=== PATIENT | female | born 1950 | race Caucasian/White ===

== ENCOUNTER → 2018-04-15 06:52 | Outpatient (CLI) | payer MEDICARE, OTHER, SELFPAY ==
[2018-04-15 09:40] LABS: Alanine Aminotransferase 25 IU/L (9-52); Albumin 4.1 g/dL (3.5-5.0); Albumin Globulin Ratio 1.4 (1.0-2.8); Alkaline Phosphatase 71 U/L (38-126); Aspartate Aminotransferase 20 IU/L (14-36); BUN Creatinine Ratio 24.3 (6-22); Bilirubin Total 0.5 mg/dL (0.2-1.3); Blood Urea Nitrogen 17 mg/dL (7-17); Carbon Dioxide 28 mmol/L (22-32); Chloride 103 mmol/L (98-107); Estimated Glomerular Filt Rate > 60.0 mL/min (>60); Globulin 2.9 g/dL (1.7-4.1); Glucose 85 mg/dL (80-110); HEMOLYSIS < 15 (0-50); Potassium 3.9 mmol/L (3.4-5.1); Sodium 140 mmol/L (137-145)
[2018-04-15 10:28] LABS: Vitamin B12 826 pg/mL (239-931)
== END ==
PROVIDERS: PCP Family Medicine
DX: R53.83 Other fatigue (principal); Z13.228 Encounter for screening for other metabolic disorders
CPT/HCPCS: 36415; 80053; 82607

== ENCOUNTER 2018-04-23 17:14 | Emergency (ER) | payer MEDICARE, OTHER, SELFPAY ==
[2018-04-23 17:17] VITALS: BP 165/82; PULSE 74; RESP 17; TEMP 36.9; O2SAT 100; BMI 21.3
--- NOTE | 2018-04-23 18:57 | ED.WOUNDLAC ---
HPI - Wound/Laceration <Jimena Felix PA-C - Last Filed: 04/23/18 22:16> General Chief Complaint: Wound/Laceration Stated Complaint: CUT LEFT THUMB Time Seen by Provider: 04/23/18 18:57 Source: patient Mode of arrival: ambulatory Limitations: no limitations History of Present Illness HPI narrative: This 67-year-old female cut her left thumb on a can lid when she tried to pry it up. She states it was bleeding freely and tender. She denies any weakness or paresthesia in the thumb. She denies any other injury or complaints. Tetanus vaccine is not up-to-date. Related Data Home Medications Medication Instructions Recorded Confirmed fluticasone [Flovent HFA] #0 06/19/16 levalbuterol tartrate [Xopenex HFA] PRN PRN #0 06/19/16 cholecalciferol (vitamin D3) 2,000 unit PO #0 cap 08/10/16 [Vitamin D3] [PROBIOTIC] #0 04/17/17 Previous Rx's Medication Instructions Recorded diazepam [Valium] 5 mg OR TIDP PRN #90 tab 06/23/17 Allergies Allergy/AdvReac Type Severity Reaction Status Date / Time diltiazem Allergy Intermediate chest pain Verified 04/23/18 17:17 estradiol Allergy Intermediate BURNING Verified 04/23/18 17:17 AND ITCHING adhesive Allergy Mild REDNESS & Verified 04/23/18 17:17 BURNING FROM TAPE budesonide Allergy Unknown ITCHY Verified 04/23/18 17:17 pseudoephedrine Allergy Unknown TACHYCARDIA Verified 04/23/18 17:17 Sulfa (Sulfonamide Allergy Unknown Verified 04/23/18 17:17 Antibiotics) azithromycin AdvReac Intermediate GI UPSET Verified 04/23/18 17:17 albuterol [ALBUTEROL] AdvReac Unknown INCREASED Verified 04/23/18 17:17 HEARTRATE butalbital AdvReac Unknown NAUSEA/VOMITING Verified 04/23/18 17:17 WITH FIORINAL carisoprodol AdvReac Unknown DIZZINESS Verified 04/23/18 17:17 AND UPSET STOMACH codeine AdvReac Unknown SEVERE Unverified 01/29/18 12:55 NAUSEA/VOMITING hydrocodone AdvReac Unknown SEVERE Unverified 01/29/18 12:55 NAUSEA/VOMITIND Review of Systems <Jimena Felix PA-C - Last Filed: 04/23/18 22:16> Review of Systems All systems reviewed & are unremarkable except as noted in HPI and below Exam <Jimena Felix PA-C - Last Filed: 04/23/18 22:16> Narrative Exam Narrative: GENERAL APPEARANCE: Patient sitting comfortably, in no distress. LUNGS: Clear to auscultation bilaterally. HEART: Rate and rhythm regular without murmur, normal S1 and S2, no S3 or S4. DERMATOLOGIC: On the left thumb pad distal to the IP joint there is a 4 cm curvilinear laceration no deeper than 3 mm at deepest depth centrally. There is a to to 4 mm gap. NEUROVASCULAR: Left thumb is warm and pink with brisk cap refill, sensation is grossly intact. The superficial fat is visible, no muscle, bone or tendon visible MUSCULOSKELETAL: Full range of motion of the left thumb. Strength is intact in all torres against resistance Initial Vital Signs Initial Vital Signs: Vital Signs Temperature 98.4 F 04/23/18 17:17 Pulse Rate 74 04/23/18 17:17 Respiratory Rate 17 04/23/18 17:17 Blood Pressure 165/82 H 04/23/18 17:17 Pulse Oximetry 100 04/23/18 17:17 <Martín Rey MD - Last Filed: 05/09/18 09:47> Initial Vital Signs Initial Vital Signs: Vital Signs Temperature 98.4 F 04/23/18 17:17 Pulse Rate 74 04/23/18 17:17 Respiratory Rate 17 04/23/18 17:17 Blood Pressure 165/82 H 04/23/18 17:17 Pulse Oximetry 100 04/23/18 17:17 Procedures <TIMOTEO Lee Last Filed: 04/23/18 22:16> Laceration Repair Laceration 1: Site: upper extremity Side (If applicable): left Size (cm): 4 Description: linear and clean Depth: simple, single layer Local Anesthetic: lidocaine 1% Amount of anesthesia used (mL): 4.5 Pre-repair: wound explored, irrigated extensively, deep structures intact and wound margins revised (sq fat trimmed from lateral side) Skin layer closed with: nylon Number of sutures: 7 Technique: simple, interrupted Course <Jimena Felix PA-C - Last Filed: 04/23/18 22:16> Additional Information: Orders Ordered: Discontinued Medications Diphtheria/Tetanus/Acell Pertussis (Adacel) 0.5 ml IM .ONCE ONE Stop: 04/23/18 19:14 Last Admin: 04/23/18 19:22 Dose: 0.5 ml Ibuprofen (Advil) 800 mg PO NOW ONE Stop: 04/23/18 19:14 Last Admin: 04/23/18 19:22 Dose: 800 mg Vital Signs - 8 hr 04/23/18 17:17 04/23/18 20:12 Temperature 98.4 F Pulse Rate 74 75 Respiratory Rate 17 16 Blood Pressure 165/82 H Blood Pressure [Left Arm] 139/74 H Pulse Oximetry 100 100 <Martín Rey MD - Last Filed: 05/09/18 09:47> Orders Ordered: Discontinued Medications Diphtheria/Tetanus/Acell Pertussis (Adacel) 0.5 ml IM .ONCE ONE Stop: 04/23/18 19:14 Last Admin: 04/23/18 19:22 Dose: 0.5 ml Ibuprofen (Advil) 800 mg PO NOW ONE Stop: 04/23/18 19:14 Last Admin: 04/23/18 19:22 Dose: 800 mg Vital Signs - 8 hr 04/23/18 17:17 04/23/18 20:12 Temperature 98.4 F Pulse Rate 74 75 Respiratory Rate 17 16 Blood Pressure 165/82 H Blood Pressure [Left Arm] 139/74 H Pulse Oximetry 100 100 Discharge Plan Departure Patient Disposition: Home, Self-Care Clinical Impression: Laceration of thumb Discharge Date/Time: 04/23/18 20:37 Interventions: ED Discharge Assessment Last Done: 04/23/18 20:37 Instructions: DI for Laceration Repair Activity Restrictions/Additional Instructions: Please keep your sutures clean and dry. Keep the dressing on your thumb to avoid pressure with all of the caregiving that you do. Keep pressure off of the wound so it can heal. Take 800 mg of ibuprofen every 8 hr if needed for pain and you can add Tylenol as needed. Return right away as we talked about or see your PCP if any signs of infection. Your suture should be ready to removed in about 7 days. Please schedule an appointment at your primary care office middle to end of next week (sutures can also be removed here or at the walk-in clinic if you have difficulty getting an appointment). Please take care of yourself too! It was wonderful to see pictures of your horses today Prescriptions: No Action fluticasone [Flovent HFA] 10.6 GM HFA aerosol inhaler Qty: 0 RF: 0 levalbuterol tartrate [Xopenex HFA] 45 MCG/INH HFA aerosol inhaler PRN PRNQty: 0 RF: 0 cholecalciferol (vitamin D3) [Vitamin D3] 2,000 UNIT capsule 2,000 unit PO Qty: 0 RF: 0 [PROBIOTIC] Qty: 0 RF: 0 diazepam [Valium] 5 MG tablet 5 mg OR TIDP PRNQty: 90 RF: 0 Referrals: Iban Hoover MD [Primary Care Provider] - <Martín Rey MD - Last Filed: 05/09/18 09:47> Sign Out Provider Sign Out Attestation: The PA/HOME HEALTH OUTREACH COORDINATOR functioned independently for the care of this pt, I was available, but not asked to participate in care. I am unable to determine appropriateness of management without personally examining the pt.
[2018-04-23] MEDS: IBUPROFEN 400 MG TABLET 800 MG PO (19:22)
[2018-04-23] MEDS: TET,DIPH,PERTUSS(ACELL),VAC/PF 0.5 ML SYRINGE IM (19:22)
[2018-04-23 20:12] VITALS: BP 139/74; PULSE 75; RESP 16; O2SAT 100
== END 2018-04-23 20:37 | disposition home or self-care (01) ==
PROVIDERS: Emergency Provider Internal Medicine; Family Provider Family Medicine; PCP Family Medicine
DX: S61.012A Laceration without foreign body of left thumb without damage to nail, initial encounter (principal); W26.8XXA Contact with other sharp object(s), not elsewhere classified, initial encounter
CPT/HCPCS: 12002; 90471; 99282; 99283; 90715

== ENCOUNTER → 2018-06-11 13:40 | Outpatient (CLI) | payer MEDICARE, OTHER, SELFPAY ==
--- NOTE | 2018-06-11 | DI.US.S_ITS ---
ULTRASOUND OF RIGHT BREAST: 06/11/2018 CLINICAL: 6 month follow-up of cysts. Patient returns today to evaluate a density in the right breast which was seen on a recent CT scan. Comparison is made to [facility] [facility], 05[facility]2018 [facility], 01/06/2018 ultrasound, and [facility] [facility]. Real-time and Doppler ultrasound of the right breast were performed. Pablo scale images of the real-time examination were reviewed. There is a stable 1.6 x 1.4 x 0.8 cm (previously 1.5 x 1.5 x 0.8 cm on 01/06/2018) oval cyst in the right breast at 8-9 o'clock middle depth 6 cm from the nipple. This oval cyst is demonstrates mixed internal echogenicity. Color flow imaging demonstrates that there is no vascularity present. This correlates with the asymmetry seen on diagnostic mammography. IMPRESSION: PROBABLY BENIGN - FOLLOW-UP RECOMMENDED Stable 1.6 cm complicated cyst in the right breast at 8-9 o'clock 6 cm from the nipple. A follow-up ultrasound in 6 months is recommended to demonstrate stability. The patient is advised to monitor her breasts and to return for re-evaluation should anything grow or change. This exam was interpreted at Station ID: [id number]. Electronically Signed By: Art Jimenez M.D. ecl/:06/11/2018 18:30:11 copy to: Iban Hoover letter sent: Followup Recommended Ultrasound BI-RADS: 3 Probably benign
--- NOTE | 2018-06-11 | DI.MG.S_ITS ---
BILATERAL DIGITAL DIAGNOSTIC MAMMOGRAM 3D/2D SHORT-TERM FOLLOW-UP: 06/11/2018 CLINICAL: Patient returns for 6 month follow up of right breast, due for bilateral exam. New finding on Ct report 05/05/18. Comparison is made to exams dated: 01/06/2018 mammogram and ultrasound, 07/08/2017 mammogram, 06/26/2017 mammogram - [facility], and 05/05/2018 [facility]. The tissue of both breasts is heterogeneously dense. This may lower the sensitivity of mammography. There is a stable asymmetry in the right breast posterior depth central to the nipple seen on the mediolateral oblique view only; this correlates with the previously identified 1.5 cm complicated cyst seen on comparison ultrasound of 01/06/2018. No other significant masses, calcifications, or other findings are seen in either breast. IMPRESSION: INCOMPLETE: NEEDS ADDITIONAL IMAGING EVALUATION Stable asymmetry in the right breast. Targeted ultrasound recommended for further evaluation. This exam was interpreted at Station ID: [id number]. NOTE: For mammograms, a report in lay terms will be sent to the patient. Approximately 15% of breast malignancies will not be visualized mammographically. In the management of a palpable breast mass, a negative mammogram must not discourage biopsy of a clinically suspicious lesion. Electronically Signed By: Art Jimenez M.D. ecl/:06/11/2018 18:25:27 copy to: Iban Hoover letter sent: Additional Imaging Needed ACR BI-RADS Category 0: Incomplete [id number]
== END ==
PROVIDERS: PCP Family Medicine
DX: R92.2 Inconclusive mammogram (principal); N60.01 Solitary cyst of right breast
CPT/HCPCS: 76642; 77066; G0279

== ENCOUNTER → 2018-07-22 14:35 | Outpatient (CLI) | payer MEDICARE, OTHER, SELFPAY | PROVIDERS: PCP Family Medicine | DX: M85.851 Other specified disorders of bone density and structure, right thigh (principal); Z78.0 Asymptomatic menopausal state; N95.0 Postmenopausal bleeding; Z82.62 Family history of osteoporosis; Z79.51 Long term (current) use of inhaled steroids | CPT/HCPCS: 77080 ==

== ENCOUNTER → 2018-10-26 10:05 | Outpatient (CLI) | payer MEDICARE, OTHER, SELFPAY | PROVIDERS: PCP Family Medicine; Visit Provider Physician Assistant | DX: R30.0 Dysuria (principal) | CPT/HCPCS: 87077; 87086; 87186 ==

== ENCOUNTER → 2018-11-03 12:20 | Outpatient (CLI) | payer MEDICARE, OTHER, SELFPAY | PROVIDERS: PCP Family Medicine; Visit Provider Physician Assistant | DX: N39.0 Urinary tract infection, site not specified (principal) | CPT/HCPCS: 87077; 87086; 87186 ==

== ENCOUNTER → 2018-11-05 07:25 | Outpatient (CLI) | payer MEDICARE, OTHER, SELFPAY ==
[2018-11-05 09:45] LABS: BUN Creatinine Ratio 22.5 (6-22); Blood Urea Nitrogen 18 mg/dL (7-17); Calcium 9.3 mg/dL (8.4-10.2); Carbon Dioxide 27 mmol/L (22-32); Chloride 104 mmol/L (98-107); Cholesterol 188 mg/dL (140-199); Estimated Glomerular Filt Rate > 60.0 mL/min (>60); Glucose 80 mg/dL (80-110); HDL Cholesterol 48 mg/dL (40-60); HEMOLYSIS < 15 (0-50); LDL Cholesterol Calculated 116 mg/dL (<100); Potassium 4.4 mmol/L (3.4-5.1); Sodium 141 mmol/L (137-145); Triglycerides 122 mg/dL (35-150)
== END ==
PROVIDERS: Family Provider Family Medicine; PCP Family Medicine; Visit Provider Nurse Practitioner
DX: I25.10 Atherosclerotic heart disease of native coronary artery without angina pectoris (principal); R00.2 Palpitations
CPT/HCPCS: 36415; 80048; 80061

== ENCOUNTER → 2018-11-25 15:14 | Outpatient (CLI) | payer MEDICARE, OTHER, SELFPAY | PROVIDERS: Family Provider Family Medicine; PCP Family Medicine; Visit Provider Physician Assistant | DX: N39.0 Urinary tract infection, site not specified (principal) | CPT/HCPCS: 87077; 87086; 87186 ==

== ENCOUNTER → 2018-12-22 08:27 | Outpatient (CLI) | payer MEDICARE, OTHER, SELFPAY ==
--- NOTE | 2018-12-22 | DI.US.S_ITS ---
LIMITED ULTRASOUND OF RIGHT BREAST: 12/22/2018 CLINICAL: 6 month follow-up of a complicated cystic structure in the [facility] breast. Comparison is made to exams dated: 12/22/2018 mammogram, 06/11/2018 ultrasound, 06/11/2018 mammogram, 01/06/2018 ultrasound, 01/06/2018 mammogram, and 07/08/2017 ultrasound - [facility]. Color flow and real-time ultrasound of the right breast 8-9 o'clock region were performed on the areas of interest. There is 1.3 cm x 0.8 cm x 1.4 cm oval complicated cyst in the right breast at 8 o'clock middle depth. This oval complicated cyst is anechoic and hypoechoic with internal echoes and posterior acoustic enhancement. This abnormality is not significantly changed and correlates with mammography findings. Color flow imaging demonstrates that there is no vascularity present. IMPRESSION: PROBABLY BENIGN The 1.3 cm x 0.8 cm x 1.4 cm oval complicated cyst in the right breast is consistent with a complicated cyst and is probably benign. A follow-up ultrasound in 6 months is recommended. A follow-up ultrasound in 6 months is recommended to demonstrate 2 year stability. Patient is also due for screening mammogram at that time in 6 months. This exam was interpreted at Station ID: [id number]. Electronically Signed By: Iggy toney/:12/24/2018 11:24:27 copy to: Iban Hoover letter sent: Followup Recommended Ultrasound BI-RADS: 3 Probably benign
--- NOTE | 2018-12-22 | DI.MG.S_ITS ---
UNILATERAL RIGHT DIGITAL DIAGNOSTIC MAMMOGRAM 3D/2D SHORT-TERM FOLLOW-UP: 12/22/2018 CLINICAL: Patient returns for a 6 month follow up of the right breast. Comparison is made to exams dated: 06/11/2018 ultrasound, 06/11/2018 mammogram, 01/06/2018 ultrasound, and 01/06/2018 mammogram - [facility]. The tissue of right breast is heterogeneously dense. This may lower the sensitivity of mammography. There is an oval equal density mass with an obscured and circumscribed margin in the right breast at 8 o'clock posterior depth. This is not significantly changed. No other significant masses or calcifications are seen in the breast. IMPRESSION: INCOMPLETE: NEEDS ADDITIONAL IMAGING EVALUATION The oval equal density mass in the right breast is indeterminate. An ultrasound is recommended. This exam was interpreted at Station ID: [id number]. NOTE: For mammograms, a report in lay terms will be sent to the patient. Approximately 15% of breast malignancies will not be visualized mammographically. In the management of a palpable breast mass, a negative mammogram must not discourage biopsy of a clinically suspicious lesion. Electronically Signed By: Iggy toney/ciaran:12/22/2018 09:08:45 copy to: Iban Hoover letter sent: Additional Imaging Needed ACR BI-RADS Category 0: Incomplete [id number]
== END ==
PROVIDERS: PCP Family Medicine
DX: R92.8 Other abnormal and inconclusive findings on diagnostic imaging of breast (principal); N60.01 Solitary cyst of right breast
CPT/HCPCS: 76642; 77065; G0279

== ENCOUNTER 2018-12-31 16:56 | Emergency (ER) | payer MEDICARE, OTHER, SELFPAY ==
[2018-12-31 17:18] VITALS: BP 143/83; PULSE 86; RESP 18; TEMP 36.8; O2SAT 98
--- NOTE | 2018-12-31 21:40 | DI.CT.S_ITS ---
PROCEDURE: CT HEAD/BRAIN WO CON INDICATIONS: visual disturbance, headache TECHNIQUE: Noncontrast 4.5 mm thick angled axial sections acquired from the foramen magnum to the vertex, with coronal and sagittal reformats. For radiation dose reduction, the following was used: automated exposure control, adjustment of mA and/or kV according to patient size. COMPARISON: None. FINDINGS: Image quality: Excellent. CSF spaces: Basal cisterns are patent. No extra-axial fluid collections. The ventricles are symmetric in size and shape. Brain: No intracranial bleeds or masses. There is mild cerebral volume loss for age, with resultant ventricular and sulcal prominence. There are minimal periventricular and deep white matter chronic small vessel ischemic changes. Skull and face: Calvarium and visualized facial bones appear intact, without suspicious lesions. Sinuses: Visualized sinuses and mastoids are clear. IMPRESSION: No acute intracranial disease process. Dictated by: Desiree Lemos MD, PhD on 01/01/2019 at 8:23 Approved by: Desiree Lemos MD, PhD on 01/01/2019 at 8:25
[2018-12-31] MEDS: KETOROLAC 60 MG/2 ML VIAL 15 MG IV (21:50)
[2018-12-31] MEDS: SODIUM CHLORIDE 0.9% 1,000 ML 150 ML IV (21:50)
[2018-12-31 21:54] VITALS: BP 149/79; PULSE 65; RESP 15; O2SAT 97
[2018-12-31 22:03] LABS: Add Manual Diff / Slide Review NO; Basophils Absolute Auto 100 /uL (0-100); Basophils Percent Auto 1.1 % (0-2); Eosinophils Absolute Auto 200 /uL (0-450); Eosinophils Percent Auto 2.8 % (2-4); Hematocrit 40.8 % (36-46); Hemoglobin 13.5 g/dL (12.0-16.0); Lymphocytes Absolute Auto 1700 /uL (1100-4500); Lymphocytes Percent Auto 27.3 % (25-40); Mean Corpuscular Volume 87.8 fL (80-100); Monocytes Absolute Auto 600 /uL (0-900); Monocytes Percent Auto 9.4 % (3-14); Neutrophils Absolute Auto 3600 /uL (1500-7000); Neutrophils Percent Auto 59.4 % (50-75); Platelet Count 190 X10^3/uL (150-400); Red Blood Cell Count 4.65 X10^6/uL (4.0-5.2); Red Cell Distribution Width 13.7 % (11.6-14.8); White Blood Cell Count 6.1 X10^3/uL (4.5-11.0)
--- NOTE | 2018-12-31 22:04 | ED_ITS ---
HPI - Headache General Chief Complaint: Headache Stated Complaint: MULTIPLE OCCULAR HEADACHES TODAY Time Seen by Provider: 12/31/18 19:28 Source: patient Mode of arrival: ambulatory Limitations: no limitations History of Present Illness HPI Narrative: 68-year-old female nonsmoker with history of ocular migraines pre sents with 8 episodes of flashing visual disturbance in her right eye today. Each of these have lasted approximately 20 min. They are very similar to prior ocular migraines except usually they are in her left. She denies any new medicines injuries nor fever or chills. She is currently asymptomatic. She consulted with her primary care provider who told her to come in for evaluation. She denies any other neurologic symptoms such as trouble with speech or numbness, tingling or weakness extremities MD Complaint: migraine Onset (ago): hour(s) Onset description: sudden Location: right Severity: mild Quality: similar to previous headaches Relieving factors: nothing Exacerbating factors: none Associated symptoms: photophobia and vision loss Related Data Home Medications Medication Instructions Recorded Confirmed fluticasone [Flovent HFA] #0 06/19/16 11/25/18 levalbuterol tartrate [Xopenex HFA] PRN PRN #0 06/19/16 11/25/18 cholecalciferol (vitamin D3) 2,000 unit PO #0 cap 08/10/16 11/25/18 [Vitamin D3] [PROBIOTIC] #0 04/17/17 11/25/18 Previous Rx's Medication Instructions Recorded diazepam [Valium] 5 mg OR TIDP PRN #90 tab 06/23/17 Allergies Allergy/AdvReac Type Severity Reaction Status Date / Time diltiazem Allergy Intermediate chest pain Verified 12/31/18 17:24 estradiol Allergy Intermediate BURNING Verified 12/31/18 17:24 AND ITCHING adhesive Allergy Mild REDNESS & Verified 12/31/18 17:24 BURNING FROM TAPE budesonide Allergy Unknown ITCHY Verified 12/31/18 17:24 pseudoephedrine Allergy Unknown TACHYCARDIA Verified 12/31/18 17:24 Sulfa (Sulfonamide Allergy Unknown Verified 12/31/18 17:24 Antibiotics) azithromycin AdvReac Intermediate GI UPSET Verified 12/31/18 17:24 albuterol [ALBUTEROL] AdvReac Unknown INCREASED Verified 12/31/18 17:24 HEARTRATE butalbital AdvReac Unknown NAUSEA/VOMITING Verified 12/31/18 17:24 WITH FIORINAL carisoprodol AdvReac Unknown DIZZINESS Verified 12/31/18 17:24 AND UPSET STOMACH codeine AdvReac Unknown SEVERE Verified 11/25/18 15:09 NAUSEA/VOMITING hydrocodone AdvReac Unknown SEVERE Verified 11/25/18 15:09 NAUSEA/VOMITIND Review of Systems Constitutional Denies chills, Denies fever(s), Denies lethargy and Denies weakness Eyes Reports blurry vision, Reports change in vision, Denies eye discharge, Denies ir ritation and Denies loss of vision ENT Ears, Nose, Mouth, and Throat: Denies change in voice, Denies neck pain and Denies sore throat Cardiovascular Denies chest pain, Denies irregular heart rhythm, Denies lightheadedness, Denies palpitations, Denies dyspnea, Denies dyspnea on exertion and Denies orthopnea Respiratory Denies cough, Denies dyspnea, Denies dyspnea on exertion and Denies wheezing Gastrointestinal Gastrointestinal: Denies abdominal pain, Denies change in bowel habits, Denies diarrhea, Denies nausea and Denies vomiting Genitourinary Denies hematuria, Denies flank pain, Denies urinary incontinence and Denies urinary urgency Musculoskeletal Denies neck pain Integumentary/Breasts Denies pruritus, Denies erythema, Denies rash and Denies wounds Neurologic Denies confusion, Denies loss of vision and Denies weakness Psychiatric Denies anxiety, Denies confusion, Denies depression, Denies homicidal ideation and Denies suicidal ideation Endocrine Denies palpitations Hematologic/Lymphatic Denies easy bruising Allergic/Immunologic Denies wheezing [facility] Medical History Anxiety (Chronic) Non-tuberculous bronchiectasis (Chronic) Chronic cough (Chronic) Raynaud's disease (Chronic) Recurrent UTI (Chronic) Osteoarthritis (Chronic) Migraines (Chronic) Breast nodule (Chronic) Anxiety (Chronic 08/12/15) Menopause present (Chronic 08/12/15) Chronic fatigue (Chronic 09/28/16) Dizziness (Chronic 09/28/16) History of fracture of right ankle (Resolved 1981) Positive PPD, treated (Resolved ~1982) Surgical History Hx of appendectomy (Resolved) Hx of surgical procedure (Resolved 2006) Family History Father No problems noted. Mother No problems noted. Social History Smoking Status: Never smoker alcohol intake: current Family History Father No problems noted. Mother No problems noted. Social History Smoking Status: Never smoker alcohol intake: current Exam Narrative Exam Narrative: GENERAL: This is a well-nourished, well-developed patient, in mild distress. HEAD: Atraumatic. Normocephalic. No temporal or scalp tenderness. EYES: Pupils equal round and reactive. Extraocular motions intact. No scleral icterus. No injection or drainage. ENT: Nose without bleeding, purulent drainage or septal hematoma. Throat without erythema, tonsillar hypertrophy or exudate. Uvula midline. Airway patent. NECK: Trachea midline. No JVD or lymphadenopathy. Supple, nontender, no meningeal signs. CARDIOVASCULAR: Regular rate and rhythm without murmurs, gallops, or rubs. RESPIRATORY: Clear to auscultation. Breath sounds equal bilaterally. No wheezes, rales, or rhonchi. GASTROINTESTINAL: Abdomen soft, non-tender, nondistended. No hepato- splenomegaly, or palpable masses. No guarding. EXTREMITIES: No clubbing, cyanosis, or edema. No joint tenderness, effusion, or edema noted. BACK: Nontender without deformity or crepitance. No flank tenderness. NEURO: AOx3. SKIN: No rash or erythema. NIH Stroke Scale 1a. LOC: Patient is alert and keenly responsive (0) 1b. LOC Questions: Patient answers both LOC questions accurately (0) 1c. LOC Commands: Patient performs both tasks correctly (0) 2. Best Gaze: Normal (0) 3. Visual: No visual loss (0) 4. Facial palsy: Normal symmetrical movements (0) 5. Motor arm: No drift (0) 6. Motor leg: No drift (0) 7. Limb ataxia: Absent (0) 8. Sensory: Normal (0) 9. Best language: No aphasia; normal (0) 10. Dysarthria: Normal (0) 11. Extinction and inattention: No abnormality (0) NIHSS: 0 Initial Vital Signs Initial Vital Signs: Vital Signs Temperature 98.2 F 12/31/18 17:18 Pulse Rate 86 12/31/18 17:18 Respiratory Rate 18 12/31/18 17:18 Blood Pressure 143/83 H 12/31/18 17:18 Pulse Oximetry 98 12/31/18 17:18 Course Orders Ordered: Discontinued Medications Sodium Chloride (Normal Saline 0.9%) 1,000 mls @ 150 mls/hr IV CONT LELE Last Infusion: 12/31/18 22:49 Dose: 150 mls/hr Admin: 12/31/18 21:50 Dose: 150 mls/hr Ketorolac Tromethamine (Toradol) 15 mg IV NOW ONE Stop: 12/31/18 21:42 Last Admin: 12/31/18 21:50 Dose: 15 mg Consultations Consultation #1: I have discussed this patient's case with her retinal specialist in [place] and he suggests that the description of her symptoms is most consistent with an ocular migraine. He suggests if the patient has ongoing symptoms to be happy see her clinic Vital Signs - 8 hr 12/31/18 23:30 01/01/19 01:00 01/01/19 01:30 Pulse Rate 68 85 80 Respiratory Rate 14 18 15 Blood Pressure Blood Pressure [Left Arm] 161/75 H 134/71 134/71 Pulse Oximetry 99 98 100 01/01/19 03:00 Pulse Rate 69 Respiratory Rate 14 Blood Pressure 139/79 Blood Pressure [Left Arm] Pulse Oximetry 98 MDM - Headache Lab Data Result diagrams: 12/31/18 21:58 12/31/18 21:58 Lab Results 12/31/18 12/31/18 12/31/18 Range/Units 21:58 21:58 21:58 WBC 6.1 (4.5-11.0) X10^3/uL RBC 4.65 (4.0-5.2) X10^6/uL Hgb 13.5 (12.0-16.0) g/dL Hct 40.8 (36-46) % MCV 87.8 (80-100) fL MCH 29.0 (26-34) PG MCHC 33.0 (30-36) % RDW 13.7 (11.6-14.8) % Plt Count 190 (150-400) X10^3/uL Neut % (Auto) 59.4 (50-75) % Lymph % (Auto) 27.3 (25-40) % [place] % (Auto) 9.4 (3-14) % Eos % (Auto) 2.8 (2-4) % Baso % (Auto) 1.1 (0-2) % Neut # (Auto) 3600 (7601-1761) /uL Lymph # (Auto) 1700 (6935-5485) /uL [place] # (Auto) 600 (0-900) /uL Eos # (Auto) 200 (0-450) /uL Baso # (Auto) 100 (0-100) /uL PT 11.3 (10.1-12.7) SECONDS INR 1.0 (0.9-1.3) APTT 31 (26.4-36.2) SECONDS Sodium 141 (137-145) mmol/L Potassium 4.1 (3.4-5.1) mmol/L Chloride 106 (98-107) mmol/L Carbon Dioxide 28 (22-32) mmol/L BUN 16 (7-17) mg/dL Creatinine 0.70 (0.52-1.04) mg/dL Estimated GFR > 60.0 (>60) mL/min BUN/Creatinine Ratio 22.9 H (6-22) Glucose 92 (80-110) mg/dL Calcium 9.3 (8.4-10.2) mg/dL Point of Care Testing Glucose POC 84 Urine Dip Bedside Urine Glucose Negative Bedside Urine Bilirubin - Negative Bedside Urine Ketone - Negative Urine Specific [place] 1.015 Bedside Urine Occult Blood - Negative Bedside Urine pH 6.5 Bedside Urine Protein - Negative Bedside Urine Urobilinogen - Negative Bedside Urine Nitrite - Negative Bedside Urine Leukocytes - Negative Esterase Discharge Plan Departure Patient Disposition: Home Clinical Impression: Visual disturbance Migraines Qualifiers: Migraine type: with aura Status migrainosus presence: without status migrainosus Intractability: not intractable Qualified Code(s): G43.109 - Migraine with aura, not intractable, without status migrainosus Discharge Date/Time: 01/01/19 03:00 Interventions: ED Discharge Assessment Last Done: 01/01/19 03:00 Instructions: DI for Migraine Activity Restrictions/Additional Instructions: *You have been diagnosed with [vision change, likely from ocular migraine ] *What to do: *Take medications as directed *Follow up with your primary care provider in 2-3 days, call for an appointment. Let them know you were seen in the Emergency Department and that we ask that you be seen in follow up *Return to ER if you should have any new, worsening or concerning symptoms Prescriptions: No Action fluticasone [Flovent HFA] 10.6 GM HFA aerosol inhaler Qty: 0 RF: 0 levalbuterol tartrate [Xopenex HFA] 45 MCG/INH HFA aerosol inhaler PRN PRNQty: 0 RF: 0 cholecalciferol (vitamin D3) [Vitamin D3] 2,000 UNIT capsule 2,000 unit PO Qty: 0 RF: 0 [PROBIOTIC] Qty: 0 RF: 0 diazepam [Valium] 5 MG tablet 5 mg OR TIDP PRNQty: 90 RF: 0 Referrals: Iban Hoover MD [Primary Care Provider] -
[2018-12-31 22:09] LABS: Prothrombin Time 11.3 SECONDS (10.1-12.7)
[2018-12-31 22:11] LABS: PTT Partial Thromboplastin Tim 31 SECONDS (26.4-36.2)
[2018-12-31 22:13] LABS: BUN Creatinine Ratio 22.9 (6-22); Blood Urea Nitrogen 16 mg/dL (7-17); Calcium 9.3 mg/dL (8.4-10.2); Carbon Dioxide 28 mmol/L (22-32); Chloride 106 mmol/L (98-107); Estimated Glomerular Filt Rate > 60.0 mL/min (>60); Glucose 92 mg/dL (80-110); HEMOLYSIS < 15 (0-50); Potassium 4.1 mmol/L (3.4-5.1); Sodium 141 mmol/L (137-145)
--- NOTE | 2018-12-31 23:00 | PC.NURSE ---
Pt states PARK with 8 episodes of flashing to her right eye lasting approximately 20 min today. Similar to prior ocular PARK that usually occurs to Left eye. She denies any other neurological symptoms such as trouble with speech or numbness, tingling or weakness extremities. Pt states called PCP and was told to come into ER.
[2018-12-31 23:30] VITALS: BP 161/75; PULSE 68; RESP 14; O2SAT 99
[2019-01-01 01:00] VITALS: BP 134/71; PULSE 85; RESP 18; O2SAT 98
[2019-01-01 01:30] VITALS: BP 134/71; PULSE 80; RESP 15; O2SAT 100
[2019-01-01 03:00] VITALS: BP 139/79; PULSE 69; RESP 14; O2SAT 98
== END 2019-01-01 03:00 | disposition home or self-care (01) ==
PROVIDERS: Emergency Provider Emergency Medicine; Family Provider Family Medicine; PCP Family Medicine
DX: G43.109 Migraine with aura, not intractable, without status migrainosus (principal); H53.9 Unspecified visual disturbance
CPT/HCPCS: 36591; 70450; 80048; 81003; 82962; 85025; 85610; 85730; 93005; 96361; 96374; 99284; 99285; J1885

== ENCOUNTER → 2019-06-29 09:03 | Outpatient (CLI) | payer MEDICARE, OTHER, SELFPAY ==
--- NOTE | 2019-06-29 | DI.MG.S_ITS ---
BILATERAL DIGITAL DIAGNOSTIC MAMMOGRAM 3D/2D: 06/29/2019 CLINICAL: Patient returns for 6 month follow up of right breast, due for bilateral exam. Comparison is made to exams dated: 12/22/2018 mammogram, 06/11/2018 mammogram, 07/08/2017 mammogram, and 06/26/2017 mammogram - [facility]. The tissue of both breasts is heterogeneously dense. This may lower the sensitivity of mammography. Redemonstration of an oval equal density mass with an obscured and circumscribed margin in the right breast at 8 o'clock middle depth which appears less prominent. No other significant masses, calcifications, or other findings are seen in either breast. IMPRESSION: INCOMPLETE: NEEDS ADDITIONAL IMAGING EVALUATION The oval equal density mass in the right breast is indeterminate. Further evaluation by sonogram is recommended which is scheduled to immediately follow this examination. This exam was interpreted at Station ID: [id number]. NOTE: For mammograms, a report in lay terms will be sent to the patient. Approximately 15% of breast malignancies will not be visualized mammographically. In the management of a palpable breast mass, a negative mammogram must not discourage biopsy of a clinically suspicious lesion. Electronically Signed By: Andre Kelly M.D. aty/:06/29/2019 10:02:23 ACR BI-RADS Category 0: Incomplete [id number]
--- NOTE | 2019-06-29 | DI.US.S_ITS ---
ULTRASOUND OF RIGHT BREAST: 06/29/2019 CLINICAL: 6 month follow-up of cyst right breast. Comparison is made to exams dated: 06/29/2019 mammogram, 12/22/2018 ultrasound, 12/22/2018 mammogram, 06/11/2018 ultrasound, 06/11/2018 mammogram, ultrasound 07/08/2017, and 01/06/2018 [facility]. Color flow and real-time ultrasound of the right breast were performed. Pablo scale images of the real-time examination were reviewed. There is a stable 1.5 cm x 0.7 cm x 1.2 cm oval complicated cyst in the right breast at 8 o'clock middle depth 6 cm from the nipple. This oval complicated cyst is anechoic and hypoechoic with internal echoes and posterior acoustic enhancement. This abnormality is not significantly changed and correlates with mammography findings. Color flow imaging demonstrates that there is no vascularity present. IMPRESSION: BENIGN There is no sonographic evidence of malignancy. The 1.5 cm x 0.7 cm x 1.2 cm oval hypoechoic mass in the right breast at the 8 o'clock axis, 6 cm from the nipple has remained stable for 2 years is consistent with a benign complicated cyst. Return to annual mammogram screening schedule is recommended. This exam was interpreted at Station ID: [id number]. Electronically Signed By: Andre Kelly M.D. at/:06/29/2019 13:43:46 letter sent: Normal Exam Ultrasound BI-RADS: 2 Benign
[2019-06-29 11:12] LABS: Alanine Aminotransferase 17 IU/L (9-52); Albumin 4.4 g/dL (3.5-5.0); Albumin Globulin Ratio 1.5 (1.0-2.8); Alkaline Phosphatase 62 U/L (38-126); Aspartate Aminotransferase 25 IU/L (14-36); BUN Creatinine Ratio 27.1 (6-22); Bilirubin Total 0.4 mg/dL (0.2-1.3); Blood Urea Nitrogen 19 mg/dL (7-17); Calcium 9.7 mg/dL (8.4-10.2); Carbon Dioxide 30 mmol/L (22-32); Chloride 103 mmol/L (98-107); Estimated Glomerular Filt Rate > 60.0 mL/min (>60); Globulin 2.9 g/dL (1.7-4.1); Glucose 89 mg/dL (80-110); HEMOLYSIS < 15 (0-50); Potassium 4.1 mmol/L (3.4-5.1); Sodium 141 mmol/L (137-145); Total Protein 7.3 g/dL (6.3-8.2)
== END ==
PROVIDERS: Family Provider Family Medicine; PCP Family Medicine
DX: R92.8 Other abnormal and inconclusive findings on diagnostic imaging of breast (principal); N63.13 Unspecified lump in the right breast, lower outer quadrant; Z13.228 Encounter for screening for other metabolic disorders
CPT/HCPCS: 36415; 76642; 77066; 80053; G0279

== ENCOUNTER → 2019-07-08 17:38 | Outpatient (CLI) | payer MEDICARE, OTHER, SELFPAY | PROVIDERS: Family Provider Family Medicine; PCP Family Medicine; Visit Provider Physician Assistant | DX: R30.0 Dysuria (principal); R31.9 Hematuria, unspecified; R82.998 Other abnormal findings in urine | CPT/HCPCS: 87077; 87086; 87186 ==

== ENCOUNTER 2019-08-07 16:39 | Emergency (ER) | payer MEDICARE, OTHER, SELFPAY ==
[2019-08-07] VITALS (8 sets, daily range): BP systolic 130–191; BP diastolic 65–86; PULSE 71–87; RESP 10–18; TEMP 36.5; O2SAT 97–100; BMI 21.3
--- NOTE | 2019-08-07 17:20 | DI.RAD.S_ITS ---
PROCEDURE: XR CHEST 1V INDICATIONS: chest pain TECHNIQUE: One view of the chest was acquired. COMPARISON: None. FINDINGS: Surgical changes and devices: None. Lungs and pleura: Lungs are clear. No pleural effusions or pneumothorax. Mediastinum: Mediastinal contours appear normal. Heart size is normal. Bones and chest wall: No suspicious bony lesions. Overlying soft tissues appear unremarkable. IMPRESSION: No acute cardiopulmonary findings. Dictated by: Maria Antonia Arias M.D. on 08/07/2019 at 18:26 Approved by: Maria Antonia Arias M.D. on 08/07/2019 at 18:26
--- NOTE | 2019-08-07 17:31 | ED_ITS ---
HPI - Chest Pain <Arti Rolandsingh, DO - Last Filed: 08/08/19 07:16> General Chief Complaint: Chest Pain Stated Complaint: Chest is feeling funny Time Seen by Provider: 08/07/19 16:59 Source: patient Mode of arrival: Ambulatory Limitations: no limitations History of Present Illness HPI narrative: Patient is a 69-year-old female who presents with chest discomfort. He says she woke up this morning with some heaviness on her chest that lasted for about 5 minutes she thought it was acid reflux she took 4 baby aspirin this morning at home. Rest today she was doing well able to sew and watch TV no difficulty. This evening she got up and was walking to see the horses when she again felt the pressure felt short of breath with exertion, she had to go inside where her symptoms resolved. She now in the emergency department for further evaluation she no longer has any discomfort. MD complaint: chest pain Duration: now resolved Onset: during exertion Pain location: substernal Related Data Home Medications Medication Instructions Recorded Confirmed Flovent HFA 1 inh INHALATION DIRECTED #0 06/19/16 08/07/19 levalbuterol tartrate [Xopenex HFA] 1 puff INHALATION PRN PRN #0 06/19/16 08/07/19 cholecalciferol (vitamin D3) 2,000 unit PO DAILY #0 cap 08/10/16 08/07/19 [Vitamin D3] Probiotic 1 cap PO DAILY #0 04/17/17 08/07/19 aspirin 81 mg tablet,delayed 81 mg PO DAILY 02/09/19 08/07/19 release diazepam [Valium] 5 mg OR TIDP PRN 08/07/19 08/07/19 [id number] 1 tab PO DAILY 08/07/19 08/07/19 [Centrum Silver] Allergies Allergy/AdvReac Type Severity Reaction Status Date / Time diltiazem Allergy Intermediate chest pain Verified 08/07/19 16:46 estradiol Allergy Intermediate BURNING Verified 08/07/19 16:46 AND ITCHING adhesive Allergy Mild REDNESS & Verified 08/07/19 16:46 BURNING FROM TAPE budesonide Allergy Unknown ITCHY Verified 08/07/19 16:46 pseudoephedrine Allergy Unknown TACHYCARDIA Verified 08/07/19 16:46 Sulfa (Sulfonamide Allergy Unknown Verified 08/07/19 16:46 Antibiotics) azithromycin AdvReac Intermediate GI UPSET Verified 08/07/19 16:46 albuterol [ALBUTEROL] AdvReac Unknown INCREASED Verified 08/07/19 16:46 HEARTRATE butalbital AdvReac Unknown NAUSEA/VOMITING Verified 08/07/19 16:46 WITH FIORINAL carisoprodol AdvReac Unknown DIZZINESS Verified 08/07/19 16:46 AND UPSET STOMACH codeine AdvReac Unknown SEVERE Verified 08/07/19 16:46 NAUSEA/VOMITING hydrocodone AdvReac Unknown SEVERE Verified 08/07/19 16:46 NAUSEA/VOMITIND Review of Systems <Arti Bryson DO - Last Filed: 08/08/19 07:16> Review of Systems Narrative: GENERAL: Denies chills, fatigue, malaise, fever, sweats, travel HEENT: Denies sinus pain, ear pain, sore throat, difficulty swallowing, neck pain RESPIRATORY: Denies dyspnea, cough, wheezing, hemoptysis, sputum. CARDIOVASCULAR: See HPI GASTROINTESTINAL: Denies nausea, vomiting, abdominal pain, diarrhea, constipation, melena. : Denies dysuria, frequency, incontinence, hematuria, urinary retention, flank pain. MUSCULOSKELETAL: Denies weakness, joint pain, or bony pain SKIN: No rash, no erythema, no pruritus NEUROLOGIC: Denies weakness, dizziness, headache, numbness, change in speech, c onfusion PSYCHIATRIC: No concerning psychosocial issues. 12 point review of systems is negative except for those stated above and HPI Patient History <Arti Bryson DO - Last Filed: 08/08/19 07:16> Medical History Anxiety (Chronic 08/12/15) Anxiety (Chronic) Breast nodule (Chronic) Chronic cough (Chronic) Chronic fatigue (Chronic 09/28/16) Dizziness (Chronic 09/28/16) History of fracture of right ankle (Resolved 1981) Menopause present (Chronic 08/12/15) Migraines (Chronic) Non-tuberculous bronchiectasis (Chronic) Osteoarthritis (Chronic) Positive PPD, treated (Resolved ~1982) Raynaud's disease (Chronic) Recurrent UTI (Chronic) Surgical History Hx of appendectomy (Resolved) Hx of surgical procedure (Resolved 2006) Family History Father No problems noted. Mother No problems noted. Social History Smoking Status: Never smoker alcohol intake: current Family History Father No problems noted. Mother No problems noted. Social History Smoking Status: Never smoker alcohol intake: current alcohol intake frequency: 0-2 drinks per day Substance Use Type: does not use Exam <DO Los Fernandes Last Filed: 08/08/19 07:16> Initial Vital Signs Initial Vital Signs: Vital Signs Temperature 97.7 F 08/07/19 16:47 Pulse Rate 87 08/07/19 16:47 Respiratory Rate 13 08/07/19 16:47 Blood Pressure 191/82 H 08/07/19 16:47 Pulse Oximetry 100 08/07/19 16:47 GENERAL: Well-appearing, well-nourished and in no acute distress. HEENT: Head atraumatic,EOMI, pupils reactive, face symmetric, moist mucous membranes CARDIOVASCULAR: Regular rate and rhythm without murmurs, rubs or gallops. RESPIRATORY: Breath sounds equal bilaterally, no wheezes rales or rhonchi. ABDOMEN: Soft, nontender. Normoactive bowel sounds all 4 quadrants. No guarding or rebound. EXTREMITIES: Normal range of motion, no clubbing or edema. Neurovascularly intact NEUROLOGICAL: Alert and oriented x4.Normal gait and speech. Cranial nerves II through XII grossly intact. SKIN: Warm, dry, no laceration, no petechiae, no rashes or lesions. <Bright Yo DO - Last Filed: 08/08/19 03:45> Initial Vital Signs Initial Vital Signs: Vital Signs Temperature 97.7 F 08/07/19 16:47 Pulse Rate 87 08/07/19 16:47 Respiratory Rate 13 08/07/19 16:47 Blood Pressure 191/82 H 08/07/19 16:47 Pulse Oximetry 100 08/07/19 16:47 Scores <Arti Bryson DO - Last Filed: 08/08/19 07:16> HEART Score Heart Score history: Moderately Suspicious Heart Score EKG: Normal Heart Score Age: > or = 65 years old Heart Score risk factors: No known risk factors Heart Score troponin: < or = to normal limit Heart Score Total: 3 Course <Arti Bryson, - Last Filed: 08/08/19 07:16> Orders Ordered: ED Orders 08/07/19 19:50 Troponin I Stat 08/07/19 19:53 Urine Culture Stat Urine Microscopic Stat 08/07/19 20:07 EKG-12 Lead Routine Vital Signs Vital signs: Vital Signs - 8 hr 08/07/19 19:30 08/07/19 20:30 08/07/19 21:04 Pulse Rate 76 83 72 Respiratory Rate 15 10 L Blood Pressure [Right Arm] 169/86 H 139/82 139/77 Pulse Oximetry 99 98 98 08/07/19 21:30 08/07/19 22:00 08/07/19 22:30 Pulse Rate 75 73 71 Respiratory Rate 18 15 11 L Blood Pressure [Right Arm] 144/65 H 137/79 130/79 Pulse Oximetry 97 99 97 <Bright Yo, DO - Last Filed: 08/08/19 03:45> Course Course Narrative: patietn received in sign out from Dr. Bryson. Awaiting call back from [facility] hospitalist. Patient continues to be pain free. Hospitalist has called back and is happy to accept. Orders Ordered: ED Orders 08/07/19 19:50 Troponin I Stat 08/07/19 19:53 Urine Culture Stat Urine Microscopic Stat 08/07/19 20:07 EKG-12 Lead Routine Vital Signs Vital signs: Vital Signs - 8 hr 08/07/19 19:30 08/07/19 20:30 08/07/19 21:04 Pulse Rate 76 83 72 Respiratory Rate 15 10 L Blood Pressure [Right Arm] 169/86 H 139/82 139/77 Pulse Oximetry 99 98 98 08/07/19 21:30 08/07/19 22:00 08/07/19 22:30 Pulse Rate 75 73 71 Respiratory Rate 18 15 11 L Blood Pressure [Right Arm] 144/65 H 137/79 130/79 Pulse Oximetry 97 99 97 MDM - Chest Pain <Arti Bryson DO - Last Filed: 08/08/19 07:16> Lab Data Attestation: I reviewed the patient's lab results. Result diagrams: 08/07/19 16:50 08/07/19 16:50 Labs: Lab Results 08/07/19 08/07/19 08/07/19 Range/Units 16:50 16:50 19:50 WBC 5.6 (4.5-11.0) X10^3/uL RBC 4.55 (4.0-5.2) X10^6/uL Hgb 13.1 (12.0-16.0) g/dL Hct 39.9 (36-46) % MCV 87.6 (80-100) fL MCH 28.8 (26-34) PG MCHC 32.9 (30-36) % RDW 13.5 (11.6-14.8) % Plt Count 215 (150-400) X10^3/uL Neut % (Auto) 55.9 (50-75) % Lymph % (Auto) 29.8 (25-40) % [place] % (Auto) 9.8 (3-14) % Eos % (Auto) 3.4 (2-4) % Baso % (Auto) 1.1 (0-2) % Neut # (Auto) 3100 (6768-5760) /uL Lymph # (Auto) 1700 (3685-7192) /uL [place] # (Auto) 500 (0-900) /uL Eos # (Auto) 200 (0-450) /uL Baso # (Auto) 100 (0-100) /uL Sodium 142 (137-145) mmol/L Potassium 3.7 (3.4-5.1) mmol/L Chloride 106 (98-107) mmol/L Carbon Dioxide 27 (22-32) mmol/L BUN 18 H (7-17) mg/dL Creatinine 0.60 (0.52-1.04) mg/dL Estimated GFR > 60.0 (>60) mL/min BUN/Creatinine Ratio 30.0 H (6-22) Glucose 98 (80-110) mg/dL Calcium 9.2 (8.4-10.2) mg/dL Total Bilirubin 0.4 (0.2-1.3) mg/dL AST 32 (14-36) IU/L ALT 15 (9-52) IU/L Alkaline Phosphatase 71 (38-126) U/L Total Creatine Kinase 66 (30-135) U/L CK-MB (CK-2) TNP CK-MB (CK-2) Rel Index TNP Troponin I < 0.012 0.016 (0.01-0.034) ng/mL Total Protein 7.4 (6.3-8.2) g/dL Albumin 4.5 (3.5-5.0) g/dL Globulin 2.9 (1.7-4.1) g/dL Albumin/Globulin Ratio 1.6 (1.0-2.8) Lipase 112 (23-300) U/L Urine RBC (0-5/HPF) Urine WBC (0-5/HPF) Ur Squamous Epith Cells (0-5/HPF) Urine Bacteria (None) Ur Culture Indicated? 08/07/19 Range/Units 19:53 WBC (4.5-11.0) X10^3/uL RBC (4.0-5.2) X10^6/uL Hgb (12.0-16.0) g/dL Hct (36-46) % MCV (80-100) fL MCH (26-34) PG MCHC (30-36) % RDW (11.6-14.8) % Plt Count (150-400) X10^3/uL Neut % (Auto) (50-75) % Lymph % (Auto) (25-40) % [place] % (Auto) (3-14) % Eos % (Auto) (2-4) % Baso % (Auto) (0-2) % Neut # (Auto) (6982-2780) /uL Lymph # (Auto) (6485-5394) /uL [place] # (Auto) (0-900) /uL Eos # (Auto) (0-450) /uL Baso # (Auto) (0-100) /uL Sodium (137-145) mmol/L Potassium (3.4-5.1) mmol/L Chloride (98-107) mmol/L Carbon Dioxide (22-32) mmol/L BUN (7-17) mg/dL Creatinine (0.52-1.04) mg/dL Estimated GFR (>60) mL/min BUN/Creatinine Ratio (6-22) Glucose (80-110) mg/dL Calcium (8.4-10.2) mg/dL Total Bilirubin (0.2-1.3) mg/dL AST (14-36) IU/L ALT (9-52) IU/L Alkaline Phosphatase (38-126) U/L Total Creatine Kinase (30-135) U/L CK-MB (CK-2) CK-MB (CK-2) Rel Index Troponin I (0.01-0.034) ng/mL Total Protein (6.3-8.2) g/dL Albumin (3.5-5.0) g/dL Globulin (1.7-4.1) g/dL Albumin/Globulin Ratio (1.0-2.8) Lipase (23-300) U/L Urine RBC None seen (0-5/HPF) Urine WBC 0-1/hpf (0-5/HPF) Ur Squamous Epith Cells 1-5 /hpf (0-5/HPF) Urine Bacteria Occasional (0-1) (None) Ur Culture Indicated? Specimen cultured Urine Dip Bedside Urine Glucose Negative Bedside Urine Bilirubin - Negative Bedside Urine Ketone - Negative Urine Specific [place] 1.010 Bedside Urine Occult Blood +/- Bedside Urine pH 6.0 Bedside Urine Protein - Negative Bedside Urine Urobilinogen - Negative Bedside Urine Nitrite - Negative Bedside Urine Leukocytes + 70 Esterase Imaging Data Chest x-ray: Radiologist's impression: PROCEDURE: XR CHEST 1V INDICATIONS: chest pain TECHNIQUE: One view of the chest was acquired. COMPARISON: None. FINDINGS: Surgical changes and devices: None. Lungs and pleura: Lungs are clear. No pleural effusions or pneumothorax. Mediastinum: Mediastinal contours appear normal. Heart size is normal. Bones and chest wall: No suspicious bony lesions. Overlying soft tissues appear unremarkable. IMPRESSION: No acute cardiopulmonary findings. Dictated by: Maria Antonia Arias M.D. on 08/07/2019 at 18:26 Approved by: Maria Antonia Arias M.D. on 08/07/2019 at 18:26 ECG Data Attestation: I personally reviewed and interpreted this ECG as follows: Prior ECG tracings: available for review Interpretation: EKG 1. Normal sinus rhythm rate 80 p.r. interval 137 QRS 1 0 and QTC 427, no ST elevations no ST depressions similar to previous EKG in December 2018 MDM Narrative Medical decision making narrative: Patient is having concerning symptoms chest pressure with exertion no known coronary artery disease and no known recent testing. [facility] does not have cardiac stress testing over the weekend. I did confirm this with the hospitalist who agrees with transfer Patient signed out to Dr. Yo, will need transfer. Currently chest pain free <Bright Yo, - Last Filed: 08/08/19 03:45> Lab Data Labs: Lab Results 08/07/19 08/07/19 08/07/19 Range/Units 16:50 16:50 19:50 WBC 5.6 (4.5-11.0) X10^3/uL RBC 4.55 (4.0-5.2) X10^6/uL Hgb 13.1 (12.0-16.0) g/dL Hct 39.9 (36-46) % MCV 87.6 (80-100) fL MCH 28.8 (26-34) PG MCHC 32.9 (30-36) % RDW 13.5 (11.6-14.8) % Plt Count 215 (150-400) X10^3/uL Neut % (Auto) 55.9 (50-75) % Lymph % (Auto) 29.8 (25-40) % [place] % (Auto) 9.8 (3-14) % Eos % (Auto) 3.4 (2-4) % Baso % (Auto) 1.1 (0-2) % Neut # (Auto) 3100 (7970-2441) /uL Lymph # (Auto) 1700 (1062-1349) /uL [place] # (Auto) 500 (0-900) /uL Eos # (Auto) 200 (0-450) /uL Baso # (Auto) 100 (0-100) /uL Sodium 142 (137-145) mmol/L Potassium 3.7 (3.4-5.1) mmol/L Chloride 106 (98-107) mmol/L Carbon Dioxide 27 (22-32) mmol/L BUN 18 H (7-17) mg/dL Creatinine 0.60 (0.52-1.04) mg/dL Estimated GFR > 60.0 (>60) mL/min BUN/Creatinine Ratio 30.0 H (6-22) Glucose 98 (80-110) mg/dL Calcium 9.2 (8.4-10.2) mg/dL Total Bilirubin 0.4 (0.2-1.3) mg/dL AST 32 (14-36) IU/L ALT 15 (9-52) IU/L Alkaline Phosphatase 71 (38-126) U/L Total Creatine Kinase 66 (30-135) U/L CK-MB (CK-2) TNP CK-MB (CK-2) Rel Index TNP Troponin I < 0.012 0.016 (0.01-0.034) ng/mL Total Protein 7.4 (6.3-8.2) g/dL Albumin 4.5 (3.5-5.0) g/dL Globulin 2.9 (1.7-4.1) g/dL Albumin/Globulin Ratio 1.6 (1.0-2.8) Lipase 112 (23-300) U/L Urine RBC (0-5/HPF) Urine WBC (0-5/HPF) Ur Squamous Epith Cells (0-5/HPF) Urine Bacteria (None) Ur Culture Indicated? 08/07/19 Range/Units 19:53 WBC (4.5-11.0) X10^3/uL RBC (4.0-5.2) X10^6/uL Hgb (12.0-16.0) g/dL Hct (36-46) % MCV (80-100) fL MCH (26-34) PG MCHC (30-36) % RDW (11.6-14.8) % Plt Count (150-400) X10^3/uL Neut % (Auto) (50-75) % Lymph % (Auto) (25-40) % [place] % (Auto) (3-14) % Eos % (Auto) (2-4) % Baso % (Auto) (0-2) % Neut # (Auto) (6429-2213) /uL Lymph # (Auto) (0922-9771) /uL [place] # (Auto) (0-900) /uL Eos # (Auto) (0-450) /uL Baso # (Auto) (0-100) /uL Sodium (137-145) mmol/L Potassium (3.4-5.1) mmol/L Chloride (98-107) mmol/L Carbon Dioxide (22-32) mmol/L BUN (7-17) mg/dL Creatinine (0.52-1.04) mg/dL Estimated GFR (>60) mL/min BUN/Creatinine Ratio (6-22) Glucose (80-110) mg/dL Calcium (8.4-10.2) mg/dL Total Bilirubin (0.2-1.3) mg/dL AST (14-36) IU/L ALT (9-52) IU/L Alkaline Phosphatase (38-126) U/L Total Creatine Kinase (30-135) U/L CK-MB (CK-2) CK-MB (CK-2) Rel Index Troponin I (0.01-0.034) ng/mL Total Protein (6.3-8.2) g/dL Albumin (3.5-5.0) g/dL Globulin (1.7-4.1) g/dL Albumin/Globulin Ratio (1.0-2.8) Lipase (23-300) U/L Urine RBC None seen (0-5/HPF) Urine WBC 0-1/hpf (0-5/HPF) Ur Squamous Epith Cells 1-5 /hpf (0-5/HPF) Urine Bacteria Occasional (0-1) (None) Ur Culture Indicated? Specimen cultured Urine Dip Bedside Urine Glucose Negative Bedside Urine Bilirubin - Negative Bedside Urine Ketone - Negative Urine Specific [place] 1.010 Bedside Urine Occult Blood +/- Bedside Urine pH 6.0 Bedside Urine Protein - Negative Bedside Urine Urobilinogen - Negative Bedside Urine Nitrite - Negative Bedside Urine Leukocytes + 70 Esterase Discharge Plan Departure Patient Disposition: [facility] Clinical Impression: Chest pain Qualifiers: Chest pain type: unspecified Qualified Code(s): R07.9 - Chest pain, unspecified Discharge Date/Time: 08/07/19 22:55 Prescriptions: No Action Flovent HFA 10.6 GM HFA aerosol inhaler 1 inh inhalation DIRECTED Qty: 0 RF: 0 levalbuterol tartrate [Xopenex HFA] 45 MCG/INH HFA aerosol inhaler 1 puff inhalation PRN PRN (Reason: Shortness Of Breath) Qty: 0 RF: 0 cholecalciferol (vitamin D3) [Vitamin D3] 2,000 UNIT capsule 2,000 unit PO DAILY Qty: 0 RF: 0 Probiotic 1 cap PO DAILY Qty: 0 RF: 0 Centrum Silver 0.4-300-250 mg-mcg-mcg Tablet 1 tab PO DAILY RF: 0 diazepam [Valium] 5 MG tablet 5 mg OR TIDP PRN (Reason: Anxiety) RF: 0 aspirin [Adult Aspirin Regimen] 81 mg tablet,delayed release (DR/EC) 81 mg PO DAILY RF: 0 Referrals: Iban Hoover MD [Primary Care Provider] -
[2019-08-07 17:55] LABS: Add Manual Diff / Slide Review NO; Basophils Absolute Auto 100 /uL (0-100); Basophils Percent Auto 1.1 % (0-2); Eosinophils Absolute Auto 200 /uL (0-450); Eosinophils Percent Auto 3.4 % (2-4); Hematocrit 39.9 % (36-46); Hemoglobin 13.1 g/dL (12.0-16.0); Lymphocytes Absolute Auto 1700 /uL (1100-4500); Lymphocytes Percent Auto 29.8 % (25-40); Mean Corpuscular HGB Conc 32.9 % (30-36); Mean Corpuscular Hemoglobin 28.8 PG (26-34); Mean Corpuscular Volume 87.6 fL (80-100); Monocytes Absolute Auto 500 /uL (0-900); Monocytes Percent Auto 9.8 % (3-14); Neutrophils Absolute Auto 3100 /uL (1500-7000); Neutrophils Percent Auto 55.9 % (50-75); Platelet Count 215 X10^3/uL (150-400); Red Blood Cell Count 4.55 X10^6/uL (4.0-5.2); Red Cell Distribution Width 13.5 % (11.6-14.8); White Blood Cell Count 5.6 X10^3/uL (4.5-11.0)
[2019-08-07 17:58] LABS: Alanine Aminotransferase 15 IU/L (9-52); Albumin 4.5 g/dL (3.5-5.0); Albumin Globulin Ratio 1.6 (1.0-2.8); Alkaline Phosphatase 71 U/L (38-126); Aspartate Aminotransferase 32 IU/L (14-36); Bilirubin Total 0.4 mg/dL (0.2-1.3); Blood Urea Nitrogen 18 mg/dL (7-17); Calcium 9.2 mg/dL (8.4-10.2); Carbon Dioxide 27 mmol/L (22-32); Chloride 106 mmol/L (98-107); Creatine Kinase 66 U/L (30-135); Estimated Glomerular Filt Rate > 60.0 mL/min (>60); Globulin 2.9 g/dL (1.7-4.1); Glucose 98 mg/dL (80-110); HEMOLYSIS 23 (0-50); Lipase 112 U/L (23-300); Potassium 3.7 mmol/L (3.4-5.1); Sodium 142 mmol/L (137-145); Total Protein 7.4 g/dL (6.3-8.2)
[2019-08-07 18:10] LABS: Troponin I < 0.012 ng/mL (0.01-0.034)
[2019-08-07 20:41] LABS: Troponin I 0.016 ng/mL (0.01-0.034)
[2019-08-07 21:05] LABS: RBC Urine None Seen (0-5/HPF)
[2019-08-07 21:13] LABS: WBC Urine 0-1/HPF (0-5/HPF)
[2019-08-07 21:14] LABS: Bacteria Urine Occasional (0-1); Culture Indicated Urine Specimen Cultured; Squamous Epithelial Cell Urine 1-5 /HPF (0-5/HPF)
--- NOTE | 2019-08-07 22:10 | PC.NURSE ---
Report given to Gurpreet IBARRA [facility],
== END 2019-08-07 22:55 | disposition short-term general hospital (02) ==
PROVIDERS: Emergency Medicine; Emergency Provider Emergency Medicine; Family Provider Family Medicine; PCP Family Medicine
DX: R07.9 Chest pain, unspecified (principal)
CPT/HCPCS: 36415; 71045; 80053; 81003; 81015; 82550; 83690; 84484; 85025; 87086; 93005; 99284; 99285

== ENCOUNTER → 2019-10-17 09:01 | Outpatient (CLI) | payer MEDICARE, OTHER, SELFPAY | PROVIDERS: Family Provider Family Medicine; PCP Family Medicine; Visit Provider Physician Assistant | DX: M54.5 Low back pain (principal) | CPT/HCPCS: 87077; 87086; 87185; 87186 ==

== ENCOUNTER 2019-11-26 16:45 | Outpatient (RCR) | payer MEDICARE, OTHER, SELFPAY ==
--- NOTE | 2019-09-30 19:06 | PT.OIE ---
Current Diagnoses Pain in left hip (09/30/19) Past Medical History (Last Reviewed 08/07/19 @ 17:52 by Atri Bryson DO) Anxiety (Chronic 08/12/15) Anxiety (Chronic) Breast nodule (Chronic) Chronic cough (Chronic) Chronic fatigue (Chronic 09/28/16) Dizziness (Chronic 09/28/16) History of fracture of right ankle (Resolved 1981) Menopause present (Chronic 08/12/15) Migraines (Chronic) Non-tuberculous bronchiectasis (Chronic) Osteoarthritis (Chronic) Positive PPD, treated (Resolved ~1982) Raynaud's disease (Chronic) Recurrent UTI (Chronic) Past Surgical History (Last Reviewed 08/07/19 @ 17:52 by Arti Bryson DO) Hx of appendectomy (Resolved) Hx of surgical procedure (Resolved 2006) Visit Care Team Role Provider Type Iban Hoover MD Attending Provider Non-Staff Family Provider Primary Care Provider Specialty: Family Practice Address: [address] [place] [address], [address], [facility] Email: Physical Therapy Initial Evaluation PT-OP-A Visit Information Start: 09/30/19 12:38 Freq: Status: Active Protocol: Document 09/30/19 13:00 (Rec: 09/30/19 13:46 [email or web address]) Out-Patient Physical Therapy Visit Information Visit Information Visit Type Initial Evaluation Visit Start Time 13:00 Visit Stop Time 13:40 Total Visit Minutes 40 Visit Number 11/08 Evaluation Information Evaluation Date 09/30/19 Precautions Precautions tape allergy bruise easily osteopenia PT-OP-B Current Condition Start: 09/30/19 12:38 Freq: Status: Active Protocol: Document 09/30/19 13:00 HH (Rec: 09/30/19 13:46 [email or web address]) Current Condition History of Current Condition Onset Date Early July, Current Complaints L hip pain, L hip weakness, difficulty in prolonged standing/ sitting. History of Current Condition Pt is a 69yo female presented to clinic with L hip pain. Pt reports initially injured herself by bending and twisting while taking care of her horses in early July. She started to have some pain in her L buttock with radiation down her left lateral thigh. her symptoms has 85% resolved while she was waiting to be evaluated by PT as she stated. She has seen a chiropractor 1x/ week who thinks that this is piriformis syndrome. She has been doing figure 4 stretch, knee to chest, piriformis stretch, hip flexor stretch, isometric hip flexion and clamshell as her home ex program who stated has been really helpful to relieve her pain. She also had hip adductor and quads strained many years ago with similar mechanism of injury which she feels her L thigh tends to be tight. Prior Treatments and Tests chiropractic tx 1x/ week Treatment Goals Patient/Caregiver Goals 1. To strengthen her L quad and hip stabilizers. 2. To have a HEP for injury prevention. Prior Functional Status Baseline Function- ADL's Independent Baseline Function- Mobility Independent Personal Factors Other Personal Factors That May Effect osteopenia Therapy/Recovery PT-OP-C Subjective Start: 09/30/19 12:38 Freq: Status: Active Protocol: Document 09/30/19 13:00 HH (Rec: 09/30/19 19:06 [email or web address]) OP-PT Subjective Patient Comments Patient Comments I want to be stronger and better so i wont get hurt again. Patient Questionnaires Lower Extremity Functional Scale LEFS Score 58 LEFS Impairment 20 to 39% Impaired (Score 48- 62) Other Questionnaire Name and Score pt did not score for running and hopping activities since she normally does not do them. Only standing for 1 hour scores 2/4. The remaining questions = 4s OP-PT Pain Assessment Location L hip Pain Location Details proximal gluteal melo and medius tendon Intensity 2 Scale Used Numeric (1 - 10) Description Aching Frequency Frequent Pain Aggravating Factors Activity,Exercise,Stair Climbing,Bending,Lifting Pain Alleviating Factors Inactivity PT-OP-D Balance Start: 09/30/19 12:38 Freq: Status: Active Protocol: Document 09/30/19 13:00 HH (Rec: 09/30/19 19:06 [email or web address]) Balance Tests Single Limb Standing Single Limb- Right 22s Single Limb- Left 16s Other Other Balance Tests Performed excessive hip and ankle strategies for SLS on LLE PT-OP-F Manual Assessment Start: 09/30/19 12:38 Freq: Status: Active Protocol: Document 09/30/19 13:00 HH (Rec: 09/30/19 19:06 [email or web address]) Manual Assessments Soft Tissue Assessment Soft Tissue Mobility Assessment Tenderness to pressure at L gluteal melo/ medius tendon PT-OP-G Mobility & Gait Start: 09/30/19 12:38 Freq: Status: Active Protocol: Document 09/30/19 13:00 HH (Rec: 09/30/19 19:06 [email or web address]) OP Gait Assessment Gait Gait Assistance Required: Independent Assistive Devices Assistive Device None Gait Deviations General Gait Pattern Antalgic,Decreased Stride Length,Decreased Feet Clearance Comments Gait Comments Mild decreased stance phase on L, along with step length. PT-OP-H Neuro Start: 09/30/19 12:38 Freq: Status: Active Protocol: Document 09/30/19 13:00 HH (Rec: 09/30/19 19:06 [email or web address]) Deep Tendon Reflex & Clonus Assessment Deep Tendon Reflex Bilateral Achilles Deep Tendon Reflex 2+ Normal Bilateral Patellar Deep Tendon Reflex 2+ Normal Ankle Clonus Bilateral Clonus Assessment Absent PT-OP-K Range of Motion Start: 09/30/19 12:38 Freq: Status: Active Protocol: Document 09/30/19 13:00 HH (Rec: 09/30/19 19:06 [email or web address]) Hip Goniometric Range of Motion Hip Left Active Hip ROM WFL Yes Knee Goniometric Range of Motion Knee Left Knee ROM WFL Yes PT-OP-L Special Tests Start: 09/30/19 12:38 Freq: Status: Active Protocol: Document 09/30/19 13:00 HH (Rec: 09/30/19 19:06 [email or web address]) Special Tests Lumbar Spine Special Tests Slump Test Results +ve L (full slump position) Comments reports of increased calf pain and tension with supine/ seated knee ext + DF Hip Special Tests FADDIR Test Results +ve L Comments c/o deep joint pain with overpressure at end range FADDIR ADOLFO Test Results -ve Scour Test Test Results +ve L Comments c/o deep joint pain with compression Neural Special Tests- Lower Body Sciatic Nerve Tension Test Results +ve L Comments reports of increased calf pain and tension with supine/ seated knee ext + DF Other Special Tests Special Tests single leg squat from adjustable table L= 24.5 inches R= 21 inches. PT-OP-M Strength Start: 09/30/19 12:38 Freq: Status: Active Protocol: Document 09/30/19 13:00 HH (Rec: 09/30/19 19:06 [email or web address]) Hip Strength Hip Manual Muscle Testing Right Flexion (L2) 5 Normal Extension (S1) 5 Normal Abduction 5 Normal Adduction 5 Normal External Rotation 5 Normal Left Flexion (L2) 4- Good- Extension (S1) 4- Good- Abduction 4- Good- Adduction 4+ Good+ External Rotation 4- Good- Internal Rotation 4- Good- Knee Strength Knee Manual Muscle Testing Right Flexion (S2) 5 Normal Extension (L3) 5 Normal Left Flexion (S2) 4+ Good+ Extension (L3) 4+ Good+ PT-OP-Q Treatments Start: 09/30/19 12:38 Freq: Status: Active Protocol: Document 09/30/19 13:00 (Rec: 09/30/19 19:06 [email or web address]) Self-Care/Home Management Treatment Education Patient Education Home Exercise Program,Pain Management Other Education Educated pt on pathlogy, mechanism of injury and prognosis for gluteal tendinopathy and nerve impingment. Explained POC and exercise progression to improve pt's functional strength and mobility. 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 slump test Impairment Pt has positive slump test Prison Goal (LTG) Pt will not have symptoms/ pain at slump test position ( trunk flexion +knee ext and DF ) to reduce her neural sensitivity. LTG Duration 8 weeks LE strength Impairment single leg squat for L = 24.5' from surface. Prison Goal (LTG) Pt will be able to perform single leg sit to stand from a 21 inches surface safely without UE support, in order to normal her gait pattern and lifting mechanics. LTG Duration 8 weeks HEP Impairment Pt only has a HEP for stretching only Prison Goal (LTG) Pt will perform hip stability and strengthening program 5x/ week independently with safe and proper mechanics to improve her mobility and strength, to prevent fruther injuries from lifting while taking care of her horses. LTG Duration 8 weeks Assessment Summary Assessment Pt is a low complexity with mechanical injury while take care of her horses by bending/ twisting her back in early July. Pt stated she is 85% recovered at this point with the help from chiropractic tx, f/b stretching HEP. Upon assessment, pt has shown overall weakness for L hip stabilizers and increased neural tension/ sensitivity ( sciatic nerve). Pain was reproduced with end part of slump test and to pressure at proximal gluteal melo/ medius. Suspect pt might have gluteal max/medius tendinopathy, along with sciatic nerve impingement. She also c/o deep joint pain during FADDIR and Scour tests which indicate hip OA. Pt will benefit from skilled therapy to address her L hip weakness, increased neural tension and reduced single leg strength and balance, along with injury prevention with proper lifting mechanics. Physical Therapy Plan Frequency and Duration Frequency of Treatment 2x for 4 wks,1x 4wk Duration of Treatment 8 weeks Plan of Care Start Date 09/30/19 Plan of Care End Date 11/29/19 Therapeutic Interventions Therapeutic Interventions Balance Training,Gait Training ,Home Exercise Program,Joint Mobilizations,Manual Therapy, Neuromuscular Re-education, Patient/Caregiver Education, Self-Care/Home Management,Soft Tissue Mobilization,Taping, Therapeutic Activities, Therapeutic Exercises Modalities Cold Pack/Ice Massage,Electric Stimulation,Hot Packs, Infrared Therapy,Ultrasound Next Visit Focus/Plan Next Note Type Treatment Note Next Visit Plan tennis ball release hip distraction/ mob nerve glide hip stab trainig/ strengthening as edmond
--- NOTE | 2019-10-02 16:16 | PT.OTN ---
Current Diagnoses Pain in left hip (10/02/19) Physical Therapy Treatment Note PT-OP-A Visit Information Start: 09/30/19 12:38 Freq: Status: Active Protocol: Document 10/02/19 15:30 HH (Rec: 10/02/19 16:16 HH [email or web address]) Out-Patient Physical Therapy Visit Information Visit Information Visit Type Treatment Note Visit Note Pt is 15 mins late. Visit Start Time 15:30 Visit Stop Time 16:01 Total Visit Minutes 31 Visit Number 12/09 PT-OP-B Current Condition Start: 09/30/19 12:38 Freq: Status: Active Protocol: Document 09/30/19 13:00 HH (Rec: 09/30/19 13:46 HH [email or web address]) Current Condition History of Current Condition Onset Date Early July, Current Complaints L hip pain, L hip weakness, difficulty in prolonged standing/ sitting. History of Current Condition Pt is a 69yo female presented to clinic with L hip pain. Pt reports initially injured herself by bending and twisting while taking care of her horses in early July. She started to have some pain in her L buttock with radiation down her left lateral thigh. her symptoms has 85% resolved while she was waiting to be evaluated by PT as she stated. She has seen a chiropractor 1x/ week who thinks that this is piriformis syndrome. She has been doing figure 4 stretch, knee to chest, piriformis stretch, hip flexor stretch, isometric hip flexion and clamshell as her home ex program who stated has been really helpful to relieve her pain. She also had hip adductor and quads strained many years ago with similar mechanism of injury which she feels her L thigh tends to be tight. Prior Treatments and Tests chiropractic tx 1x/ week Treatment Goals Patient/Caregiver Goals 1. To strengthen her L quad and hip stabilizers. 2. To have a HEP for injury prevention. Prior Functional Status Baseline Function- ADL's Independent Baseline Function- Mobility Independent Personal Factors Other Personal Factors That May Effect osteopenia Therapy/Recovery PT-OP-C Subjective Start: 09/30/19 12:38 Freq: Status: Active Protocol: Document 10/02/19 15:30 HH (Rec: 10/02/19 16:16 HH [email or web address]) OP-PT Subjective Patient Comments Patient Comments I felt a little bit sore and pain after assessment two days ago. PT-OP-D Balance Start: 09/30/19 12:38 Freq: Status: Active Protocol: Document 09/30/19 13:00 HH (Rec: 09/30/19 19:06 [email or web address]) Balance Tests Single Limb Standing Single Limb- Right 22s Single Limb- Left 16s Other Other Balance Tests Performed excessive hip and ankle strategies for SLS on LLE PT-OP-F Manual Assessment Start: 09/30/19 12:38 Freq: Status: Active Protocol: Document 09/30/19 13:00 HH (Rec: 09/30/19 19:06 [email or web address]) Manual Assessments Soft Tissue Assessment Soft Tissue Mobility Assessment Tenderness to pressure at L gluteal melo/ medius tendon PT-OP-G Mobility & Gait Start: 09/30/19 12:38 Freq: Status: Active Protocol: Document 09/30/19 13:00 HH (Rec: 09/30/19 19:06 [email or web address]) OP Gait Assessment Gait Gait Assistance Required: Independent Assistive Devices Assistive Device None Gait Deviations General Gait Pattern Antalgic,Decreased Stride Length,Decreased Feet Clearance Comments Gait Comments Mild decreased stance phase on L, along with step length. PT-OP-H Neuro Start: 09/30/19 12:38 Freq: Status: Active Protocol: Document 09/30/19 13:00 HH (Rec: 09/30/19 19:06 [email or web address]) Deep Tendon Reflex & Clonus Assessment Deep Tendon Reflex Bilateral Achilles Deep Tendon Reflex 2+ Normal Bilateral Patellar Deep Tendon Reflex 2+ Normal Ankle Clonus Bilateral Clonus Assessment Absent PT-OP-K Range of Motion Start: 09/30/19 12:38 Freq: Status: Active Protocol: Document 09/30/19 13:00 HH (Rec: 09/30/19 19:06 [email or web address]) Hip Goniometric Range of Motion Hip Left Active Hip ROM WFL Yes Knee Goniometric Range of Motion Knee Left Knee ROM WFL Yes PT-OP-L Special Tests Start: 09/30/19 12:38 Freq: Status: Active Protocol: Document 09/30/19 13:00 HH (Rec: 09/30/19 19:06 [email or web address]) Special Tests Lumbar Spine Special Tests Slump Test Results +ve L (full slump position) Comments reports of increased calf pain and tension with supine/ seated knee ext + DF Hip Special Tests FADDIR Test Results +ve L Comments c/o deep joint pain with overpressure at end range FADDIR ADOLFO Test Results -ve Scour Test Test Results +ve L Comments c/o deep joint pain with compression Neural Special Tests- Lower Body Sciatic Nerve Tension Test Results +ve L Comments reports of increased calf pain and tension with supine/ seated knee ext + DF Other Special Tests Special Tests single leg squat from adjustable table L= 24.5 inches R= 21 inches. PT-OP-M Strength Start: 09/30/19 12:38 Freq: Status: Active Protocol: Document 09/30/19 13:00 HH (Rec: 09/30/19 19:06 HH [email or web address]) Hip Strength Hip Manual Muscle Testing Right Flexion (L2) 5 Normal Extension (S1) 5 Normal Abduction 5 Normal Adduction 5 Normal External Rotation 5 Normal Left Flexion (L2) 4- Good- Extension (S1) 4- Good- Abduction 4- Good- Adduction 4+ Good+ External Rotation 4- Good- Internal Rotation 4- Good- Knee Strength Knee Manual Muscle Testing Right Flexion (S2) 5 Normal Extension (L3) 5 Normal Left Flexion (S2) 4+ Good+ Extension (L3) 4+ Good+ PT-OP-Q Treatments Start: 09/30/19 12:38 Freq: Status: Active Protocol: Document 10/02/19 15:30 HH (Rec: 10/02/19 16:16 HH [email or web address]) Therapeutic Exercises Supine Exercises bridging Supine Exercise Name with hip abd band Side bilateral Resistance level 1 band Reps/Minutes 8 x 3 Comments cues to prevent lumbar extension Standing Exercises single leg stance Equipment Used next to grab bar Reps/Minutes 10 secs each x 5 Manual Therapy Treatment Soft Tissue Mobilization gluteal max/med Body Location proximal tendon Mobilization Type Sustained Pressure,Trigger Point Release Intensity/Depth Moderate Body Position Sidelying Comments manual f/b tennis for HEP Manual Traction L hip distraction Body Position Supine Reps/Duration 10secs x 5 Nerve Glides sciatic nerve glide Nerve sciatic nerve Body Position Sitting Reps/Duration 5 x 3 Comments flexed trunk, active knee ext and ankle DF. PT-OP-T Assessment and Plan Start: 09/30/19 12:38 Freq: Status: Active Protocol: Document 10/02/19 15:30 HH (Rec: 10/02/19 16:16 HH [email or web address]) Physical Therapy Assessment Goals single leg balance Impairment single leg balance on L = 16s Retirement Goal (LTG) Pt will reach >25 s for SLS without lateral weight shift and hip/ankle strategy to improve her overall single leg strength and balance. slump test Impairment Pt has positive slump test Retirement Goal (LTG) Pt will not have symptoms/ pain at slump test position ( trunk flexion +knee ext and DF ) to reduce her neural sensitivity. LTG Duration 8 weeks LE strength Impairment single leg squat for L = 24.5' from surface. Appliance Installer Goal (LTG) Pt will be able to perform single leg sit to stand from a 21 inches surface safely without UE support, in order to normal her gait pattern and lifting mechanics. LTG Duration 8 weeks HEP Impairment Pt only has a HEP for stretching only Appliance Installer Goal (LTG) Pt will perform hip stability and strengthening program 5x/ week independently with safe and proper mechanics to improve her mobility and strength, to prevent fruther injuries from lifting while taking care of her horses. LTG Duration 8 weeks Assessment Summary Assessment Pt was 15 mins late today. Tx focused on manual therapy on gluteal proximal tendon, hip stabilizer strengthening, single leg balance and sciatic nerve glide. Pt edmond tx well without c/o. Physical Therapy Plan Next Visit Focus/Plan Next Note Type Treatment Note Next Visit Plan reivew hEP hip stab trainig/ strengthening as edmond single leg balance
--- NOTE | 2019-10-06 10:35 | PT.OTN ---
Current Diagnoses Pain in left hip (10/06/19) Physical Therapy Treatment Note PT-OP-A Visit Information Start: 09/30/19 12:38 Freq: Status: Active Protocol: Document 10/06/19 09:03 (Rec: 10/06/19 09:44 [id number]) Out-Patient Physical Therapy Visit Information Visit Information Visit Type Treatment Note Visit Start Time 09:03 Visit Stop Time 09:45 Total Visit Minutes 42 Visit Number 01/06 Number of MEDICAL NURSE Visits 0 PT-OP-B Current Condition Start: 09/30/19 12:38 Freq: Status: Active Protocol: Document 09/30/19 13:00 HH (Rec: 09/30/19 13:46 HH [email or web address]) Current Condition History of Current Condition Onset Date Early July, Current Complaints L hip pain, L hip weakness, difficulty in prolonged standing/ sitting. History of Current Condition Pt is a 69yo female presented to clinic with L hip pain. Pt reports initially injured herself by bending and twisting while taking care of her horses in early July. She started to have some pain in her L buttock with radiation down her left lateral thigh. her symptoms has 85% resolved while she was waiting to be evaluated by PT as she stated. She has seen a chiropractor 1x/ week who thinks that this is piriformis syndrome. She has been doing figure 4 stretch, knee to chest, piriformis stretch, hip flexor stretch, isometric hip flexion and clamshell as her home ex program who stated has been really helpful to relieve her pain. She also had hip adductor and quads strained many years ago with similar mechanism of injury which she feels her L thigh tends to be tight. Prior Treatments and Tests chiropractic tx 1x/ week Treatment Goals Patient/Caregiver Goals 1. To strengthen her L quad and hip stabilizers. 2. To have a HEP for injury prevention. Prior Functional Status Baseline Function- ADL's Independent Baseline Function- Mobility Independent Personal Factors Other Personal Factors That May Effect osteopenia Therapy/Recovery PT-OP-C Subjective Start: 09/30/19 12:38 Freq: Status: Active Protocol: Document 10/06/19 09:03 HH (Rec: 10/06/19 09:44 [id number]) OP-PT Subjective Patient Comments Patient Comments I got sore after last time. Not sore today but I did feel it over the weekend, especially in the front of my hip. I think the standing on one leg makes me sore. PT-OP-D Balance Start: 09/30/19 12:38 Freq: Status: Active Protocol: Document 09/30/19 13:00 HH (Rec: 09/30/19 19:06 [email or web address]) Balance Tests Single Limb Standing Single Limb- Right 22s Single Limb- Left 16s Other Other Balance Tests Performed excessive hip and ankle strategies for SLS on LLE PT-OP-F Manual Assessment Start: 09/30/19 12:38 Freq: Status: Active Protocol: Document 09/30/19 13:00 HH (Rec: 09/30/19 19:06 [email or web address]) Manual Assessments Soft Tissue Assessment Soft Tissue Mobility Assessment Tenderness to pressure at L gluteal melo/ medius tendon PT-OP-G Mobility & Gait Start: 09/30/19 12:38 Freq: Status: Active Protocol: Document 09/30/19 13:00 HH (Rec: 09/30/19 19:06 [email or web address]) OP Gait Assessment Gait Gait Assistance Required: Independent Assistive Devices Assistive Device None Gait Deviations General Gait Pattern Antalgic,Decreased Stride Length,Decreased Feet Clearance Comments Gait Comments Mild decreased stance phase on L, along with step length. PT-OP-H Neuro Start: 09/30/19 12:38 Freq: Status: Active Protocol: Document 09/30/19 13:00 HH (Rec: 09/30/19 19:06 [email or web address]) Deep Tendon Reflex & Clonus Assessment Deep Tendon Reflex Bilateral Achilles Deep Tendon Reflex 2+ Normal Bilateral Patellar Deep Tendon Reflex 2+ Normal Ankle Clonus Bilateral Clonus Assessment Absent PT-OP-K Range of Motion Start: 09/30/19 12:38 Freq: Status: Active Protocol: Document 09/30/19 13:00 HH (Rec: 09/30/19 19:06 [email or web address]) Hip Goniometric Range of Motion Hip Left Active Hip ROM WFL Yes Knee Goniometric Range of Motion Knee Left Knee ROM WFL Yes PT-OP-L Special Tests Start: 09/30/19 12:38 Freq: Status: Active Protocol: Document 09/30/19 13:00 HH (Rec: 09/30/19 19:06 [email or web address]) Special Tests Lumbar Spine Special Tests Slump Test Results +ve L (full slump position) Comments reports of increased calf pain and tension with supine/ seated knee ext + DF Hip Special Tests FADDIR Test Results +ve L Comments c/o deep joint pain with overpressure at end range FADDIR ADOLFO Test Results -ve Scour Test Test Results +ve L Comments c/o deep joint pain with compression Neural Special Tests- Lower Body Sciatic Nerve Tension Test Results +ve L Comments reports of increased calf pain and tension with supine/ seated knee ext + DF Other Special Tests Special Tests single leg squat from adjustable table L= 24.5 inches R= 21 inches. PT-OP-M Strength Start: 09/30/19 12:38 Freq: Status: Active Protocol: Document 09/30/19 13:00 (Rec: 09/30/19 19:06 [email or web address]) Hip Strength Hip Manual Muscle Testing Right Flexion (L2) 5 Normal Extension (S1) 5 Normal Abduction 5 Normal Adduction 5 Normal External Rotation 5 Normal Left Flexion (L2) 4- Good- Extension (S1) 4- Good- Abduction 4- Good- Adduction 4+ Good+ External Rotation 4- Good- Internal Rotation 4- Good- Knee Strength Knee Manual Muscle Testing Right Flexion (S2) 5 Normal Extension (L3) 5 Normal Left Flexion (S2) 4+ Good+ Extension (L3) 4+ Good+ PT-OP-Q Treatments Start: 09/30/19 12:38 Freq: Status: Active Protocol: Document 10/06/19 09:03 (Rec: 10/06/19 09:44 [id number]) Cardio Equipment Bicycle (Upright) Duration (Minutes) 7 Resistance 5 Gym Equipment Shuttle Recovery SL squats Resistance 25# Shuttle Recovery Platform Stable Reps/Time x20 Therapeutic Exercises Supine Exercises marching Side bilateral Reps/Minutes 2x15 Comments with ADIM yanira stretch Side left Reps/Minutes 10x10 Comments with manual overpressure into hip extension bridging Supine Exercise Name with hip abd band Side bilateral Resistance level 1 band Reps/Minutes 8 x 3 Comments cues to prevent lumbar extension Sitting Exercises sciatic nerve glide Side bilateral Reps/Minutes 3x15 Comments slumped position f/b upright; cont to report stretching sensation in L calf Standing Exercises hip hike Side bilateral Equipment Used 4 step Reps/Minutes 2x10 Comments pt reported LE fatigue quickly Manual Therapy Treatment Soft Tissue Mobilization gluteal max/med Body Location proximal tendon Mobilization Type Sustained Pressure,Trigger Point Release Intensity/Depth Moderate Body Position Sidelying Comments manual f/b tennis for HEP Joint Mobilizations SI distraction Joint SI Grade III Body Position Sidelying Reps/Duration 10x10 Manual Traction L hip distraction Body Position Supine Reps/Duration 10secs x 5 PT-OP-T Assessment and Plan Start: 09/30/19 12:38 Freq: Status: Active Protocol: Document 10/06/19 09:03 (Rec: 10/06/19 09:44 [id number]) Physical Therapy Assessment Goals single leg balance Impairment single leg balance on L = 16s [employer] Goal (LTG) Pt will reach >25 s for SLS without lateral weight shift and hip/ankle strategy to improve her overall single leg strength and balance. slump test Impairment Pt has positive slump test [employer] Goal (LTG) Pt will not have symptoms/ pain at slump test position ( trunk flexion +knee ext and DF ) to reduce her neural sensitivity. LTG Duration 8 weeks LE strength Impairment single leg squat for L = 24.5' from surface. [employer] Goal (LTG) Pt will be able to perform single leg sit to stand from a 21 inches surface safely without UE support, in order to normal her gait pattern and lifting mechanics. LTG Duration 8 weeks HEP Impairment Pt only has a HEP for stretching only Longterm Goal (LTG) Pt will perform hip stability and strengthening program 5x/ week independently with safe and proper mechanics to improve her mobility and strength, to prevent fruther injuries from lifting while taking care of her horses. LTG Duration 8 weeks Assessment Summary Assessment Tx focused on core/hip strengthening and stabilization. Pt demonstrates poor LE strength L>R and fatigues quickly during single LE strengthening exercises. Pt edmond tx well without c/o of sx reproduction. Physical Therapy Plan Next Visit Focus/Plan Next Note Type Treatment Note Next Visit Plan reivew hEP hip stab trainig/ strengthening as edmond single leg balance
--- NOTE | 2019-10-08 10:41 | PT.OTN ---
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 History of Current Condition Pt is a 69yo female presented to clinic with L hip pain. Pt reports initially injured herself by bending and twisting while taking care of her horses in early July. She started to have some pain in her L buttock with radiation down her left lateral thigh. her symptoms has 85% resolved while she was waiting to be evaluated by PT as she stated. She has seen a chiropractor 1x/ week who thinks that this is piriformis syndrome. She has been doing figure 4 stretch, knee to chest, piriformis stretch, hip flexor stretch, isometric hip flexion and clamshell as her home ex program who stated has been really helpful to relieve her pain. She also had hip adductor and quads strained many years ago with similar mechanism of injury which she feels her L thigh tends to be tight. Prior Treatments and Tests chiropractic tx 1x/ week Treatment Goals Patient/Caregiver Goals 1. To strengthen her L quad and hip stabilizers. 2. To have a HEP for injury prevention. Prior Functional Status Baseline Function- ADL's Independent Baseline Function- Mobility Independent Personal Factors Other Personal Factors That May Effect osteopenia Therapy/Recovery PT-OP-C Subjective Start: 09/30/19 12:38 Freq: Status: Active Protocol: Document 10/08/19 09:47 HH (Rec: 10/08/19 10:28 [id number]) OP-PT Subjective Patient Comments Patient Comments I was a tiny bit sore after last time but it felt like it was good, like I was making improvements. Patient Reported Progress Improving PT-OP-D Balance Start: 09/30/19 12:38 Freq: Status: Active Protocol: Document 09/30/19 13:00 HH (Rec: 09/30/19 19:06 [email or web address]) Balance Tests Single Limb Standing Single Limb- Right 22s Single Limb- Left 16s Other Other Balance Tests Performed excessive hip and ankle strategies for SLS on LLE PT-OP-F Manual Assessment Start: 09/30/19 12:38 Freq: Status: Active Protocol: Document 09/30/19 13:00 HH (Rec: 09/30/19 19:06 [email or web address]) Manual Assessments Soft Tissue Assessment Soft Tissue Mobility Assessment Tenderness to pressure at L gluteal melo/ medius tendon PT-OP-G Mobility & Gait Start: 09/30/19 12:38 Freq: Status: Active Protocol: Document 09/30/19 13:00 HH (Rec: 09/30/19 19:06 [email or web address]) OP Gait Assessment Gait Gait Assistance Required: Independent Assistive Devices Assistive Device None Gait Deviations General Gait Pattern Antalgic,Decreased Stride Length,Decreased Feet Clearance Comments Gait Comments Mild decreased stance phase on L, along with step length. PT-OP-H Neuro Start: 09/30/19 12:38 Freq: Status: Active Protocol: Document 09/30/19 13:00 HH (Rec: 09/30/19 19:06 [email or web address]) Deep Tendon Reflex & Clonus Assessment Deep Tendon Reflex Bilateral Achilles Deep Tendon Reflex 2+ Normal Bilateral Patellar Deep Tendon Reflex 2+ Normal Ankle Clonus Bilateral Clonus Assessment Absent PT-OP-K Range of Motion Start: 09/30/19 12:38 Freq: Status: Active Protocol: Document 09/30/19 13:00 HH (Rec: 09/30/19 19:06 [email or web address]) Hip Goniometric Range of Motion Hip Left Active Hip ROM WFL Yes Knee Goniometric Range of Motion Knee Left Knee ROM WFL Yes PT-OP-L Special Tests Start: 09/30/19 12:38 Freq: Status: Active Protocol: Document 09/30/19 13:00 HH (Rec: 09/30/19 19:06 [email or web address]) Special Tests Lumbar Spine Special Tests Slump Test Results +ve L (full slump position) Comments reports of increased calf pain and tension with supine/ seated knee ext + DF Hip Special Tests FADDIR Test Results +ve L Comments c/o deep joint pain with overpressure at end range FADDIR ADOLFO Test Results -ve Scour Test Test Results +ve L Comments c/o deep joint pain with compression Neural Special Tests- Lower Body Sciatic Nerve Tension Test Results +ve L Comments reports of increased calf pain and tension with supine/ seated knee ext + DF Other Special Tests Special Tests single leg squat from adjustable table L= 24.5 inches R= 21 inches. PT-OP-M Strength Start: 09/30/19 12:38 Freq: Status: Active Protocol: Document 09/30/19 13:00 HH (Rec: 09/30/19 19:06 [email or web address]) Hip Strength Hip Manual Muscle Testing Right Flexion (L2) 5 Normal Extension (S1) 5 Normal Abduction 5 Normal Adduction 5 Normal External Rotation 5 Normal Left Flexion (L2) 4- Good- Extension (S1) 4- Good- Abduction 4- Good- Adduction 4+ Good+ External Rotation 4- Good- Internal Rotation 4- Good- Knee Strength Knee Manual Muscle Testing Right Flexion (S2) 5 Normal Extension (L3) 5 Normal Left Flexion (S2) 4+ Good+ Extension (L3) 4+ Good+ PT-OP-Q Treatments Start: 09/30/19 12:38 Freq: Status: Active Protocol: Document 10/08/19 09:47 HH (Rec: 10/08/19 10:28 [id number]) Gym Equipment Shuttle Recovery B squats Resistance 25# Shuttle Recovery Platform Stable Reps/Time 3x10; attempted 50# and 37# but pt states she is unable to complete Shuttle Balance red Details static stance f/b weightshifting Reps/Duration 5 min Therapeutic Exercises Supine Exercises yanira stretch Side left Reps/Minutes 10x10 Comments with manual overpressure into hip extension bridging Supine Exercise Name with hip abd band Side bilateral Resistance level 1 band Reps/Minutes 8 x 3 Comments cues to prevent lumbar extension Standing Exercises step ups Side bilateral Equipment Used 8 step Reps/Minutes 2x10 marching Side bilateral Reps/Minutes 4x5 Comments SLS with CL LE march Manual Therapy Treatment Soft Tissue Mobilization gluteal max/med Body Location proximal tendon Mobilization Type Sustained Pressure,Trigger Point Release Intensity/Depth Moderate Body Position Sidelying Comments manual f/b tennis for HEP Manual Traction L hip distraction Body Position Supine Reps/Duration 10secs x 5 PT-OP-T Assessment and Plan Start: 09/30/19 12:38 Freq: Status: Active Protocol: Document 10/08/19 09:47 HH (Rec: 10/08/19 10:28 HH [id number]) Physical Therapy Assessment Goals single leg balance Impairment single leg balance on L = 16s [employer] Goal (LTG) Pt will reach >25 s for SLS without lateral weight shift and hip/ankle strategy to improve her overall single leg strength and balance. slump test Impairment Pt has positive slump test Retirement Goal (LTG) Pt will not have symptoms/ pain at slump test position ( trunk flexion +knee ext and DF ) to reduce her neural sensitivity. LTG Duration 8 weeks LE strength Impairment single leg squat for L = 24.5' from surface. 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 LTG Duration 8 weeks HEP Impairment Pt only has a HEP for stretching only [employer] Operator Goal (LTG) Pt will perform hip stability and strengthening program 5x/ week independently with safe and proper mechanics to improve her mobility and strength, to prevent fruther injuries from lifting while taking care of her horses. LTG Duration 8 weeks Assessment Summary Assessment Pt cont to demonstrate poor LE strength and balance. Tx focused on LE strengthening but unable to progress much from last visit d/t pt's report of LE fatigue with ther ex. Encouraged pt to work on strengthening at home to improve LE strength and balance. Physical Therapy Plan Next Visit Focus/Plan Next Note Type Treatment Note Next Visit Plan reivew hEP hip stab trainig/ strengthening as [place] single leg balance
--- NOTE | 2019-10-28 14:31 | PT.OTN ---
Current Diagnoses Pain in left hip (10/28/19) Physical Therapy Treatment Note PT-OP-A Visit Information Start: 09/30/19 12:38 Freq: Status: Active Protocol: Document 10/28/19 13:48 HH (Rec: 10/28/19 14:31 [id number]) Out-Patient Physical Therapy Visit Information Visit Information Visit Type Treatment Note Visit Start Time 13:48 Visit Stop Time 14:30 Total Visit Minutes 42 Visit Number 03/08 Number of DIPLOMATIC COURIER Visits 0 PT-OP-B Current Condition Start: 09/30/19 12:38 Freq: Status: Active Protocol: Document 09/30/19 13:00 HH (Rec: 09/30/19 13:46 HH [email or web address]) Current Condition History of Current Condition Onset Date Early July, Current Complaints L hip pain, L hip weakness, difficulty in prolonged standing/ sitting. History of Current Condition Pt is a 69yo female presented to clinic with L hip pain. Pt reports initially injured herself by bending and twisting while taking care of her horses in early July. She started to have some pain in her L buttock with radiation down her left lateral thigh. her symptoms has 85% resolved while she was waiting to be evaluated by PT as she stated. She has seen a chiropractor 1x/ week who thinks that this is piriformis syndrome. She has been doing figure 4 stretch, knee to chest, piriformis stretch, hip flexor stretch, isometric hip flexion and clamshell as her home ex program who stated has been really helpful to relieve her pain. She also had hip adductor and quads strained many years ago with similar mechanism of injury which she feels her L thigh tends to be tight. Prior Treatments and Tests chiropractic tx 1x/ week Treatment Goals Patient/Caregiver Goals 1. To strengthen her L quad and hip stabilizers. 2. To have a HEP for injury prevention. Prior Functional Status Baseline Function- ADL's Independent Baseline Function- Mobility Independent Personal Factors Other Personal Factors That May Effect osteopenia Therapy/Recovery PT-OP-C Subjective Start: 09/30/19 12:38 Freq: Status: Active Protocol: Document 10/28/19 13:48 HH (Rec: 10/28/19 14:31 HH [id number]) OP-PT Subjective Patient Comments Patient Comments I got pretty sore for 4 days after last visit but able to recovered. I only did my exercises sometimes. My balance seems to get better slightly. Mary been Patient Reported Progress Improving PT-OP-D Balance Start: 09/30/19 12:38 Freq: Status: Active Protocol: Document 09/30/19 13:00 HH (Rec: 09/30/19 19:06 [email or web address]) Balance Tests Single Limb Standing Single Limb- Right 22s Single Limb- Left 16s Other Other Balance Tests Performed excessive hip and ankle strategies for SLS on LLE PT-OP-F Manual Assessment Start: 09/30/19 12:38 Freq: Status: Active Protocol: Document 09/30/19 13:00 HH (Rec: 09/30/19 19:06 [email or web address]) Manual Assessments Soft Tissue Assessment Soft Tissue Mobility Assessment Tenderness to pressure at L gluteal melo/ medius tendon PT-OP-G Mobility & Gait Start: 09/30/19 12:38 Freq: Status: Active Protocol: Document 09/30/19 13:00 HH (Rec: 09/30/19 19:06 [email or web address]) OP Gait Assessment Gait Gait Assistance Required: Independent Assistive Devices Assistive Device None Gait Deviations General Gait Pattern Antalgic,Decreased Stride Length,Decreased Feet Clearance Comments Gait Comments Mild decreased stance phase on L, along with step length. PT-OP-H Neuro Start: 09/30/19 12:38 Freq: Status: Active Protocol: Document 09/30/19 13:00 HH (Rec: 09/30/19 19:06 [email or web address]) Deep Tendon Reflex & Clonus Assessment Deep Tendon Reflex Bilateral Achilles Deep Tendon Reflex 2+ Normal Bilateral Patellar Deep Tendon Reflex 2+ Normal Ankle Clonus Bilateral Clonus Assessment Absent PT-OP-K Range of Motion Start: 09/30/19 12:38 Freq: Status: Active Protocol: Document 09/30/19 13:00 HH (Rec: 09/30/19 19:06 [email or web address]) Hip Goniometric Range of Motion Hip Left Active Hip ROM WFL Yes Knee Goniometric Range of Motion Knee Left Knee ROM WFL Yes PT-OP-L Special Tests Start: 09/30/19 12:38 Freq: Status: Active Protocol: Document 09/30/19 13:00 HH (Rec: 09/30/19 19:06 [email or web address]) Special Tests Lumbar Spine Special Tests Slump Test Results +ve L (full slump position) Comments reports of increased calf pain and tension with supine/ seated knee ext + DF Hip Special Tests FADDIR Test Results +ve L Comments c/o deep joint pain with overpressure at end range FADDIR ADOLFO Test Results -ve Scour Test Test Results +ve L Comments c/o deep joint pain with compression Neural Special Tests- Lower Body Sciatic Nerve Tension Test Results +ve L Comments reports of increased calf pain and tension with supine/ seated knee ext + DF Other Special Tests Special Tests single leg squat from adjustable table L= 24.5 inches R= 21 inches. PT-OP-M Strength Start: 09/30/19 12:38 Freq: Status: Active Protocol: Document 09/30/19 13:00 HH (Rec: 09/30/19 19:06 [email or web address]) Hip Strength Hip Manual Muscle Testing Right Flexion (L2) 5 Normal Extension (S1) 5 Normal Abduction 5 Normal Adduction 5 Normal External Rotation 5 Normal Left Flexion (L2) 4- Good- Extension (S1) 4- Good- Abduction 4- Good- Adduction 4+ Good+ External Rotation 4- Good- Internal Rotation 4- Good- Knee Strength Knee Manual Muscle Testing Right Flexion (S2) 5 Normal Extension (L3) 5 Normal Left Flexion (S2) 4+ Good+ Extension (L3) 4+ Good+ PT-OP-Q Treatments Start: 09/30/19 12:38 Freq: Status: Active Protocol: Document 10/28/19 13:48 HH (Rec: 10/28/19 14:31 [email or web address]) Cardio Equipment Recumbent Stepper (Sci-Fit) Duration (Minutes) 5 Resistance 2 Therapeutic Exercises Supine Exercises bridging Supine Exercise Name with hip abd band Side bilateral Resistance yellow band Reps/Minutes 8 x 3 Comments cues to prevent lumbar extension Sidelying Exercises clamshell Side left Equipment Used level 1 band Reps/Minutes 8 x2 Sitting Exercises sciatic nerve glide Side bilateral Reps/Minutes 3x15 Comments pt did not c/o discomfort Standing Exercises single leg squat Side bilateral Reps/Minutes 3 x2 Comments from 23 inch table step ups Side bilateral Equipment Used 8 step Reps/Minutes 2x10 single leg stance Side bilateral Reps/Minutes 20s each x 4 Comments f/b trunk lean forward and laterally PT-OP-T Assessment and Plan Start: 09/30/19 12:38 Freq: Status: Active Protocol: Document 10/28/19 13:48 (Rec: 10/28/19 14:31 [id number]) Physical Therapy Assessment Goals single leg balance Impairment single leg balance on L = 16s Jail Goal (LTG) goal met : L =25s x 2, R= 20s x 2 pt t will reach > 35 s for SLS without lateral weight shift and hip/ankle strategy to improve her overall single leg strength and balance. LTG Duration 4 weeks slump test Impairment Pt has positive slump test Criminal Defense Lawyer Goal (LTG) 10/28 goal met: Pt does not have symptoms/ pain at slump test position (trunk flexion +knee ext and DF) to reduce her neural sensitivity. LTG Duration 8 weeks LE strength Impairment single leg squat for L = 24.5' from surface. Jail Goal (LTG) 10/28 cont in progress: able to stand from 22.5' table with L Pt will be able to perform single leg sit to stand from a 21 inches surface safely without UE support, in order to normal her gait pattern and lifting mechanics. LTG Duration 4 weeks HEP Impairment Pt only has a HEP for stretching only Criminal Defense Lawyer Goal (LTG) 10/28 cont in progress: Pt is not compliant to HEP Pt will perform hip stability and strengthening program 5x/ week independently with safe and proper mechanics to improve her mobility and strength, to prevent fruther injuries from lifting while taking care of her horses. LTG Duration 8 weeks Assessment Summary Assessment Goal reassessment shows pt improvements in SLS (30s on L) and single leg strength. (SL squat 22.5 inches) Pt also does not have neural sensivity with slump test today. She still has residual soreness on L hip. Educated pt on focusing on L hip stregnthening and stability for injury prevention during daily activities. Physical Therapy Plan Next Visit Focus/Plan Next Note Type Treatment Note Next Visit Plan reivew hEP hip stab trainig/ strengthening as [place] single leg balance
--- NOTE | 2019-11-12 09:50 | PT.OTN ---
Current Diagnoses Pain in left hip (11/12/19) Physical Therapy Treatment Note PT-OP-A Visit Information Start: 09/30/19 12:38 Freq: Status: Active Protocol: Document 11/12/19 09:50 DLM (Rec: 11/12/19 18:03 DLM [email or web address]) Out-Patient Physical Therapy Visit Information Visit Information Visit Type Treatment Note Visit Start Time 09:50 Visit Stop Time 10:30 Total Visit Minutes 40 Visit Number 04/08 Number of SALES ENGAGEMENT EXECUTIVE Visits 0 Evaluation Information Evaluation Date 09/30/19 PT-OP-B Current Condition Start: 09/30/19 12:38 Freq: Status: Active Protocol: Document 09/30/19 13:00 HH (Rec: 09/30/19 13:46 HH [email or web address]) Current Condition History of Current Condition Onset Date Early July, Current Complaints L hip pain, L hip weakness, difficulty in prolonged standing/ sitting. History of Current Condition Pt is a 69yo female presented to clinic with L hip pain. Pt reports initially injured herself by bending and twisting while taking care of her horses in early July. She started to have some pain in her L buttock with radiation down her left lateral thigh. her symptoms has 85% resolved while she was waiting to be evaluated by PT as she stated. She has seen a chiropractor 1x/ week who thinks that this is piriformis syndrome. She has been doing figure 4 stretch, knee to chest, piriformis stretch, hip flexor stretch, isometric hip flexion and clamshell as her home ex program who stated has been really helpful to relieve her pain. She also had hip adductor and quads strained many years ago with similar mechanism of injury which she feels her L thigh tends to be tight. Prior Treatments and Tests chiropractic tx 1x/ week Treatment Goals Patient/Caregiver Goals 1. To strengthen her L quad and hip stabilizers. 2. To have a HEP for injury prevention. Prior Functional Status Baseline Function- ADL's Independent Baseline Function- Mobility Independent Personal Factors Other Personal Factors That May Effect osteopenia Therapy/Recovery PT-OP-C Subjective Start: 09/30/19 12:38 Freq: Status: Active Protocol: Document 11/12/19 09:50 DLM (Rec: 11/12/19 18:03 DLM [email or web address]) OP-PT Subjective Patient Comments Patient Comments She reports she is improving. She has a little soreness/ aching in left buttock area today. She worked a lot with her horses this morning so she is tired. Patient Reported Progress Improving PT-OP-D Balance Start: 09/30/19 12:38 Freq: Status: Active Protocol: Document 09/30/19 13:00 HH (Rec: 09/30/19 19:06 [email or web address]) Balance Tests Single Limb Standing Single Limb- Right 22s Single Limb- Left 16s Other Other Balance Tests Performed excessive hip and ankle strategies for SLS on LLE PT-OP-F Manual Assessment Start: 09/30/19 12:38 Freq: Status: Active Protocol: Document 09/30/19 13:00 HH (Rec: 09/30/19 19:06 [email or web address]) Manual Assessments Soft Tissue Assessment Soft Tissue Mobility Assessment Tenderness to pressure at L gluteal melo/ medius tendon PT-OP-G Mobility & Gait Start: 09/30/19 12:38 Freq: Status: Active Protocol: Document 09/30/19 13:00 HH (Rec: 09/30/19 19:06 [email or web address]) OP Gait Assessment Gait Gait Assistance Required: Independent Assistive Devices Assistive Device None Gait Deviations General Gait Pattern Antalgic,Decreased Stride Length,Decreased Feet Clearance Comments Gait Comments Mild decreased stance phase on L, along with step length. PT-OP-H Neuro Start: 09/30/19 12:38 Freq: Status: Active Protocol: Document 09/30/19 13:00 HH (Rec: 09/30/19 19:06 [email or web address]) Deep Tendon Reflex & Clonus Assessment Deep Tendon Reflex Bilateral Achilles Deep Tendon Reflex 2+ Normal Bilateral Patellar Deep Tendon Reflex 2+ Normal Ankle Clonus Bilateral Clonus Assessment Absent PT-OP-K Range of Motion Start: 09/30/19 12:38 Freq: Status: Active Protocol: Document 09/30/19 13:00 HH (Rec: 09/30/19 19:06 [email or web address]) Hip Goniometric Range of Motion Hip Left Active Hip ROM WFL Yes Knee Goniometric Range of Motion Knee Left Knee ROM WFL Yes PT-OP-L Special Tests Start: 09/30/19 12:38 Freq: Status: Active Protocol: Document 09/30/19 13:00 HH (Rec: 09/30/19 19:06 [email or web address]) Special Tests Lumbar Spine Special Tests Slump Test Results +ve L (full slump position) Comments reports of increased calf pain and tension with supine/ seated knee ext + DF Hip Special Tests FADDIR Test Results +ve L Comments c/o deep joint pain with overpressure at end range FADDIR ADOLFO Test Results -ve Scour Test Test Results +ve L Comments c/o deep joint pain with compression Neural Special Tests- Lower Body Sciatic Nerve Tension Test Results +ve L Comments reports of increased calf pain and tension with supine/ seated knee ext + DF Other Special Tests Special Tests single leg squat from adjustable table L= 24.5 inches R= 21 inches. PT-OP-M Strength Start: 09/30/19 12:38 Freq: Status: Active Protocol: Document 09/30/19 13:00 HH (Rec: 09/30/19 19:06 [email or web address]) Hip Strength Hip Manual Muscle Testing Right Flexion (L2) 5 Normal Extension (S1) 5 Normal Abduction 5 Normal Adduction 5 Normal External Rotation 5 Normal Left Flexion (L2) 4- Good- Extension (S1) 4- Good- Abduction 4- Good- Adduction 4+ Good+ External Rotation 4- Good- Internal Rotation 4- Good- Knee Strength Knee Manual Muscle Testing Right Flexion (S2) 5 Normal Extension (L3) 5 Normal Left Flexion (S2) 4+ Good+ Extension (L3) 4+ Good+ PT-OP-Q Treatments Start: 09/30/19 12:38 Freq: Status: Active Protocol: Document 11/12/19 09:50 DLM (Rec: 11/12/19 18:03 DLM [email or web address]) Therapeutic Exercises Supine Exercises Bent Knee Drop Outs Supine Exercise Name Hooklying single limb drop outs with core stab Side bilateral Resistance active Reps/Minutes x10 reps yanira stretch Supine Exercise Name LE off edge of bed Side bilateral Resistance passive stretch Reps/Minutes 3 reps each side Comments with manual overpressure into hip extension bridging Supine Exercise Name with band around knees Side bilateral Resistance L1 exercise band Reps/Minutes 10 reps Sidelying Exercises clamshell Side bilateral Equipment Used level 1 band Reps/Minutes 8 x2 Manual Therapy Treatment Soft Tissue Mobilization gluteal max/med Mobilization Type Cross-Friction,Sustained Pressure,Trigger Point Release Intensity/Depth Moderate Body Position Sidelying Comments added piriformis and left paraspinal Self-Care/Home Management Treatment Education Patient Education Home Exercise Program PT-OP-T Assessment and Plan Start: 09/30/19 12:38 Freq: Status: Active Protocol: Document 11/12/19 09:50 DLM (Rec: 11/12/19 18:03 DLM [email or web address]) Physical Therapy Assessment Goals single leg balance Impairment single leg balance on L = 16s Care Home Goal (LTG) P1/8 goal met : L =25s x 2, R= 20s x 2 pt t will reach > 35 s for SLS without lateral weight shift and hip/ankle strategy to improve her overall single leg strength and balance. LTG Duration 4 weeks slump test Impairment Pt has positive slump test Street Department Dispatcher Goal (LTG) 18 goal met: Pt does not have symptoms/ pain at slump test position (trunk flexion +knee ext and DF) to reduce her neural sensitivity. LTG Duration 8 weeks LE strength Impairment single leg squat for L = 24.5' from surface. Street Department Dispatcher Goal (LTG) 18 cont in progress: able to stand from 22.5' table with L Pt will be able to perform single leg sit to stand from a 21 inches surface safely without UE support, in order to normal her gait pattern and lifting mechanics. LTG Duration 4 weeks HEP Impairment Pt only has a HEP for stretching only Street Department Dispatcher Goal (LTG) 18 cont in progress: Pt is not compliant to HEP Pt will perform hip stability and strengthening program 5x/ week independently with safe and proper mechanics to improve her mobility and strength, to prevent fruther injuries from lifting while taking care of her horses. LTG Duration 8 weeks Progress Towards Goals Progress Towards Goals Progressing Toward Goals Assessment Summary Assessment Ruchi reports good progress with therapy. She tolerated her exercises well. She is more fatigued this visit due to work she did not home with her Horses. Soft tissue tightness improved with manual therapy this visit. She declined the need for heat/ice after manual therapy reporting she can do that at home. Physical Therapy Plan Frequency and Duration Frequency of Treatment 2x for 4 wks,1x 4wk Duration of Treatment 8 weeks Plan of Care Start Date 09/30/19 Plan of Care End Date 11/29/19 Therapeutic Interventions Therapeutic Interventions Balance Training,Gait Training ,Home Exercise Program,Joint Mobilizations,Manual Therapy, Neuromuscular Re-education, Patient/Caregiver Education, Self-Care/Home Management,Soft Tissue Mobilization,Taping, Therapeutic Activities, Therapeutic Exercises Modalities Cold Pack/Ice Massage,Electric Stimulation,Hot Packs, Infrared Therapy,Ultrasound Next Visit Focus/Plan Next Note Type Treatment Note Next Visit Plan continue strengthening/ stabilization
--- NOTE | 2019-11-18 15:13 | PT.OTN ---
Current Diagnoses Pain in left hip (11/18/19) Physical Therapy Treatment Note PT-OP-A Visit Information Start: 09/30/19 12:38 Freq: Status: Active Protocol: Document 11/18/19 13:49 HH (Rec: 11/18/19 15:13 [id number]) Out-Patient Physical Therapy Visit Information Visit Information Visit Type Treatment Note Visit Start Time 13:49 Visit Stop Time 14:30 Total Visit Minutes 41 Visit Number 05/08 Number of [employer]ER Visits 0 PT-OP-B Current Condition Start: 09/30/19 12:38 Freq: Status: Active Protocol: Document 09/30/19 13:00 HH (Rec: 09/30/19 13:46 HH [email or web address]) Current Condition History of Current Condition Onset Date Early July, Current Complaints L hip pain, L hip weakness, difficulty in prolonged standing/ sitting. History of Current Condition Pt is a 69yo female presented to clinic with L hip pain. Pt reports initially injured herself by bending and twisting while taking care of her horses in early July. She started to have some pain in her L buttock with radiation down her left lateral thigh. her symptoms has 85% resolved while she was waiting to be evaluated by PT as she stated. She has seen a chiropractor 1x/ week who thinks that this is piriformis syndrome. She has been doing figure 4 stretch, knee to chest, piriformis stretch, hip flexor stretch, isometric hip flexion and clamshell as her home ex program who stated has been really helpful to relieve her pain. She also had hip adductor and quads strained many years ago with similar mechanism of injury which she feels her L thigh tends to be tight. Prior Treatments and Tests chiropractic tx 1x/ week Treatment Goals Patient/Caregiver Goals 1. To strengthen her L quad and hip stabilizers. 2. To have a HEP for injury prevention. Prior Functional Status Baseline Function- ADL's Independent Baseline Function- Mobility Independent Personal Factors Other Personal Factors That May Effect osteopenia Therapy/Recovery PT-OP-C Subjective Start: 09/30/19 12:38 Freq: Status: Active Protocol: Document 11/18/19 13:49 HH (Rec: 11/18/19 15:13 [id number]) OP-PT Subjective Patient Comments Patient Comments My L hip has been doing pretty good. But my hip does bother once in awhile. Patient Reported Progress Improving PT-OP-D Balance Start: 09/30/19 12:38 Freq: Status: Active Protocol: Document 09/30/19 13:00 HH (Rec: 09/30/19 19:06 [email or web address]) Balance Tests Single Limb Standing Single Limb- Right 22s Single Limb- Left 16s Other Other Balance Tests Performed excessive hip and ankle strategies for SLS on LLE PT-OP-F Manual Assessment Start: 09/30/19 12:38 Freq: Status: Active Protocol: Document 09/30/19 13:00 HH (Rec: 09/30/19 19:06 [email or web address]) Manual Assessments Soft Tissue Assessment Soft Tissue Mobility Assessment Tenderness to pressure at L gluteal melo/ medius tendon PT-OP-G Mobility & Gait Start: 09/30/19 12:38 Freq: Status: Active Protocol: Document 09/30/19 13:00 HH (Rec: 09/30/19 19:06 [email or web address]) OP Gait Assessment Gait Gait Assistance Required: Independent Assistive Devices Assistive Device None Gait Deviations General Gait Pattern Antalgic,Decreased Stride Length,Decreased Feet Clearance Comments Gait Comments Mild decreased stance phase on L, along with step length. PT-OP-H Neuro Start: 09/30/19 12:38 Freq: Status: Active Protocol: Document 09/30/19 13:00 HH (Rec: 09/30/19 19:06 [email or web address]) Deep Tendon Reflex & Clonus Assessment Deep Tendon Reflex Bilateral Achilles Deep Tendon Reflex 2+ Normal Bilateral Patellar Deep Tendon Reflex 2+ Normal Ankle Clonus Bilateral Clonus Assessment Absent PT-OP-K Range of Motion Start: 09/30/19 12:38 Freq: Status: Active Protocol: Document 09/30/19 13:00 HH (Rec: 09/30/19 19:06 [email or web address]) Hip Goniometric Range of Motion Hip Left Active Hip ROM WFL Yes Knee Goniometric Range of Motion Knee Left Knee ROM WFL Yes PT-OP-L Special Tests Start: 09/30/19 12:38 Freq: Status: Active Protocol: Document 09/30/19 13:00 HH (Rec: 09/30/19 19:06 [email or web address]) Special Tests Lumbar Spine Special Tests Slump Test Results +ve L (full slump position) Comments reports of increased calf pain and tension with supine/ seated knee ext + DF Hip Special Tests FADDIR Test Results +ve L Comments c/o deep joint pain with overpressure at end range FADDIR ADOLFO Test Results -ve Scour Test Test Results +ve L Comments c/o deep joint pain with compression Neural Special Tests- Lower Body Sciatic Nerve Tension Test Results +ve L Comments reports of increased calf pain and tension with supine/ seated knee ext + DF Other Special Tests Special Tests single leg squat from adjustable table L= 24.5 inches R= 21 inches. PT-OP-M Strength Start: 09/30/19 12:38 Freq: Status: Active Protocol: Document 09/30/19 13:00 (Rec: 09/30/19 19:06 [email or web address]) Hip Strength Hip Manual Muscle Testing Right Flexion (L2) 5 Normal Extension (S1) 5 Normal Abduction 5 Normal Adduction 5 Normal External Rotation 5 Normal Left Flexion (L2) 4- Good- Extension (S1) 4- Good- Abduction 4- Good- Adduction 4+ Good+ External Rotation 4- Good- Internal Rotation 4- Good- Knee Strength Knee Manual Muscle Testing Right Flexion (S2) 5 Normal Extension (L3) 5 Normal Left Flexion (S2) 4+ Good+ Extension (L3) 4+ Good+ PT-OP-Q Treatments Start: 09/30/19 12:38 Freq: Status: Active Protocol: Document 11/18/19 13:49 HH (Rec: 11/18/19 15:13 [id number]) Cardio Equipment Bicycle (Upright) Duration (Minutes) 5 Resistance 3 Gym Equipment Shuttle Recovery B squats Resistance 50lbs Shuttle Recovery Platform Stable SL squats Resistance #37 Shuttle Recovery Platform Stable Therapeutic Exercises Supine Exercises yanira stretch Supine Exercise Name LE off edge of bed Side bilateral Resistance passive stretch Reps/Minutes 3 reps each side Comments with manual overpressure into hip extension Sitting Exercises sciatic nerve glide Side bilateral Reps/Minutes 3x15 Comments pt did not c/o discomfort Standing Exercises squat Comments for HEP ball toss Standing Exercise Name SLS Resistance tennis ball toss Reps/Minutes 5 mins single leg squat Side bilateral Reps/Minutes 3 x2 Comments from 21 inch table step ups Side bilateral Equipment Used 12 step Reps/Minutes 8 x 2 single leg stance Side bilateral Reps/Minutes 30s each x 4 Comments f/b trunk lean forward and laterally PT-OP-T Assessment and Plan Start: 09/30/19 12:38 Freq: Status: Active Protocol: Document 11/18/19 13:49 (Rec: 11/18/19 15:13 [id number]) Physical Therapy Assessment Goals single leg balance Impairment single leg balance on L = 16s Spl[employer] Dashboard Developer Goal (LTG) goal met : L =80s x R= 100s. LTG Duration 4 weeks slump test Impairment Pt has positive slump test Jail Goal (LTG) 10/28 goal met: Pt does not have symptoms/ pain at slump test position (trunk flexion +knee ext and DF) to reduce her neural sensitivity. LTG Duration 8 weeks LE strength Impairment single leg squat for L = 24.5' from surface. Jail Goal (LTG) 10/28 goal met New goal: Pt will increase her L strength by being able to push 50 lbs unilaterally for single leg press. LTG Duration 4 weeks HEP Impairment Pt only has a HEP for stretching only Jail Goal (LTG) 10/28 cont in progress: Pt is not compliant to HEP Pt will perform hip stability and strengthening program 5x/ week independently with safe and proper mechanics to improve her mobility and strength, to prevent fruther injuries from lifting while taking care of her horses. LTG Duration 8 weeks Assessment Summary Assessment Pt showed significant improvements in L single leg strength and balance today without any discomfort that reached rehab goals. Pt was given new HEP with squats, RDL and step up today for cont strengthening. consider DC next visit. Physical Therapy Plan Next Visit Focus/Plan Next Note Type Treatment Note Next Visit Plan continue strengthening/ stabilization
--- NOTE | 2019-11-27 11:33 | PT.OTN ---
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 History of Current Condition Pt is a 69yo female presented to clinic with L hip pain. Pt reports initially injured herself by bending and twisting while taking care of her horses in early July. She started to have some pain in her L buttock with radiation down her left lateral thigh. her symptoms has 85% resolved while she was waiting to be evaluated by PT as she stated. She has seen a chiropractor 1x/ week who thinks that this is piriformis syndrome. She has been doing figure 4 stretch, knee to chest, piriformis stretch, hip flexor stretch, isometric hip flexion and clamshell as her home ex program who stated has been really helpful to relieve her pain. She also had hip adductor and quads strained many years ago with similar mechanism of injury which she feels her L thigh tends to be tight. Prior Treatments and Tests chiropractic tx 1x/ week Treatment Goals Patient/Caregiver Goals 1. To strengthen her L quad and hip stabilizers. 2. To have a HEP for injury prevention. Prior Functional Status Baseline Function- ADL's Independent Baseline Function- Mobility Independent Personal Factors Other Personal Factors That May Effect osteopenia Therapy/Recovery PT-OP-C Subjective Start: 09/30/19 12:38 Freq: Status: Active Protocol: Document 11/26/19 16:48 HH (Rec: 11/26/19 18:07 HH [email or web address]) OP-PT Subjective Patient Comments Patient Comments Mary been feeling very tired this week but i did do some ex . My hip is doing okay and i took a fall in the mud yesterday but nothing major. Patient Reported Progress Same PT-OP-D Balance Start: 09/30/19 12:38 Freq: Status: Active Protocol: Document 09/30/19 13:00 HH (Rec: 09/30/19 19:06 [email or web address]) Balance Tests Single Limb Standing Single Limb- Right 22s Single Limb- Left 16s Other Other Balance Tests Performed excessive hip and ankle strategies for SLS on LLE PT-OP-F Manual Assessment Start: 09/30/19 12:38 Freq: Status: Active Protocol: Document 09/30/19 13:00 HH (Rec: 09/30/19 19:06 [email or web address]) Manual Assessments Soft Tissue Assessment Soft Tissue Mobility Assessment Tenderness to pressure at L gluteal melo/ medius tendon PT-OP-G Mobility & Gait Start: 09/30/19 12:38 Freq: Status: Active Protocol: Document 09/30/19 13:00 HH (Rec: 09/30/19 19:06 [email or web address]) OP Gait Assessment Gait Gait Assistance Required: Independent Assistive Devices Assistive Device None Gait Deviations General Gait Pattern Antalgic,Decreased Stride Length,Decreased Feet Clearance Comments Gait Comments Mild decreased stance phase on L, along with step length. PT-OP-H Neuro Start: 09/30/19 12:38 Freq: Status: Active Protocol: Document 09/30/19 13:00 HH (Rec: 09/30/19 19:06 [email or web address]) Deep Tendon Reflex & Clonus Assessment Deep Tendon Reflex Bilateral Achilles Deep Tendon Reflex 2+ Normal Bilateral Patellar Deep Tendon Reflex 2+ Normal Ankle Clonus Bilateral Clonus Assessment Absent PT-OP-K Range of Motion Start: 09/30/19 12:38 Freq: Status: Active Protocol: Document 09/30/19 13:00 HH (Rec: 09/30/19 19:06 [email or web address]) Hip Goniometric Range of Motion Hip Left Active Hip ROM WFL Yes Knee Goniometric Range of Motion Knee Left Knee ROM WFL Yes PT-OP-L Special Tests Start: 09/30/19 12:38 Freq: Status: Active Protocol: Document 09/30/19 13:00 HH (Rec: 09/30/19 19:06 [email or web address]) Special Tests Lumbar Spine Special Tests Slump Test Results +ve L (full slump position) Comments reports of increased calf pain and tension with supine/ seated knee ext + DF Hip Special Tests FADDIR Test Results +ve L Comments c/o deep joint pain with overpressure at end range FADDIR ADOLFO Test Results -ve Scour Test Test Results +ve L Comments c/o deep joint pain with compression Neural Special Tests- Lower Body Sciatic Nerve Tension Test Results +ve L Comments reports of increased calf pain and tension with supine/ seated knee ext + DF Other Special Tests Special Tests single leg squat from adjustable table L= 24.5 inches R= 21 inches. PT-OP-M Strength Start: 09/30/19 12:38 Freq: Status: Active Protocol: Document 09/30/19 13:00 HH (Rec: 09/30/19 19:06 [email or web address]) Hip Strength Hip Manual Muscle Testing Right Flexion (L2) 5 Normal Extension (S1) 5 Normal Abduction 5 Normal Adduction 5 Normal External Rotation 5 Normal Left Flexion (L2) 4- Good- Extension (S1) 4- Good- Abduction 4- Good- Adduction 4+ Good+ External Rotation 4- Good- Internal Rotation 4- Good- Knee Strength Knee Manual Muscle Testing Right Flexion (S2) 5 Normal Extension (L3) 5 Normal Left Flexion (S2) 4+ Good+ Extension (L3) 4+ Good+ PT-OP-Q Treatments Start: 09/30/19 12:38 Freq: Status: Active Protocol: Document 11/26/19 16:48 HH (Rec: 11/26/19 18:07 [email or web address]) Cardio Equipment Bicycle (Upright) Duration (Minutes) 5 Resistance 3 Gym Equipment Shuttle Rebound red Exercise Details WBOS, NBOS Reps/Duration 6 mins Therapeutic Exercises Standing Exercises SLS 2 Standing Exercise Name on blue foam Reps/Minutes 4 mins in total Comments next to grab bar single leg stance Side bilateral Reps/Minutes 30s each x 4 Comments f/b trunk lean forward and laterally PT-OP-T Assessment and Plan Start: 09/30/19 12:38 Freq: Status: Active Protocol: Document 11/26/19 16:48 HH (Rec: 11/26/19 18:07 [email or web address]) Physical Therapy Assessment Goals slump test Impairment Pt has positive slump test Cephalometric Analyst Goal (LTG) 10/28 goal met: Pt does not have symptoms/ pain at slump test position (trunk flexion +knee ext and DF) to reduce her neural sensitivity. LTG Duration 8 weeks LE strength Impairment single leg squat for L = 24.5' from surface. Cephalometric Analyst Goal (LTG) 10/28 goal met New goal: Pt will increase her L strength by being able to push 50 lbs unilaterally for single leg press. LTG Duration 4 weeks HEP Impairment Pt only has a HEP for stretching only Cephalometric Analyst Goal (LTG) 10/28 cont in progress: Pt is not compliant to HEP Pt will perform hip stability and strengthening program 5x/ week independently with safe and proper mechanics to improve her mobility and strength, to prevent fruther injuries from lifting while taking care of her horses. LTG Duration 8 weeks Assessment Summary Assessment pt is very fatigue today and she c/o heart murmur. Checked her BP at the middle of session was at 160s/ 90s with HR 50s. Pt reports that is abnormal but she did have these episode occasionally. She reports she had a stress test in Jul which showed her heart condition is fine. Recommended pt to go ER for evaluation but pt refused. Educated pt to check her BP tonight and tomorrow. Physical Therapy Plan Next Visit Focus/Plan Next Note Type Treatment Note Next Visit Plan continue strengthening/ stabilization
== END 2020-06-16 09:22 ==
LOC: PHYS 16:45
PROVIDERS: Family Provider Family Medicine; PCP Family Medicine; Visit Provider Family Medicine
DX: M25.552 Pain in left hip (principal)
CPT/HCPCS: 97110; 97140; 97161; 97535

== ENCOUNTER → 2019-12-15 11:59 | Outpatient (CLI) | payer MEDICARE, OTHER, SELFPAY | PROVIDERS: Family Provider Family Medicine; PCP Family Medicine; Visit Provider Nurse Practitioner | DX: N30.01 Acute cystitis with hematuria (principal) | CPT/HCPCS: 87077; 87086; 87186 ==

== ENCOUNTER → 2020-07-08 08:16 | Outpatient (CLI) | payer MEDICARE, OTHER, SELFPAY ==
--- NOTE | 2020-07-08 | DI.MG.S_ITS ---
BILATERAL DIGITAL SCREENING MAMMOGRAM 3D/2D WITH CAD: 07/08/2020 CLINICAL: Routine screening. Comparison is made to exams dated: 06/29/2019 mammogram, 06/11/2018 mammogram, and 06/26/2017 mammogram - [facility]. The tissue of both breasts is heterogeneously dense. This may lower the sensitivity of mammography. Current study was also evaluated with a Computer Aided Detection (CAD) system. No significant masses, calcifications, or other findings are seen in either breast. There has been no significant interval change. IMPRESSION: NEGATIVE There is no mammographic evidence of malignancy. A 1 year screening mammogram is recommended. This exam was interpreted at Station ID: [id number]. NOTE: For mammograms, a report in lay terms will be sent to the patient. Approximately 15% of breast malignancies will not be visualized mammographically. In the management of a palpable breast mass, a negative mammogram must not discourage biopsy of a clinically suspicious lesion. Electronically Signed By: Roxanne packer/ciaran:07/08/2020 11:03:26 letter sent: Normal Exam ACR BI-RADS Category 1: Negative [id number]
== END ==
PROVIDERS: Family Provider Family Medicine; PCP Family Medicine; Referring Provider Family Medicine; Visit Provider Family Medicine
DX: Z12.31 Encounter for screening mammogram for malignant neoplasm of breast (principal)
CPT/HCPCS: 77063; 77067

== ENCOUNTER 2020-08-07 20:06 | Observation (INO) | payer MEDICARE, OTHER, SELFPAY ==
[2020-08-07 20:08] VITALS: BP 160/78; PULSE 76; PULSE 77; RESP 22; TEMP 36.2; O2SAT 100
--- NOTE | 2020-08-07 20:17 | DI.CT.S_ITS ---
PROCEDURE: CT ABDOMEN PELVIS W CON INDICATIONS: abdominal pain, elevated WBC, GI bleed TECHNIQUE: After the administration of intravenous contrast, 5 mm thick sections acquired from the diaphragm to the symphysis. 5 mm coronal and sagittal reformats were acquired. For radiation dose reduction, the following was used: automated exposure control, adjustment of mA and/or kV according to patient size. COMPARISON: None. FINDINGS: Image quality: Excellent. ABDOMEN: Lung bases: Lung bases are clear. Heart size is normal. Solid organs: Liver is normal in size and enhancement. Gallbladder is unremarkable . Biliary system is non dilated. Pancreas enhances normally. Spleen is normal in size and enhancement. No adrenal nodules. Kidneys demonstrate normal size and enhancement, without hydronephrosis. Peritoneum and bowel: Sigmoid diverticulosis. Inflammatory change in the surrounding fat consistent with uncomplicated acute sigmoid diverticulitis. No free air, free fluid, or abscess cavity. Nodes and vessels: No retroperitoneal or mesenteric adenopathy by size criteria. Aorta and inferior vena cava are normal in size. Miscellaneous: No ventral hernias. PELVIS: Genitourinary: Bladder wall thickness is normal. Miscellaneous: No inguinal hernias or adenopathy. Bones: No suspicious bony lesions. No vertebral body compression fractures. Multilevel disc bulges. Lumbar canal stenosis at L2-L3 through L4-L5. IMPRESSION: 1. Acute non complicated sigmoid diverticulitis. 2. Multilevel lumbar canal stenosis incidentally noted. Dictated by: Akhil Baron M.D. on 08/07/2020 at 20:50 Approved by: Akhil Baron M.D. on 08/07/2020 at 20:54
--- NOTE | 2020-08-07 20:23 | ED.GIBLEED ---
HPI - GI Bleed General Chief complaint: GI Bleed Stated complaint: Nausea and Vomiting Time Seen by Provider: 08/07/20 20:07 Source: patient and EMS Mode of arrival: EMS Limitations: no limitations History of Present Illness HPI Narrative: 70-year-old female nonsmoker with history of UTI, migraines, anxiety and recent treatment for what sounds like diverticulitis on an outpatient basis presents by EMS for evaluation of worsening nausea, vomiting, change in appetite. She has been having some crampy lower abdominal discomfort and change in her bowel habits with the occasional bright red blood and had some lab work and imaging done by her primary care provider. We do not have access which she was able to pull up the records and x-ray showed no obstruction and lab work showed a slight elevation of white blood cells. She was given prescription for Cipro and Flagyl and presents today because her nausea has become profound she cannot tolerate any liquids or food as the day has progressed. Additionally, she has had multiple episodes of vomiting with bright red blood, and even some dark coffee-ground emesis. She did have a very brief right-sided nose bleed that lasted only few seconds and had very minimal bleeding. Related Data Home Medications Medication Instructions Recorded Confirmed Flovent HFA 1 inh INHALATION DIRECTED #0 06/19/16 08/04/20 levalbuterol tartrate [Xopenex HFA] 1 puff INHALATION PRN PRN #0 06/19/16 08/04/20 cholecalciferol (vitamin D3) 2,000 unit PO DAILY #0 cap 08/10/16 08/04/20 [Vitamin D3] Probiotic 1 cap PO DAILY #0 04/17/17 08/04/20 aspirin 81 mg tablet,delayed 81 mg PO DAILY 02/09/19 08/04/20 release diazepam [Valium] 5 mg OR TIDP PRN 08/07/19 08/04/20 fpovnrvy-iqm-QI-lycopen-lutein 1 tab PO DAILY 08/07/19 08/04/20 [Centrum Silver] d-mannose each PO 07/29/20 08/04/20 Previous Rx's Medication Instructions Recorded estradiol 1 gram VAG 2XW #42.5 gram 08/04/20 Allergies Allergy/AdvReac Type Severity Reaction Status Date / Time diltiazem Allergy Intermediate chest pain Verified 08/04/20 09:17 adhesive Allergy Mild REDNESS & Verified 08/04/20 09:17 BURNING FROM TAPE budesonide Allergy Unknown ITCHY Verified 08/04/20 09:17 pseudoephedrine Allergy Unknown TACHYCARDIA Verified 08/04/20 09:17 Sulfa (Sulfonamide Allergy Unknown Verified 08/04/20 09:17 Antibiotics) azithromycin AdvReac Intermediate GI UPSET Verified 08/04/20 09:17 albuterol [ALBUTEROL] AdvReac Unknown INCREASED Verified 08/04/20 09:17 HEARTRATE butalbital AdvReac Unknown NAUSEA/VOMITING Verified 08/04/20 09:17 WITH FIORINAL carisoprodol AdvReac Unknown DIZZINESS Verified 07/29/20 14:02 AND UPSET STOMACH codeine AdvReac Unknown SEVERE Verified 07/29/20 14:02 NAUSEA/VOMITING hydrocodone AdvReac Unknown SEVERE Verified 07/29/20 14:02 NAUSEA/VOMITIND Review of Systems Constitutional Constitutional: Denies chills, Denies fatigue, Denies fever(s), Denies frequent falls, Denies lethargy and Denies weakness Eyes Eyes: Denies change in vision, Denies eye discharge, Denies irritation and Denies loss of vision ENT Ears, Nose, Mouth, and Throat: Denies change in voice, Denies dizziness, Denies neck pain, Denies sore throat and Denies throat swelling Cardiovascular Cardiovascular: Denies chest pain, Denies irregular heart rhythm, Denies lightheadedness, Denies palpitations, Denies dyspnea, Denies dyspnea on exertion and Denies orthopnea Respiratory Respiratory: Denies cough, Denies dyspnea, Denies dyspnea on exertion and Denies wheezing Gastrointestinal Gastrointestinal: Reports abdominal pain, Denies change in bowel habits, Denies diarrhea, Reports nausea, Reports vomiting and Reports hematemesis Musculoskeletal Musculoskeletal: Denies neck pain and Denies numbness Integumentary/Breasts Skin/Breast: Denies pruritus, Denies erythema, Denies rash and Denies wounds Neurologic Neurologic: Denies behavioral changes, Denies confusion, Denies dizziness, Denies frequent falls, Denies loss of vision, Denies numbness and Denies weakness Psychiatric Psychiatric: Denies anxiety, Denies behavioral changes, Denies confusion, Denies depression, Denies homicidal ideation and Denies suicidal ideation Endocrine Endocrine: Denies fatigue, Denies flushing and Denies palpitations Hematologic/Lymphatic Hematologic/Lymphatic: Denies easy bruising Allergic/Immunologic Allergic/Immunologic: Denies urticaria, Denies throat swelling and Denies wheezing Patient History Medical History Anxiety (Chronic 08/12/15) Anxiety (Chronic) Arthritis (Acute) Breast nodule (Chronic) Chronic cough (Chronic) Chronic fatigue (Chronic 09/28/16) Chronic UTI (Acute) Dizziness (Chronic 09/28/16) History of fracture of right ankle (Resolved 1981) History of recurrent UTI (urinary tract infection) (Acute) Lower urinary tract symptoms (LUTS) (Acute) Menopause present (Chronic 08/12/15) Migraines (Chronic) Murmur, cardiac (Chronic) Non-tuberculous bronchiectasis (Chronic) Osteoarthritis (Chronic) Patent foramen ovale (Chronic) Positive PPD, treated (Resolved ~1982) Postmenopausal atrophic vaginitis (Acute) Raynaud's disease (Chronic) Recurrent UTI (Chronic) Surgical History H/O bladder repair surgery (Acute) History of lung biopsy (Acute) Hx of appendectomy (Resolved) Hx of surgical procedure (Resolved 2006) Family History Father CVA (cerebral vascular accident) Pneumonia Mother No problems noted. 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 Well-nourished, well-developed patient, in mild distress. HEAD: Atraumatic. Normocephalic. EYES: Pupils equal round and reactive. Extraocular motions intact. No scleral icterus. No injection or drainage. ENT: Nose without bleeding, purulent drainage. Throat without erythema, tonsillar hypertrophy or exudate. Airway patent. NECK: Trachea midline. Non tender CARDIOVASCULAR: Regular rate and rhythm without murmurs, gallops, or rubs. RESPIRATORY: Clear to auscultation. Breath sounds equal bilaterally. No wheezes, rales, or rhonchi. GASTROINTESTINAL: Abdomen soft, non-tender, nondistended. EXTREMITIES: No edema or joint tenderness. BACK: Nontender without deformity or crepitance. No flank tenderness. NEURO: AOx3. SKIN: No rash or erythema of visible areas Initial Vital Signs Initial Vital Signs: Vital Signs Temperature 97.1 F L 08/07/20 20:08 Pulse Rate 77 08/07/20 20:08 Respiratory Rate 22 08/07/20 20:08 Blood Pressure 160/78 H 08/07/20 20:08 Pulse Oximetry 100 08/07/20 20:08 Course Orders Ordered: ED Orders 08/07/20 20:17 CT abdomen pelvis w con Stat 08/07/20 20:30 Complete Blood Count AUTO DIFF Stat Comprehensive Metabolic Panel Stat Lipase Stat Partial Thromboplastin Time Stat Prothrombin Time INR Stat Type and Screen Stat 08/07/20 20:45 COVID19 -ED/INPAT/OR/L&D Stat Acetaminophen (Tylenol) 650 mg PO Q6HR PRN PRN Reason: Fever/Mild Pain (1-3) Last Admin: 08/07/20 23:38 Dose: 650 mg Documented by: KIARRA Fluticasone Propionate (Flovent Hfa) 1 puff INH RTBID LELE Sodium Chloride (Normal Saline 0.9%) 1,000 mls @ 150 mls/hr IV CONT [facility] Last Admin: 08/07/20 20:38 Dose: 150 mls/hr Documented by: KGALLAG Sodium Chloride (Normal Saline 0.9%) 1,000 mls @ 100 mls/hr IV CONT [facility] Last Admin: 08/07/20 23:37 Dose: 100 mls/hr Documented by: KIARRA Ciprofloxacin (Cipro) 400 mg in 200 mls @ 200 mls/hr IV Q12H LELE Metronidazole (Flagyl) 500 mg in 100 mls @ 100 mls/hr IV Q6H [facility] Last Admin: 08/07/20 23:38 Dose: 100 mls/hr Documented by: KIARRA Levalbuterol HCl (Xopenex) 1.25 mg INH Q4H PRN PRN Reason: Shortness Of Breath Ondansetron HCl (Zofran) 4 mg IV Q6HR PRN PRN Reason: Nausea And Vomiting Last Admin: 08/07/20 23:41 Dose: 4 mg Documented by: KIARRA Pantoprazole Sodium (Protonix) 40 mg IV BID LELE Discontinued Medications Ondansetron HCl (Zofran) 4 mg IV NOW ONE Stop: 08/07/20 20:17 Last Admin: 08/07/20 20:39 Dose: 4 mg Documented by: SRIDEVI Pantoprazole Sodium (Protonix) 40 mg IV NOW ONE Stop: 08/07/20 20:17 Last Admin: 08/07/20 20:39 Dose: 40 mg Documented by: SRIDEVI Consultations Consultation #1: initial discussion with Dr. Robles, he is happy to see her if consulted by medicine. He does request Protonix 40mg BID and patient be kept NPO Consultation #2: hospitalist happy to accept Vital Signs Vital signs: Vital Signs - 8 hr 08/07/20 20:08 Temperature 97.1 F L Pulse Rate 76 Respiratory Rate 22 Blood Pressure 160/78 H Pulse Oximetry 100 MDM - GI Bleed Lab Data Result diagrams: 08/07/20 20:30 08/07/20 20:30 Labs: Lab Results 08/07/20 08/07/20 08/07/20 Range/Units 20:30 20:30 20:30 WBC 5.9 (4.5-11.0) X10^3/uL RBC 4.25 (4.0-5.2) X10^6/uL Hgb 12.4 (12.0-16.0) g/dL Hct 37.4 (36-46) % MCV 88.1 (80-100) fL MCH 29.3 (26-34) PG MCHC 33.2 (30-36) % RDW 13.1 (11.6-14.8) % Plt Count 215 (150-400) X10^3/uL Neut % (Auto) 76.1 H (50-75) % Lymph % (Auto) 13.0 L (25-40) % [place] % (Auto) 8.9 (3-14) % Eos % (Auto) 1.4 L (2-4) % Baso % (Auto) 0.6 (0-2) % Neut # (Auto) 4500 (4889-0560) /uL Lymph # (Auto) 800 L (5028-4819) /uL [place] # (Auto) 500 (0-900) /uL Eos # (Auto) 100 (0-450) /uL Baso # (Auto) 0 (0-100) /uL PT 13.4 H (10.1-12.7) SECONDS INR 1.2 (0.9-1.3) APTT 35 D (26.4-36.2) SECONDS Sodium 139 (137-145) mmol/L Potassium 3.8 (3.4-5.1) mmol/L Chloride 107 (98-107) mmol/L Carbon Dioxide 25 (22-32) mmol/L BUN 10 (7-17) mg/dL Creatinine 0.64 (0.52-1.04) mg/dL Estimated GFR > 60.0 (>60) mL/min BUN/Creatinine Ratio 15.6 (6-22) Glucose 113 H (80-110) mg/dL Calcium 8.8 (8.4-10.2) mg/dL Total Bilirubin 0.4 (0.2-1.3) mg/dL AST 24 (14-36) IU/L ALT 16 (<35) IU/L Alkaline Phosphatase 71 (38-126) U/L Total Protein 7.0 (6.3-8.2) g/dL Albumin 4.0 (3.5-5.0) g/dL Globulin 3.0 (1.7-4.1) g/dL Albumin/Globulin Ratio 1.3 (1.0-2.8) Lipase 60 (23-300) U/L COVID-19 PCR (Negative) Blood Type Antibody Screen 08/07/20 08/07/20 Range/Units 20:30 20:45 WBC (4.5-11.0) X10^3/uL RBC (4.0-5.2) X10^6/uL Hgb (12.0-16.0) g/dL Hct (36-46) % MCV (80-100) fL MCH (26-34) PG MCHC (30-36) % RDW (11.6-14.8) % Plt Count (150-400) X10^3/uL Neut % (Auto) (50-75) % Lymph % (Auto) (25-40) % [place] % (Auto) (3-14) % Eos % (Auto) (2-4) % Baso % (Auto) (0-2) % Neut # (Auto) (9822-7544) /uL Lymph # (Auto) (9876-8651) /uL [place] # (Auto) (0-900) /uL Eos # (Auto) (0-450) /uL Baso # (Auto) (0-100) /uL PT (10.1-12.7) SECONDS INR (0.9-1.3) APTT (26.4-36.2) SECONDS Sodium (137-145) mmol/L Potassium (3.4-5.1) mmol/L Chloride (98-107) mmol/L Carbon Dioxide (22-32) mmol/L BUN (7-17) mg/dL Creatinine (0.52-1.04) mg/dL Estimated GFR (>60) mL/min BUN/Creatinine Ratio (6-22) Glucose (80-110) mg/dL Calcium (8.4-10.2) mg/dL Total Bilirubin (0.2-1.3) mg/dL AST (14-36) IU/L ALT (<35) IU/L Alkaline Phosphatase (38-126) U/L Total Protein (6.3-8.2) g/dL Albumin (3.5-5.0) g/dL Globulin (1.7-4.1) g/dL Albumin/Globulin Ratio (1.0-2.8) Lipase (23-300) U/L COVID-19 PCR Negative (Negative) Blood Type O Positive Antibody Screen Negative [facility] Narrative Medical decision making narrative: 70F with upper GI bleed likely caused by connie pacheco tear due to vomiting induced by ABX for treatment of diverticulitis. She Needs hospitalization for futher evaluation and stabilization of condition. Discharge Plan Departure Patient Disposition: Admitted As Inpatient Clinical Impression: Acute upper gastrointestinal bleeding, Diverticulitis Discharge Date/Time: 08/07/20 22:35 Admit Date/Time: 08/07/20 21:43 Admit Provider: Kathleen August
[2020-08-07] MEDS: SODIUM CHLORIDE 0.9% 1,000 ML 150 ML IV (20:38)
[2020-08-07] MEDS: PANTOPRAZOLE 40 MG VIAL IV (20:39)
[2020-08-07] MEDS: ONDANSETRON 4 MG/2 ML INJ IV ×2 (20:39→23:41)
[2020-08-07 20:40] LABS: Add Manual Diff / Slide Review NO; Basophils Absolute Auto 0 /uL (0-100); Basophils Percent Auto 0.6 % (0-2); Eosinophils Absolute Auto 100 /uL (0-450); Eosinophils Percent Auto 1.4 % (2-4); Hematocrit 37.4 % (36-46); Hemoglobin 12.4 g/dL (12.0-16.0); Lymphocytes Absolute Auto 800 /uL (1100-4500); Mean Corpuscular HGB Conc 33.2 % (30-36); Mean Corpuscular Hemoglobin 29.3 PG (26-34); Mean Corpuscular Volume 88.1 fL (80-100); Monocytes Absolute Auto 500 /uL (0-900); Monocytes Percent Auto 8.9 % (3-14); Neutrophils Absolute Auto 4500 /uL (1500-7000); Neutrophils Percent Auto 76.1 % (50-75); Platelet Count 215 X10^3/uL (150-400); Red Blood Cell Count 4.25 X10^6/uL (4.0-5.2); Red Cell Distribution Width 13.1 % (11.6-14.8); White Blood Cell Count 5.9 X10^3/uL (4.5-11.0)
[2020-08-07 20:46] LABS: INR 1.2 (0.9-1.3); Prothrombin Time 13.4 SECONDS (10.1-12.7)
[2020-08-07 20:49] LABS: PTT Partial Thromboplastin Tim 35 SECONDS (26.4-36.2)
[2020-08-07 20:51] LABS: Alanine Aminotransferase 16 IU/L (<35); Albumin Globulin Ratio 1.3 (1.0-2.8); Alkaline Phosphatase 71 U/L (38-126); Aspartate Aminotransferase 24 IU/L (14-36); BUN Creatinine Ratio 15.6 (6-22); Bilirubin Total 0.4 mg/dL (0.2-1.3); Blood Urea Nitrogen 10 mg/dL (7-17); Calcium 8.8 mg/dL (8.4-10.2); Carbon Dioxide 25 mmol/L (22-32); Chloride 107 mmol/L (98-107); Estimated Glomerular Filt Rate > 60.0 mL/min (>60); Glucose 113 mg/dL (80-110); HEMOLYSIS < 15 (0-50); Lipase 60 U/L (23-300); Potassium 3.8 mmol/L (3.4-5.1); Sodium 139 mmol/L (137-145)
[2020-08-07 21:04] LABS: COVID19 -Nasal RAPID Negative (Negative)
[2020-08-07 22:35] VITALS: BP 149/83; PULSE 73; RESP 20; TEMP 36.9; O2SAT 98
--- NOTE | 2020-08-07 22:35 | PM.HP.1 ---
History of Present Illness History of Present Illness Date Patient Seen: 08/07/20 Time Patient Seen: 22:00 Chief complaint: Nausia and Vomiting Narrative: Ruchi Lemus is a 70 y.o. female with a patent foramen ovale, bronchiectasis and Raynaud's recently diagnosed with diverticulitis and started on oral Cipro and Flagyl at her PCP's clinic on August 05. At that time she had nausea which continued after starting the medications and through the today when she threw up 3 times. Initially her vomit was mostly composed of undigested food from the previous meal followed by 2 more episodes of emesis which contained mucus and blood parentheses she showed me a photograph from her phone of the emesis). She denies fevers sweats or chills, throat pain, though states her throat has been dry, denies shortness of breath, chest pain, she does state she has normally are number regular heartbeat and only takes aspirin, she does endorse having abdominal pain associated with the diverticulitis, denies rashes or lesions, denies numbing or tingling of her upper or lower extremities, denies frequent bleeding but does bruise easily. She sees , partner marketing manager and recalls having it transesophageal echocardiogram last year as they monitor her PFO. CT of the abdomen and pelvis report indicated Sigmoid diverticulosis. Inflammatory change in the surrounding fat consistent with uncomplicated acute sigmoid diverticulitis. No free air, free fluid, or abscess cavity.She is afebrile, blood pressure 149/83, heart rate 73, respiratory rate of 20, oxygen saturation of 90% on room air, she weighs 54 kg with a BMI of 19.5. Patient History Medical History Anxiety (Chronic 08/12/15) Anxiety (Chronic) Arthritis (Acute) Breast nodule (Chronic) Chronic cough (Chronic) Chronic fatigue (Chronic 09/28/16) Chronic UTI (Acute) Dizziness (Chronic 09/28/16) History of fracture of right ankle (Resolved 1981) History of recurrent UTI (urinary tract infection) (Acute) Lower urinary tract symptoms (LUTS) (Acute) Menopause present (Chronic 08/12/15) Migraines (Chronic) Murmur, cardiac (Chronic) Non-tuberculous bronchiectasis (Chronic) Osteoarthritis (Chronic) Patent foramen ovale (Chronic) Positive PPD, treated (Resolved ~1982) Postmenopausal atrophic vaginitis (Acute) Raynaud's disease (Chronic) Recurrent UTI (Chronic) Surgical History H/O bladder repair surgery (Acute) History of lung biopsy (Acute) Hx of appendectomy (Resolved) Hx of surgical procedure (Resolved 2006) Family & Social History Family History Father CVA (cerebral vascular accident) Pneumonia Mother No problems noted. Tobacco & Substance use: Smoking Status Never smoker alcohol intake current alcohol intake frequency 0-2 drinks per day Substance Use Type does not use Meds Home Medications and Allergies Home Medications Medication Instructions Recorded Confirmed Type Flovent HFA 1 inh INHALATION DIRECTED #0 06/19/16 08/04/20 History levalbuterol tartrate [Xopenex HFA] 1 puff INHALATION PRN PRN #0 06/19/16 08/04/20 History cholecalciferol (vitamin D3) 2,000 unit PO DAILY #0 cap 08/10/16 08/04/20 History [Vitamin D3] Probiotic 1 cap PO DAILY #0 04/17/17 08/04/20 History aspirin 81 mg tablet,delayed 81 mg PO DAILY 02/09/19 08/04/20 History release diazepam [Valium] 5 mg OR TIDP PRN 08/07/19 08/04/20 History fwsujjlr-hll-JK-lycopen-lutein 1 tab PO DAILY 08/07/19 08/04/20 History [Centrum Silver] d-mannose each PO 07/29/20 08/04/20 History estradiol 1 gram VAG 2XW #42.5 gram 08/04/20 08/04/20 Rx Allergies Allergy/AdvReac Type Severity Reaction Status Date / Time diltiazem Allergy Intermediate chest pain Verified 08/04/20 09:17 adhesive Allergy Mild REDNESS & Verified 08/04/20 09:17 BURNING FROM TAPE budesonide Allergy Unknown ITCHY Verified 08/04/20 09:17 pseudoephedrine Allergy Unknown TACHYCARDIA Verified 08/04/20 09:17 Sulfa (Sulfonamide Allergy Unknown Verified 08/04/20 09:17 Antibiotics) azithromycin AdvReac Intermediate GI UPSET Verified 08/04/20 09:17 albuterol [ALBUTEROL] AdvReac Unknown INCREASED Verified 08/04/20 09:17 HEARTRATE butalbital AdvReac Unknown NAUSEA/VOMITING Verified 08/04/20 09:17 WITH FIORINAL carisoprodol AdvReac Unknown DIZZINESS Verified 07/29/20 14:02 AND UPSET STOMACH codeine AdvReac Unknown SEVERE Verified 07/29/20 14:02 NAUSEA/VOMITING hydrocodone AdvReac Unknown SEVERE Verified 07/29/20 14:02 NAUSEA/VOMITIND Review of Systems Review of Systems ROS: Yes All systems reviewed with the patient and are negative except as otherwise documented Exam Vital Signs (past 8 hours): - 08/07/20 20:08 Temperature 97.1 F L Pulse Rate 76 Respiratory Rate 22 Blood Pressure 160/78 H Pulse Oximetry 100 Oxygen Delivery Method Room Air Narrative Exam Narrative: Gen: Alert, oriented, thin 62 y.o. female, appears fatigued HEENT: normocephalic, atraumatic, conjunctiva clear, sclera non-icteric, oral mucosa pink and moist Neck: supple, full ROM, no JVD, trachea is midline Resp: Lungs CTA, non-labored breathing CV: Irregular and has a systolic murmur Abd: soft, non-tender, normoactive BTs Skin: no lesions or rashes, dry and intact Neuro: Alert and oriented X 4 w/no focal deficits. Speech clear and coherent. Extremities: moves all 4 extremities, is ambulatory, negative Dusty?s sign Psyche: normal mood and affect. Objective Labs Result Diagrams: 08/07/20 20:30 08/07/20 20:30 Labs: Laboratory Results - last 24 hr 08/07/20 08/07/20 08/07/20 20:30 20:30 20:30 WBC 5.9 RBC 4.25 Hgb 12.4 Hct 37.4 MCV 88.1 MCH 29.3 MCHC 33.2 RDW 13.1 Plt Count 215 Neut % (Auto) 76.1 H Lymph % (Auto) 13.0 L [place] % (Auto) 8.9 Eos % (Auto) 1.4 L Baso % (Auto) 0.6 Neut # (Auto) 4500 Lymph # (Auto) 800 L [place] # (Auto) 500 Eos # (Auto) 100 Baso # (Auto) 0 PT 13.4 H INR 1.2 APTT 35 D Sodium 139 Potassium 3.8 Chloride 107 Carbon Dioxide 25 BUN 10 Creatinine 0.64 Estimated GFR > 60.0 BUN/Creatinine Ratio 15.6 Glucose 113 H Calcium 8.8 Total Bilirubin 0.4 AST 24 ALT 16 Alkaline Phosphatase 71 Total Protein 7.0 Albumin 4.0 Globulin 3.0 Albumin/Globulin Ratio 1.3 Lipase 60 COVID-19 PCR Blood Type Antibody Screen 08/07/20 08/07/20 20:30 20:45 WBC RBC Hgb Hct MCV MCH MCHC RDW Plt Count Neut % (Auto) Lymph % (Auto) [place] % (Auto) Eos % (Auto) Baso % (Auto) Neut # (Auto) Lymph # (Auto) [place] # (Auto) Eos # (Auto) Baso # (Auto) PT INR APTT Sodium Potassium Chloride Carbon Dioxide BUN Creatinine Estimated GFR BUN/Creatinine Ratio Glucose Calcium Total Bilirubin AST ALT Alkaline Phosphatase Total Protein Albumin Globulin Albumin/Globulin Ratio Lipase COVID-19 PCR Negative Blood Type O Positive Antibody Screen Negative Assessment & Plan Assessment & Plan narrative: Ruchi Lemus is placed into observation for a suspected upper GI bleed associated with nausea and vomiting over the past several days. Upper GI bleed, acute, present on admission -she is suspected of having likely a small Ivelisse-Nixon tear, Dr. Robles plans to scope her in the morning -IV Protonix 40 mg b.i.d. -NPO, IV fluids -IV Zofran for nausea and vomiting -she has been typed and screened in the ED Diverticulitis, currently being treated in an outpatient setting -will start IV Cipro and Flagyl Chronic bronchiectasis -continue home dose of Flovent and Levalbuteral all inhalers PFO, chronic -Holding ASA for now -Have requested cardiology note and last echo VTE prophylaxis: Wells risk score: 0 Bilateral SCDs Consults: Dr. Robles, consult and involvement is appreciated. Patient is observation status as her stay is not likely to exceed 2 midnights. FEN: IV NS at 100 ml/hour, NPO, BMP and magnesium in the am. Dispo: probable discharge to home w/outpatient follow up Code Status: Full code as discussed with patient Quality VTE Deep Vein Thrombosis/Pulmonary Embolism Present on Admission: No
[2020-08-07 22:41] VITALS: BMI 19.5
--- NOTE | 2020-08-07 23:23 | PC.NURSE ---
Pt arrived to floor @ 2235 Pt alert/oriented, denies discomfort. Pt oriented to room and call system. Call light w/in reach, pt calls apprpriately for needs Continue w/plan of care.
[2020-08-07] MEDS: SODIUM CHLORIDE 0.9% 1,000 ML 100 ML IV (23:37)
[2020-08-07] MEDS: ACETAMINOPHEN 325 MG TABLET 650 MG PO (23:38)
[2020-08-07] MEDS: metroNIDAZOLE 500 MG/100 ML PIGGYBACK 100 MG IV (23:38)
[2020-08-07 23:53] VITALS: BP 147/78; PULSE 74; RESP 16; TEMP 36.7; O2SAT 98
[2020-08-08] VITALS (15 sets, daily range): BP systolic 116–141; BP diastolic 59–74; PULSE 63–85; RESP 13–19; TEMP 36–37.3; O2SAT 93–100
[2020-08-08] MEDS: metroNIDAZOLE 500 MG/100 ML PIGGYBACK 100 MG IV (04:47)
[2020-08-08 05:42] LABS: Add Manual Diff / Slide Review NO; Basophils Absolute Auto 0 /uL (0-100); Basophils Percent Auto 0.8 % (0-2); Eosinophils Absolute Auto 100 /uL (0-450); Eosinophils Percent Auto 2.4 % (2-4); Hematocrit 35.6 % (36-46); Hemoglobin 11.8 g/dL (12.0-16.0); Lymphocytes Absolute Auto 900 /uL (1100-4500); Lymphocytes Percent Auto 18.6 % (25-40); Mean Corpuscular HGB Conc 33.2 % (30-36); Mean Corpuscular Hemoglobin 29.4 PG (26-34); Mean Corpuscular Volume 88.5 fL (80-100); Monocytes Absolute Auto 500 /uL (0-900); Monocytes Percent Auto 10.5 % (3-14); Neutrophils Absolute Auto 3300 /uL (1500-7000); Neutrophils Percent Auto 67.7 % (50-75); Platelet Count 207 X10^3/uL (150-400); Red Blood Cell Count 4.02 X10^6/uL (4.0-5.2); Red Cell Distribution Width 13.3 % (11.6-14.8); White Blood Cell Count 4.8 X10^3/uL (4.5-11.0)
[2020-08-08 05:49] LABS: Alanine Aminotransferase 15 IU/L (<35); Albumin 3.3 g/dL (3.5-5.0); Albumin Globulin Ratio 1.3 (1.0-2.8); Alkaline Phosphatase 55 U/L (38-126); Aspartate Aminotransferase 21 IU/L (14-36); BUN Creatinine Ratio 10.8 (6-22); Bilirubin Total 0.4 mg/dL (0.2-1.3); Blood Urea Nitrogen 8 mg/dL (7-17); Calcium 8.3 mg/dL (8.4-10.2); Carbon Dioxide 29 mmol/L (22-32); Chloride 110 mmol/L (98-107); Estimated Glomerular Filt Rate > 60.0 mL/min (>60); Globulin 2.6 g/dL (1.7-4.1); Glucose 90 mg/dL (80-110); HEMOLYSIS < 15 (0-50); Magnesium 2.1 mg/dL (1.6-2.3); Potassium 4.1 mmol/L (3.4-5.1); Sodium 139 mmol/L (137-145); Total Protein 5.9 g/dL (6.3-8.2)
--- NOTE | 2020-08-08 08:31 | PC.NURSE ---
Addendum entered by Nikky Gore R.N. 08/08/20 13:57: PATIENT REPORTS REGLAN NOT EFFECTIVE TO RELIEVE NAUSEA. MD NOTIFIED. ORDER FOR COMPAZINE. PATIENT DECLINED, PREFERS INCREASING DOSE OF ZOFRAN. DR. HOLLY NOTIFIED, WITH RECOMMENDATION TO HOLD THE COURSE, AND HAVE GI SURGEON EVAL PRIOR TO MAKING CHANGES AT THIS TIME. DR. HOLLY REPORTS SHE HAS CALL OUT TO SURGEON AND AWAITING RESPONSE AT THIS TIME. Addendum entered by Nikky Gore R.N. 08/08/20 10:41: PATIENT HAD CLEAR YELLOW EMESIS, RECEIVED ZOFRAN ADMINISTERED BY BRIANDA ADKINS RN. Original Note: HAD MEDIUM SIZE FORMED, NORMAL APPEARING BROWN STOOL. GAUIAC WAS TRACE HEM POSITIVE. DENIES ABD PAIN, DENIES N/V. ENDORSES ABD TENDERNESS TO PALPATION TO APPROX AREA OF LEFT SPLENIC FLEXURE OF COLON. ENDORSES HEADACHE 5/10, EXACERBATED BY LAYING FLAT. CURRENTLY SITTING UP IN RECLINER. CALL LIGHT IN REACH. NPO STATUS.
[2020-08-08] MEDS: PANTOPRAZOLE 40 MG VIAL IV (08:37)
[2020-08-08] MEDS: CIPROFLOXACIN 400 MG/200 ML PIGGYBACK 200 MG IV (08:37)
[2020-08-08] MEDS: FLUTICASONE 44 MCG HFA 120 PUFF INH INH (08:37)
[2020-08-08] MEDS: LEVALBUTEROL 1.25 MG/0.5 ML NEB INH (09:03)
--- NOTE | 2020-08-08 09:13 | CM.DANOTE ---
DCP: Case received, EMR reviewed and met with patient. Introduced self and role. Was able to obtain information from patient regarding her baseline activity level and living (home situation), prior to hospitalization. DCP assessment completed with information currently available. Patient is a 70 year old female who admitted yesterday evening to the care of the hospitalist team. PCP: Dr. Hoover. Payer: confirmed: Medicare/[employer]. Patient came to the hospital via ambulance secondary to increased nausea and vomiting with emesis. Patient holds diagnosis of GI bleed, Diverticulitis. Patient has history of urinary tract infections, as well as anxiety. Met with patient in her room. She is alert and oriented, pleasant. She resides at home with her , who stated, he's on hospice, and not expected to live much longer. She stated that he has been on hospice since last year, and was expected to pass last September. She indicated that he is bed bound, and her daughter, Kavitha, lives with them, and is helping out. Patient indicated that her daughter, Kavitha, has psych. issues, but is on medications. Stated that she also has another daughter, Jennifer Lemus, who is local and also supportive. Patient is independent, drives, at baseline. P: DCP to continue to follow. Will be available for any resources needed. Patient should be able to go home when she is medically stable. Alisa Steele RN/Inspection And Testing Supervisor
[2020-08-08] MEDS: FLOVENT 220 MCG 1 EACH INH (10:00)
[2020-08-08] MEDS: ONDANSETRON 4 MG/2 ML INJ IV ×3 (10:27→20:42)
[2020-08-08] MEDS: METOCLOPRAMIDE 10 MG/2 ML INJ 5 MG IV (11:37)
[2020-08-08] MEDS: SODIUM CHLORIDE 0.9% 1,000 ML 100 ML IV (13:24)
--- NOTE | 2020-08-08 14:45 | P.CONS_ITS ---
History of Present Illness Consult details Date Patient Seen: 08/08/20 Time Patient Seen: 14:45 Chief complaint: Nausia and Vomiting Reason for consult: Upper GI bleed Requesting provider: Bright Yo Narrative: the patient is woman who is been under treatment for diverticulitis with 2 antibiotics. She developed a nose bleed and then She developed nausea and vomiting and then developed dark emesis. I was asked to see her regarding possible EGD. Meds Home Medications and Allergies Home Medications Medication Instructions Recorded Confirmed Type Flovent HFA 1 inh INHALATION DIRECTED #0 06/19/16 08/08/20 History levalbuterol tartrate [Xopenex HFA] 1 puff INHALATION PRN PRN #0 06/19/16 08/08/20 History cholecalciferol (vitamin D3) 2,000 unit PO DAILY #0 cap 08/10/16 08/08/20 History [Vitamin D3] Probiotic 1 cap PO DAILY #0 04/17/17 08/08/20 History aspirin 81 mg tablet,delayed 81 mg PO DAILY 02/09/19 08/08/20 History release diazepam [Valium] 5 mg OR TIDP PRN 08/07/19 08/08/20 History xeqoznis-mos-CU-lycopen-lutein 1 tab PO DAILY 08/07/19 08/08/20 History [Centrum Silver] d-mannose 1 each PO DAILY 07/29/20 08/08/20 History estradiol 1 gram VAG 2XW #42.5 gram 08/04/20 08/08/20 Rx Allergies Allergy/AdvReac Type Severity Reaction Status Date / Time diltiazem Allergy Intermediate chest pain Verified 08/04/20 09:17 adhesive Allergy Mild REDNESS & Verified 08/04/20 09:17 BURNING FROM TAPE budesonide Allergy Unknown ITCHY Verified 08/04/20 09:17 pseudoephedrine Allergy Unknown TACHYCARDIA Verified 08/04/20 09:17 Sulfa (Sulfonamide Allergy Unknown Verified 08/04/20 09:17 Antibiotics) azithromycin AdvReac Intermediate GI UPSET Verified 08/04/20 09:17 albuterol [ALBUTEROL] AdvReac Unknown INCREASED Verified 08/04/20 09:17 HEARTRATE butalbital AdvReac Unknown NAUSEA/VOMITING Verified 08/04/20 09:17 WITH FIORINAL carisoprodol AdvReac Unknown DIZZINESS Verified 07/29/20 14:02 AND UPSET STOMACH codeine AdvReac Unknown SEVERE Verified 07/29/20 14:02 NAUSEA/VOMITING hydrocodone AdvReac Unknown SEVERE Verified 07/29/20 14:02 NAUSEA/VOMITIND Review of Systems Review of Systems Narrative: Not actively coughing at this time. No active chest pain. She has not had any black bowel movements. No bright red blood per rectum. Exam Vital Signs (past 8 hours): - 08/08/20 08:07 08/08/20 08:31 08/08/20 09:03 Temperature 98.0 F Pulse Rate 71 70 70 Respiratory Rate 18 18 18 Blood Pressure 123/73 Pulse Oximetry 100 99 99 08/08/20 11:00 Temperature 98.1 F Pulse Rate 70 Respiratory Rate 19 Blood Pressure 127/63 Pulse Oximetry 100 Oxygen Delivery Method Room Air Oxygen Flow Rate 0 Narrative Exam Narrative: Cooperative in no apparent distress. Lungs are clear to auscultation without rales or rhonchi heart regular rate and rhythm without murmur gallop. Abdomen is scaphoid soft nontender. She has the tenderness she had with her diverticulitis seems to have resolved per her history. She has had 1 episode of vomiting earlier today and there was no coffee grounds within it per her history. Objective Labs Result Diagrams: 08/08/20 05:02 08/08/20 05:02 Labs: Laboratory Results - last 24 hr 08/07/20 08/07/20 08/07/20 20:30 20:30 20:30 WBC 5.9 RBC 4.25 Hgb 12.4 Hct 37.4 MCV 88.1 MCH 29.3 MCHC 33.2 RDW 13.1 Plt Count 215 Neut % (Auto) 76.1 H Lymph % (Auto) 13.0 L [place] % (Auto) 8.9 Eos % (Auto) 1.4 L Baso % (Auto) 0.6 Neut # (Auto) 4500 Lymph # (Auto) 800 L [place] # (Auto) 500 Eos # (Auto) 100 Baso # (Auto) 0 PT 13.4 H INR 1.2 APTT 35 D Sodium 139 Potassium 3.8 Chloride 107 Carbon Dioxide 25 BUN 10 Creatinine 0.64 Estimated GFR > 60.0 BUN/Creatinine Ratio 15.6 Glucose 113 H Calcium 8.8 Magnesium Total Bilirubin 0.4 AST 24 ALT 16 Alkaline Phosphatase 71 Total Protein 7.0 Albumin 4.0 Globulin 3.0 Albumin/Globulin Ratio 1.3 Lipase 60 COVID-19 PCR Blood Type Antibody Screen 08/07/20 08/07/20 08/08/20 20:30 20:45 05:02 WBC 4.8 RBC 4.02 Hgb 11.8 L Hct 35.6 L MCV 88.5 MCH 29.4 MCHC 33.2 RDW 13.3 Plt Count 207 Neut % (Auto) 67.7 Lymph % (Auto) 18.6 L [place] % (Auto) 10.5 Eos % (Auto) 2.4 Baso % (Auto) 0.8 Neut # (Auto) 3300 Lymph # (Auto) 900 L [place] # (Auto) 500 Eos # (Auto) 100 Baso # (Auto) 0 PT INR APTT Sodium Potassium Chloride Carbon Dioxide BUN Creatinine Estimated GFR BUN/Creatinine Ratio Glucose Calcium Magnesium Total Bilirubin AST ALT Alkaline Phosphatase Total Protein Albumin Globulin Albumin/Globulin Ratio Lipase COVID-19 PCR Negative Blood Type O Positive Antibody Screen Negative 08/08/20 05:02 WBC RBC Hgb Hct MCV MCH MCHC RDW Plt Count Neut % (Auto) Lymph % (Auto) [place] % (Auto) Eos % (Auto) Baso % (Auto) Neut # (Auto) Lymph # (Auto) [place] # (Auto) Eos # (Auto) Baso # (Auto) PT INR APTT Sodium 139 Potassium 4.1 Chloride 110 H Carbon Dioxide 29 BUN 8 Creatinine 0.74 Estimated GFR > 60.0 BUN/Creatinine Ratio 10.8 Glucose 90 Calcium 8.3 L Magnesium 2.1 Total Bilirubin 0.4 AST 21 ALT 15 Alkaline Phosphatase 55 Total Protein 5.9 L Albumin 3.3 L Globulin 2.6 Albumin/Globulin Ratio 1.3 Lipase COVID-19 PCR Blood Type Antibody Screen Assessment & Plan Assessment & Plan narrative: Patient with an upper GI bleed. The vomiting may be related to a tear in her esophagus from vomiting. It is possible she has ulcers. It is also possible it is related to her nose bleed. It is impossible to separate this out without an EGD to evaluate her esophagus and stomach and duodenum for ulcer disease or other findings. I have discussed the procedure with her including risks of bleeding perforation. I talked to her about the way it is done and using conscious sedation. She was bit hesitant to do that but I think it is the best way to proceed. She wanted actually be put to sleep but I am not certain that is necessary. All questions were answered and she wishes to proceed.
--- NOTE | 2020-08-08 14:49 | PM.PREOP ---
Pre-operative Note COVID-19 COVID-19 status: Negative Result date/Date tested (Pos, Neg/Pending): 08/07/20 Interval Note History & Physical reviewed/Exam performed by Physician: Yes Changes to H&P: No ASA Class (for procedural sedation): II
--- NOTE | 2020-08-08 16:25 | PC.NURSE ---
PATIENT TAKEN DOWN FOR EGD
[2020-08-08] MEDS: LACTATED RINGERS 1,000 ML 42 ML IV (16:33)
[2020-08-08] MEDS: MIDAZOLAM 5 MG/5 ML VIAL IV (16:44)
[2020-08-08] MEDS: fentaNYL 250 MCG/5 ML INJ IV (16:45)
--- NOTE | 2020-08-08 17:01 | PM.OP.ENDO ---
Operative Date/Time/Diagnoses Date of procedure: 08/08/20 Time of procedure: 17:01 Pre-op diagnosis: Upper GI bleed Post-op diagnosis: same ( no upper GI source seen on EGD. nose bleed may have been the source of her dark emesis) Procedure & Clinicians Study performed: EGD Same procedure as scheduled: Yes Indications: determine cause of dark emesis Surgeon: Tod Robles Procedure Notes SCOAP/Timeout: performed Procedure in detail: patient gargled with viscous lidocaine and was sedated using fentanyl and Versed. A bite block was inserted and scope was advanced under direct vision through it into the esophagus. Esophagus was normal. There was a Schatzki ring without narrowing at the GE junction. The GE junction was noted at 41 cm from the incisors. There was no evidence of a Ivelisse-Nixon tear. No evidence of any bleeding source in the esophagus. There was a small hiatal hernia. The stomach insufflated well. It contained green liquid material. There was no blood. The pyloric channel was patent. The duodenum was normal to the 4th part. There was no blood in the duodenum. There was no ulcers or inflammation. The scope was brought back into the stomach and retroflexed. The proximal stomach was normal in appearance. There was a small hiatal hernia seen from below . The stomach was re-examined and there was no abnormality seen. Air was evacuated and the scope was slowly withdrawn through the esophagus. No source of bleeding was identified. The scope was removed and the patient tolerated the procedure well. Sedation minutes: 14 Findings: hiatal hernia ( small) and other findings ( Schatzki ring without narrowing) Specimen(s): none sent Complications: none Impression: no source of bleeding in the esophagus stomach or duodenum. Post-procedure Follow up: as needed Disposition: PACU
--- NOTE | 2020-08-08 17:02 | PM.PN.1 ---
Subjective Subjective Date Patient Seen: 08/08/20 Interval history: Patient continues to feel poorly. She complains of a headache. She has had persistent nausea. She has had no further hematemesis. She had a formed brown stool. She is awaiting upper endoscopy. Exam Vital Signs (past 8 hours): - 08/08/20 09:03 08/08/20 11:00 08/08/20 15:51 Temperature 98.1 F 98.8 F Pulse Rate 70 70 85 Respiratory Rate 18 17 Blood Pressure 127/63 141/69 H Pulse Oximetry 99 100 99 Oxygen Delivery Method Room Air Oxygen Flow Rate 0 Narrative Exam Narrative: Ill-appearing female lying in bed Lungs: Clear to auscultation Cardiac exam: Regular rate rhythm normal S1-S2 Abdomen: Soft, nondistended mild left lower quadrant tenderness no palpable masses, no rebound tender Extremities: No edema Objective Labs Result Diagrams: 08/08/20 05:02 08/08/20 05:02 Labs: Laboratory Results - last 24 hr 08/07/20 08/07/20 08/07/20 20:30 20:30 20:30 WBC 5.9 RBC 4.25 Hgb 12.4 Hct 37.4 MCV 88.1 MCH 29.3 MCHC 33.2 RDW 13.1 Plt Count 215 Neut % (Auto) 76.1 H Lymph % (Auto) 13.0 L [place] % (Auto) 8.9 Eos % (Auto) 1.4 L Baso % (Auto) 0.6 Neut # (Auto) 4500 Lymph # (Auto) 800 L [place] # (Auto) 500 Eos # (Auto) 100 Baso # (Auto) 0 PT 13.4 H INR 1.2 APTT 35 D Sodium 139 Potassium 3.8 Chloride 107 Carbon Dioxide 25 BUN 10 Creatinine 0.64 Estimated GFR > 60.0 BUN/Creatinine Ratio 15.6 Glucose 113 H Calcium 8.8 Magnesium Total Bilirubin 0.4 AST 24 ALT 16 Alkaline Phosphatase 71 Total Protein 7.0 Albumin 4.0 Globulin 3.0 Albumin/Globulin Ratio 1.3 Lipase 60 COVID-19 PCR Blood Type Antibody Screen 08/07/20 08/07/20 08/08/20 20:30 20:45 05:02 WBC 4.8 RBC 4.02 Hgb 11.8 L Hct 35.6 L MCV 88.5 MCH 29.4 MCHC 33.2 RDW 13.3 Plt Count 207 Neut % (Auto) 67.7 Lymph % (Auto) 18.6 L [place] % (Auto) 10.5 Eos % (Auto) 2.4 Baso % (Auto) 0.8 Neut # (Auto) 3300 Lymph # (Auto) 900 L [place] # (Auto) 500 Eos # (Auto) 100 Baso # (Auto) 0 PT INR APTT Sodium Potassium Chloride Carbon Dioxide BUN Creatinine Estimated GFR BUN/Creatinine Ratio Glucose Calcium Magnesium Total Bilirubin AST ALT Alkaline Phosphatase Total Protein Albumin Globulin Albumin/Globulin Ratio Lipase COVID-19 PCR Negative Blood Type O Positive Antibody Screen Negative 08/08/20 05:02 WBC RBC Hgb Hct MCV MCH MCHC RDW Plt Count Neut % (Auto) Lymph % (Auto) [place] % (Auto) Eos % (Auto) Baso % (Auto) Neut # (Auto) Lymph # (Auto) [place] # (Auto) Eos # (Auto) Baso # (Auto) PT INR APTT Sodium 139 Potassium 4.1 Chloride 110 H Carbon Dioxide 29 BUN 8 Creatinine 0.74 Estimated GFR > 60.0 BUN/Creatinine Ratio 10.8 Glucose 90 Calcium 8.3 L Magnesium 2.1 Total Bilirubin 0.4 AST 21 ALT 15 Alkaline Phosphatase 55 Total Protein 5.9 L Albumin 3.3 L Globulin 2.6 Albumin/Globulin Ratio 1.3 Lipase COVID-19 PCR Blood Type Antibody Screen Assessment & Plan Assessment & Plan narrative: 1. Hematemesis -etiology unclear, no evidence of acute blood loss anemia at this time. Suspect Ivelisse-Nixon tear, also worse, or esophagitis -await upper endoscopy -continue PPI for now 2. Diverticulitis -intolerant to flagyl -will switch to Augmentin in [place] Cipro and Flagyl 3. Headache -symptomatic related 4. Asthma Continue usual home medication Discharged home either tonight or tomorrow morning pending results of upper endoscopy Quality VTE Deep Vein Thrombosis/Pulmonary Embolism Present on Admission: No
--- NOTE | 2020-08-08 17:25 | SUR.PHASEI ---
Report called to Suzi.
--- NOTE | 2020-08-08 17:43 | SUR.PHASEI ---
Patient transferred to the floor. Report given to Geoffrey. Patient vomited a small amount of green fluid upon arrival. VS stable. IV saline locked.
[2020-08-08] MEDS: AMOXICILLIN/CLAV 875/125 MG 1 TAB PO (20:42)
--- NOTE | 2020-08-08 22:20 | PC.NURSE ---
patient laying in bed. Had order for PO Amoxicillin. Gave patient some zofran before giving that medication. Patient states that about 30min after taking she threw up. Patient states felling okay at this time.
[2020-08-09 04:00] VITALS: BP 152/71; PULSE 69; RESP 18; TEMP 37.1; O2SAT 99
[2020-08-09 08:09] VITALS: BP 157/63; PULSE 77; RESP 15; TEMP 36.6; O2SAT 100
--- NOTE | 2020-08-09 08:21 | PC.NURSE ---
Addendum entered by Nikky Gore R.N. 08/09/20 11:28: REPEAT COVID TEST CAME BACK NEGATIVE. PATIENT'S INHALERS RETURNED TO HER. SCRIPTS PROVIDED. REVIEWED DC HOME INSTRUCTIONS, PATIENT HAS AN APPT W/ DR. SHEPARD SHCEDULED FOR THIS SATURDAY. DTR ARRIVED TO TAKE PATIENT HOME. PATIENT TAKEN BY WC BY CLINICAL BIOCHEMIST ESCORT TO DTR'S VEHICLE. Original Note: PATIENT DENIES PARK, DENIES N/V, DENIES ABD PAIN, EATING BREAKFAST. REPORTS SIGNIFICANT LEFT EYE PAIN, HURTS TO TOUCH EYELID WHEN CLOSED, SCLERA PINK, EYE WATERING. DR. HOLLY NOTIFIED, DR HOLLY IN TO EVAL WITH PATIENT AT THIS TIME
--- NOTE | 2020-08-09 08:50 | PM.DS.1 ---
History of Present Illness History of Present Illness Date Patient Seen: 08/09/20 Chief complaint: Nausia and Vomiting Narrative: Ruchi Lemus is a 70 y.o. female with a patent foramen ovale, bronchiectasis and Raynaud's recently diagnosed with diverticulitis and started on oral Cipro and Flagyl at her PCP's clinic on August 05. At that time she had nausea which continued after starting the medications and through the today when she threw up 3 times. Initially her vomit was mostly composed of undigested food from the previous meal followed by 2 more episodes of emesis which contained mucus and blood parentheses she showed me a photograph from her phone of the emesis). She denies fevers sweats or chills, throat pain, though states her throat has been dry, denies shortness of breath, chest pain, she does state she has normally are number regular heartbeat and only takes aspirin, she does endorse having abdominal pain associated with the diverticulitis, denies rashes or lesions, denies numbing or tingling of her upper or lower extremities, denies frequent bleeding but does bruise easily. She sees , chief development officer and recalls having it transesophageal echocardiogram last year as they monitor her PFO. CT of the abdomen and pelvis report indicated Sigmoid diverticulosis. Inflammatory change in the surrounding fat consistent with uncomplicated acute sigmoid diverticulitis. No free air, free fluid, or abscess cavity.She is afebrile, blood pressure 149/83, heart rate 73, respiratory rate of 20, oxygen saturation of 90% on room air, she weighs 54 kg with a BMI of 19.5. Discharge Providers Provider Date of admission: 08/07/20 21:43 Discharge Date: 08/09/20 Primary care physician: Iban Hoover MD Consults: 08/07/20 22:30 Consult to General Surgery Routine Comment: Consulting Provider: Tod Robles Reason for consultation: Upper GI Bleed Has provider been notified: Yes Discharge provider: Suzie Hudson MD Summary Hospital Course Discharge Diagnosis: 1. Acute diverticulitis 2. Left eye conjunctivitis 3. Hematemesis but no evidence of upper GI bleed 4. Status post endoscopy which revealed a Schatzki's ring 5. Asthma Hospital Course: Patient was admitted to the hospital for intractable nausea and vomiting associated with medications for acute diverticulitis. The patient had an episode of hematemesis at home. There was concern for an upper GI bleeding. She was admitted to the hospital. She had no further hematemesis. She continued to have some nausea had minimal headache but no further diarrhea. The patient underwent upper endoscopy. This showed a Schatzki's ring but no evidence of Ivelisse-Nixon tear, ulcer, esophagitis, source of bleeding. The patient was able to advance her diet without difficulty. She woke up this morning with left eye pain and redness and draining. Given her symptoms of nausea now conjunctivitis the patient will have a repeat Covid-19 test which was negative on admission. Her diet will be advanced, her IV fluids will be discontinued, patient will be started on tobramycin for her left eye conjunctivitis. And arrangements will be made for her to discharge home. Status at Discharge Cognitive/behavioral status at discharge: oriented Functional status at discharge: independent ambulation Overall status at discharge: patient is back to baseline Time Spent with Patient Time spent: Less than 30 minutes Exam Vital Signs (past 8 hours): - 08/09/20 04:00 08/09/20 08:09 Temperature 98.8 F 98 F Pulse Rate 69 77 Respiratory Rate 18 15 Blood Pressure 152/71 H 157/63 H Pulse Oximetry 99 100 Oxygen Delivery Method Room Air Oxygen Flow Rate 0 Narrative Exam Narrative: Pleasant female in no acute distress Lungs: Clear to auscultation Cardiac exam: Regular rate and rhythm normal S1-S2 Abdomen: Soft and nontender Extremities: No edema Left eye: Red, tearing, mildly watery. Objective Labs Result Diagrams: 08/08/20 05:02 08/08/20 05:02 Discharge Assessment & Plan Assessment and Plan Assessment: 1. Acute diverticulitis 2. Acute conjunctivitis 3. Hematemesis but no evidence of bleeding 4. Asthma Plan of Treatment: Tobramycin eyedrops 2 drops every 4 hours for 5 days to the left eye Cover test again today Anticipate discharge home later Discontinue ciprofloxacin sent and Flagyl Will start Augmentin 875 twice daily for 7 days Follow-up with primary care physician next week Discharge Plan Discharge Plan Discharge Problem: Acute upper gastrointestinal bleeding, Diverticulitis Patient Disposition: Home Discharge orders & Medications Prescriptions: New amoxicillin-pot clavulanate [Augmentin] 875-125 mg Tablet 1 tab PO BID Qty: 7 RF: 0 tobramycin 0.3 % Drops 2 drops EYE-LEFT Q4H Qty: 5 RF: 0 Continued Flovent HFA 10.6 GM HFA aerosol inhaler 1 inh inhalation DIRECTED Qty: 0 RF: 0 levalbuterol tartrate [Xopenex HFA] 45 MCG/INH HFA aerosol inhaler 1 puff inhalation PRN PRN (Reason: Shortness Of Breath) Qty: 0 RF: 0 cholecalciferol (vitamin D3) [Vitamin D3] 2,000 UNIT capsule 2,000 unit PO DAILY Qty: 0 RF: 0 Probiotic 1 cap PO DAILY Qty: 0 RF: 0 d-mannose Powder 1 each PO DAILY RF: 0 Centrum Silver 0.4-300-250 mg-mcg-mcg Tablet 1 tab PO DAILY RF: 0 diazepam [Valium] 5 MG tablet 5 mg OR TIDP PRN (Reason: Anxiety) RF: 0 aspirin [Adult Aspirin Regimen] 81 mg tablet,delayed release (DR/EC) 81 mg PO DAILY RF: 0 estradiol [Estrace] 0.01 % (0.1 mg/gram) cream 1 gram VAG 2XW Qty: 42.5 RF: 6 Follow up/Referrals: Iban Hoover MD [Primary Care Provider] - Discharge Health Status Multidrug resistant organism: No MDRO Diet/Activity/Treatments Diet: Diet as Tolerated Discharge Data Primary Care Provider: Iban Hoover Attending Provider: Kathleen August Admit Date/Time: 08/07/20 21:43 Quality VTE Deep Vein Thrombosis/Pulmonary Embolism Present on Admission: No
[2020-08-09] MEDS: AMOXICILLIN/CLAV 875/125 MG 1 TAB PO (09:29)
[2020-08-09] MEDS: FLOVENT 220 MCG 1 EACH INH (09:30)
[2020-08-09] MEDS: LEVALBUTEROL 1 EACH INH (09:30)
[2020-08-09] MEDS: TOBRAMYCIN 0.3% 2 DROPS EYE-LEFT (10:03)
[2020-08-09 11:04] LABS: COVID19 -Nasal RAPID Negative (Negative)
== END 2020-08-09 11:38 | disposition home or self-care (01) ==
LOC: ED 21:02 → AC 21:44
PROVIDERS: Internal Medicine; Specialist; Admitting Provider Nurse Practitioner Family; Emergency Provider Emergency Medicine; Family Provider Family Medicine; PCP Family Medicine; Referring Provider Emergency Medicine; Visit Provider Nurse Practitioner Family
PROC: 0DJ08ZZ Inspection of Upper Intestinal Tract, Via Natural or Artificial Opening Endoscopic (ICD-10-PCS; CPT 43235; principal; 2020-08-08 16:15)
DX: K92.0 Hematemesis (principal); K57.32 Diverticulitis of large intestine without perforation or abscess without bleeding; J47.9 Bronchiectasis, uncomplicated; R51.9 Headache, unspecified; J45.909 Unspecified asthma, uncomplicated; H10.9 Unspecified conjunctivitis; K22.2 Esophageal obstruction; K44.9 Diaphragmatic hernia without obstruction or gangrene; Z11.59 Encounter for screening for other viral diseases
CPT/HCPCS: 43235; 36415; 74177; 80053; 83690; 83735; 85025; 85610; 85730; 86850; 86900; 86901; 87635; 94640; 94760; 96361; 96365; 96375; 96376; 99152; 99225; 99284; G0378; C9113; J0744; J2250; J2405; J2765; J3010; J7614; Q9967

== ENCOUNTER → 2020-11-10 11:25 | Outpatient (CLI) | payer MEDICARE, OTHER, SELFPAY ==
[2020-11-10 12:06] LABS: Appearance Urine UA CLEAR; Bilirubin Urine UA NEGATIVE (NEGATIVE); Color Urine UA YELLOW; Glucose Urine UA NEGATIVE (Negative); Ketones Urine UA NEGATIVE (NEGATIVE); Leukocyte Esterase Urine UA NEGATIVE (NEGATIVE); Nitrite Urine UA NEGATIVE (Negative); Occult Blood Urine UA NEGATIVE (Negative); Protein Urine UA NEGATIVE (Negative); Specific Gravity Urine UA <=1.005 (1.000-1.035); Urobilinogen Urine UA 0.2 E.U./dL (0.2); pH Urine UA 6.5 (4.5-8.0)
== END ==
PROVIDERS: Family Provider Family Medicine; PCP Family Medicine; Referring Provider Specialist; Visit Provider Specialist
DX: N39.0 Urinary tract infection, site not specified (principal)
CPT/HCPCS: 81003

== ENCOUNTER → 2021-07-10 10:39 | Outpatient (CLI) | payer MEDICARE, OTHER, SELFPAY ==
--- NOTE | 2021-07-10 | DI.MG.S_ITS ---
BILATERAL DIGITAL SCREENING MAMMOGRAM 3D/2D WITH CAD: 07/10/2021 CLINICAL: Routine screening. Comparison is made to exams dated: 07/08/2020 mammogram, 06/29/2019 ultrasound, and 06/29/2019 mammogram - [facility]. The tissue of both breasts is heterogeneously dense. This may lower the sensitivity of mammography. Current study was also evaluated with a Computer Aided Detection (CAD) system. There is a mole marker on the left breast. No significant masses, calcifications, or other findings are seen in either breast. There has been no significant interval change. IMPRESSION: NEGATIVE There is no mammographic evidence of malignancy. A 1 year screening mammogram is recommended. This exam was interpreted at Station ID: [id number]. NOTE: For mammograms, a report in lay terms will be sent to the patient. Approximately 15% of breast malignancies will not be visualized mammographically. In the management of a palpable breast mass, a negative mammogram must not discourage biopsy of a clinically suspicious lesion. Electronically Signed By: Avi Grider acr/ciaran:07/10/2021 12:07:34 letter sent: Normal Exam ACR BI-RADS Category 1: Negative [id number]
== END ==
PROVIDERS: Family Provider Family Medicine; PCP Family Medicine; Referring Provider Family Medicine; Visit Provider Family Medicine
DX: Z12.31 Encounter for screening mammogram for malignant neoplasm of breast (principal)
CPT/HCPCS: 77063; 77067

== ENCOUNTER 2021-09-09 20:44 | Emergency (ER) | payer MEDICARE, OTHER, SELFPAY ==
[2021-09-09 20:57] VITALS: BP 211/91; PULSE 86; RESP 15; TEMP 36.5; O2SAT 100; BMI 20.1
--- NOTE | 2021-09-09 21:01 | DI.RAD.S_ITS ---
PROCEDURE: XR CHEST 1V INDICATIONS: chest pain TECHNIQUE: One view of the chest was acquired. COMPARISON: [facility], CR, XR CHEST 1V, 08/07/2019, 17:50. FINDINGS: Surgical changes and devices: None. Lungs and pleura: Lungs are mildly hyperexpanded and clear. No pleural effusions or pneumothorax. Mediastinum: Mediastinal contours appear normal. Heart size is normal. Bones and chest wall: No suspicious bony lesions. Overlying soft tissues appear unremarkable. Degenerative changes are seen in the spine. IMPRESSION: No acute cardiopulmonary abnormality. Hyperexpanded lungs can be seen in the setting of COPD. Dictated by: Dinesh Duarte M.D. on 09/09/2021 at 21:29 Approved by: Dinesh Duarte M.D. on 09/09/2021 at 21:30
[2021-09-09 21:55] LABS: Add Manual Diff / Slide Review NO; Basophils Absolute Auto 0 /uL (0-100); Basophils Percent Auto 0.7 % (0-2); Eosinophils Absolute Auto 100 /uL (0-450); Eosinophils Percent Auto 2.3 % (2-4); Hematocrit 38.5 % (36-46); Hemoglobin 12.8 g/dL (12.0-16.0); Lymphocytes Absolute Auto 1500 /uL (1100-4500); Lymphocytes Percent Auto 23.5 % (25-40); Mean Corpuscular HGB Conc 33.3 % (30-36); Mean Corpuscular Hemoglobin 28.9 PG (26-34); Mean Corpuscular Volume 86.6 fL (80-100); Monocytes Absolute Auto 600 /uL (0-900); Monocytes Percent Auto 9.1 % (3-14); Neutrophils Absolute Auto 4000 /uL (1500-7000); Neutrophils Percent Auto 64.4 % (50-75); Platelet Count 207 X10^3/uL (150-400); Red Blood Cell Count 4.45 X10^6/uL (4.0-5.2); Red Cell Distribution Width 13.6 % (11.6-14.8); White Blood Cell Count 6.2 X10^3/uL (4.5-11.0)
[2021-09-09 21:57] LABS: Alanine Aminotransferase 20 IU/L (<35); Albumin 4.3 g/dL (3.5-5.0); Albumin Globulin Ratio 1.5 (1.0-2.8); Alkaline Phosphatase 66 U/L (38-126); Aspartate Aminotransferase 26 IU/L (14-36); BUN Creatinine Ratio 22.1 (6-22); Bilirubin Total 0.3 mg/dL (0.2-1.3); Blood Urea Nitrogen 19 mg/dL (7-17); Calcium 9.8 mg/dL (8.4-10.2); Carbon Dioxide 31 mmol/L (22-32); Chloride 104 mmol/L (98-107); Creatine Kinase 54 U/L (30-135); Estimated Glomerular Filt Rate > 60.0 mL/min (>60); Globulin 2.8 g/dL (1.7-4.1); Glucose 113 mg/dL (80-110); HEMOLYSIS < 15 (0-50); Lipase 99 U/L (23-300); Sodium 142 mmol/L (137-145); Total Protein 7.1 g/dL (6.3-8.2)
[2021-09-09 22:09] LABS: Troponin I < 0.012 ng/mL (0.01-0.034)
--- NOTE | 2021-09-09 23:37 | ED.GENADULT ---
HPI - General Adult General Chief complaint: Hypertension Stated complaint: states blood pressure is high Time Seen by Provider: 09/09/21 23:37 Source: patient Mode of arrival: Ambulatory Limitations: no limitations History of Present Illness HPI narrative: 71-year-old woman with a history of bronchiectasis, TIA, chronic cough, presents with concerns for elevated blood pressure. She states that she does check blood pressures intermittently at home and typically is in the 111-120 systolic range and 80-90 diastolic range. This evening after visiting her daughter coming down stairs she felt ?off? there is a sensation of pounding through her body she checked her blood pressure and found 165/105. In the interval couple of hours between that blood pressure check and now systolics have been in the 164-220 range with diastolics in the 97-120 range. She describes no headache, no cognitive processing issues, no chest pain, dyspnea, palpitations, abdominal pain, numbness/tingling, visual changes, chest tightness, orthopnea or dyspnea. Related Data Home Medications Medication Instructions Recorded Confirmed fluticasone propionate 44 1 inh INHALATION DIRECTED #0 06/19/16 08/16/21 mcg/actuation HFA aerosol inhaler (Flovent HFA) levalbuterol tartrate 45 1 puff INHALATION PRN PRN #0 06/19/16 08/16/21 mcg/actuation aerosol inhaler (Xopenex HFA) cholecalciferol (vitamin D3) 50 2,000 unit PO DAILY #0 cap 08/10/16 08/16/21 mcg (2,000 unit) capsule (Vitamin D3) Probiotic 1 cap PO DAILY #0 04/17/17 08/16/21 aspirin 81 mg tablet,delayed 81 mg PO DAILY 02/09/19 08/16/21 release (Adult Aspirin Regimen) diazepam 5 mg tablet (Valium) 5 mg OR TIDP PRN 08/07/19 08/16/21 vqtzjgms-bsn-cxnho acid 0.4 1 tab PO DAILY 08/07/19 08/16/21 mg-lycopene 300 mcg-lutein 250 mcg tablet (Centrum Silver) d-mannose 1 each PO DAILY 07/29/20 08/16/21 ascorbic acid 100 mg-elderberry tab PO 08/16/21 08/16/21 fruit 50 mg chewable tablet (Airborne (elderberry)) lutein 20 mg tablet 20 mg PO DAILY 08/16/21 08/16/21 Previous Rx's Medication Instructions Recorded estradiol (Estrace) 1 gram VAG 2XW #42.5 gram 08/04/20 tobramycin 0.3 % eye drops 2 drops EYE-LEFT Q4H #5 ml 08/09/20 amlodipine 2.5 mg tablet 2.5 mg PO DAILY #30 tab 09/10/21 Allergies Allergy/AdvReac Type Severity Reaction Status Date / Time diltiazem Allergy Intermediate chest pain Verified 06/04/21 09:23 adhesive Allergy Mild REDNESS & Verified 06/04/21 09:23 BURNING FROM TAPE budesonide Allergy Unknown ITCHY Verified 06/04/21 09:23 pseudoephedrine Allergy Unknown TACHYCARDIA Verified 06/04/21 09:23 Sulfa (Sulfonamide Allergy Unknown Verified 06/04/21 09:23 Antibiotics) azithromycin AdvReac Intermediate GI UPSET Verified 06/04/21 09:23 albuterol [ALBUTEROL] AdvReac Unknown INCREASED Verified 06/04/21 09:23 HEARTRATE butalbital AdvReac Unknown NAUSEA/VOMITING Verified 06/04/21 09:23 WITH FIORINAL carisoprodol AdvReac Unknown DIZZINESS Verified 06/04/21 09:23 AND UPSET STOMACH codeine AdvReac Unknown SEVERE Verified 06/04/21 09:23 NAUSEA/VOMITING hydrocodone AdvReac Unknown SEVERE Verified 06/04/21 09:23 NAUSEA/VOMITIND Review of Systems Review of Systems Narrative: Remainder of complete review of systems is otherwise unremarkable except for that included in the HPI. 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 Able to give a complete and coherent history. Well-nourished well-developed HEENT: Moist mucous membranes, normal sclera with reactive pupils, Neck: supple Respiratory: Lungs are clear to auscultation, no wheezing no rales no rhonchi. Full and symmetrical air movement Cardiac: Regular rate and rhythm no murmurs no bruits Abdomen: Soft, nontender, good bowel tones, no flank pain Skin: Warm and dry, no rashes Neurologic: Grossly neurologically intact with no obvious asymmetries or abnormalities Extremities: No trauma, well perfused Psych: Cooperative, appropriate insight and affect Initial Vital Signs Initial Vital Signs: Vital Signs Temperature 97.7 F 09/09/21 20:57 Pulse Rate 86 09/09/21 20:57 Respiratory Rate 15 09/09/21 20:57 Blood Pressure 211/91 H 09/09/21 20:57 Pulse Oximetry 100 09/09/21 20:57 Course Orders Ordered: ED Orders 09/09/21 21:01 XR chest 1V Stat EKG-12 Lead Stat 09/09/21 21:35 Complete Blood Count AUTO DIFF Stat Comprehensive Metabolic Panel Stat Lipase Stat Troponin & CK Cardiac Panel Stat Discontinued Medications Amlodipine Besylate (Amlodipine 5 Mg Tablet) 2.5 mg PO NOW ONE Stop: 09/10/21 00:01 Last Admin: 09/10/21 00:12 Dose: 2.5 mg Documented by: DELON Vital Signs Vital signs: Vital Signs - 8 hr 09/09/21 20:57 09/10/21 00:18 09/10/21 00:22 Temperature 97.7 F Pulse Rate 86 49 L 78 Respiratory Rate 15 9 L Blood Pressure 211/91 H 187/78 H Pulse Oximetry 100 80 L 100 09/10/21 00:27 09/10/21 00:30 09/10/21 01:00 Temperature Pulse Rate 73 70 Respiratory Rate 18 18 Blood Pressure 187/78 H 164/61 H 150/73 H Pulse Oximetry 97 96 09/10/21 01:30 09/10/21 02:00 Temperature Pulse Rate 71 76 Respiratory Rate 12 20 Blood Pressure 167/79 H Pulse Oximetry 98 97 Medical Decision Making Lab Data Result diagrams: 09/09/21 21:35 09/09/21 21:35 Labs: Lab Results 09/09/21 09/09/21 Range/Units 21:35 21:35 WBC 6.2 (4.5-11.0) X10^3/uL RBC 4.45 (4.0-5.2) X10^6/uL Hgb 12.8 (12.0-16.0) g/dL Hct 38.5 (36-46) % MCV 86.6 (80-100) fL MCH 28.9 (26-34) PG MCHC 33.3 (30-36) % RDW 13.6 (11.6-14.8) % Plt Count 207 (150-400) X10^3/uL Neut % (Auto) 64.4 (50-75) % Lymph % (Auto) 23.5 L (25-40) % [place] % (Auto) 9.1 (3-14) % Eos % (Auto) 2.3 (2-4) % Baso % (Auto) 0.7 (0-2) % Neut # (Auto) 4000 (2705-1353) /uL Lymph # (Auto) 1500 (0147-2360) /uL [place] # (Auto) 600 (0-900) /uL Eos # (Auto) 100 (0-450) /uL Baso # (Auto) 0 (0-100) /uL Sodium 142 (137-145) mmol/L Potassium 4.0 (3.4-5.1) mmol/L Chloride 104 (98-107) mmol/L Carbon Dioxide 31 (22-32) mmol/L BUN 19 H (7-17) mg/dL Creatinine 0.86 (0.52-1.04) mg/dL Estimated GFR > 60.0 (>60) mL/min BUN/Creatinine Ratio 22.1 H (6-22) Glucose 113 H (80-110) mg/dL Calcium 9.8 (8.4-10.2) mg/dL Total Bilirubin 0.3 (0.2-1.3) mg/dL AST 26 (14-36) IU/L ALT 20 (<35) IU/L Alkaline Phosphatase 66 (38-126) U/L Total Creatine Kinase 54 (30-135) U/L CK-MB (CK-2) TNP CK-MB (CK-2) Rel Index TNP Troponin I < 0.012 (0.01-0.034) ng/mL Total Protein 7.1 (6.3-8.2) g/dL Albumin 4.3 (3.5-5.0) g/dL Globulin 2.8 (1.7-4.1) g/dL Albumin/Globulin Ratio 1.5 (1.0-2.8) Lipase 99 (23-300) U/L Imaging Data Chest x-ray: Radiologist's Impression: FINDINGS:? ? Surgical changes and devices:? None.? ? Lungs and pleura:? Lungs are mildly hyperexpanded and clear.? No pleural effusions or pneumothorax.? ? Mediastinum:? Mediastinal contours appear normal.? Heart size is normal.? ? Bones and chest wall:? No suspicious bony lesions.? Overlying soft tissues appear unremarkable.? Degenerative changes are seen in the spine. ? IMPRESSION:? No acute cardiopulmonary abnormality.? Hyperexpanded lungs can be seen in the setting of COPD. ? ? Dictated by: Dinesh Duarte M.D. on 09/09/2021 at 21:29 ? ? ECG Data Interpretation: Sinus rhythm at a rate of 76 Occasional PVC Normal axis, normal intervals No acute ischemic changes MDM Narrative Medical decision making narrative: 71-year-old woman presents with elevated blood pressures this evening. She has a sense that something is ?off? but nothing more specific than that. Labs, imaging, EKG and physical exam are all reassuring. Blood pressure has come down to the 180/95 range. We had a long discussion regarding treatment verses non treatment. Certainly she is anxious over this and 1 can certainly make an argument for non treatment. On the flip side very small dose of amlodipine might be helpful in lowering her blood pressure, helping diminish her Raynaud's phenomenon symptoms and diminishing symptoms and severity associated with her ocular migraines. She opted to try a small dose of this in the emergency department with observation for about an hour. She states that at 1 point she took a dose of diltiazem and felt her heart pounding and chose not to continue that medication. She does have a primary care physician and if she chooses to continue on daily 2.5 mg of amlodipine will need to check daily blood pressures and schedule follow-up appointment with her primary care doctor. After her experience this evening with medication, if she is checking blood pressures tomorrow in finding them quite low she does not need to continue on will make that decision independently. She will still need to see her primary care provider with a list of daily blood pressures to review. Discharge Plan Departure Patient Disposition: Home Clinical Impression: Blood pressure elevated without history of HTN, Raynaud's phenomenon, Ocular migraine Activity Restrictions/Additional Instructions: Thank you for coming in today Your blood pressure was significantly elevated this evening. It did come down slightly with rest but was still elevated. There were no signs of stroke, heart attack or acute coronary syndrome associated with this episode of high blood pressure. Your lab work and EKG and x-ray were reassuring We discussed the pros and cons of the medication treatment verses watching and waiting. At this point we opted to try amlodipine (a calcium channel christo) at the lowest dose, 2.5 mg, to see how your body response. This medication can help lower blood pressure, decreased symptoms of your Raynaud's disease and may help prevent some of the ocular migraines. Please keep track of your daily blood pressures. If you do choose to start the amlodipine also please note the severity that you are noticing issues with your Raynaud's disease and the frequency of your headaches both with and without head pain. Regarding your blood pressures, unless it is elevated and also associated with other symptoms that might suggest a stroke or heart attack (headache, blurry vision, confusion, chest pain, palpitations, shortness of breath) you do not need to come to the emergency room if it continues to be elevated. You do need to follow-up with her primary care physician to treat this chronic problem slowly and carefully I wish you the best Prescriptions: New amlodipine 2.5 mg tablet 2.5 mg PO DAILY Qty: 30 0RF No Action Flovent HFA 10.6 GM HFA aerosol inhaler 1 inh inhalation DIRECTED Qty: 0 0RF levalbuterol tartrate [Xopenex HFA] 45 MCG/INH HFA aerosol inhaler 1 puff inhalation PRN PRN (Reason: Shortness Of Breath) Qty: 0 0RF Label Comments: usually takes qam cholecalciferol (vitamin D3) [Vitamin D3] 2,000 UNIT capsule 2,000 unit PO DAILY Qty: 0 0RF Probiotic 1 cap PO DAILY Qty: 0 0RF d-mannose Powder 1 each PO DAILY 0RF Centrum Silver 0.4-300-250 mg-mcg-mcg Tablet 1 tab PO DAILY 0RF diazepam [Valium] 5 MG tablet 5 mg OR TIDP PRN (Reason: Anxiety) 0RF tobramycin 0.3 % Drops 2 drops EYE-LEFT Q4H Qty: 5 0RF aspirin [Adult Aspirin Regimen] 81 mg tablet,delayed release (DR/EC) 81 mg PO DAILY 0RF estradiol [Estrace] 0.01 % (0.1 mg/gram) cream 1 gram VAG 2XW Qty: 42.5 6RF Rx Instructions: Please provide patient with compounded estriol 0.0125% compounded cream lutein 20 mg tablet 20 mg PO DAILY 0RF Rx Instructions: give with meal/snack ascorbic acid-elderberry fruit [Airborne (elderberry)] 100-50 mg tablet,chewable PO 0RF Referrals: Iban Hoover MD [Primary Care Provider] -
[2021-09-10] VITALS (7 sets, daily range): BP systolic 150–187; BP diastolic 61–79; PULSE 49–78; RESP 9–20; O2SAT 80–100
[2021-09-10] MEDS: AMLODIPINE 5 MG TABLET 2.5 MG PO (00:12)
--- NOTE | 2021-09-10 02:46 | ED_ITS ---
HPI - General Adult General Chief complaint: Hypertension Stated complaint: states blood pressure is high Time Seen by Provider: 09/09/21 23:37 Source: patient Mode of arrival: Ambulatory Limitations: no limitations Related Data Home Medications Medication Instructions Recorded Confirmed fluticasone propionate 44 1 inh INHALATION DIRECTED #0 06/19/16 08/16/21 mcg/actuation HFA aerosol inhaler (Flovent HFA) levalbuterol tartrate 45 1 puff INHALATION PRN PRN #0 06/19/16 08/16/21 mcg/actuation aerosol inhaler (Xopenex HFA) cholecalciferol (vitamin D3) 50 2,000 unit PO DAILY #0 cap 08/10/16 08/16/21 mcg (2,000 unit) capsule (Vitamin D3) Probiotic 1 cap PO DAILY #0 04/17/17 08/16/21 aspirin 81 mg tablet,delayed 81 mg PO DAILY 02/09/19 08/16/21 release (Adult Aspirin Regimen) diazepam 5 mg tablet (Valium) 5 mg OR TIDP PRN 08/07/19 08/16/21 pbcivwmj-knd-pjfpm acid 0.4 1 tab PO DAILY 08/07/19 08/16/21 mg-lycopene 300 mcg-lutein 250 mcg tablet (Centrum Silver) d-mannose 1 each PO DAILY 07/29/20 08/16/21 ascorbic acid 100 mg-elderberry tab PO 08/16/21 08/16/21 fruit 50 mg chewable tablet (Airborne (elderberry)) lutein 20 mg tablet 20 mg PO DAILY 08/16/21 08/16/21 Previous Rx's Medication Instructions Recorded estradiol (Estrace) 1 gram VAG 2XW #42.5 gram 08/04/20 tobramycin 0.3 % eye drops 2 drops EYE-LEFT Q4H #5 ml 08/09/20 amlodipine 2.5 mg tablet 2.5 mg PO DAILY #30 tab 09/10/21 amlodipine 2.5 mg tablet 2.5 mg PO DAILY #30 tab 09/10/21 Allergies Allergy/AdvReac Type Severity Reaction Status Date / Time diltiazem Allergy Intermediate chest pain Verified 06/04/21 09:23 adhesive Allergy Mild REDNESS & Verified 06/04/21 09:23 BURNING FROM TAPE budesonide Allergy Unknown ITCHY Verified 06/04/21 09:23 pseudoephedrine Allergy Unknown TACHYCARDIA Verified 06/04/21 09:23 Sulfa (Sulfonamide Allergy Unknown Verified 06/04/21 09:23 Antibiotics) azithromycin AdvReac Intermediate GI UPSET Verified 06/04/21 09:23 albuterol [ALBUTEROL] AdvReac Unknown INCREASED Verified 06/04/21 09:23 HEARTRATE butalbital AdvReac Unknown NAUSEA/VOMITING Verified 06/04/21 09:23 WITH FIORINAL carisoprodol AdvReac Unknown DIZZINESS Verified 06/04/21 09:23 AND UPSET STOMACH codeine AdvReac Unknown SEVERE Verified 06/04/21 09:23 NAUSEA/VOMITING hydrocodone AdvReac Unknown SEVERE Verified 06/04/21 09:23 NAUSEA/VOMITIND Patient History Medical History (Updated 09/10/21 @ 00:10 by Shannan Russo MD) Anxiety (08/12/15) Anxiety Arthritis Breast nodule Chronic cough Chronic fatigue (09/28/16) Chronic UTI Dizziness (09/28/16) History of fracture of right ankle (1981) History of recurrent UTI (urinary tract infection) Lower urinary tract symptoms (LUTS) Menopause present (08/12/15) Migraines Murmur, cardiac Non-tuberculous bronchiectasis Osteoarthritis Patent foramen ovale Positive PPD, 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 Status: Never smoker alcohol intake frequency: 0-2 drinks per day Substance Use Type: does not use Exam Initial Vital Signs Initial Vital Signs: Vital Signs Temperature 97.7 F 09/09/21 20:57 Pulse Rate 86 09/09/21 20:57 Respiratory Rate 15 09/09/21 20:57 Blood Pressure 211/91 H 09/09/21 20:57 Pulse Oximetry 100 09/09/21 20:57 Course Orders Ordered: ED Orders 09/09/21 21:01 XR chest 1V Stat EKG-12 Lead Stat 09/09/21 21:35 Complete Blood Count AUTO DIFF Stat Comprehensive Metabolic Panel Stat Lipase Stat Troponin & CK Cardiac Panel Stat Discontinued Medications Amlodipine Besylate (Amlodipine 5 Mg Tablet) 2.5 mg PO NOW ONE Stop: 09/10/21 00:01 Last Admin: 09/10/21 00:12 Dose: 2.5 mg Documented by: DELON Vital Signs Vital signs: Vital Signs - 8 hr 09/09/21 20:57 09/10/21 00:18 09/10/21 00:22 Temperature 97.7 F Pulse Rate 86 49 L 78 Respiratory Rate 15 9 L Blood Pressure 211/91 H 187/78 H Pulse Oximetry 100 80 L 100 09/10/21 00:27 09/10/21 00:30 09/10/21 01:00 Temperature Pulse Rate 73 70 Respiratory Rate 18 18 Blood Pressure 187/78 H 164/61 H 150/73 H Pulse Oximetry 97 96 09/10/21 01:30 09/10/21 02:00 Temperature Pulse Rate 71 76 Respiratory Rate 12 20 Blood Pressure 167/79 H Pulse Oximetry 98 97 Medical Decision Making Lab Data Result diagrams: 09/09/21 21:35 09/09/21 21:35 Labs: Lab Results 09/09/21 09/09/21 Range/Units 21:35 21:35 WBC 6.2 (4.5-11.0) X10^3/uL RBC 4.45 (4.0-5.2) X10^6/uL Hgb 12.8 (12.0-16.0) g/dL Hct 38.5 (36-46) % MCV 86.6 (80-100) fL MCH 28.9 (26-34) PG MCHC 33.3 (30-36) % RDW 13.6 (11.6-14.8) % Plt Count 207 (150-400) X10^3/uL Neut % (Auto) 64.4 (50-75) % Lymph % (Auto) 23.5 L (25-40) % [place] % (Auto) 9.1 (3-14) % Eos % (Auto) 2.3 (2-4) % Baso % (Auto) 0.7 (0-2) % Neut # (Auto) 4000 (4393-4234) /uL Lymph # (Auto) 1500 (4309-4975) /uL [place] # (Auto) 600 (0-900) /uL Eos # (Auto) 100 (0-450) /uL Baso # (Auto) 0 (0-100) /uL Sodium 142 (137-145) mmol/L Potassium 4.0 (3.4-5.1) mmol/L Chloride 104 (98-107) mmol/L Carbon Dioxide 31 (22-32) mmol/L BUN 19 H (7-17) mg/dL Creatinine 0.86 (0.52-1.04) mg/dL Estimated GFR > 60.0 (>60) mL/min BUN/Creatinine Ratio 22.1 H (6-22) Glucose 113 H (80-110) mg/dL Calcium 9.8 (8.4-10.2) mg/dL Total Bilirubin 0.3 (0.2-1.3) mg/dL AST 26 (14-36) IU/L ALT 20 (<35) IU/L Alkaline Phosphatase 66 (38-126) U/L Total Creatine Kinase 54 (30-135) U/L CK-MB (CK-2) TNP CK-MB (CK-2) Rel Index TNP Troponin I < 0.012 (0.01-0.034) ng/mL Total Protein 7.1 (6.3-8.2) g/dL Albumin 4.3 (3.5-5.0) g/dL Globulin 2.8 (1.7-4.1) g/dL Albumin/Globulin Ratio 1.5 (1.0-2.8) Lipase 99 (23-300) U/L Discharge Plan Departure Patient Disposition: Home Clinical Impression: Blood pressure elevated without history of HTN, Raynaud's phenomenon, Ocular migraine Activity Restrictions/Additional Instructions: Thank you for coming in today Your blood pressure was significantly elevated this evening. It did come down slightly with rest but was still elevated. There were no signs of stroke, heart attack or acute coronary syndrome associated with this episode of high blood pressure. Your lab work and EKG and x-ray were reassuring We discussed the pros and cons of the medication treatment verses watching and waiting. At this point we opted to try amlodipine (a calcium channel christo) at the lowest dose, 2.5 mg, to see how your body response. This medication can help lower blood pressure, decreased symptoms of your Raynaud's disease and may help prevent some of the ocular migraines. Please keep track of your daily blood pressures. If you do choose to start the amlodipine also please note the severity that you are noticing issues with your Raynaud's disease and the frequency of your headaches both with and without head pain. Regarding your blood pressures, unless it is elevated and also associated with other symptoms that might suggest a stroke or heart attack (headache, blurry vision, confusion, chest pain, palpitations, shortness of breath) you do not need to come to the emergency room if it continues to be elevated. You do need to follow-up with her primary care physician to treat this chronic problem slowly and carefully I wish you the best Prescriptions: New amlodipine 2.5 mg tablet 2.5 mg PO DAILY Qty: 30 0RF amlodipine 2.5 mg tablet 2.5 mg PO DAILY Qty: 30 0RF No Action Flovent HFA 10.6 GM HFA aerosol inhaler 1 inh inhalation DIRECTED Qty: 0 0RF levalbuterol tartrate [Xopenex HFA] 45 MCG/INH HFA aerosol inhaler 1 puff inhalation PRN PRN (Reason: Shortness Of Breath) Qty: 0 0RF Label Comments: usually takes qam cholecalciferol (vitamin D3) [Vitamin D3] 2,000 UNIT capsule 2,000 unit PO DAILY Qty: 0 0RF Probiotic 1 cap PO DAILY Qty: 0 0RF d-mannose Powder 1 each PO DAILY 0RF Centrum Silver 0.4-300-250 mg-mcg-mcg Tablet 1 tab PO DAILY 0RF diazepam [Valium] 5 MG tablet 5 mg OR TIDP PRN (Reason: Anxiety) 0RF tobramycin 0.3 % Drops 2 drops EYE-LEFT Q4H Qty: 5 0RF aspirin [Adult Aspirin Regimen] 81 mg tablet,delayed release (DR/EC) 81 mg PO DAILY 0RF estradiol [Estrace] 0.01 % (0.1 mg/gram) cream 1 gram VAG 2XW Qty: 42.5 6RF Rx Instructions: Please provide patient with compounded estriol 0.0125% compounded cream lutein 20 mg tablet 20 mg PO DAILY 0RF Rx Instructions: give with meal/snack ascorbic acid-elderberry fruit [Airborne (elderberry)] 100-50 mg tablet,chewable PO 0RF Referrals: Iban Hoover MD [Primary Care Provider] -
== END 2021-09-10 02:28 | disposition home or self-care (01) ==
PROVIDERS: Emergency Provider Emergency Medicine; Family Provider Family Medicine; PCP Family Medicine
DX: R03.0 Elevated blood-pressure reading, without diagnosis of hypertension (principal); I73.00 Raynaud's syndrome without gangrene; G43.809 Other migraine, not intractable, without status migrainosus
CPT/HCPCS: 71045; 80053; 82550; 83690; 84484; 85025; 93005; 99283; 99284

== ENCOUNTER → 2021-12-19 18:02 | Outpatient (CLI) | payer MEDICARE, OTHER, SELFPAY ==
[2021-12-19 19:18] LABS: COVID19 -Nasal RAPID Negative (Negative)
== END ==
PROVIDERS: Family Provider Family Medicine; PCP Family Medicine; Visit Provider Physician Assistant
DX: Z20.822 Contact with and (suspected) exposure to COVID-19 (principal)
CPT/HCPCS: 87635

== ENCOUNTER → 2022-01-07 12:25 | Outpatient (CLI) | payer MEDICARE, OTHER, SELFPAY | PROVIDERS: Family Provider Family Medicine; PCP Family Medicine; Visit Provider Nurse Practitioner Family | DX: R30.0 Dysuria (principal) | CPT/HCPCS: 87077; 87086; 87186 ==

== ENCOUNTER → 2022-01-24 18:24 | Outpatient (CLI) | payer MEDICARE, OTHER, SELFPAY | PROVIDERS: Family Provider Family Medicine; PCP Family Medicine; Referring Provider Physician Assistant; Visit Provider Physician Assistant | DX: N39.0 Urinary tract infection, site not specified (principal) | CPT/HCPCS: 87077; 87086; 87186 ==

== ENCOUNTER → 2022-04-24 11:00 | Outpatient (CLI) | payer MEDICARE, OTHER, SELFPAY ==
--- NOTE | 2022-04-24 | DI.MRI.S_ITS ---
PROCEDURE: MRFOOT LT WO CON INDICATIONS: Nondisplaced fracture of fifth metatarsal bone, left foot, s TECHNIQUE: Noncontrast sagittal T1 spin echo and T2 fast spin echo with fat saturation, long-axis T1 spin echo and T2 fast spin echo with fat saturation, short-axis T1 spin echo and T2 fast spin echo with fat saturation through the forefoot. COMPARISON: [facility], CR, XR FOOT 3+ VIEWS LEFT, 10/02/2021, 8:50. [facility] [place], CR, XR FOOT 3 VIEWS WEIGHT BEARING LEFT, 04/11/2022, 9:28. FINDINGS: Image quality: Excellent. Bones and joints: A nondisplaced fracture is seen at the base of 5th metatarsal extending into the 5th tarsometatarsal joint without step-off at the articular surface. No definite osseous bridging is seen across the fracture line and the margins are suspected to be corticated. There is mild surrounding osseous edema. The remaining visualized osseous structures are normal in signal intensity. The sesamoid bones appear in expected positions, without internal edema. Mild 1st metatarsophalangeal joint degeneration. No intraosseous lesions. Soft tissues: The visualized plantar foot muscles demonstrate normal signal and bulk. Visualized flexor and extensor tendons appear intact, without tenosynovitis. The distal insertions of the peroneus brevis and longus tendons appear intact. The principal Lisfranc ligament appears intact. No soft tissue ganglion cysts or bursal fluid collections. Sagittal images demonstrate no evidence for plantar plate tears. IMPRESSION: Nondisplaced fracture of the base of the 5th metatarsal without definite osseous bridging seen. Mild surrounding osseous edema is noted. The fracture margins appear to be at least partially corticated. Dictated by: Dinesh Duarte M.D. on 04/24/2022 at 13:15 Approved by: Dinesh Duarte M.D. on 04/24/2022 at 13:23
== END ==
PROVIDERS: Family Provider Family Medicine; PCP Family Medicine; Referring Provider Orthopaedic Surgery Foot and Ankle Surgery; Visit Provider Orthopaedic Surgery Foot and Ankle Surgery
DX: S92.355S Nondisplaced fracture of fifth metatarsal bone, left foot, sequela (principal)
CPT/HCPCS: 73718

== ENCOUNTER → 2022-07-27 08:01 | Outpatient (CLI) | payer MEDICARE, OTHER, SELFPAY ==
--- NOTE | 2022-07-27 | DI.MG.S_ITS ---
BILATERAL DIGITAL SCREENING MAMMOGRAM 3D/2D WITH CAD: 07/27/2022 CLINICAL: Routine screening. Comparison is made to exams dated: 07/10/2021 mammogram, 07/08/2020 mammogram, and 06/29/2019 mammogram - [facility]. Both breasts are heterogeneously dense, which may obscure small masses (category c / 51-75% glandular tissue). Current study was also evaluated with a Computer Aided Detection (CAD) system. No significant masses, calcifications, or other findings are seen in either breast. There has been no significant interval change. IMPRESSION: NEGATIVE There is no mammographic evidence of malignancy. A 1 year screening mammogram is recommended. Based on the Tyrer Cuzick model (a risk assessment model) the patient's lifetime risk is 14.1% and her 10 year risk is 9.0%. According to the ACR, ACS, and NCCN guidelines, an annual breast MRI exam along with mammogram is recommended if the patient's lifetime risk is 20% or greater. This exam was interpreted at Station ID: [id number]. NOTE: For mammograms, a report in lay terms will be sent to the patient. Approximately 15% of breast malignancies will not be visualized mammographically. In the management of a palpable breast mass, a negative mammogram must not discourage biopsy of a clinically suspicious lesion. Electronically Signed By: Dinesh currie/ciaran:07/27/2022 11:54:52 letter sent: Normal Exam ACR BI-RADS Category 1: Negative [id number]
== END ==
PROVIDERS: Family Provider Family Medicine; PCP Family Medicine; Referring Provider Family Medicine; Visit Provider Family Medicine
DX: Z12.31 Encounter for screening mammogram for malignant neoplasm of breast (principal)
CPT/HCPCS: 77063; 77067

== ENCOUNTER 2022-09-21 09:00 | Outpatient (RCR) | payer MEDICARE, OTHER, SELFPAY ==
--- NOTE | 2022-06-08 21:05 | PT.OIE ---
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 Raynaud's disease Recurrent UTI Past Surgical History (Last Reviewed 01/24/22 @ 18:56 by Crystal Tripp PA-C) H/O bladder repair surgery History of lung biopsy Hx of appendectomy Hx of surgical procedure (2006) Visit Care Team Role Provider Type Iban Hoover MD Attending Provider Non-Staff Family Provider Primary Care Provider Referring Provider Specialty: Family Practice Address: [address] [place] [address], [address], [place], [place], [facility] Email: Physical Therapy Initial Evaluation PT-OP-A Visit Information Start: 06/08/22 07:18 Freq: Status: Active Protocol: Document 06/08/22 07:31 AMB (Rec: 06/08/22 07:43 AMB [id number]) Out-Patient Physical Therapy Visit Information Visit Information Visit Type Initial Evaluation Visit Start Time 07:30 Visit Stop Time 08:15 Total Visit Minutes 45 Visit Number 1 PT-OP-B Current Condition Start: 06/08/22 07:18 Freq: Status: Active Protocol: Document 06/08/22 07:31 AMB (Rec: 06/08/22 07:43 AMB [id number]) Current Condition History of Current Condition Onset Date 1 month Current Complaints low back pain with bilateral anterior thigh pain and stiffness History of Current Condition Last month, muscles in the front of the legs were very tight and could barely walk. Ankylosing spondylitis-- pt thinks she has that diagnosis but not in chart? Not as bad now, mild sx. 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 Worst in the morning with the stiffness. Legs felt like rocks. Hard to get up from the mattress on the floor. Personal Factors Other Personal Factors That May Effect Osteoporosis, R ankle fracture Therapy/Recovery (surgically fixated years ago ), L 5th metatarsal fracture in September that has poor healing per patient. SOB- bronchiectasis with mycobacterium. PT-OP-C Subjective Start: 06/08/22 07:18 Freq: Status: Active Protocol: Document 06/08/22 07:30 AMB (Rec: 06/08/22 12:33 AMB [id number]) Patient Questionnaires Oswestry Low Back Index Oswestry Score 22 Oswestry Impairment 20 to 39% Impaired (Score 20- 39) OP-PT Pain Assessment Comments Pain Comments 3/10 in low back and anterior thighs PT-OP-J Posture/Palpation/Skin Start: 06/08/22 07:18 Freq: Status: Active Protocol: Document 06/08/22 07:30 AMB (Rec: 06/08/22 12:33 AMB [id number]) Palpation Assessment Location One Palpation Details Tenderness/burning with PA at L5 not higher in lumbar spine PT-OP-K Range of Motion Start: 06/08/22 07:18 Freq: Status: Active Protocol: Document 06/08/22 07:30 AMB (Rec: 06/08/22 12:06 AMB [id number]) Lumbar Spine Range of Motion Lumbar Spine Active Degrees Testing Position Standing Flexion 50 Extension 20 Rotation Left 15 Rotation Right 10 Hip Goniometric Range of Motion Hip ROM Limitations Comments Lauro test: R: 60 degrees knee flexion. L: 70 degrees PT-OP-M Strength Start: 06/08/22 07:18 Freq: Status: Active Protocol: Document 06/08/22 07:30 AMB (Rec: 06/08/22 12:06 AMB [id number]) Hip Strength Hip Manual Muscle Testing Right Flexion (L2) 4- Good- Extension (S1) 4 Good Left Flexion (L2) 4- Good- Extension (S1) 4 Good Knee Strength Knee Manual Muscle Testing Right Flexion (S2) 4- Good- Extension (L3) 4 Good Left Flexion (S2) 4- Good- Extension (L3) 4 Good PT-OP-Q Treatments Start: 06/08/22 07:18 Freq: Status: Active Protocol: Document 06/08/22 07:30 AMB (Rec: 06/08/22 12:33 AMB [id number]) Therapeutic Exercises Supine Exercises hip flexor stretch Side bilateral Reps/Minutes 30x2 Comments lauro test position Standing Exercises hip flexor stretch Side bilateral Reps/Minutes 30x2 Comments against wall Other Exercises quadruped LE ext Other Exercise Name describes SOB in quadruped Comments cues to avoid lumbar rotation PT-OP-T Assessment and Plan Start: 06/08/22 07:18 Freq: Status: Active Protocol: Document 06/08/22 07:30 AMB (Rec: 06/10/22 21:05 AMB [id number]) Physical Therapy Assessment Rehab Potential Rehabilitation Potential Good Goals Two Impairment Pain Short Term Goal (STG) Ruchi will move from sit to stand without pain/stiffness. STG Duration 5 weeks Finisher Tailor Apprentice Goal (LTG) Ruchi will perform all bed mobility without pain/ stiffness. LTG Duration 10 weeks One Impairment ROM Short Term Goal (STG) Ruchi will be independent with a HEP for her strengthening and ROM. STG Duration 5 weeks Longterm Goal (LTG) Ruchi will show improved knee range by improving Lauro test knee flexion to 80 degrees bilaterally. LTG Duration 10 weeks Assessment Summary Assessment Ruchi attends physical therapy with recent onset pain and stiffness that has decreased over the past few weeks. She has an active lifestyle and would like to make sure that it does not happen again, and to continue to decrease the continuing symptoms. She did display weakness with her quads, hamstrings, and hip flexors and tightness in her quads and hip flexors. She will benefit from physical therapy to improve her flexibility and strength and further evaluate her lumbopelvic, hip and knee function to avoid future pain flares. Physical Therapy Plan Frequency and Duration Frequency of Treatment 2x/Week Duration of Treatment 10 weeks Plan of Care Start Date 06/08/22 Plan of Care End Date 08/17/22 Therapeutic Interventions Therapeutic Interventions Home Exercise Program,Manual Therapy,Neuromuscular Re- education,Self-Care/Home Management,Soft Tissue Mobilization,Therapeutic Activities,Therapeutic Exercises Modalities Cold Pack/Ice Massage,Electric Stimulation,Hot Packs Next Visit Focus/Plan Next Note Type Treatment Note Next Visit Plan Review HEP: quad/hip flexor stretching in supine/standing
--- NOTE | 2022-06-08 21:07 | PT.OPPOC ---
Physical, Occupational & Speech Therapy At [facility] Current Diagnoses Lumbago with sciatica, right side (06/08/22) Lumbago with sciatica, left side (06/08/22) Visit Care Team Role Provider Type Iban Hoover MD Attending Provider Non-Staff Family Provider Primary Care Provider Referring Provider Specialty: Family Practice Address: [address] [place] [address], [address], [place], [address] Email: Plan Of Care PT-OP-T Assessment and Plan Start: 06/08/22 07:18 Freq: Status: Active Protocol: Document 06/08/22 07:30 AMB (Rec: 06/10/22 21:05 AMB [id number]) Physical Therapy Assessment Rehab Potential Rehabilitation Potential Good Goals Two Impairment Pain Short Term Goal (STG) Ruchi will move from sit to stand without pain/stiffness. STG Duration 5 weeks Alf Goal (LTG) Ruchi will perform all bed mobility without pain/ stiffness. LTG Duration 10 weeks One Impairment ROM Short Term Goal (STG) Ruchi will be independent with a HEP for her strengthening and ROM. STG Duration 5 weeks Alf Goal (LTG) Ruchi will show improved knee range by improving Lauro test knee flexion to 80 degrees bilaterally. LTG Duration 10 weeks Assessment Summary Assessment Ruchi attends physical therapy with recent onset pain and stiffness that has decreased over the past few weeks. She has an active lifestyle and would like to make sure that it does not happen again, and to continue to decrease the continuing symptoms. She did display weakness with her quads, hamstrings, and hip flexors and tightness in her quads and hip flexors. She will benefit from physical therapy to improve her flexibility and strength and further evaluate her lumbopelvic, hip and knee function to avoid future pain flares. Physical Therapy Plan Frequency and Duration Frequency of Treatment 2x/Week Duration of Treatment 10 weeks Plan of Care Start Date 06/08/22 Plan of Care End Date 08/17/22 Therapeutic Interventions Therapeutic Interventions Home Exercise Program,Manual Therapy,Neuromuscular Re- education,Self-Care/Home Management,Soft Tissue Mobilization,Therapeutic Activities,Therapeutic Exercises Modalities Cold Pack/Ice Massage,Electric Stimulation,Hot Packs Next Visit Focus/Plan Next Note Type Treatment Note Next Visit Plan Review HEP: quad/hip flexor stretching in supine/standing Plan of Care Dates Plan of Care Start Date 06/08/22 Plan of Care End Date 08/17/22 Electronically Signed by: Brandi Samuel, PT 06/10/22 9512 If you are in agreement with this Plan of Care, please return a signed and dated copy. I have reviewed this Plan of Care and certify that the skilled therapy services above are required to meet the patient?s needs. Physician Signature Date Printed Name and Credentials Clinical Instructor Signature Printed Name and Credentials
--- NOTE | 2022-06-15 20:31 | PT.OTN ---
Current Diagnoses Lumbago with sciatica, right side (06/15/22) Lumbago with sciatica, left side (06/15/22) Physical Therapy Treatment Note PT-OP-A Visit Information Start: 06/08/22 07:18 Freq: Status: Active Protocol: Document 06/15/22 07:36 AMB (Rec: 06/15/22 08:19 AMB [id number]) Out-Patient Physical Therapy Visit Information Visit Information Visit Type Treatment Note Visit Start Time 07:30 Visit Stop Time 08:15 Total Visit Minutes 45 Visit Number 2 PT-OP-B Current Condition Start: 06/08/22 07:18 Freq: Status: Active Protocol: Document 06/08/22 07:31 AMB (Rec: 06/08/22 07:43 AMB [id number]) Current Condition History of Current Condition Onset Date 1 month Current Complaints low back pain with bilateral anterior thigh pain and stiffness History of Current Condition Last month, muscles in the front of the legs were very tight and could barely walk. Ankylosing spondylitis-- pt thinks she has that diagnosis but not in chart? Not as bad now, mild sx. 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 Worst in the morning with the stiffness. Legs felt like rocks. Hard to get up from the mattress on the floor. Personal Factors Other Personal Factors That May Effect Osteoporosis, R ankle fracture Therapy/Recovery (surgically fixated years ago ), L 5th metatarsal fracture in September that has poor healing per patient. SOB- bronchiectasis with mycobacterium. PT-OP-C Subjective Start: 06/08/22 07:18 Freq: Status: Active Protocol: Document 06/15/22 07:30 AMB (Rec: 06/15/22 13:41 AMB [id number]) OP-PT Subjective Patient Comments Patient Comments Pt states she is a bit stiff otday, she was a bit sore after eval, she thinks in her SI joint from quadruped LE extension exercise. PT-OP-J Posture/Palpation/Skin Start: 06/08/22 07:18 Freq: Status: Active Protocol: Document 06/08/22 07:30 AMB (Rec: 06/08/22 12:33 AMB [id number]) Palpation Assessment Location One Palpation Details Tenderness/burning with PA at L5 not higher in lumbar spine PT-OP-K Range of Motion Start: 06/08/22 07:18 Freq: Status: Active Protocol: Document 06/08/22 07:30 AMB (Rec: 06/08/22 12:06 AMB [id number]) Lumbar Spine Range of Motion Lumbar Spine Active Degrees Testing Position Standing Flexion 50 Extension 20 Rotation Left 15 Rotation Right 10 Hip Goniometric Range of Motion Hip ROM Limitations Comments Lauro test: R: 60 degrees knee flexion. L: 70 degrees PT-OP-M Strength Start: 06/08/22 07:18 Freq: Status: Active Protocol: Document 06/08/22 07:30 AMB (Rec: 06/08/22 12:06 AMB [id number]) Hip Strength Hip Manual Muscle Testing Right Flexion (L2) 4- Good- Extension (S1) 4 Good Left Flexion (L2) 4- Good- Extension (S1) 4 Good Knee Strength Knee Manual Muscle Testing Right Flexion (S2) 4- Good- Extension (L3) 4 Good Left Flexion (S2) 4- Good- Extension (L3) 4 Good PT-OP-Q Treatments Start: 06/08/22 07:18 Freq: Status: Active Protocol: Document 06/15/22 07:30 AMB (Rec: 06/15/22 13:41 AMB [id number]) Therapeutic Exercises Supine Exercises SLR Reps/Minutes 2x10 table top Reps/Minutes 2x5 Comments challenging Prone Exercises prone press up Reps/Minutes 2x10 Comments some soreness/breathing difficulty Sidelying Exercises hip abduction Reps/Minutes 2x20 Manual Therapy Treatment Other Other Manual Treatments rolling thighs PT-OP-T Assessment and Plan Start: 06/08/22 07:18 Freq: Status: Active Protocol: Document 06/15/22 07:36 AMB (Rec: 06/15/22 08:19 AMB [id number]) Physical Therapy Assessment Goals Two Impairment Pain Short Term Goal (STG) Ruchi will move from sit to stand without pain/stiffness. STG Duration 5 weeks Residential Goal (LTG) Ruchi will perform all bed mobility without pain/ stiffness. LTG Duration 10 weeks One Impairment ROM Short Term Goal (STG) Ruchi will be independent with a HEP for her strengthening and ROM. STG Duration 5 weeks Ostrich Farmer Goal (LTG) Ruchi will show improved knee range by improving Lauro test knee flexion to 80 degrees bilaterally. LTG Duration 10 weeks Assessment Summary Assessment Ruchi tolerated strengthening exercises, but fatigued quickly. Pain in low back and tightness in thighs continues but hoping to strengthen back /core to prevent further flare ups. However breathing/L hip pain limit some postions for exercise. Physical Therapy Plan Frequency and Duration Frequency of Treatment 2x/Week Duration of Treatment 10 weeks Plan of Care Start Date 06/08/22 Plan of Care End Date 08/17/22 Next Visit Focus/Plan Next Note Type Treatment Note Next Visit Plan Review HEP: quad/hip flexor stretching in supine/standing; core stabilization in supine sidelying
--- NOTE | 2022-06-19 09:30 | PT.OTN ---
Current Diagnoses Lumbago with sciatica, right side (06/19/22) Lumbago with sciatica, left side (06/19/22) Physical Therapy Treatment Note PT-OP-A Visit Information Start: 06/08/22 07:18 Freq: Status: Active Protocol: Document 06/19/22 07:43 AMB (Rec: 06/19/22 08:44 AMB [id number]) Out-Patient Physical Therapy Visit Information Visit Information Visit Type Treatment Note Visit Start Time 07:30 Visit Stop Time 08:15 Total Visit Minutes 45 Visit Number 3 PT-OP-B Current Condition Start: 06/08/22 07:18 Freq: Status: Active Protocol: Document 06/08/22 07:31 AMB (Rec: 06/08/22 07:43 AMB [id number]) Current Condition History of Current Condition Onset Date 1 month Current Complaints low back pain with bilateral anterior thigh pain and stiffness History of Current Condition Last month, muscles in the front of the legs were very tight and could barely walk. Ankylosing spondylitis-- pt thinks she has that diagnosis but not in chart? Not as bad now, mild sx. 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 Worst in the morning with the stiffness. Legs felt like rocks. Hard to get up from the mattress on the floor. Personal Factors Other Personal Factors That May Effect Osteoporosis, R ankle fracture Therapy/Recovery (surgically fixated years ago ), L 5th metatarsal fracture in September that has poor healing per patient. SOB- bronchiectasis with mycobacterium. PT-OP-C Subjective Start: 06/08/22 07:18 Freq: Status: Active Protocol: Document 06/19/22 07:43 AMB (Rec: 06/19/22 08:44 AMB [id number]) OP-PT Subjective Patient Comments Patient Comments Pt states she was sore, hip abduction exercises PT-OP-J Posture/Palpation/Skin Start: 06/08/22 07:18 Freq: Status: Active Protocol: Document 06/08/22 07:30 AMB (Rec: 06/08/22 12:33 AMB [id number]) Palpation Assessment Location One Palpation Details Tenderness/burning with PA at L5 not higher in lumbar spine PT-OP-K Range of Motion Start: 06/08/22 07:18 Freq: Status: Active Protocol: Document 06/08/22 07:30 AMB (Rec: 06/08/22 12:06 AMB [id number]) Lumbar Spine Range of Motion Lumbar Spine Active Degrees Testing Position Standing Flexion 50 Extension 20 Rotation Left 15 Rotation Right 10 Hip Goniometric Range of Motion Hip ROM Limitations Comments Lauro test: R: 60 degrees knee flexion. L: 70 degrees PT-OP-M Strength Start: 06/08/22 07:18 Freq: Status: Active Protocol: Document 06/08/22 07:30 AMB (Rec: 06/08/22 12:06 AMB [id number]) Hip Strength Hip Manual Muscle Testing Right Flexion (L2) 4- Good- Extension (S1) 4 Good Left Flexion (L2) 4- Good- Extension (S1) 4 Good Knee Strength Knee Manual Muscle Testing Right Flexion (S2) 4- Good- Extension (L3) 4 Good Left Flexion (S2) 4- Good- Extension (L3) 4 Good PT-OP-Q Treatments Start: 06/08/22 07:18 Freq: Status: Active Protocol: Document 06/19/22 07:30 AMB (Rec: 06/19/22 09:20 AMB [id number]) Therapeutic Exercises Supine Exercises clamshell Side bilateral Resistance #2 t band Reps/Minutes 2x10 butterfly stretch Side bilateral Reps/Minutes 30x2 LTR Reps/Minutes 2x10 Sidelying Exercises open book Reps/Minutes 10 clamshell Reps/Minutes 2x10 Manual Therapy Treatment Soft Tissue Mobilization 1 Body Location quads Mobilization Type Rolling Comments with rolling pin, quads and adductors PT-OP-T Assessment and Plan Start: 06/08/22 07:18 Freq: Status: Active Protocol: Document 06/19/22 07:43 AMB (Rec: 06/19/22 08:44 AMB [id number]) Physical Therapy Assessment Assessment Summary Assessment Ruchi had increased pain after last visit, so decreased her resistance today. Continues to have SI pain that can radiate into tightness in hip flexors, but sometimes hip flexor stretches irritate SI pain. Had been focusing on exercise as pt was requesting things that she could do at home to help manage, but could consider iliopsoas release to see if that allows her to tolerate exericise more. Physical Therapy Plan Next Visit Focus/Plan Next Note Type Treatment Note Next Visit Plan Consider manual release of iliopsoas especially on the left, continue core strengthening.
--- NOTE | 2022-06-21 10:28 | PT.OTN ---
Current Diagnoses Lumbago with sciatica, right side (06/21/22) Lumbago with sciatica, left side (06/21/22) Physical Therapy Treatment Note PT-OP-A Visit Information Start: 06/08/22 07:18 Freq: Status: Active Protocol: Document 06/21/22 09:02 NBM (Rec: 06/21/22 10:27 [facility] [id number]) Out-Patient Physical Therapy Visit Information Visit Information Visit Type Treatment Note Visit Start Time 09:02 Visit Stop Time 09:47 Total Visit Minutes 45 Visit Number 4 PT-OP-B Current Condition Start: 06/08/22 07:18 Freq: Status: Active Protocol: Document 06/08/22 07:31 AMB (Rec: 06/08/22 07:43 AMB [id number]) Current Condition History of Current Condition Onset Date 1 month Current Complaints low back pain with bilateral anterior thigh pain and stiffness History of Current Condition Last month, muscles in the front of the legs were very tight and could barely walk. Ankylosing spondylitis-- pt thinks she has that diagnosis but not in chart? Not as bad now, mild sx. 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 Worst in the morning with the stiffness. Legs felt like rocks. Hard to get up from the mattress on the floor. Personal Factors Other Personal Factors That May Effect Osteoporosis, R ankle fracture Therapy/Recovery (surgically fixated years ago ), L 5th metatarsal fracture in September that has poor healing per patient. SOB- bronchiectasis with mycobacterium. PT-OP-C Subjective Start: 06/08/22 07:18 Freq: Status: Active Protocol: Document 06/21/22 09:02 NBM (Rec: 06/21/22 10:27 [facility] [id number]) OP-PT Subjective Patient Comments Patient Comments Pt states left hip and sciatic -like pain since lifting leg last visit. She can do some of the home exercises. She states she broke 5th Metatarsal on left foot and will probably need surgery, but will have to wait until her daughter has surgery first . PT-OP-J Posture/Palpation/Skin Start: 06/08/22 07:18 Freq: Status: Active Protocol: Document 06/08/22 07:30 AMB (Rec: 06/08/22 12:33 AMB [id number]) Palpation Assessment Location One Palpation Details Tenderness/burning with PA at L5 not higher in lumbar spine PT-OP-K Range of Motion Start: 06/08/22 07:18 Freq: Status: Active Protocol: Document 06/08/22 07:30 AMB (Rec: 06/08/22 12:06 AMB [id number]) Lumbar Spine Range of Motion Lumbar Spine Active Degrees Testing Position Standing Flexion 50 Extension 20 Rotation Left 15 Rotation Right 10 Hip Goniometric Range of Motion Hip ROM Limitations Comments Lauro test: R: 60 degrees knee flexion. L: 70 degrees PT-OP-M Strength Start: 06/08/22 07:18 Freq: Status: Active Protocol: Document 06/08/22 07:30 AMB (Rec: 06/08/22 12:06 AMB [id number]) Hip Strength Hip Manual Muscle Testing Right Flexion (L2) 4- Good- Extension (S1) 4 Good Left Flexion (L2) 4- Good- Extension (S1) 4 Good Knee Strength Knee Manual Muscle Testing Right Flexion (S2) 4- Good- Extension (L3) 4 Good Left Flexion (S2) 4- Good- Extension (L3) 4 Good PT-OP-Q Treatments Start: 06/08/22 07:18 Freq: Status: Active Protocol: Document 06/21/22 09:02 NBM (Rec: 06/21/22 10:27 NBM [id number]) Therapeutic Exercises Supine Exercises Piriformis Stretch Supine Exercise Name added to HEP Side bilateral Reps/Minutes x60 ea Comments holding it longer does feel better clamshell Side bilateral Resistance #2 t band Reps/Minutes 2x12 LTR Side bilateral Equipment Used 55cm red physioball Reps/Minutes 2x10 Comments good feedback response hip flexor stretch Side bilateral Reps/Minutes x60 ea Comments lauro test position Prone Exercises hip extension Prone Exercise Name 1.straight leg 2.bent knee Side bilateral Reps/Minutes x2 ea Comments dc'd each d/t c/o of soreness (bent knee more tolerable) prone press up Reps/Minutes 1x10 Comments some breathing difficulty/ soreness Sidelying Exercises open book Side bilateral Reps/Minutes 10 Comments cues to hold for a few breaths clamshell Reps/Minutes 2x10 Comments cues for form and not rocking back - dc/d d/t c/o pain Standing Exercises hip flexor stretch Side bilateral Reps/Minutes 30x2 Comments not performed today - pt states this causes tingling Manual Therapy Treatment Soft Tissue Mobilization hip flexors Body Location L iliopsoas Mobilization Type Myofascial Release,Sustained Pressure,Trigger Point Release ,Other Intensity/Depth Moderate Body Position Hooklying Comments Circular strokes to hip flexors; iliopsoas release Self-Care/Home Management Treatment Education Patient Education Home Exercise Program Other Education Added to HEP: piriformis stretch - HO given. PT-OP-T Assessment and Plan Start: 06/08/22 07:18 Freq: Status: Active Protocol: Document 06/21/22 09:02 [facility] (Rec: 06/21/22 10:27 [facility] [id number]) Physical Therapy Assessment Goals Two Impairment Pain Short Term Goal (STG) Ruchi will move from sit to stand without pain/stiffness. STG Duration 5 weeks Mcfp Goal (LTG) Ruchi will perform all bed mobility without pain/ stiffness. LTG Duration 10 weeks One Impairment ROM Short Term Goal (STG) Ruchi will be independent with a HEP for her strengthening and ROM. STG Duration 5 weeks Recording Studio Intern Goal (LTG) Ruchi will show improved knee range by improving Lauro test knee flexion to 80 degrees bilaterally. LTG Duration 10 weeks Assessment Summary Assessment Ruchi continues to have SI pain and also L hip pain possibly due to her L hip arthritis. She presents w/ tight hip flexors and piriformis. Pt demonstrates a tendency towards excessive lumbar lordosis in sidelying exercises today and improves w / cueing. Pt responds well to hip flexor and piriformis stretch and manual therapy to iliopsoas. Added to HEP: piriformis stretch - HO given. Ice/heat offered- declined due to time. Physical Therapy Plan Next Visit Focus/Plan Next Note Type Treatment Note Next Visit Plan Assess manual release of L iliopsoas, continue core strengthening.
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
--- NOTE | 2022-06-29 09:02 | PT.OTN ---
Current Diagnoses Lumbago with sciatica, right side (06/29/22) Lumbago with sciatica, left side (06/29/22) Physical Therapy Treatment Note PT-OP-A Visit Information Start: 06/08/22 07:18 Freq: Status: Active Protocol: Document 06/29/22 08:20 SP (Rec: 06/29/22 09:06 SP [id number]) Out-Patient Physical Therapy Visit Information Visit Information Visit Type Treatment Note Visit Start Time 08:20 Visit Stop Time 09:02 Total Visit Minutes 42 Visit Number 6 Number of SHOW WORKER Visits 2 PT-OP-B Current Condition Start: 06/08/22 07:18 Freq: Status: Active Protocol: Document 06/08/22 07:31 AMB (Rec: 06/08/22 07:43 AMB [id number]) Current Condition History of Current Condition Onset Date 1 month Current Complaints low back pain with bilateral anterior thigh pain and stiffness History of Current Condition Last month, muscles in the front of the legs were very tight and could barely walk. Ankylosing spondylitis-- pt thinks she has that diagnosis but not in chart? Not as bad now, mild sx. 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 Worst in the morning with the stiffness. Legs felt like rocks. Hard to get up from the mattress on the floor. Personal Factors Other Personal Factors That May Effect Osteoporosis, R ankle fracture Therapy/Recovery (surgically fixated years ago ), L 5th metatarsal fracture in September that has poor healing per patient. SOB- bronchiectasis with mycobacterium. PT-OP-C Subjective Start: 06/08/22 07:18 Freq: Status: Active Protocol: Document 06/29/22 08:20 SP (Rec: 06/29/22 09:06 SP [id number]) OP-PT Subjective Patient Comments Patient Comments Pt stated stiff more L side today than has been in past. Compliant with HEP stretch little bit at time. No adverse affects. Pt reports she will be having L foot/5th toe surgery in the future after helps daughter recovery from hers. PT-OP-J Posture/Palpation/Skin Start: 06/08/22 07:18 Freq: Status: Active Protocol: Document 06/08/22 07:30 AMB (Rec: 06/08/22 12:33 AMB [id number]) Palpation Assessment Location One Palpation Details Tenderness/burning with PA at L5 not higher in lumbar spine PT-OP-K Range of Motion Start: 06/08/22 07:18 Freq: Status: Active Protocol: Document 06/08/22 07:30 AMB (Rec: 06/08/22 12:06 AMB [id number]) Lumbar Spine Range of Motion Lumbar Spine Active Degrees Testing Position Standing Flexion 50 Extension 20 Rotation Left 15 Rotation Right 10 Hip Goniometric Range of Motion Hip ROM Limitations Comments Lauro test: R: 60 degrees knee flexion. L: 70 degrees PT-OP-M Strength Start: 06/08/22 07:18 Freq: Status: Active Protocol: Document 06/08/22 07:30 AMB (Rec: 06/08/22 12:06 AMB [id number]) Hip Strength Hip Manual Muscle Testing Right Flexion (L2) 4- Good- Extension (S1) 4 Good Left Flexion (L2) 4- Good- Extension (S1) 4 Good Knee Strength Knee Manual Muscle Testing Right Flexion (S2) 4- Good- Extension (L3) 4 Good Left Flexion (S2) 4- Good- Extension (L3) 4 Good PT-OP-Q Treatments Start: 06/08/22 07:18 Freq: Status: Active Protocol: Document 06/29/22 08:20 SP (Rec: 06/29/22 09:06 SP [id number]) Therapeutic Exercises Supine Exercises ITB stretch Supine Exercise Name hold, unable to get stretch in ITB Side bilateral Equipment Used w/ strap Reps/Minutes 2 x 60s ea HS Stretch Supine Exercise Name reviewed HEP- hold, unable to get stretch in ITB Side bilateral Equipment Used w/ strap Reps/Minutes 2 x 60s ea Piriformis Stretch Supine Exercise Name reviewed HEP (fig 4) Side bilateral Reps/Minutes x60 ea hip flexor stretch Supine Exercise Name Figure 4 supine Side left Reps/Minutes 30 x4 Comments good feedback stretch, performs at home with good relief. Sitting Exercises self STMs Sitting Exercise Name discussed rolling pin ITB home for benefits Comments verbal review from past instruction alternative to stretch benefits. HS stretch Sitting Exercise Name added to HEP Side left Reps/Minutes 30 x2 Comments cued hip hinge, toes relaxed for focus stretch- fdbk better light str HS Standing Exercises ITB stretch Standing Exercise Name trialed- caused L SI pain so stopped Comments time spent for good positioning Manual Therapy Treatment Soft Tissue Mobilization hip flexors Body Location L iliopsoas, L TFL>ITB, glut med/max, QL Mobilization Type Myofascial Release,Sustained Pressure,Trigger Point Release Intensity/Depth Moderate Body Position Hooklying, side Self-Care/Home Management Treatment Education Patient Education Home Exercise Program Other Education DIscussed and performed L toe abd compareable to R not as mobility to allow balance support but states will be having surgery with plates/ screws on L upcoming able, broke 5th L MTP in past. PT-OP-T Assessment and Plan Start: 06/08/22 07:18 Freq: Status: Active Protocol: Document 06/29/22 08:20 SP (Rec: 06/29/22 09:06 SP [id number]) Physical Therapy Assessment Goals Two Impairment Pain Short Term Goal (STG) Ruchi will move from sit to stand without pain/stiffness. STG Duration 5 weeks Micro Computer Data Processor Goal (LTG) Ruchi will perform all bed mobility without pain/ stiffness. LTG Duration 10 weeks One Impairment ROM Short Term Goal (STG) Ruchi will be independent with a HEP for her strengthening and ROM. STG Duration 5 weeks Micro Computer Data Processor Goal (LTG) Ruchi will show improved knee range by improving Lauro test knee flexion to 80 degrees bilaterally. LTG Duration 10 weeks Assessment Summary Assessment Pt improved decrease L hip stiffness post manual, sensitive pressure modification with feedback. Pt reportes Fig 4 the best stretch has, the ITB stretch causes pain trialed modifiy standing and no relief so DC'd . Physical Therapy Plan Frequency and Duration Frequency of Treatment 2x/Week Duration of Treatment 10 weeks Plan of Care Start Date 06/08/22 Plan of Care End Date 08/17/22 Therapeutic Interventions Therapeutic Interventions Home Exercise Program,Manual Therapy,Neuromuscular Re- education,Self-Care/Home Management,Soft Tissue Mobilization,Therapeutic Activities,Therapeutic Exercises Modalities Cold Pack/Ice Massage,Electric Stimulation,Hot Packs Next Visit Focus/Plan Next Note Type Treatment Note Next Visit Plan Reassess HEP self STMs rolling pin vs stretching. NExt tx add: continue core strengthening.
--- NOTE | 2022-07-04 13:45 | PT.OTN ---
Addendum entered and electronically signed by Lucía Quinones, BOX TRUCK WASHER 07/04/22 13:57: Pt reported is going to try and get back to weekly massages. Original Note: Current Diagnoses Lumbago with sciatica, right side (07/04/22) Lumbago with sciatica, left side (07/04/22) Physical Therapy Treatment Note PT-OP-A Visit Information Start: 06/08/22 07:18 Freq: Status: Active Protocol: Document 07/04/22 13:03 SP (Rec: 07/04/22 13:49 SP [id number]) Out-Patient Physical Therapy Visit Information Visit Information Visit Type Treatment Note Visit Note Discussed add more appts. PN 5th visit due soon. Visit Start Time 13:03 Visit Stop Time 13:45 Total Visit Minutes 42 Visit Number 7 Number of BOX TRUCK WASHER Visits 3 PT-OP-B Current Condition Start: 06/08/22 07:18 Freq: Status: Active Protocol: Document 06/08/22 07:31 AMB (Rec: 06/08/22 07:43 AMB [id number]) Current Condition History of Current Condition Onset Date 1 month Current Complaints low back pain with bilateral anterior thigh pain and stiffness History of Current Condition Last month, muscles in the front of the legs were very tight and could barely walk. Ankylosing spondylitis-- pt thinks she has that diagnosis but not in chart? Not as bad now, mild sx. 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 Worst in the morning with the stiffness. Legs felt like rocks. Hard to get up from the mattress on the floor. Personal Factors Other Personal Factors That May Effect Osteoporosis, R ankle fracture Therapy/Recovery (surgically fixated years ago ), L 5th metatarsal fracture in September that has poor healing per patient. SOB- bronchiectasis with mycobacterium. PT-OP-C Subjective Start: 06/08/22 07:18 Freq: Status: Active Protocol: Document 07/04/22 13:03 SP (Rec: 07/04/22 13:49 SP [id number]) OP-PT Subjective Patient Comments Patient Comments Pt reported got theraputic effective massage with little discomfort, it had been a while. She stated L TFL/ quad more tight and sorer than R. Pt stated using rolling pin roll/rocking and found helped more comfortable than ball on wall. PT-OP-J Posture/Palpation/Skin Start: 06/08/22 07:18 Freq: Status: Active Protocol: Document 06/08/22 07:30 AMB (Rec: 06/08/22 12:33 AMB [id number]) Palpation Assessment Location One Palpation Details Tenderness/burning with PA at L5 not higher in lumbar spine PT-OP-K Range of Motion Start: 06/08/22 07:18 Freq: Status: Active Protocol: Document 06/08/22 07:30 AMB (Rec: 06/08/22 12:06 AMB [id number]) Lumbar Spine Range of Motion Lumbar Spine Active Degrees Testing Position Standing Flexion 50 Extension 20 Rotation Left 15 Rotation Right 10 Hip Goniometric Range of Motion Hip ROM Limitations Comments Lauro test: R: 60 degrees knee flexion. L: 70 degrees PT-OP-M Strength Start: 06/08/22 07:18 Freq: Status: Active Protocol: Document 06/08/22 07:30 AMB (Rec: 06/08/22 12:06 AMB [id number]) Hip Strength Hip Manual Muscle Testing Right Flexion (L2) 4- Good- Extension (S1) 4 Good Left Flexion (L2) 4- Good- Extension (S1) 4 Good Knee Strength Knee Manual Muscle Testing Right Flexion (S2) 4- Good- Extension (L3) 4 Good Left Flexion (S2) 4- Good- Extension (L3) 4 Good PT-OP-Q Treatments Start: 06/08/22 07:18 Freq: Status: Active Protocol: Document 07/04/22 13:03 SP (Rec: 07/04/22 13:49 SP [id number]) Therapeutic Exercises Supine Exercises DKTC Supine Exercise Name reviewed self HEP Side bilateral Comments BUE clasp B knees to chest Piriformis Stretch Supine Exercise Name reviewed HEP piriformis and fig 4 Side bilateral Reps/Minutes x60 ea Comments good feedback stretch piriformis hip flexor stretch Supine Exercise Name Lauro stretch Figure 4 supine Side left Reps/Minutes 30 x4 Comments good feedback stretch, performs at home with good relief. Prone Exercises hip extension Prone Exercise Name 1.straight leg 2.bent knee Side bilateral Reps/Minutes x8 ea Comments challenging >L but no pain, cued TA fac awareness Sitting Exercises self STMs Sitting Exercise Name discussed rolling pin is doing glut med, piriformis Comments states good results with rolling pin and stretching vs ballwall Standing Exercises core press outs Standing Exercise Name added to HEP Side bilateral Resistance TB#2 Reps/Minutes x10 reps Comments cued scap stab back/down, tall posture, soft knees Shld ext Standing Exercise Name added to HEP Side bilateral Resistance TB #2 Reps/Minutes 10 x2 Comments cued scap stab back/down, tall posture, soft knees Other Exercises quadruped LE ext Other Exercise Name LE contact slide table little lift off table Comments cues level pelvis, core fac, CS ext chin tuck neutral Manual Therapy Treatment Soft Tissue Mobilization 1 Body Location R quads, R TFL Mobilization Type Cross-Friction,Instrument Assisted,Myofascial Release Comments manual and with rolling pin, quads and adductors Not have to work L due to just saw MT prior to appt. Improved hip flexor Lauro stretch knees even/ slightly draped below table. PT-OP-T Assessment and Plan Start: 06/08/22 07:18 Freq: Status: Active Protocol: Document 07/04/22 13:03 SP (Rec: 07/04/22 13:49 SP [id number]) Physical Therapy Assessment Goals Two Impairment Pain Short Term Goal (STG) Ruchi will move from sit to stand without pain/stiffness. STG Duration 5 weeks Group Home Goal (LTG) Ruchi will perform all bed mobility without pain/ stiffness. LTG Duration 10 weeks One Impairment ROM Short Term Goal (STG) Ruchi will be independent with a HEP for her strengthening and ROM. STG Duration 5 weeks Accounts Executive Goal (LTG) Ruchi will show improved knee range by improving Lauro test knee flexion to 80 degrees bilaterally. LTG Duration 10 weeks Assessment Summary Assessment Pt improved R hip extension, decrease TLF/hip flexor tightness into Lauro stretch post manual. Challenged with hip extension prone but no LBP . Pt feels confident/good demo with stretching HEP. Initiated standing core ext/ press outs with cues core/ PPT awareness for TA fac, little L SI muscle recruitment but not painful. Ed for modify reps/sets and pelvic tilts for no LB recruitment. Pt would benefit from addition balance activities for functional strengthening future txs, pt verbalized in agreement. Physical Therapy Plan Frequency and Duration Frequency of Treatment 2x/Week Duration of Treatment 10 weeks Plan of Care Start Date 06/08/22 Plan of Care End Date 08/17/22 Therapeutic Interventions Therapeutic Interventions Home Exercise Program,Manual Therapy,Neuromuscular Re- education,Self-Care/Home Management,Soft Tissue Mobilization,Therapeutic Activities,Therapeutic Exercises Modalities Cold Pack/Ice Massage,Electric Stimulation,Hot Packs Next Visit Focus/Plan Next Note Type Treatment Note Next Visit Plan Next tx review quad LE ext, prone ext, add functional strengthening/balance POC: continue core, hip abd strengthening.
--- NOTE | 2022-07-11 15:18 | PT.OTN ---
Current Diagnoses Lumbago with sciatica, right side (07/11/22) Lumbago with sciatica, left side (07/11/22) Physical Therapy Treatment Note PT-OP-A Visit Information Start: 06/08/22 07:18 Freq: Status: Active Protocol: Document 07/11/22 13:25 AW (Rec: 07/11/22 15:18 AW [id number]) Out-Patient Physical Therapy Visit Information Visit Information Visit Type Treatment Note Visit Start Time 14:30 Visit Stop Time 15:10 Total Visit Minutes 40 Visit Number 8 Number of CABLE FERRYBOAT OPERATOR Visits 0 PT-OP-B Current Condition Start: 06/08/22 07:18 Freq: Status: Active Protocol: Document 06/08/22 07:31 AMB (Rec: 06/08/22 07:43 AMB [id number]) Current Condition History of Current Condition Onset Date 1 month Current Complaints low back pain with bilateral anterior thigh pain and stiffness History of Current Condition Last month, muscles in the front of the legs were very tight and could barely walk. Ankylosing spondylitis-- pt thinks she has that diagnosis but not in chart? Not as bad now, mild sx. 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 Worst in the morning with the stiffness. Legs felt like rocks. Hard to get up from the mattress on the floor. Personal Factors Other Personal Factors That May Effect Osteoporosis, R ankle fracture Therapy/Recovery (surgically fixated years ago ), L 5th metatarsal fracture in September that has poor healing per patient. SOB- bronchiectasis with mycobacterium. PT-OP-C Subjective Start: 06/08/22 07:18 Freq: Status: Active Protocol: Document 07/11/22 13:25 AW (Rec: 07/11/22 15:18 AW [id number]) OP-PT Subjective Patient Comments Patient Comments Pt thinks her stiffness is improving. She went to the chiropractor last week and thinks that helped. PT-OP-J Posture/Palpation/Skin Start: 06/08/22 07:18 Freq: Status: Active Protocol: Document 06/08/22 07:30 AMB (Rec: 06/08/22 12:33 AMB [id number]) Palpation Assessment Location One Palpation Details Tenderness/burning with PA at L5 not higher in lumbar spine PT-OP-K Range of Motion Start: 06/08/22 07:18 Freq: Status: Active Protocol: Document 06/08/22 07:30 AMB (Rec: 06/08/22 12:06 AMB [id number]) Lumbar Spine Range of Motion Lumbar Spine Active Degrees Testing Position Standing Flexion 50 Extension 20 Rotation Left 15 Rotation Right 10 Hip Goniometric Range of Motion Hip ROM Limitations Comments Lauro test: R: 60 degrees knee flexion. L: 70 degrees PT-OP-M Strength Start: 06/08/22 07:18 Freq: Status: Active Protocol: Document 06/08/22 07:30 AMB (Rec: 06/08/22 12:06 AMB [id number]) Hip Strength Hip Manual Muscle Testing Right Flexion (L2) 4- Good- Extension (S1) 4 Good Left Flexion (L2) 4- Good- Extension (S1) 4 Good Knee Strength Knee Manual Muscle Testing Right Flexion (S2) 4- Good- Extension (L3) 4 Good Left Flexion (S2) 4- Good- Extension (L3) 4 Good PT-OP-Q Treatments Start: 06/08/22 07:18 Freq: Status: Active Protocol: Document 07/11/22 13:25 AW (Rec: 07/11/22 15:18 AW [id number]) Therapeutic Exercises Supine Exercises DKTC Supine Exercise Name reviewed self HEP Side bilateral Comments BUE clasp B knees to chest Piriformis Stretch Supine Exercise Name reviewed HEP piriformis and fig 4 Side bilateral Reps/Minutes x60 ea Comments good feedback stretch piriformis LTR Side bilateral Equipment Used 55cm red physioball Reps/Minutes 2x10 Comments good feedback response hip flexor stretch Supine Exercise Name Lauro stretch Figure 4 supine Side left Reps/Minutes 30 x4 Comments good feedback stretch, performs at home with good relief. Prone Exercises child's pose Prone Exercise Name child's pose Comments good stretch HEP Standing Exercises core press outs Standing Exercise Name HEP review Side bilateral Resistance TB#2 Reps/Minutes x10 reps Comments cued scap stab back/down, tall posture, soft knees Shld ext Standing Exercise Name HEP review Side bilateral Resistance TB #2 Reps/Minutes 10 x2 Comments cued scap stab back/down, tall posture, soft knees Manual Therapy Treatment Soft Tissue Mobilization hip flexors Body Location L iliopsoas, L TFL>ITB, glut med/max, QL Mobilization Type Myofascial Release,Sustained Pressure,Trigger Point Release Intensity/Depth Moderate Body Position Hooklying, side 1 Body Location R quads, R TFL Mobilization Type Cross-Friction,Instrument Assisted,Myofascial Release Comments manual and with rolling pin, quads and adductors PT-OP-T Assessment and Plan Start: 06/08/22 07:18 Freq: Status: Active Protocol: Document 07/11/22 13:25 AW (Rec: 07/11/22 15:18 AW [id number]) Physical Therapy Assessment Goals Two Impairment Pain Short Term Goal (STG) Ruchi will move from sit to stand without pain/stiffness. STG Duration 5 weeks Retirement Goal (LTG) Ruchi will perform all bed mobility without pain/ stiffness. LTG Duration 10 weeks One Impairment ROM Short Term Goal (STG) Ruchi will be independent with a HEP for her strengthening and ROM. STG Duration 5 weeks Retirement Goal (LTG) Ruchi will show improved knee range by improving Lauro test knee flexion to 80 degrees bilaterally. LTG Duration 10 weeks Assessment Summary Assessment Attempted hip extension in prone but was too provocative for pt who is reporting left posterior hip shooting pain today. Will need to investigate further in future visits. Good response to STM B hip flexors with improved excursion in Lauro test afterward. Physical Therapy Plan Frequency and Duration Frequency of Treatment 2x/Week Duration of Treatment 10 weeks Plan of Care Start Date 06/08/22 Plan of Care End Date 08/17/22 Therapeutic Interventions Therapeutic Interventions Home Exercise Program,Manual Therapy,Neuromuscular Re- education,Self-Care/Home Management,Soft Tissue Mobilization,Therapeutic Activities,Therapeutic Exercises Modalities Cold Pack/Ice Massage,Electric Stimulation,Hot Packs Next Visit Focus/Plan Next Note Type Treatment Note Next Visit Plan Follow up on L hip shooting pain. POC: continue core, hip abd strengthening.
--- NOTE | 2022-07-13 14:30 | PT.OTN ---
Current Diagnoses Lumbago with sciatica, right side (07/13/22) Lumbago with sciatica, left side (07/13/22) Physical Therapy Treatment Note PT-OP-A Visit Information Start: 06/08/22 07:18 Freq: Status: Active Protocol: Document 07/13/22 13:48 SP (Rec: 07/13/22 14:34 SP [id number]) Out-Patient Physical Therapy Visit Information Visit Information Visit Type Treatment Note Visit Note Pt due for 10 th visit next tx Visit Start Time 13:48 Visit Stop Time 14:30 Total Visit Minutes 42 Visit Number 9 Number of SENIOR WINDOWS ENGINEER Visits 1 PT-OP-B Current Condition Start: 06/08/22 07:18 Freq: Status: Active Protocol: Document 06/08/22 07:31 AMB (Rec: 06/08/22 07:43 AMB [id number]) Current Condition History of Current Condition Onset Date 1 month Current Complaints low back pain with bilateral anterior thigh pain and stiffness History of Current Condition Last month, muscles in the front of the legs were very tight and could barely walk. Ankylosing spondylitis-- pt thinks she has that diagnosis but not in chart? Not as bad now, mild sx. 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 Worst in the morning with the stiffness. Legs felt like rocks. Hard to get up from the mattress on the floor. Personal Factors Other Personal Factors That May Effect Osteoporosis, R ankle fracture Therapy/Recovery (surgically fixated years ago ), L 5th metatarsal fracture in September that has poor healing per patient. SOB- bronchiectasis with mycobacterium. PT-OP-C Subjective Start: 06/08/22 07:18 Freq: Status: Active Protocol: Document 07/13/22 13:48 SP (Rec: 07/13/22 14:34 SP [id number]) OP-PT Subjective Patient Comments Patient Comments Pt reported had L Trap spasm pain and L anterolateral hip pain. Today having mid- proximal adductor pain today when walking advancing LLE. She did see massage therapist did little work on L anterior hip but mostly focused onR since last tx. She reports she might be having ankle surgery soon, daughter is almost 6 weeks s/p and can make meals for both of them so wont need anymore help, so can help her if needed. Patient Reported Progress Worse PT-OP-J Posture/Palpation/Skin Start: 06/08/22 07:18 Freq: Status: Active Protocol: Document 06/08/22 07:30 AMB (Rec: 06/08/22 12:33 AMB [id number]) Palpation Assessment Location One Palpation Details Tenderness/burning with PA at L5 not higher in lumbar spine PT-OP-K Range of Motion Start: 06/08/22 07:18 Freq: Status: Active Protocol: Document 06/08/22 07:30 AMB (Rec: 06/08/22 12:06 AMB [id number]) Lumbar Spine Range of Motion Lumbar Spine Active Degrees Testing Position Standing Flexion 50 Extension 20 Rotation Left 15 Rotation Right 10 Hip Goniometric Range of Motion Hip ROM Limitations Comments Lauro test: R: 60 degrees knee flexion. L: 70 degrees PT-OP-M Strength Start: 06/08/22 07:18 Freq: Status: Active Protocol: Document 06/08/22 07:30 AMB (Rec: 06/08/22 12:06 AMB [id number]) Hip Strength Hip Manual Muscle Testing Right Flexion (L2) 4- Good- Extension (S1) 4 Good Left Flexion (L2) 4- Good- Extension (S1) 4 Good Knee Strength Knee Manual Muscle Testing Right Flexion (S2) 4- Good- Extension (L3) 4 Good Left Flexion (S2) 4- Good- Extension (L3) 4 Good PT-OP-Q Treatments Start: 06/08/22 07:18 Freq: Status: Active Protocol: Document 07/13/22 13:48 SP (Rec: 07/13/22 14:34 SP [id number]) Therapeutic Exercises Supine Exercises hip flexor stretch Supine Exercise Name Lauro velez, Figure 4 supine Side left Reps/Minutes 30 x4 Comments good feedback stretch,with fair relief today Manual Therapy Treatment Soft Tissue Mobilization hip flexors Body Location L iliopsoas, L TFL>ITB, glut med/max, QL Mobilization Type Myofascial Release,Sustained Pressure,Trigger Point Release Intensity/Depth Moderate Body Position Hooklying, side 1 Body Location R quads, adductor, TFL Mobilization Type Cross-Friction,Myofascial Release,Sustained Pressure, Other Comments manual and sustained pressure with PROM hip abd/add small range. Joint Mobilizations LB Joint B w/ Strap behind calves, L long axis pull Comments good gentle stretch feedback L hip Joint L Direction inferior Body Position Supine Reps/Duration use mob strap Comments good feedback response gentle stretch. Self-Care/Home Management Treatment Education Patient Education Home Exercise Program,Pain Management Other Education SENIOR WINDOWS ENGINEER discussed using tennis ball in sock and back towall can self massage post scap/UT to decrease muscle tension/ spasming and heat. Discussed PT-OP-T Assessment and Plan Start: 06/08/22 07:18 Freq: Status: Active Protocol: Document 07/13/22 13:48 SP (Rec: 07/13/22 14:34 SP [id number]) Physical Therapy Assessment Goals Two Impairment Pain Short Term Goal (STG) Ruchi will move from sit to stand without pain/stiffness. STG Duration 5 weeks Medical Sales Consultant Goal (LTG) Ruchi will perform all bed mobility without pain/ stiffness. LTG Duration 10 weeks One Impairment ROM Short Term Goal (STG) Ruchi will be independent with a HEP for her strengthening and ROM. STG Duration 5 weeks Medical Sales Consultant Goal (LTG) Ruchi will show improved knee range by improving Lauro test knee flexion to 80 degrees bilaterally. LTG Duration 10 weeks Assessment Summary Assessment Pt responded well to manual STMs, Jt mobs and Lauro stretch, no pain walking around end tx. Ed for incorporating gait, side stepping, core ex for hip abd/ posterior chain compliments to decrease adductor/hip flexor recruitment, pt agreed. Physical Therapy Plan Frequency and Duration Frequency of Treatment 2x/Week Duration of Treatment 10 weeks Plan of Care Start Date 06/08/22 Plan of Care End Date 08/17/22 Therapeutic Interventions Therapeutic Interventions Home Exercise Program,Manual Therapy,Neuromuscular Re- education,Self-Care/Home Management,Soft Tissue Mobilization,Therapeutic Activities,Therapeutic Exercises Modalities Cold Pack/Ice Massage,Electric Stimulation,Hot Packs Next Visit Focus/Plan Next Note Type Progress Note Next Visit Plan 10th visit/PN due next tx. REview HEP, progress core/hip abd strengthening if able to allow recovery for ankle surgery soon successful. Follow up on L hip shooting pain.
--- NOTE | 2022-07-30 09:50 | PT.OTN ---
Current Diagnoses Lumbago with sciatica, right side (07/30/22) Lumbago with sciatica, left side (07/30/22) Physical Therapy Treatment Note PT-OP-A Visit Information Start: 06/08/22 07:18 Freq: Status: Active Protocol: Document 07/30/22 08:58 NBM (Rec: 07/30/22 09:49 NBM [id number]) Out-Patient Physical Therapy Visit Information Visit Information Visit Type Treatment Note Visit Start Time 09:00 Visit Stop Time 09:45 Total Visit Minutes 45 Visit Number 10 Number of INFANT TEACHER Visits 2 PT-OP-B Current Condition Start: 06/08/22 07:18 Freq: Status: Active Protocol: Document 06/08/22 07:31 AMB (Rec: 06/08/22 07:43 AMB [id number]) Current Condition History of Current Condition Onset Date 1 month Current Complaints low back pain with bilateral anterior thigh pain and stiffness History of Current Condition Last month, muscles in the front of the legs were very tight and could barely walk. Ankylosing spondylitis-- pt thinks she has that diagnosis but not in chart? Not as bad now, mild sx. 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 Worst in the morning with the stiffness. Legs felt like rocks. Hard to get up from the mattress on the floor. Personal Factors Other Personal Factors That May Effect Osteoporosis, R ankle fracture Therapy/Recovery (surgically fixated years ago ), L 5th metatarsal fracture in September that has poor healing per patient. SOB- bronchiectasis with mycobacterium. PT-OP-C Subjective Start: 06/08/22 07:18 Freq: Status: Active Protocol: Document 07/30/22 08:58 NBM (Rec: 07/30/22 09:49 NBM [id number]) OP-PT Subjective Patient Comments Patient Comments Pt states massage therapy really helps with hip pain and she is considering getting it once a month. Her L IT band has been better lately. Her L foot hurts the most, and daughter needs cardiac clearance to reschedule her surgery, then pt will do her foot surgery. Hip hurts today but it's not killing me. I can tolerate a lot of pain. She sleeps on her side has to pump her ankles when she wakes up or gets a hamstring cramp. PT-OP-J Posture/Palpation/Skin Start: 06/08/22 07:18 Freq: Status: Active Protocol: Document 06/08/22 07:30 AMB (Rec: 06/08/22 12:33 AMB [id number]) Palpation Assessment Location One Palpation Details Tenderness/burning with PA at L5 not higher in lumbar spine PT-OP-K Range of Motion Start: 06/08/22 07:18 Freq: Status: Active Protocol: Document 06/08/22 07:30 AMB (Rec: 06/08/22 12:06 AMB [id number]) Lumbar Spine Range of Motion Lumbar Spine Active Degrees Testing Position Standing Flexion 50 Extension 20 Rotation Left 15 Rotation Right 10 Hip Goniometric Range of Motion Hip ROM Limitations Comments Lauro test: R: 60 degrees knee flexion. L: 70 degrees PT-OP-M Strength Start: 06/08/22 07:18 Freq: Status: Active Protocol: Document 06/08/22 07:30 AMB (Rec: 06/08/22 12:06 AMB [id number]) Hip Strength Hip Manual Muscle Testing Right Flexion (L2) 4- Good- Extension (S1) 4 Good Left Flexion (L2) 4- Good- Extension (S1) 4 Good Knee Strength Knee Manual Muscle Testing Right Flexion (S2) 4- Good- Extension (L3) 4 Good Left Flexion (S2) 4- Good- Extension (L3) 4 Good PT-OP-Q Treatments Start: 06/08/22 07:18 Freq: Status: Active Protocol: Document 07/30/22 08:58 NBM (Rec: 07/30/22 09:49 NBM [id number]) Therapeutic Exercises Supine Exercises Happy Baby stretch Supine Exercise Name added to HEP Reps/Minutes ~4 min Comments w/ STM to L piriformis and L adductor longus LTR Side bilateral Reps/Minutes 2x10 Comments good feedback response Sitting Exercises seated Figure 4 stretch Side bilateral Reps/Minutes x60s ea HS stretch Side left Reps/Minutes 30 x2 Comments cued hip hinge, fdbk better light str HS Standing Exercises Sidestepping Standing Exercise Name Resisted bandwalking Side bilateral Equipment Used handrail Reps/Minutes 2x10 ft ea Comments vc toes fwd L>R, upright posture, controlled eccentric Shoulder rows Side bilateral Resistance TB #2 Reps/Minutes 2x10 Comments scap retraction, tactile cue core press outs Side bilateral Resistance TB#2 Reps/Minutes 2x10 reps Comments cued gentle core, scap stab back/down, tall posture Shld ext Side bilateral Resistance TB #2 Reps/Minutes x10 Comments cued scap stab back/down, tall posture, soft knees hip flexor stretch Standing Exercise Name Hold: discussed - pt declines to perform Comments pt has dc'd d/t aggravation/ flare up when performing Manual Therapy Treatment Soft Tissue Mobilization hip flexors Body Location L glut med/max, L piriformis, L Adductor longus, Mobilization Type Cross-Friction,Myofascial Release,Sustained Pressure, Trigger Point Release Intensity/Depth Moderate Body Position Hooklying, Happy Baby Comments Pt reports L piriformis no longer tender after manual Self-Care/Home Management Treatment Education Patient Education Home Exercise Program Other Education Added Happy Baby stretch to HEP - HO given. PT-OP-T Assessment and Plan Start: 06/08/22 07:18 Freq: Status: Active Protocol: Document 07/30/22 08:58 NB (Rec: 07/30/22 09:49 NBM [id number]) Physical Therapy Assessment Goals Two Impairment Pain Short Term Goal (STG) Ruchi will move from sit to stand without pain/stiffness. 07/30/22: Pt reports still stiff in the morning. STG Duration 5 weeks Fdc Goal (LTG) Ruchi will perform all bed mobility without pain/ stiffness. LTG Duration 10 weeks One Impairment ROM Short Term Goal (STG) Ruchi will be independent with a HEP for her strengthening and ROM. 07/30: Pt has been limited w/ HEP d/t L foot fx/pain - pt has been using stretches for hip pain. STG Duration 5 weeks Charity Fundraiser Goal (LTG) Ruchi will show improved knee range by improving Lauro test knee flexion to 80 degrees bilaterally. LTG Duration 10 weeks Assessment Summary Assessment Treatment focus today on UE posterior chain strengthening and LE stretching and manual therapy for pain relief d/t pt 's L foot fx. Pt has been limited w/ HEP d/t L foot fx/ pain and has been using stretches for hip pain (STG 1) . Pt reports still stiff going from sitting to standing in the morning (STG 2). Pt demonstrates improved self- awareness of upright posture w / UE posterior chain strengthening but requires cues for core engagement, and is challenged w/ upright posture and neutral foot position during LE resisted sidestepping. Pt reports L piriformis no longer tender after manual therapy - INFANT TEACHER observes palpable tightness to L Adductor longus also improves. Standing hip flexor stretch held d/t pt declining to perform because it's aggravating and flares up hip pain. Added Happy Baby stretch to HEP - HO given. Pt sleeps sidelying with hip and knee flexion which may be contributing to hip flexor tightness and hamstring cramping upon waking. Pt will benefit from continued skilled therapeutic intervention. Physical Therapy Plan Next Visit Focus/Plan Next Note Type Progress Note Next Visit Plan Follow up on L hip shooting pain. Review HEP, progress core/hip abd strengthening if able to allow recovery for ankle surgery soon successful. Consider sleeping positioning to reduce hip/knee flexion d/ t hip flexor and hamstring tightness
--- NOTE | 2022-07-31 12:49 | PT.OPPN ---
Current Diagnoses Lumbago with sciatica, right side (07/30/22) Lumbago with sciatica, left side (07/30/22) Physical Therapy Progress Note PT-OP-A Visit Information Start: 06/08/22 07:18 Freq: Status: Active Protocol: Document 07/30/22 08:58 NBM (Rec: 07/30/22 09:49 NBM [id number]) Out-Patient Physical Therapy Visit Information Visit Information Visit Type Treatment Note Visit Start Time 09:00 Visit Stop Time 09:45 Total Visit Minutes 45 Visit Number 10 Number of MEDICAL CLAIMS ANALYST Visits 2 PT-OP-B Current Condition Start: 06/08/22 07:18 Freq: Status: Active Protocol: Document 06/08/22 07:31 AMB (Rec: 06/08/22 07:43 AMB [id number]) Current Condition History of Current Condition Onset Date 1 month Current Complaints low back pain with bilateral anterior thigh pain and stiffness History of Current Condition Last month, muscles in the front of the legs were very tight and could barely walk. Ankylosing spondylitis-- pt thinks she has that diagnosis but not in chart? Not as bad now, mild sx. 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 Worst in the morning with the stiffness. Legs felt like rocks. Hard to get up from the mattress on the floor. Personal Factors Other Personal Factors That May Effect Osteoporosis, R ankle fracture Therapy/Recovery (surgically fixated years ago ), L 5th metatarsal fracture in September that has poor healing per patient. SOB- bronchiectasis with mycobacterium. PT-OP-C Subjective Start: 06/08/22 07:18 Freq: Status: Active Protocol: Document 07/30/22 08:58 NBM (Rec: 07/30/22 09:49 NBM [id number]) OP-PT Subjective Patient Comments Patient Comments Pt states massage therapy really helps with hip pain and she is considering getting it once a month. Her L IT band has been better lately. Her L foot hurts the most, and daughter needs cardiac clearance to reschedule her surgery, then pt will do her foot surgery. Hip hurts today but it's not killing me. I can tolerate a lot of pain. She sleeps on her side has to pump her ankles when she wakes up or gets a hamstring cramp. PT-OP-J Posture/Palpation/Skin Start: 06/08/22 07:18 Freq: Status: Active Protocol: Document 06/08/22 07:30 AMB (Rec: 06/08/22 12:33 AMB [id number]) Palpation Assessment Location One Palpation Details Tenderness/burning with PA at L5 not higher in lumbar spine PT-OP-K Range of Motion Start: 06/08/22 07:18 Freq: Status: Active Protocol: Document 06/08/22 07:30 AMB (Rec: 06/08/22 12:06 AMB [id number]) Lumbar Spine Range of Motion Lumbar Spine Active Degrees Testing Position Standing Flexion 50 Extension 20 Rotation Left 15 Rotation Right 10 Hip Goniometric Range of Motion Hip ROM Limitations Comments Lauro test: R: 60 degrees knee flexion. L: 70 degrees PT-OP-M Strength Start: 06/08/22 07:18 Freq: Status: Active Protocol: Document 06/08/22 07:30 AMB (Rec: 06/08/22 12:06 AMB [id number]) Hip Strength Hip Manual Muscle Testing Right Flexion (L2) 4- Good- Extension (S1) 4 Good Left Flexion (L2) 4- Good- Extension (S1) 4 Good Knee Strength Knee Manual Muscle Testing Right Flexion (S2) 4- Good- Extension (L3) 4 Good Left Flexion (S2) 4- Good- Extension (L3) 4 Good PT-OP-T Assessment and Plan Start: 06/08/22 07:18 Freq: Status: Active Protocol: Document 07/31/22 12:45 AMB (Rec: 07/31/22 12:48 AMB [id number]) Physical Therapy Assessment Goals Two Impairment Pain Short Term Goal (STG) Ruchi will move from sit to stand without pain/stiffness. 07/30/22: Pt reports still stiff in the morning. STG Duration 5 weeks Special Service Officer Goal (LTG) Ruchi will perform all bed mobility without pain/ stiffness. LTG Duration 10 weeks One Impairment ROM Short Term Goal (STG) Ruchi will be independent with a HEP for her strengthening and ROM. 07/30: Pt has been limited w/ HEP d/t L foot fx/pain - pt has been using stretches for hip pain. STG Duration 5 weeks Special Service Officer Goal (LTG) Ruchi will show improved knee range by improving Lauro test knee flexion to 80 degrees bilaterally. LTG Duration 10 weeks Assessment Summary Assessment Pt has been limited w/ HEP d/t L foot fx/pain and has been using stretches for hip pain ( STG 1). Pt reports still stiff going from sitting to standing in the morning (STG 2 ). Pt demonstrates improved self-awareness of upright posture w/ UE posterior chain strengthening but requires cues for core engagement, and is challenged w/ upright posture and neutral foot position during LE resisted sidestepping. Pt reports L piriformis no longer tender after manual therapy Pt will benefit from continued skilled therapeutic intervention. Physical Therapy Plan Next Visit Focus/Plan Next Note Type Treatment Note Next Visit Plan Follow up on L hip shooting pain. Review HEP, progress core/hip abd strengthening Consider sleeping positioning to reduce hip/knee flexion d/t hip flexor and hamstring tightness
--- NOTE | 2022-08-01 09:47 | PT.OTN ---
Current Diagnoses Lumbago with sciatica, right side (08/01/22) Lumbago with sciatica, left side (08/01/22) Physical Therapy Treatment Note PT-OP-A Visit Information Start: 06/08/22 07:18 Freq: Status: Active Protocol: Document 08/01/22 09:01 SP (Rec: 08/01/22 09:48 SP [id number]) Out-Patient Physical Therapy Visit Information Visit Information Visit Type Treatment Note Visit Note Pt doesn't have next appt until 08/23 with PT, POC expires 08/17. She is on waiting list. Will need see PT between 08/17 Visit Start Time 09:01 Visit Stop Time 09:47 Total Visit Minutes 46 Visit Number 11 Number of PASSENGER CAR CLEANING SUPERVISOR Visits 3 PT-OP-B Current Condition Start: 06/08/22 07:18 Freq: Status: Active Protocol: Document 06/08/22 07:31 AMB (Rec: 06/08/22 07:43 AMB [id number]) Current Condition History of Current Condition Onset Date 1 month Current Complaints low back pain with bilateral anterior thigh pain and stiffness History of Current Condition Last month, muscles in the front of the legs were very tight and could barely walk. Ankylosing spondylitis-- pt thinks she has that diagnosis but not in chart? Not as bad now, mild sx. 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 Worst in the morning with the stiffness. Legs felt like rocks. Hard to get up from the mattress on the floor. Personal Factors Other Personal Factors That May Effect Osteoporosis, R ankle fracture Therapy/Recovery (surgically fixated years ago ), L 5th metatarsal fracture in September that has poor healing per patient. SOB- bronchiectasis with mycobacterium. PT-OP-C Subjective Start: 06/08/22 07:18 Freq: Status: Active Protocol: Document 08/01/22 09:01 SP (Rec: 08/01/22 09:48 SP [id number]) OP-PT Subjective Patient Comments Patient Comments Pt report said was pretty sore after last tx manual and had hard time advancing LLE without pain. She uses rolling pin to L adductor, and helps relieve fairly quickly. She states deep to piriformis and foot hurting, her surgery delayed due to her daughters delayed and needs help her daughter recovery before has hers. PT-OP-J Posture/Palpation/Skin Start: 06/08/22 07:18 Freq: Status: Active Protocol: Document 06/08/22 07:30 AMB (Rec: 06/08/22 12:33 AMB [id number]) Palpation Assessment Location One Palpation Details Tenderness/burning with PA at L5 not higher in lumbar spine PT-OP-K Range of Motion Start: 06/08/22 07:18 Freq: Status: Active Protocol: Document 06/08/22 07:30 AMB (Rec: 06/08/22 12:06 AMB [id number]) Lumbar Spine Range of Motion Lumbar Spine Active Degrees Testing Position Standing Flexion 50 Extension 20 Rotation Left 15 Rotation Right 10 Hip Goniometric Range of Motion Hip ROM Limitations Comments Lauro test: R: 60 degrees knee flexion. L: 70 degrees PT-OP-M Strength Start: 06/08/22 07:18 Freq: Status: Active Protocol: Document 06/08/22 07:30 AMB (Rec: 06/08/22 12:06 AMB [id number]) Hip Strength Hip Manual Muscle Testing Right Flexion (L2) 4- Good- Extension (S1) 4 Good Left Flexion (L2) 4- Good- Extension (S1) 4 Good Knee Strength Knee Manual Muscle Testing Right Flexion (S2) 4- Good- Extension (L3) 4 Good Left Flexion (S2) 4- Good- Extension (L3) 4 Good PT-OP-Q Treatments Start: 06/08/22 07:18 Freq: Status: Active Protocol: Document 08/01/22 09:01 SP (Rec: 08/01/22 09:48 SP [id number]) Therapeutic Exercises Supine Exercises fig 4 stretch Supine Exercise Name reviewed: adductor and hip ER stretch Side left Reps/Minutes 30s hold Comments slow movement provided ease of release but sensitive end range. Happy Baby stretch Supine Exercise Name reviewed HEP Reps/Minutes 2 min hold Comments good feedback stretch Sidelying Exercises hip abduction Side left Reps/Minutes 5 reps x4 sets Comments cued slow painfree range, rest bwtn sets Standing Exercises Sidestepping Standing Exercise Name Resisted bandwalking- added to HEP Side bilateral Equipment Used Y TB Reps/Minutes 2x10 ft ea Comments good form Manual Therapy Treatment Soft Tissue Mobilization hip flexors Body Location L glut med/max, L piriformis Mobilization Type Cross-Friction,Myofascial Release,Sustained Pressure, Trigger Point Release Intensity/Depth Moderate Body Position Hooklying, Happy Baby Comments Pt reports L piriformis no longer tender after manual Joint Mobilizations L hip Joint L Direction inferior Body Position Supine Reps/Duration use mob strap and long leg axis pull Comments good feedback response gentle stretch. Self-Care/Home Management Treatment Education Patient Education Body Mechanics,Joint Protection,Pain Management Other Education Education on use pillows between BLEs sleeping on side for alignment support but they dont always stay with amount movement she does. . PT-OP-T Assessment and Plan Start: 06/08/22 07:18 Freq: Status: Active Protocol: Document 08/01/22 09:01 SP (Rec: 08/01/22 09:48 SP [id number]) Physical Therapy Assessment Goals Two Impairment Pain Short Term Goal (STG) Ruchi will move from sit to stand without pain/stiffness. 07/30/22: Pt reports still stiff in the morning. STG Duration 5 weeks Custodial Goal (LTG) Ruchi will perform all bed mobility without pain/ stiffness. LTG Duration 10 weeks One Impairment ROM Short Term Goal (STG) Ruchi will be independent with a HEP for her strengthening and ROM. 07/30: Pt has been limited w/ HEP d/t L foot fx/pain - pt has been using stretches for hip pain. STG Duration 5 weeks Surgical Scrub Technician Goal (LTG) Ruchi will show improved knee range by improving Lauro test knee flexion to 80 degrees bilaterally. LTG Duration 10 weeks Assessment Summary Assessment Pt states little sore after manual, good feedback to pressure and light decompress long axis pull mob vs strap use today benefiting. She performs self STMs using rolling pin at home and aware ball at wall glut as needed. Pt is compliant with ther ex with good understanding of strengthening to allow support /stability. Pt reports L hip little sore post ther ex. She is aware can use heat/cold pack athome to assist comfort. Physical Therapy Plan Frequency and Duration Frequency of Treatment 2x/Week Plan of Care Start Date 06/08/22 Plan of Care End Date 08/17/22 Therapeutic Interventions Therapeutic Interventions Home Exercise Program,Manual Therapy,Neuromuscular Re- education,Self-Care/Home Management,Soft Tissue Mobilization,Therapeutic Activities,Therapeutic Exercises Modalities Cold Pack/Ice Massage,Electric Stimulation,Hot Packs Next Visit Focus/Plan Next Note Type Treatment Note Next Visit Plan Follow up on L hip shooting pain. Review HEP, progress core/hip abd strengthening Consider sleeping positioning to reduce hip/knee flexion d/t hip flexor and hamstring tightness
--- NOTE | 2022-08-31 15:50 | PT.OTN ---
Current Diagnoses Lumbago with sciatica, right side (08/31/22) Lumbago with sciatica, left side (08/31/22) Physical Therapy Treatment Note PT-OP-A Visit Information Start: 06/08/22 07:18 Freq: Status: Active Protocol: Document 08/31/22 12:57 AMB (Rec: 08/31/22 13:48 AMB [id number]) Out-Patient Physical Therapy Visit Information Visit Information Visit Type Progress Note Visit Start Time 13:00 Visit Stop Time 13:45 Total Visit Minutes 45 Visit Number 12 PT-OP-B Current Condition Start: 06/08/22 07:18 Freq: Status: Active Protocol: Document 06/08/22 07:31 AMB (Rec: 06/08/22 07:43 AMB [id number]) Current Condition History of Current Condition Onset Date 1 month Current Complaints low back pain with bilateral anterior thigh pain and stiffness History of Current Condition Last month, muscles in the front of the legs were very tight and could barely walk. Ankylosing spondylitis-- pt thinks she has that diagnosis but not in chart? Not as bad now, mild sx. 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 Worst in the morning with the stiffness. Legs felt like rocks. Hard to get up from the mattress on the floor. Personal Factors Other Personal Factors That May Effect Osteoporosis, R ankle fracture Therapy/Recovery (surgically fixated years ago ), L 5th metatarsal fracture in September that has poor healing per patient. SOB- bronchiectasis with mycobacterium. PT-OP-C Subjective Start: 06/08/22 07:18 Freq: Status: Active Protocol: Document 08/31/22 12:57 AMB (Rec: 08/31/22 13:48 AMB [id number]) OP-PT Subjective Patient Comments Patient Comments Pt had covid starting Aug 07, paxlovid rebound. Energy has been low until this Saturday. Was set back with the pain, PT-OP-J Posture/Palpation/Skin Start: 06/08/22 07:18 Freq: Status: Active Protocol: Document 06/08/22 07:30 AMB (Rec: 06/08/22 12:33 AMB [id number]) Palpation Assessment Location One Palpation Details Tenderness/burning with PA at L5 not higher in lumbar spine PT-OP-K Range of Motion Start: 06/08/22 07:18 Freq: Status: Active Protocol: Document 08/31/22 13:00 AMB (Rec: 08/31/22 15:49 AMB [id number]) Hip Goniometric Range of Motion Hip ROM Limitations Comments More restricted with hip IR on the left than the R, but does still have AROM available. Tenderness with hip flexor stretching. PT-OP-M Strength Start: 06/08/22 07:18 Freq: Status: Active Protocol: Document 06/08/22 07:30 AMB (Rec: 06/08/22 12:06 AMB [id number]) Hip Strength Hip Manual Muscle Testing Right Flexion (L2) 4- Good- Extension (S1) 4 Good Left Flexion (L2) 4- Good- Extension (S1) 4 Good Knee Strength Knee Manual Muscle Testing Right Flexion (S2) 4- Good- Extension (L3) 4 Good Left Flexion (S2) 4- Good- Extension (L3) 4 Good PT-OP-Q Treatments Start: 06/08/22 07:18 Freq: Status: Active Protocol: Document 08/31/22 12:57 AMB (Rec: 08/31/22 13:48 AMB [id number]) Therapeutic Exercises Supine Exercises hip flexor isometric Supine Exercise Name at 90 90 Side left Reps/Minutes 5x5 fig 4 stretch Supine Exercise Name reviewed: adductor and hip ER stretch Side left Reps/Minutes 30s hold Comments slow movement provided ease of release but sensitive end range. DKTC Supine Exercise Name reviewed self HEP Side bilateral Comments BUE clasp B knees to chest Piriformis Stretch Supine Exercise Name reviewed HEP piriformis and fig 4 Side bilateral Reps/Minutes x60 ea Comments good feedback stretch piriformis clamshell Side bilateral Resistance #2 t band Reps/Minutes 2x12 LTR Side bilateral Reps/Minutes 2x10 Comments good feedback response hip flexor stretch Supine Exercise Name Lauro stretch, Figure 4 supine Side left Reps/Minutes 30 x4 Comments very gentle Manual Therapy Treatment Soft Tissue Mobilization hip flexors Body Location hip flexors, quads, adductors Mobilization Type Cross-Friction,Myofascial Release,Sustained Pressure, Trigger Point Release Intensity/Depth Moderate Body Position Hooklying, Happy Baby Comments Pt reports L piriformis no longer tender after manual PT-OP-T Assessment and Plan Start: 06/08/22 07:18 Freq: Status: Active Protocol: Document 08/31/22 12:57 AMB (Rec: 08/31/22 13:48 AMB [id number]) Physical Therapy Assessment Goals Two Impairment Pain Short Term Goal (STG) Ruchi will move from sit to stand without pain/stiffness. 07/30/22: Pt reports still stiff in the morning. STG Duration 5 weeks Shell Mold Bonder Goal (LTG) Ruchi will perform all bed mobility without pain/ stiffness. LTG Duration 10 weeks One Impairment ROM Short Term Goal (STG) Ruchi will be independent with a HEP for her strengthening and ROM. 07/30: Pt has been limited w/ HEP d/t L foot fx/pain - pt has been using stretches for hip pain. STG Duration 5 weeks Shell Mold Bonder Goal (LTG) Ruchi will show improved knee range by improving Lauro test knee flexion to 80 degrees bilaterally. LTG Duration 10 weeks Assessment Summary Assessment Ruchi returns to physical therapy after 1 month off from having Covid. She hasn't been as active, so has been having more pain. Feels like back is better, but hip flexor /quad/adductor still quite painful, limiting with gait. Would continue to benefit from PT to manage stiffness/pain. Overall has not met goals yet , as stiffness remains in hip, but has improved in low back. Physical Therapy Plan Frequency and Duration Frequency of Treatment 2x/Week Duration of treatment (weeks) 7 Plan of Care Start Date 08/31/22 Plan of Care End Date 10/19/22 Therapeutic Interventions Therapeutic Interventions Home Exercise Program,Manual Therapy,Neuromuscular Re- education,Self-Care/Home Management,Soft Tissue Mobilization,Therapeutic Activities,Therapeutic Exercises Modalities Cold Pack/Ice Massage,Electric Stimulation,Hot Packs Next Visit Focus/Plan Next Note Type Treatment Note Next Visit Plan Consider reduce hip/knee flexion d/t hip flexor and hamstring tightness
--- NOTE | 2022-08-31 15:50 | PT.OPPOC ---
Physical, Occupational & Speech Therapy At [facility] Current Diagnoses Lumbago with sciatica, right side (08/31/22) Lumbago with sciatica, left side (08/31/22) Visit Care Team Role Provider Type Iban Hoover MD Attending Provider Non-Staff Family Provider Primary Care Provider Referring Provider Specialty: Family Practice Address: [address] [place] [address], [address], [place], [address] Email: Plan Of Care PT-OP-T Assessment and Plan Start: 06/08/22 07:18 Freq: Status: Active Protocol: Document 08/31/22 12:57 AMB (Rec: 08/31/22 13:48 AMB [id number]) Physical Therapy Assessment Goals Two Impairment Pain Short Term Goal (STG) Ruchi will move from sit to stand without pain/stiffness. 07/30/22: Pt reports still stiff in the morning. STG Duration 5 weeks [facility] Goal (LTG) Ruchi will perform all bed mobility without pain/ stiffness. LTG Duration 10 weeks One Impairment ROM Short Term Goal (STG) Ruchi will be independent with a HEP for her strengthening and ROM. 07/30: Pt has been limited w/ HEP d/t L foot fx/pain - pt has been using stretches for hip pain. STG Duration 5 weeks Cone Examiner Goal (LTG) Ruchi will show improved knee range by improving Lauro test knee flexion to 80 degrees bilaterally. LTG Duration 10 weeks Assessment Summary Assessment Ruchi returns to physical therapy after 1 month off from having Covid. She hasn't been as active, so has been having more pain. Feels like back is better, but hip flexor /quad/adductor still quite painful, limiting with gait. Would continue to benefit from PT to manage stiffness/pain. Overall has not met goals yet , as stiffness remains in hip, but has improved in low back. Physical Therapy Plan Frequency and Duration Frequency of Treatment 2x/Week Duration of treatment (weeks) 7 Plan of Care Start Date 08/31/22 Plan of Care End Date 10/19/22 Therapeutic Interventions Therapeutic Interventions Home Exercise Program,Manual Therapy,Neuromuscular Re- education,Self-Care/Home Management,Soft Tissue Mobilization,Therapeutic Activities,Therapeutic Exercises Modalities Cold Pack/Ice Massage,Electric Stimulation,Hot Packs Next Visit Focus/Plan Next Note Type Treatment Note Next Visit Plan Consider reduce hip/knee flexion d/t hip flexor and hamstring tightness Plan of Care Dates Plan of Care Start Date 08/31/22 Plan of Care End Date 10/19/22 Electronically Signed by: Brandi Samuel, PT 08/31/22 [id number] If you are in agreement with this Plan of Care, please return a signed and dated copy. I have reviewed this Plan of Care and certify that the skilled therapy services above are required to meet the patient?s needs. Physician Signature Date Printed Name and Credentials Clinical Instructor Signature Printed Name and Credentials
--- NOTE | 2022-09-04 08:15 | PT.OTN ---
Current Diagnoses Lumbago with sciatica, right side (09/04/22) Lumbago with sciatica, left side (09/04/22) Physical Therapy Treatment Note PT-OP-A Visit Information Start: 06/08/22 07:18 Freq: Status: Active Protocol: Document 09/04/22 07:23 TS (Rec: 09/04/22 08:17 TS [id number]) Out-Patient Physical Therapy Visit Information Visit Information Visit Type Treatment Note Visit Note BRAYAN Araujois performed manual therapy, ther ex and pt education under supervision of DEANDRE Castrejon. Visit Start Time 07:35 Visit Stop Time 08:15 Total Visit Minutes 45 Visit Number 13 Number of ACROBATIC RIGGER Visits 1 PT-OP-B Current Condition Start: 06/08/22 07:18 Freq: Status: Active Protocol: Document 06/08/22 07:31 AMB (Rec: 06/08/22 07:43 AMB [id number]) Current Condition History of Current Condition Onset Date 1 month Current Complaints low back pain with bilateral anterior thigh pain and stiffness History of Current Condition Last month, muscles in the front of the legs were very tight and could barely walk. Ankylosing spondylitis-- pt thinks she has that diagnosis but not in chart? Not as bad now, mild sx. 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 Worst in the morning with the stiffness. Legs felt like rocks. Hard to get up from the mattress on the floor. Personal Factors Other Personal Factors That May Effect Osteoporosis, R ankle fracture Therapy/Recovery (surgically fixated years ago ), L 5th metatarsal fracture in September that has poor healing per patient. SOB- bronchiectasis with mycobacterium. PT-OP-C Subjective Start: 06/08/22 07:18 Freq: Status: Active Protocol: Document 09/04/22 07:23 TS (Rec: 09/04/22 08:17 TS [id number]) OP-PT Subjective Patient Comments Patient Comments Pt reports she still has a cough from her covid exposure. Reports she is tender/achy in her low back and piriformis today. She may go to the chiropractor later today because she thinks it helps. Might hold off on her surgery for her foot. PT-OP-J Posture/Palpation/Skin Start: 06/08/22 07:18 Freq: Status: Active Protocol: Document 06/08/22 07:30 AMB (Rec: 06/08/22 12:33 AMB [id number]) Palpation Assessment Location One Palpation Details Tenderness/burning with PA at L5 not higher in lumbar spine PT-OP-K Range of Motion Start: 06/08/22 07:18 Freq: Status: Active Protocol: Document 08/31/22 13:00 AMB (Rec: 08/31/22 15:49 AMB [id number]) Hip Goniometric Range of Motion Hip ROM Limitations Comments More restricted with hip IR on the left than the R, but does still have AROM available. Tenderness with hip flexor stretching. PT-OP-M Strength Start: 06/08/22 07:18 Freq: Status: Active Protocol: Document 06/08/22 07:30 AMB (Rec: 06/08/22 12:06 AMB [id number]) Hip Strength Hip Manual Muscle Testing Right Flexion (L2) 4- Good- Extension (S1) 4 Good Left Flexion (L2) 4- Good- Extension (S1) 4 Good Knee Strength Knee Manual Muscle Testing Right Flexion (S2) 4- Good- Extension (L3) 4 Good Left Flexion (S2) 4- Good- Extension (L3) 4 Good PT-OP-Q Treatments Start: 06/08/22 07:18 Freq: Status: Active Protocol: Document 09/04/22 07:23 TS (Rec: 09/04/22 08:17 TS [id number]) Therapeutic Exercises Supine Exercises fig 4 stretch Supine Exercise Name adductor and hip ER stretch Side bilateral Reps/Minutes 2x30s hold Comments Pt demonstrated good carryover of form Happy Baby stretch Reps/Minutes 2 min hold Comments good feedback to stretch HS Stretch Side left Equipment Used Gait belt Reps/Minutes 2x30s Comments Pt responded well and demonstrated good form LTR Side bilateral Reps/Minutes 2x10 Comments Good response and form SLR Side bilateral Reps/Minutes 2x7 L, 2x10 R Comments Pt fatigues quickly with LLE Sidelying Exercises clamshell Side left Reps/Minutes 1x10 Comments Provided tactile cues for decreased hip ER, did not use TB this treatment. Standing Exercises hip flexor stretch Side left Reps/Minutes 1x30s Comments Pt reports feeling a good stretch. Manual Therapy Treatment Soft Tissue Mobilization hip flexors Body Location L glut med/max, l piriformis Mobilization Type Myofascial Release, Oscillations,Sustained Pressure Intensity/Depth Moderate Body Position Sidelying Comments Pt reported tenderness in piriformis, states it is feeling better after treatment but continues to have discomfort in low back. PT-OP-T Assessment and Plan Start: 06/08/22 07:18 Freq: Status: Active Protocol: Document 09/04/22 07:23 TS (Rec: 09/04/22 08:17 TS [id number]) Physical Therapy Assessment Goals Two Impairment Pain Short Term Goal (STG) Ruchi will move from sit to stand without pain/stiffness. 07/30/22: Pt reports still stiff in the morning. STG Duration 5 weeks Bioinformaticist Goal (LTG) Ruchi will perform all bed mobility without pain/ stiffness. LTG Duration 10 weeks One Impairment ROM Short Term Goal (STG) Ruchi will be independent with a HEP for her strengthening and ROM. 07/30: Pt has been limited w/ HEP d/t L foot fx/pain - pt has been using stretches for hip pain. STG Duration 5 weeks [facility] Goal (LTG) Ruchi will show improved knee range by improving Lauro test knee flexion to 80 degrees bilaterally. LTG Duration 10 weeks Assessment Summary Assessment Pt continues to have pain and tightness in low back and hip. She was feeling achy/sore today and was fatiguing quickly during SLR. She responded well to manual therapy and reported to relieve some of her symptoms in her glutes/piriformis but still having discomfort in her low back. Pt will continue to benefit from intervention to improve strength in hip, activity tolerance and reduce pain symptoms. Physical Therapy Plan Frequency and Duration Frequency of Treatment 2x/Week Duration of treatment (weeks) 7 Plan of Care Start Date 08/31/22 Plan of Care End Date 10/19/22 Therapeutic Interventions Therapeutic Interventions Home Exercise Program,Manual Therapy,Neuromuscular Re- education,Self-Care/Home Management,Soft Tissue Mobilization,Therapeutic Activities,Therapeutic Exercises Modalities Cold Pack/Ice Massage,Electric Stimulation,Hot Packs Next Visit Focus/Plan Next Visit Plan Continue manual therapy to glutes/low back, hip strength and SLR. Assess carryover of hamstring stretch and standing hip flexor stretch.
--- NOTE | 2022-09-07 14:30 | PT.OTN ---
Current Diagnoses Lumbago with sciatica, right side (09/07/22) Lumbago with sciatica, left side (09/07/22) Physical Therapy Treatment Note PT-OP-A Visit Information Start: 06/08/22 07:18 Freq: Status: Active Protocol: Document 09/07/22 13:45 TS (Rec: 09/07/22 16:21 TS [id number]) Out-Patient Physical Therapy Visit Information Visit Information Visit Type Treatment Note Visit Note BRAYAN Araujois performed manual therapy, ther ex and pt education under supervision of DEANDRE Castrejon. Visit Start Time 13:45 Visit Stop Time 14:30 Total Visit Minutes 45 Visit Number 14 Number of ARCHEOLOGY PROFESSOR Visits 2 PT-OP-B Current Condition Start: 06/08/22 07:18 Freq: Status: Active Protocol: Document 06/08/22 07:31 AMB (Rec: 06/08/22 07:43 AMB [id number]) Current Condition History of Current Condition Onset Date 1 month Current Complaints low back pain with bilateral anterior thigh pain and stiffness History of Current Condition Last month, muscles in the front of the legs were very tight and could barely walk. Ankylosing spondylitis-- pt thinks she has that diagnosis but not in chart? Not as bad now, mild sx. 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 Worst in the morning with the stiffness. Legs felt like rocks. Hard to get up from the mattress on the floor. Personal Factors Other Personal Factors That May Effect Osteoporosis, R ankle fracture Therapy/Recovery (surgically fixated years ago ), L 5th metatarsal fracture in September that has poor healing per patient. SOB- bronchiectasis with mycobacterium. PT-OP-C Subjective Start: 06/08/22 07:18 Freq: Status: Active Protocol: Document 09/07/22 13:45 TS (Rec: 09/07/22 16:21 TS [id number]) OP-PT Subjective Patient Comments Patient Comments Pt went to chiropractor felt good afterwards but discomfort came back in L anterior hip. Discomfort seems to come and go, had one big zing while standing. PT-OP-J Posture/Palpation/Skin Start: 06/08/22 07:18 Freq: Status: Active Protocol: Document 06/08/22 07:30 AMB (Rec: 06/08/22 12:33 AMB [id number]) Palpation Assessment Location One Palpation Details Tenderness/burning with PA at L5 not higher in lumbar spine PT-OP-K Range of Motion Start: 06/08/22 07:18 Freq: Status: Active Protocol: Document 08/31/22 13:00 AMB (Rec: 08/31/22 15:49 AMB [id number]) Hip Goniometric Range of Motion Hip ROM Limitations Comments More restricted with hip IR on the left than the R, but does still have AROM available. Tenderness with hip flexor stretching. PT-OP-M Strength Start: 06/08/22 07:18 Freq: Status: Active Protocol: Document 06/08/22 07:30 AMB (Rec: 06/08/22 12:06 AMB [id number]) Hip Strength Hip Manual Muscle Testing Right Flexion (L2) 4- Good- Extension (S1) 4 Good Left Flexion (L2) 4- Good- Extension (S1) 4 Good Knee Strength Knee Manual Muscle Testing Right Flexion (S2) 4- Good- Extension (L3) 4 Good Left Flexion (S2) 4- Good- Extension (L3) 4 Good PT-OP-Q Treatments Start: 06/08/22 07:18 Freq: Status: Active Protocol: Document 09/07/22 13:45 TS (Rec: 09/07/22 16:21 TS [id number]) Therapeutic Exercises Supine Exercises hip flexor stretch Supine Exercise Name Lauro stretch Side left Reps/Minutes 30 x2 Comments Very stiff, tight in hip flexors, needed support to lift LLE back onto tabl Standing Exercises Step ups Standing Exercise Name FWD and lateral- added to HEP Side bilateral Equipment Used 6 step, rail light to PRN Reps/Minutes 2x10 Comments Pt demonstrates weakness on L side compared to R Other Exercises Kneeling hip flexor stretch Other Exercise Name Added to HEP Side left Equipment Used Blue foam pad for R knee Reps/Minutes 1x30 Comments Pt reports feeling better/ more comfortable than standing flexor stretch Manual Therapy Treatment Soft Tissue Mobilization hip flexors Body Location psoas, iliacus, promimal recutus femoris Mobilization Type Strumming,Sustained Pressure Intensity/Depth Moderate Body Position Hooklying Comments Pt tight and tender to point specific adjusted with feedback. Joint Mobilizations L hip Joint L Direction inferior, lateral Body Position Supine Reps/Duration use mob strap and long leg axis pull Comments Pt responded well to mobs, reported feeling good and provided relief. PT-OP-T Assessment and Plan Start: 06/08/22 07:18 Freq: Status: Active Protocol: Document 09/07/22 13:45 TS (Rec: 09/07/22 16:21 TS [id number]) Physical Therapy Assessment Goals Two Impairment Pain Short Term Goal (STG) Ruchi will move from sit to stand without pain/stiffness. 07/30/22: Pt reports still stiff in the morning. STG Duration 5 weeks Halfway Goal (LTG) Ruchi will perform all bed mobility without pain/ stiffness. LTG Duration 10 weeks One Impairment ROM Short Term Goal (STG) Ruchi will be independent with a HEP for her strengthening and ROM. 07/30: Pt has been limited w/ HEP d/t L foot fx/pain - pt has been using stretches for hip pain. STG Duration 5 weeks Licensed Nurse Practitioner Goal (LTG) Ruchi will show improved knee range by improving Lauro test knee flexion to 80 degrees bilaterally. LTG Duration 10 weeks Assessment Summary Assessment Pt continues to have tightness and tenderness in her L hip flexors/quads, limited in lauro stretch. Pt responded well to hip mobs, reporting feeling comfortable and relief . Pt demonstrated more weakness in LLE than RLE during fwd/lateral step ups LOB R recovery rail support. Pt will continue to benefit from intervention to improve strength in LEs Physical Therapy Plan Frequency and Duration Frequency of Treatment 2x/Week Duration of treatment (weeks) 7 Plan of Care Start Date 08/31/22 Plan of Care End Date 10/19/22 Therapeutic Interventions Therapeutic Interventions Home Exercise Program,Manual Therapy,Neuromuscular Re- education,Self-Care/Home Management,Soft Tissue Mobilization,Therapeutic Activities,Therapeutic Exercises Modalities Cold Pack/Ice Massage,Electric Stimulation,Hot Packs Next Visit Focus/Plan Next Note Type Treatment Note Next Visit Plan Continue manual therapy/ hip mobs if symptoms remain in L hip, continue step ups, clamshells, SLR, trial 4 way hip, sit to stands.
--- NOTE | 2022-09-11 10:30 | PT.OTN ---
Current Diagnoses Lumbago with sciatica, right side (09/11/22) Lumbago with sciatica, left side (09/11/22) Physical Therapy Treatment Note PT-OP-A Visit Information Start: 06/08/22 07:18 Freq: Status: Active Protocol: Document 09/11/22 09:49 TS (Rec: 09/11/22 10:33 TS [id number]) Out-Patient Physical Therapy Visit Information Visit Information Visit Type Treatment Note Visit Note BRAYAN Araujois performed manual therapy, ther ex and pt education under supervision of DEANDRE Castrejon. Visit Start Time 09:50 Visit Stop Time 10:30 Total Visit Minutes 40 Visit Number 15 Number of COMPENSATION AND BENEFITS MANAGER Visits 3 PT-OP-B Current Condition Start: 06/08/22 07:18 Freq: Status: Active Protocol: Document 06/08/22 07:31 AMB (Rec: 06/08/22 07:43 AMB [id number]) Current Condition History of Current Condition Onset Date 1 month Current Complaints low back pain with bilateral anterior thigh pain and stiffness History of Current Condition Last month, muscles in the front of the legs were very tight and could barely walk. Ankylosing spondylitis-- pt thinks she has that diagnosis but not in chart? Not as bad now, mild sx. 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 Worst in the morning with the stiffness. Legs felt like rocks. Hard to get up from the mattress on the floor. Personal Factors Other Personal Factors That May Effect Osteoporosis, R ankle fracture Therapy/Recovery (surgically fixated years ago ), L 5th metatarsal fracture in September that has poor healing per patient. SOB- bronchiectasis with mycobacterium. PT-OP-C Subjective Start: 06/08/22 07:18 Freq: Status: Active Protocol: Document 09/11/22 09:49 TS (Rec: 09/11/22 10:33 TS [id number]) OP-PT Subjective Patient Comments Patient Comments Pt reports she felt flared up and is still a little sore and tender in L hip flexors/quad. PT-OP-J Posture/Palpation/Skin Start: 06/08/22 07:18 Freq: Status: Active Protocol: Document 06/08/22 07:30 AMB (Rec: 06/08/22 12:33 AMB [id number]) Palpation Assessment Location One Palpation Details Tenderness/burning with PA at L5 not higher in lumbar spine PT-OP-K Range of Motion Start: 06/08/22 07:18 Freq: Status: Active Protocol: Document 08/31/22 13:00 AMB (Rec: 08/31/22 15:49 AMB [id number]) Hip Goniometric Range of Motion Hip ROM Limitations Comments More restricted with hip IR on the left than the R, but does still have AROM available. Tenderness with hip flexor stretching. PT-OP-M Strength Start: 06/08/22 07:18 Freq: Status: Active Protocol: Document 06/08/22 07:30 AMB (Rec: 06/08/22 12:06 AMB [id number]) Hip Strength Hip Manual Muscle Testing Right Flexion (L2) 4- Good- Extension (S1) 4 Good Left Flexion (L2) 4- Good- Extension (S1) 4 Good Knee Strength Knee Manual Muscle Testing Right Flexion (S2) 4- Good- Extension (L3) 4 Good Left Flexion (S2) 4- Good- Extension (L3) 4 Good PT-OP-Q Treatments Start: 06/08/22 07:18 Freq: Status: Active Protocol: Document 09/11/22 09:49 TS (Rec: 09/11/22 10:33 TS [id number]) Therapeutic Exercises Supine Exercises clamshell Side bilateral Reps/Minutes 2x12 Comments Pt reports some pn in anterior LLE SLR Side bilateral Reps/Minutes 1x10 LLE, 1x6LLE, 2x10 RLE Comments Pt fatigues quickly and with mild discomfort in anterior LLE Standing Exercises 3 way hip Standing Exercise Name AROM Side bilateral Reps/Minutes 1x5 EA Comments Pt sore in L hip, fatigues quickly STS Resistance Mat table Reps/Minutes 1x15 Comments Pt reports stiffness in L hip flexors coming into standing. Step ups Standing Exercise Name FWD and lateral Side bilateral Equipment Used 6 step, rail light to PRN Reps/Minutes 2x10 Comments Pt demonstrates weakness on L side compared to R, cues for glute act Sidestepping Standing Exercise Name Resisted bandwalking Side bilateral Equipment Used Y TB Reps/Minutes 1x15 ft ea Comments Minor LOB going to left, some handrail support, some discomfort Manual Therapy Treatment Soft Tissue Mobilization hip flexors Body Location psoas, iliacus Mobilization Type Strumming,Sustained Pressure Intensity/Depth Moderate Body Position Hooklying Comments Pt with some guarding and spasm in LLE hip flexors, complained of rope like feeling, reports some relief of symptoms. PT-OP-T Assessment and Plan Start: 06/08/22 07:18 Freq: Status: Active Protocol: Document 09/11/22 09:49 TS (Rec: 09/11/22 10:33 TS [id number]) Physical Therapy Assessment Goals Two Impairment Pain Short Term Goal (STG) Ruchi will move from sit to stand without pain/stiffness. 07/30/22: Pt reports still stiff in the morning. STG Duration 5 weeks Registered Medical Transcriptionist Goal (LTG) Ruchi will perform all bed mobility without pain/ stiffness. LTG Duration 10 weeks One Impairment ROM Short Term Goal (STG) Ruchi will be independent with a HEP for her strengthening and ROM. 07/30: Pt has been limited w/ HEP d/t L foot fx/pain - pt has been using stretches for hip pain. STG Duration 5 weeks Registered Medical Transcriptionist Goal (LTG) Ruchi will show improved knee range by improving Lauro test knee flexion to 80 degrees bilaterally. LTG Duration 10 weeks Assessment Summary Assessment Pt continues to report tightness and tenderness with all activities. Pt responded well to manual therapy with some relief in symptoms. Pt continues to have decreased actvity tolerance and quickly fatigues especially on LLE. Pt will benefit from continued intervention to improve LE strength for activity tolerance in standing. Physical Therapy Plan Frequency and Duration Frequency of Treatment 2x/Week Duration of treatment (weeks) 7 Plan of Care Start Date 08/31/22 Plan of Care End Date 10/19/22 Therapeutic Interventions Therapeutic Interventions Home Exercise Program,Manual Therapy,Neuromuscular Re- education,Self-Care/Home Management,Soft Tissue Mobilization,Therapeutic Activities,Therapeutic Exercises Modalities Cold Pack/Ice Massage,Electric Stimulation,Hot Packs Next Visit Focus/Plan Next Note Type Treatment Note Next Visit Plan Continue to progress standing activites, strengthen hip, assess 3 way hip and side stepping, response to manual therpay.
--- NOTE | 2022-09-18 09:04 | PT.OTN ---
Current Diagnoses Lumbago with sciatica, right side (09/18/22) Lumbago with sciatica, left side (09/18/22) Physical Therapy Treatment Note PT-OP-A Visit Information Start: 06/08/22 07:18 Freq: Status: Active Protocol: Document 09/18/22 08:21 NBM (Rec: 09/18/22 09:01 NB [id number]) Out-Patient Physical Therapy Visit Information Visit Information Visit Type Treatment Note Visit Start Time 08:18 Visit Stop Time 08:55 Total Visit Minutes 42 Visit Number 16 Number of ROOF PAINTER Visits 4 PT-OP-B Current Condition Start: 06/08/22 07:18 Freq: Status: Active Protocol: Document 06/08/22 07:31 AMB (Rec: 06/08/22 07:43 AMB [id number]) Current Condition History of Current Condition Onset Date 1 month Current Complaints low back pain with bilateral anterior thigh pain and stiffness History of Current Condition Last month, muscles in the front of the legs were very tight and could barely walk. Ankylosing spondylitis-- pt thinks she has that diagnosis but not in chart? Not as bad now, mild sx. 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 Worst in the morning with the stiffness. Legs felt like rocks. Hard to get up from the mattress on the floor. Personal Factors Other Personal Factors That May Effect Osteoporosis, R ankle fracture Therapy/Recovery (surgically fixated years ago ), L 5th metatarsal fracture in September that has poor healing per patient. SOB- bronchiectasis with mycobacterium. PT-OP-C Subjective Start: 06/08/22 07:18 Freq: Status: Active Protocol: Document 09/18/22 08:21 NBM (Rec: 09/18/22 09:01 NB [id number]) OP-PT Subjective Patient Comments Patient Comments Pt reports she is feeling better from COVID. Pt reports her hip was terrible the last time she was here and felt like it would spasm when she would get up from sitting down. Sttetching helps. She found a way to stretch both her hip flexors in her recliner, then lift her left leg repeatedly and pain-free range improves. She notices she is more tired than usual which could be due to a bladder infection - she started antibiotics yesterday. Her foot has been feeling better and she's considering not doing the surgery; her daughter's surgery is waiting to be rescheduled. PT-OP-J Posture/Palpation/Skin Start: 06/08/22 07:18 Freq: Status: Active Protocol: Document 06/08/22 07:30 AMB (Rec: 06/08/22 12:33 AMB [id number]) Palpation Assessment Location One Palpation Details Tenderness/burning with PA at L5 not higher in lumbar spine PT-OP-K Range of Motion Start: 06/08/22 07:18 Freq: Status: Active Protocol: Document 08/31/22 13:00 AMB (Rec: 08/31/22 15:49 AMB [id number]) Hip Goniometric Range of Motion Hip ROM Limitations Comments More restricted with hip IR on the left than the R, but does still have AROM available. Tenderness with hip flexor stretching. PT-OP-M Strength Start: 06/08/22 07:18 Freq: Status: Active Protocol: Document 06/08/22 07:30 AMB (Rec: 06/08/22 12:06 AMB [id number]) Hip Strength Hip Manual Muscle Testing Right Flexion (L2) 4- Good- Extension (S1) 4 Good Left Flexion (L2) 4- Good- Extension (S1) 4 Good Knee Strength Knee Manual Muscle Testing Right Flexion (S2) 4- Good- Extension (L3) 4 Good Left Flexion (S2) 4- Good- Extension (L3) 4 Good PT-OP-Q Treatments Start: 06/08/22 07:18 Freq: Status: Active Protocol: Document 09/18/22 08:21 NBM (Rec: 09/18/22 09:01 NBM [id number]) Therapeutic Exercises Standing Exercises Hip Hike Standing Exercise Name added to HEP Side bilateral Equipment Used 6 step Reps/Minutes x8 ea Comments fatigues 3 way hip Standing Exercise Name AROM Side bilateral Reps/Minutes 1x8 EA Comments Pt sore in L hip, improved activity tolerance from last time STS Resistance Mat table Reps/Minutes 1x15 Comments Pt reports stiffness in L hip flexors coming into standing. Step ups Standing Exercise Name FWD Side bilateral Equipment Used 6 step, rail light to PRN Reps/Minutes 2x10 Comments weakness L> R, vc for glute act, control eccentric Sidestepping Standing Exercise Name Resisted bandwalking Side bilateral Equipment Used Y TB Reps/Minutes 1x15 ft ea Comments some discomfort in L hip reported moving to L Other Exercises quadruped LE ext Other Exercise Name LE contact slide table little lift off table Side bilateral Reps/Minutes x8 ea Comments cues level pelvis, core fac, CS ext chin tuck neutral Manual Therapy Treatment Soft Tissue Mobilization hip flexors Body Location psoas, iliacus Mobilization Type Strumming,Sustained Pressure Intensity/Depth Moderate Body Position Hooklying Comments Pt reports some relief of symptoms w/ iliopsoas release. Self-Care/Home Management Treatment Education Patient Education Home Exercise Program Other Education Hip Hikes added to HEP - HO given PT-OP-T Assessment and Plan Start: 06/08/22 07:18 Freq: Status: Active Protocol: Document 09/18/22 08:21 [facility] (Rec: 09/18/22 09:01 [facility] [id number]) Physical Therapy Assessment Goals Two Impairment Pain Short Term Goal (STG) Ruchi will move from sit to stand without pain/stiffness. 07/30/22: Pt reports still stiff in the morning. STG Duration 5 weeks Long-Term Goal (LTG) Ruchi will perform all bed mobility without pain/ stiffness. LTG Duration 10 weeks One Impairment ROM Short Term Goal (STG) Ruchi will be independent with a HEP for her strengthening and ROM. 07/30: Pt has been limited w/ HEP d/t L foot fx/pain - pt has been using stretches for hip pain. STG Duration 5 weeks Long-Term Goal (LTG) Ruchi will show improved knee range by improving Lauro test knee flexion to 80 degrees bilaterally. LTG Duration 10 weeks Assessment Summary Assessment Pt demonstrates progress overall with improved tolerance for activity and not pain-limited today. Pt still requires cues for core engagement to avoid lumbar hyperextension - quadruped leg extension is challenging. Palpable tightness to L iliopsoas decreases with manual release - pt reports good feedback response and no grabbing pain when transitioning from sitting to standing end of session. Hip Hikes added to HEP - HO given. Physical Therapy Plan Frequency and Duration Frequency of Treatment 2x/Week Duration of treatment (weeks) 7 Plan of Care Start Date 08/31/22 Plan of Care End Date 10/19/22 Therapeutic Interventions Therapeutic Interventions Home Exercise Program,Manual Therapy,Neuromuscular Re- education,Self-Care/Home Management,Soft Tissue Mobilization,Therapeutic Activities,Therapeutic Exercises Modalities Cold Pack/Ice Massage,Electric Stimulation,Hot Packs Next Visit Focus/Plan Next Note Type Treatment Note Next Visit Plan Continue to progress standing activites, strengthen hip, assess 3 way hip and side stepping, response to manual therpay.
--- NOTE | 2022-09-21 21:24 | PT.OTN ---
Current Diagnoses Lumbago with sciatica, right side (09/21/22) Lumbago with sciatica, left side (09/21/22) Physical Therapy Treatment Note PT-OP-A Visit Information Start: 06/08/22 07:18 Freq: Status: Active Protocol: Document 09/21/22 09:03 AMB (Rec: 09/21/22 09:42 AMB [id number]) Out-Patient Physical Therapy Visit Information Visit Information Visit Type Treatment Note Visit Start Time 09:00 Visit Stop Time 09:45 Total Visit Minutes 45 Visit Number 17 Number of DIABETES TRAINER Visits 0 PT-OP-B Current Condition Start: 06/08/22 07:18 Freq: Status: Active Protocol: Document 06/08/22 07:31 AMB (Rec: 06/08/22 07:43 AMB [id number]) Current Condition History of Current Condition Onset Date 1 month Current Complaints low back pain with bilateral anterior thigh pain and stiffness History of Current Condition Last month, muscles in the front of the legs were very tight and could barely walk. Ankylosing spondylitis-- pt thinks she has that diagnosis but not in chart? Not as bad now, mild sx. 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 Worst in the morning with the stiffness. Legs felt like rocks. Hard to get up from the mattress on the floor. Personal Factors Other Personal Factors That May Effect Osteoporosis, R ankle fracture Therapy/Recovery (surgically fixated years ago ), L 5th metatarsal fracture in September that has poor healing per patient. SOB- bronchiectasis with mycobacterium. PT-OP-C Subjective Start: 06/08/22 07:18 Freq: Status: Active Protocol: Document 09/21/22 09:03 AMB (Rec: 09/21/22 09:42 AMB [id number]) OP-PT Subjective Patient Comments Patient Comments Pt reports she has been doing better. PT-OP-J Posture/Palpation/Skin Start: 06/08/22 07:18 Freq: Status: Active Protocol: Document 06/08/22 07:30 AMB (Rec: 06/08/22 12:33 AMB [id number]) Palpation Assessment Location One Palpation Details Tenderness/burning with PA at L5 not higher in lumbar spine PT-OP-K Range of Motion Start: 06/08/22 07:18 Freq: Status: Active Protocol: Document 08/31/22 13:00 AMB (Rec: 08/31/22 15:49 AMB [id number]) Hip Goniometric Range of Motion Hip ROM Limitations Comments More restricted with hip IR on the left than the R, but does still have AROM available. Tenderness with hip flexor stretching. PT-OP-M Strength Start: 06/08/22 07:18 Freq: Status: Active Protocol: Document 06/08/22 07:30 AMB (Rec: 06/08/22 12:06 AMB [id number]) Hip Strength Hip Manual Muscle Testing Right Flexion (L2) 4- Good- Extension (S1) 4 Good Left Flexion (L2) 4- Good- Extension (S1) 4 Good Knee Strength Knee Manual Muscle Testing Right Flexion (S2) 4- Good- Extension (L3) 4 Good Left Flexion (S2) 4- Good- Extension (L3) 4 Good PT-OP-Q Treatments Start: 06/08/22 07:18 Freq: Status: Active Protocol: Document 09/21/22 09:00 AMB (Rec: 09/27/22 13:18 AMB [id number]) Therapeutic Exercises Supine Exercises Piriformis Stretch Supine Exercise Name reviewed HEP piriformis and fig 4 Side bilateral Reps/Minutes x60 ea Comments good feedback stretch piriformis clamshell Side bilateral Reps/Minutes 2x12 Comments Pt reports some pn in anterior LLE Sidelying Exercises clamshell Side left Reps/Minutes 1x10 Comments Provided tactile cues for decreased hip ER, did not use TB this treatment. Standing Exercises heel raise Side bilateral Reps/Minutes 2x10 Comments on stair with railing air squat Side bilateral Reps/Minutes 2x10 Comments cues for knee over foot alignment Step ups Standing Exercise Name FWD Side bilateral Equipment Used 6 step, rail light to PRN Reps/Minutes 2x10 Comments weakness L> R, vc for glute act, control eccentric Sidestepping Standing Exercise Name Resisted bandwalking Side bilateral Equipment Used Y TB Reps/Minutes 1x15 ft ea Comments some discomfort in L hip reported moving to L hip flexor stretch Side left Reps/Minutes 1x30s Comments Pt reports feeling a good stretch. PT-OP-T Assessment and Plan Start: 06/08/22 07:18 Freq: Status: Active Protocol: Document 09/21/22 09:03 AMB (Rec: 09/21/22 09:42 AMB [id number]) Physical Therapy Assessment Goals Two Impairment Pain Short Term Goal (STG) Ruchi will move from sit to stand without pain/stiffness. 07/30/22: Pt reports still stiff in the morning. STG Duration 5 weeks Gambling Dealer Goal (LTG) Ruchi will perform all bed mobility without pain/ stiffness. LTG Duration PROGRESS MADE One Impairment ROM Short Term Goal (STG) Ruchi will be independent with a HEP for her strengthening and ROM. 07/30: Pt has been limited w/ HEP d/t L foot fx/pain - pt has been using stretches for hip pain. STG Duration 5 weeks Gambling Dealer Goal (LTG) Ruchi will show improved knee range by improving Lauro test knee flexion to 80 degrees bilaterally. LTG Duration MET Assessment Summary Assessment Pt course in physical therapy has been up and down. She had covid in the middle of her treatment, and with her baseline lung status, that set her back a bit. Overall over the past few weeks she has been doing better as she found a way that she could comfortably stretch her hip in her home. She had been challenged by over stretching or being uncomfortable after stretching during physical therapy. She does continue to be stiff in the morning, but feels like she is better able to manage it at this point and feels ready for d/c. Physical Therapy Plan Frequency and Duration Frequency of Treatment 2x/Week Duration of treatment (weeks) 7 Plan of Care Start Date 08/31/22 Plan of Care End Date 10/19/22 Therapeutic Interventions Therapeutic Interventions Home Exercise Program,Manual Therapy,Neuromuscular Re- education,Self-Care/Home Management,Soft Tissue Mobilization,Therapeutic Activities,Therapeutic Exercises Modalities Cold Pack/Ice Massage,Electric Stimulation,Hot Packs Discharge Physical Therapy Discharge Reasons Plateau in Progress
== END 2022-10-03 08:44 | disposition home or self-care (01) ==
LOC: PHYS 09:00
PROVIDERS: Family Provider Family Medicine; PCP Family Medicine; Referring Provider Family Medicine; Visit Provider Family Medicine
DX: M54.42 Lumbago with sciatica, left side (principal); M54.41 Lumbago with sciatica, right side
CPT/HCPCS: 87077; 87086; 87186; 97110; 97140; 97161

== ENCOUNTER → 2022-10-16 11:30 | Outpatient (CLI) | payer MEDICARE, OTHER, SELFPAY | PROVIDERS: Family Provider Family Medicine; PCP Family Medicine; Visit Provider Registered Nurse | DX: R30.0 Dysuria (principal) | CPT/HCPCS: 87077; 87086; 87186 ==

== ENCOUNTER → 2022-11-01 10:12 | Outpatient (CLI) | payer MEDICARE, OTHER, SELFPAY | PROVIDERS: Family Provider Family Medicine; PCP Family Medicine; Visit Provider Nurse Practitioner Family | DX: N39.0 Urinary tract infection, site not specified (principal) | CPT/HCPCS: 87077; 87086; 87186 ==

== ENCOUNTER → 2022-11-30 14:28 | Outpatient (CLI) | payer MEDICARE, OTHER, SELFPAY ==
[2022-11-30 14:57] LABS: Add Manual Diff / Slide Review NO; Basophils Absolute Auto 100 /uL (0-100); Basophils Percent Auto 0.9 % (0-2); Eosinophils Absolute Auto 200 /uL (0-450); Eosinophils Percent Auto 2.8 % (2-4); Hematocrit 38.5 % (36-46); Hemoglobin 12.7 g/dL (12.0-16.0); Lymphocytes Absolute Auto 1400 /uL (1100-4500); Lymphocytes Percent Auto 21.9 % (25-40); Mean Corpuscular HGB Conc 32.9 % (30-36); Mean Corpuscular Hemoglobin 28.8 PG (26-34); Mean Corpuscular Volume 87.4 fL (80-100); Monocytes Absolute Auto 500 /uL (0-900); Neutrophils Absolute Auto 4100 /uL (1500-7000); Neutrophils Percent Auto 66.4 % (50-75); Platelet Count 226 X10^3/uL (150-400); Red Blood Cell Count 4.41 X10^6/uL (4.0-5.2); Red Cell Distribution Width 13.3 % (11.6-14.8); White Blood Cell Count 6.2 X10^3/uL (4.5-11.0)
[2022-11-30 15:24] LABS: Alanine Aminotransferase 19 IU/L (<35); Albumin 4.1 g/dL (3.5-5.0); Albumin Globulin Ratio 1.8 (1.0-2.8); Alkaline Phosphatase 75 U/L (38-126); Aspartate Aminotransferase 24 IU/L (14-36); BUN Creatinine Ratio 26.6 (6-22); Bilirubin Total 0.4 mg/dL (0.2-1.3); Blood Urea Nitrogen 17 mg/dL (7-17); Calcium 8.8 mg/dL (8.4-10.2); Carbon Dioxide 25 mmol/L (22-32); Chloride 105 mmol/L (98-107); Estimated Glomerular Filt Rate > 60 mL/min (>60); Globulin 2.3 g/dL (1.7-4.1); Glucose 111 mg/dL (80-110); HEMOLYSIS 18 (0-50); Potassium 3.8 mmol/L (3.4-5.1); Sodium 138 mmol/L (137-145); Total Protein 6.4 g/dL (6.3-8.2)
[2022-11-30 15:31] LABS: NT-proBNP (BNP-Adult 18+) 100 pg/mL (<125)
== END ==
PROVIDERS: Family Provider Family Medicine; PCP Family Medicine; Referring Provider Family Medicine; Visit Provider Family Medicine
DX: R60.0 Localized edema (principal); R06.09 Other forms of dyspnea
CPT/HCPCS: 36415; 80053; 83880; 85025

== ENCOUNTER → 2022-12-19 08:00 | Outpatient (CLI) | payer MEDICARE, OTHER, SELFPAY ==
--- NOTE | 2022-12-19 | DI.ECHO.S_ITS ---
[facility]---------+ [facility] +---------+ : : [address] [place] : : : : [id number] : : : : Phone: [phone]---------+ Echocardiogram Report + + :Name: DEBBIE PATRICK Study Date: 12/19/2022 Height: 66 in : :[facility] ReadingLocation: Weight: 130 lb : : Gender: Female BSA: 1.7 m2 : :: 1950 Age: 72 yrs BP: 138/77 mmHg: :Reason For Study: DYSPNEA : :Ordering Physician: DREA, : :MITCHELL Performed By: KIARA LANE : :Referring: MITCHELL SHEPARD : + + Interpretation Summary 1) Normal left ventricular thickness, size, wall motion, and systolic function (EF 55-60%). 2) Normal right ventricular size and function. 3) No significant valvular abnormalities. 4) The right ventricular systolic pressure is estimated to be at least 22 mmHg based on an estimated right atrial pressure of 3 mm Hg. 5) Compared to the Echo done , no significant change. Procedure: A two-dimensional transthoracic echocardiogram with color flow and Doppler was performed in limited views only. The study quality was technically adequate. Comparison is made with the echocardiogram of 08/09/2017. The patient was in sinus rhythm with heart rates between 69-97 bpm during the exam. Left Ventricle: The left ventricle is normal in size and wall thickness. The ejection fraction is estimated to be 55-60%. Left ventricular systolic function appears normal without focal wall motion abnormalities. Diastolic parameters suggest a relaxation abnormality of the left ventricle, consistent with probable normal filling pressures. Right Ventricle: The right ventricle is grossly normal size. The right ventricular systolic function is normal. Atria: The left atrial size is normal. The right atrium is normal in size. Mitral Valve: The mitral valve leaflets appear mildly thickened, but open well. There is mild mitral regurgitation. Aortic Valve: The aortic valve is trileaflet. The aortic valve opens well. There is no aortic valve stenosis. There is mild aortic regurgitation. Tricuspid Valve: The tricuspid valve is normal. There is mild tricuspid regurgitation. The right ventricular systolic pressure is estimated to be at least 22 mmHg based on an estimated right atrial pressure of 3 mm Hg. Pulmonic Valve: The pulmonic valve is not well seen, but is grossly normal. There is no pulmonic valvular regurgitation. Great Vessels: The aortic root is normal size. The ascending aorta is normal in size. The IVC is of normal diameter and collapses greater than 50% with a sniff. This suggests a low right atrial pressure of 3 mm Hg. Pericardium/ Pleura There is no pericardial effusion. There is no pleural effusion. MMode/2D Measurements & Calculations LVIDd: 4.4 cm LVOT diam: 2.0 cm LVIDs: 3.0 cm Ao root diam: 3.2 cm FS: 31.8 % asc Aorta Diam: 3.3 cm IVSd: 0.90 cm Ao Arch Diam (Prox Trans): 2.5 cm LVPWd: 0.90 cm LV chu. diameter/BSA (cm/m^2): 2.6 LV sys. diameter/BSA (cm/m^2): 1.8 LA A2 area: 15.7 cm2 RA long axis: 4.0 cm LA A4 area: 12.0 cm2 RA area: 12.4 cm2 LA length (vol): 4.6 cm RA vol: 32.7 ml LA vol: 34.6 ml RA : 19.6 ml/m2 LA vol index: 20.8 ml/m2 LVLs ap4: 5.9 cm LVLd ap2: 7.7 cm LVLs ap2: 6.3 cm RV Mid_phl: 2.5 cm TAPSE_phl: 2.2 cm Doppler Measurements & Calculations Ao V2 max: 137.0 cm/sec LVOT Max Delbert: 78.3 cm/sec Ao V2 mean: 96.5 cm/sec LV V1 max P.5 mmHg Ao max P.0 mmHg LV V1 VTI: 16.0 cm Ao mean P.0 mmHg TAINA(I,D): 1.9 cm2 Ao V2 VTI: 26.4 cm TAINA(V,D): 1.8 cm2 sev ratio: 0.61 TAINA indexed to BSA (cm^2/m^2): 1.1 AI P1/2t: 466.7 msec AI dec slope: 246.0 cm/sec2 MV E max delbert: 61.8 cm/sec TR max delbert: 217.0 cm/sec MV A max delbert: 74.9 cm/sec TR max P.8 mmHg MV E/A: 0.83 PA V2 max: 92.7 cm/sec Med Peak E' Delbert: 5.7 cm/sec PA V2 mean: 68.0 cm/sec E/E' med: 10.8 PA mean P.0 mmHg Lat Peak E' Delbert: 5.4 cm/sec PA pr(Accel): 47.9 mmHg E/E' lat: 11.4 E/e' average: 11.1 MV dec time: 0.18 sec SV(LVOT): 50.3 ml AV P1/2t-pr_phl: 468.0 msec AV VR_phl: 0.57 TAINA(VTI)/BSA_phl: 1.1 MV P1/2t-pr_phl: 53.0 msec Reading Physician:01:58 PM
== END ==
PROVIDERS: Family Provider Family Medicine; PCP Family Medicine; Referring Provider Family Medicine; Visit Provider Family Medicine
DX: R06.09 Other forms of dyspnea; I08.3 Combined rheumatic disorders of mitral, aortic and tricuspid valves
CPT/HCPCS: 93306

== ENCOUNTER → 2023-08-17 08:21 | Outpatient (CLI) | payer MEDICARE, OTHER, SELFPAY ==
--- NOTE | 2023-08-17 | DI.MG.S_ITS ---
BILATERAL DIGITAL SCREENING MAMMOGRAM 3D/2D WITH CAD: 08/17/2023 CLINICAL: Routine screening. Comparison is made to exams dated: 07/27/2022 mammogram, 07/10/2021 mammogram, 07/08/2020 mammogram, and 06/29/2019 mammogram - [facility]. Both breasts are heterogeneously dense, which may obscure small masses (category c / 51-75% glandular tissue). Current study was also evaluated with a Computer Aided Detection (CAD) system. No significant masses, calcifications, or other findings are seen in either breast. There has been no significant interval change. IMPRESSION: NEGATIVE There is no mammographic evidence of malignancy. A 1 year screening mammogram is recommended. Based on the Tyrer Cuzick model (a risk assessment model) the patient's lifetime risk is 13.3% and her 10 year risk is 9.2%. According to the ACR, ACS, and NCCN guidelines, an annual breast MRI exam along with mammogram is recommended if the patient's lifetime risk is 20% or greater. This exam was interpreted at Station ID: [id number]. NOTE: For mammograms, a report in lay terms will be sent to the patient. Approximately 15% of breast malignancies will not be visualized mammographically. In the management of a palpable breast mass, a negative mammogram must not discourage biopsy of a clinically suspicious lesion. Electronically Signed By: Bolivar tam/ciaran:08/17/2023 09:46:48 letter sent: Normal Exam ACR BI-RADS Category 1: Negative [id number]
== END ==
PROVIDERS: Family Provider Family Medicine; PCP Family Medicine; Referring Provider Family Medicine; Visit Provider Family Medicine
DX: Z12.31 Encounter for screening mammogram for malignant neoplasm of breast (principal)
CPT/HCPCS: 77063; 77067

== ENCOUNTER 2023-08-21 03:17 | Emergency (ER) | payer MEDICARE, OTHER, SELFPAY ==
[2023-08-21 03:52] VITALS: BP 143/66; PULSE 98; RESP 20; TEMP 36.8; O2SAT 98
[2023-08-21 03:55] VITALS: BMI 20.9
--- NOTE | 2023-08-21 04:48 | ED_ITS ---
HPI - URI/Sore Throat General Chief Complaint: Upper Respiratory Symptoms Stated Complaint: cold, coughing Time Seen by Provider: 08/21/23 04:43 Source: patient Mode of arrival: Ambulatory History of Present Illness HPI Narrative: Patient is a 73-year-old female history of hypertension, bronchiectasis presenting today with cough. She reports about 3-4 days cough and upper respiratory like symptoms. She had a sore throat she lost her voice her voice seems to have improved. She went to the walk-in clinic yesterday she received doxycycline and prednisone along with albuterol inhaler. She has been using her albuterol inhaler it has not much helped with the cough. Tonight she woke up and was coughing so hard she was unable to stop. She now has stopped she has no shortness of breath or chest pain. She is afebrile Related Data Home Medications Medication Instructions Recorded Confirmed fluticasone propionate 44 1 inh inhalation DIRECTED ##0 06/19/16 08/20/23 mcg/actuation HFA aerosol inhaler (Flovent HFA) levalbuterol tartrate 45 1 puff inhalation PRN PRN 06/19/16 08/20/23 mcg/actuation aerosol inhaler Shortness Of Breath ##0 (Xopenex HFA) cholecalciferol (vitamin D3) 50 2,000 unit PO DAILY #0 caps 08/10/16 08/20/23 mcg (2,000 unit) capsule (Vitamin D3) Probiotic 1 cap PO DAILY ##0 04/17/17 08/20/23 aspirin 81 mg tablet,delayed 81 mg PO DAILY 02/09/19 08/20/23 release (Adult Aspirin Regimen) diazepam 5 mg tablet (Valium) 5 mg OR TIDP PRN Anxiety 08/07/19 08/20/23 ncsgaqed-afn-ucaqx acid 0.4 1 tab PO DAILY 08/07/19 08/20/23 mg-lycopene 300 mcg-lutein 250 mcg tablet (Centrum Silver) d-mannose 1 each PO DAILY 07/29/20 08/20/23 ascorbic acid 100 mg-elderberry tab PO 08/16/21 08/20/23 fruit 50 mg chewable tablet (Airborne (elderberry)) lutein 20 mg tablet 20 mg PO DAILY 08/16/21 08/20/23 Previous Rx's Medication Instructions Recorded estradiol 0.01% (0.1 mg/gram) 1 gram vaginal 2XW #42.5 grams 08/04/20 vaginal cream (Estrace) tobramycin 0.3 % eye drops 2 drops EYE-LEFT Q4H #5 mL 08/09/20 amlodipine 2.5 mg tablet 2.5 mg PO DAILY #30 tabs 09/10/21 amlodipine 2.5 mg tablet 2.5 mg PO DAILY #30 tabs 09/10/21 phenazopyridine 200 mg tablet 200 mg PO TID 6 doses #6 tabs 01/07/22 (Pyridium) phenazopyridine 100 mg tablet 100 mg PO TID PRN pain 6 doses #6 01/24/22 (Pyridium) tabs doxycycline hyclate 100 mg capsule 100 mg PO BID bronchiectasis 08/20/23 exacerbation 10 days #20 caps prednisone 20 mg tablet 40 mg (2 x 20 mg) PO DAILY 5 days 08/20/23 #10 tabs Allergies Allergy/AdvReac Type Severity Reaction Status Date / Time diltiazem Allergy Intermediate chest pain Verified 08/20/23 08:15 adhesive Allergy Mild REDNESS & Verified 08/20/23 08:15 BURNING FROM TAPE budesonide Allergy Unknown ITCHY Verified 08/20/23 08:15 pseudoephedrine Allergy Unknown TACHYCARDIA Verified 08/20/23 08:15 Sulfa (Sulfonamide Allergy Unknown Verified 08/20/23 08:15 Antibiotics) azithromycin AdvReac Intermediate GI UPSET Verified 08/20/23 08:15 nitrofurantoin AdvReac Intermediate Verified 08/20/23 08:15 [From Macrobid] albuterol [ALBUTEROL] AdvReac Unknown INCREASED Verified 08/20/23 08:15 HEARTRATE butalbital AdvReac Unknown NAUSEA/VOMITING Verified 08/20/23 08:15 WITH FIORINAL carisoprodol AdvReac Unknown DIZZINESS Verified 08/20/23 08:15 AND UPSET STOMACH codeine AdvReac Unknown SEVERE Verified 08/20/23 08:15 NAUSEA/VOMITING hydrocodone AdvReac Unknown SEVERE Verified 08/20/23 08:15 NAUSEA/VOMITIND Patient History Medical History (Updated 08/21/23 @ 05:18 by Arti Bryson DO) Murmur, cardiac Patent foramen ovale Lower urinary tract symptoms (LUTS) History of recurrent UTI (urinary tract infection) Postmenopausal atrophic vaginitis Chronic UTI Arthritis Breast nodule Migraines Osteoarthritis Recurrent UTI History of fracture of right ankle (1981) Raynaud's disease Positive PPD, 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 HEENT: Head atraumatic,EOMI, pupils reactive, face symmetric, moist mucous membranes CARDIOVASCULAR: Regular rate and rhythm without murmurs, rubs or gallops. RESPIRATORY: Breath sounds equal bilaterally, no wheezes rales or rhonchi. Speaks in full sentences EXTREMITIES: Normal range of motion, no clubbing or edema. Neurovascularly intact NEUROLOGICAL: Alert and oriented x4.Normal gait and speech. SKIN: Warm, dry, no laceration, no petechiae, no rashes or lesions. Course Orders Ordered: ED Orders 08/21/23 04:59 Chest [XR chest 2V] Stat Vital Signs Vital signs: Vital Signs - 8 hr 08/21/23 03:52 Temperature 98.2 F Pulse Rate 98 H Respiratory Rate 20 Blood Pressure 143/66 H Pulse Oximetry 98 Oxygen Delivery Method Room Air MDM - URI/Sore Throat MDM Narrative Medical decision making narrative: Patient 73-year-old female history of bronchiectasis presents today with ongoing upper respiratory like symptoms. I hear her cough is deep reactive airway like cough. But she has no wheezing she is able to speak no tachypnea x-ray does not show any abnormality. She was given doxycycline and prednisone which seems reasonable. She is offered cough syrup but has problems with codeine and hydrocodone and does not want any sort of cough syrup. This time there is no further medication to give her. Supportive care only. She is no evidence of sepsis or need for any further workup Discharge Plan Departure Patient Disposition: Home Clinical Impression: Acute upper respiratory infection Instructions: DI for Viral Upper Respiratory Infection -- Adult Activity Restrictions/Additional Instructions: *You have been diagnosed with upper respiratory infection *What to do: At this time your x-ray is negative. Please continue prescriptions as previously prescribed. I would definitely start the prednisone today. This will take time. *Continue to take medications as directed *Follow up with your primary care provider in 2-3 days or call [phone] *Return to ER if you should have increasing shortness of breath not tolerating fluids or any new, worsening or concerning symptoms Prescriptions: No Action phenazopyridine [Pyridium] 100 mg tablet 100 mg PO TID PRN (Reason: pain) Qty: 6 0RF phenazopyridine [Pyridium] 200 mg tablet 200 mg PO TID 0 Days Qty: 6 0RF doxycycline hyclate 100 mg capsule 100 mg PO BID 10 Days Qty: 20 0RF prednisone 20 mg tablet 40 mg PO DAILY 5 Days Qty: 10 0RF Flovent HFA 10.6 GM HFA aerosol inhaler 1 inh inhalation DIRECTED Qty: 0 levalbuterol tartrate [Xopenex HFA] 45 MCG/INH HFA aerosol inhaler 1 puff inhalation PRN PRN (Reason: Shortness Of Breath) Qty: 0 Patient Comments: usually takes qam cholecalciferol (vitamin D3) [Vitamin D3] 2,000 UNIT capsule 2,000 unit PO DAILY Qty: 0 Probiotic 1 cap PO DAILY Qty: 0 d-mannose Powder 1 each PO DAILY Centrum Silver 0.4-300-250 mg-mcg-mcg Tablet 1 tab PO DAILY diazepam [Valium] 5 MG tablet 5 mg OR TIDP PRN (Reason: Anxiety) amlodipine 2.5 mg tablet 2.5 mg PO DAILY Qty: 30 0RF amlodipine 2.5 mg tablet 2.5 mg PO DAILY Qty: 30 0RF tobramycin 0.3 % Drops 2 drops EYE-LEFT Q4H Qty: 5 0RF aspirin [Adult Aspirin Regimen] 81 mg tablet,delayed release (DR/EC) 81 mg PO DAILY estradiol [Estrace] 0.01 % (0.1 mg/gram) cream 1 gram VAG 2XW Qty: 42.5 6RF Rx Instructions: Please provide patient with compounded estriol 0.0125% compounded cream lutein 20 mg tablet 20 mg PO DAILY Rx Instructions: give with meal/snack ascorbic acid-elderberry fruit [Airborne (elderberry)] 100-50 mg tablet,chewable PO Referrals: Iban Hoover MD [Primary Care Provider] - Stand Alone Forms: Patient Portal/API
--- NOTE | 2023-08-21 04:59 | DI.RAD.S_ITS ---
PROCEDURE: XR CHEST 2V INDICATIONS: cough TECHNIQUE: 2 views of the chest were acquired. COMPARISON: [facility], , XR CHEST 1V, 09/09/2021, 21:16. [facility], CR, XR CHEST 1V, 08/07/2019, 17:50. FINDINGS: Surgical changes and devices: None. Lungs and pleura: Lungs are clear. No pleural effusions or pneumothorax. Mediastinum: Mediastinal contours are normal. Heart size is normal. Bones and chest wall: No suspicious bony abnormalities. Soft tissues appear unremarkable. IMPRESSION: No acute cardiopulmonary abnormality is seen. Dictated by: Alessandro Casas M.D. on 08/21/2023 at 8:22 Approved by: Alessandro Casas M.D. on 08/21/2023 at 8:23
[2023-08-21 05:26] VITALS: BP 132/68; PULSE 84; RESP 18; O2SAT 97
== END 2023-08-21 05:26 | disposition home or self-care (01) ==
PROVIDERS: Emergency Provider Emergency Medicine; Family Provider Family Medicine; PCP Family Medicine
DX: J06.9 Acute upper respiratory infection, unspecified (principal); J02.9 Acute pharyngitis, unspecified
CPT/HCPCS: 71046; 99281; 99283

== ENCOUNTER → 2023-12-18 09:02 | Outpatient (CLI) | payer MEDICARE, OTHER, SELFPAY | PROVIDERS: Family Provider Family Medicine; PCP Family Medicine; Visit Provider Nurse Practitioner Family | DX: R82.90 Unspecified abnormal findings in urine (principal); N89.8 Other specified noninflammatory disorders of vagina | CPT/HCPCS: 87077; 87086; 87210 ==

== ENCOUNTER 2024-03-15 16:28 | Observation (INO) | payer MEDICARE, OTHER, SELFPAY ==
[2024-03-15] VITALS (21 sets, daily range): BP systolic 130–198; BP diastolic 69–95; PULSE 76–121; RESP 14–41; TEMP 36.7–36.8; O2SAT 96–100; BMI 20.6
--- NOTE | 2024-03-15 | DI.CT.S_ITS ---
PROCEDURE: CT ANGIO HEAD AND NECK INDICATIONS: CODE STROKE TECHNIQUE: After the administration of intravenous contrast, 1 mm thick sections acquired from the aortic arch through the [place]. 3-dimensional clbfygm-xvbtikwuh-cyugigptrj (MIP) and/or volume rendering reformats were acquired of the central intracranial vasculature and neck separately. For radiation dose reduction, the following was used: automated exposure control, adjustment of mA and/or kV according to patient size. COMPARISON: None. FINDINGS: Image quality: Diagnostic. BRAIN: CSF spaces: Ventricles are normal in size and shape. Basal cisterns are patent. No extra-axial fluid collections. Brain: No significant abnormality of the brain can be seen. Skull and face: Calvarium and facial bones appear intact, without suspicious lesions. Orbits appear normal. Sinuses: Sinuses and mastoids are clear. HEAD CT ANGIOGRAPHY: Anterior circulation: Intracranial internal carotid arteries are normal in size and flow. The flow within the paired anterior cerebral arteries is normal and symmetric. The flow within the middle cerebral arteries is normal and symmetric. The anterior communicating artery is seen. No aneurysms are seen. Posterior circulation: Visualized portions of the vertebral arteries demonstrate normal caliber, and join to form a normal appearing basilar artery. origin of the right [employer]. Flow within the posterior cerebral arteries is normal and symmetric. No aneurysms are seen. NECK CT ANGIOGRAPHY: Carotid system: The great vessels demonstrate a conventional anatomy as they arise from the aortic arch. The origins of the common carotid arteries appear patent. The common carotid arteries demonstrate normal caliber and courses. The bifurcation regions are both widely patent. The internal carotid arteries demonstrate normal calibers and courses. Posterior circulation: The origins of the vertebral arteries both appear widely patent. The more superior extracranial portions of both vertebral arteries also demonstrate normal courses and calibers. They join to form a normal appearing basilar artery. Soft tissues: Visualized neck soft tissues demonstrate no suspicious abnormalities. Bones: No suspicious bony lesions. Visualized cervical spine appears normally aligned. IMPRESSION: No significant intracranial arterial abnormality is seen. No significant abnormality is seen within the arteries of the neck. Any quantitative measurements of stenosis were performed using NASCET criteria. Approved by: Jackeline Mata M.D.,Ph.D. on 03/15/2024 at 16:30
--- NOTE | 2024-03-15 16:30 | DI.CT.S_ITS ---
PROCEDURE: CT STROKE INDICATIONS: Positive BE-FAST, Stroke symptoms TECHNIQUE: Noncontrast 4.5 mm thick angled axial sections acquired from the foramen magnum to the vertex, with coronal reformats. For radiation dose reduction, the following was used: automated exposure control, adjustment of mA and/or kV according to patient size. COMPARISON: None. FINDINGS: Image quality: Diagnostic. CSF spaces: Basal cisterns are patent. No extra-axial fluid collections. Ventricles are normal in size and shape. Brain: No midline shift. No intracranial masses or hemorrhage. No area of hypodensity in a large vascular distribution to suggest acute infarction. Periventricular hypodensity consistent with chronic microvascular ischemic change. Age-related parenchymal loss. Skull and face: Calvarium and visualized facial bones are intact, without suspicious lesions. Sinuses: Visualized sinuses and mastoids are clear. IMPRESSION: No acute intracranial pathology. Comment: Findings were discussed with Cabrera Hayden at 4:47 p.m. This study fulfills neurological imaging criteria for inclusion or exclusion of acute stroke therapies based on available published neurological imaging guidelines. Dictated by: Bolivar Hull M.D. on 03/15/2024 at 16:45 Approved by: Bolivar Hull M.D. on 03/15/2024 at 16:51
--- NOTE | 2024-03-15 16:30 | DI.RAD.S_ITS ---
PROCEDURE: XR CHEST 1V INDICATIONS: Possible stroke TECHNIQUE: One view of the chest was acquired. COMPARISON: [facility], , XR CHEST 2V, 08/21/2023, 5:02. FINDINGS: Surgical changes and devices: None. Lungs and pleura: Lungs are clear. No pleural effusions or pneumothorax. Mediastinum: Mediastinal contours appear normal. Heart size is normal. Bones and chest wall: No suspicious bony lesions. Overlying soft tissues appear unremarkable. IMPRESSION: No acute cardiopulmonary abnormality is seen. Approved by: Jackeline Mata M.D.,Ph.D. on 03/15/2024 at 17:02
--- NOTE | 2024-03-15 17:01 | ED_ITS ---
HPI - Neuro Symptoms/Deficit General Chief Complaint: Neuro Symptoms/Deficit Stated Complaint: Code Stroke Time Seen by Provider: 03/15/24 17:01 Source: EMS Mode of arrival: EMS History of Present Illness HPI Narrative: 73-year-old female last known well 4:00 p.m., with history of possible previous TIA later thought to be due to oral from migraine headaches, no stroke symptoms, has history of some kind of right-sided benign tumor that she has been followed by neurologist, is not clear what the diagnosis was, not felt to be a cancer, no surgery or specific treatment has been planned, now having right upper extremity weakness. Patient is right-handed, was sewing, then had difficulty with holding a cup, and felt that her right arm was weak and had some numbness as well, she is able to move her upper arm in her elbow and wrist but it feels somewhat weak. No injury or trauma. With her right-sided benign tumor she has had left-sided tingling and numbness in the past, but no previous right-sided symptoms. She has not taking blood thinner medications. No injury trauma or falls. No fevers or chills. No shortness of breath or cough. Regarding her right-sided benign head tumor, she was followed by a [facility] neurologist in [place] who retired, more recently is seeing Dr. Demetrius Zhou, no specific treatment planned On Anticoagulants: No Related Data Home Medications Medication Instructions Recorded Confirmed fluticasone propionate 44 1 inh inhalation DIRECTED ##0 06/19/16 03/15/24 mcg/actuation HFA aerosol inhaler (Flovent HFA) levalbuterol tartrate 45 1 puff inhalation PRN PRN 06/19/16 03/15/24 mcg/actuation aerosol inhaler Shortness Of Breath ##0 (Xopenex HFA) cholecalciferol (vitamin D3) 50 2,000 unit PO DAILY #0 caps 08/10/16 03/15/24 mcg (2,000 unit) capsule (Vitamin D3) Probiotic 1 cap PO DAILY ##0 04/17/17 03/15/24 aspirin 81 mg tablet,delayed 81 mg PO DAILY 02/09/19 03/15/24 release (Adult Aspirin Regimen) d-mannose 1 each PO DAILY 07/29/20 03/15/24 lutein 20 mg tablet 20 mg PO DAILY 08/16/21 03/15/24 magnesium glycinate 100 mg tablet 100 mg PO DAILY 03/15/24 03/15/24 Previous Rx's Medication Instructions Recorded estradiol 0.01% (0.1 mg/gram) 1 gram vaginal 2XW #42.5 grams 08/04/20 vaginal cream (Estrace) amlodipine 2.5 mg tablet 2.5 mg PO DAILY #30 tabs 09/10/21 Allergies Allergy/AdvReac Type Severity Reaction Status Date / Time diltiazem Allergy Intermediate chest pain Verified 01/08/24 16:01 adhesive Allergy Mild REDNESS & Verified 01/08/24 16:01 BURNING FROM TAPE budesonide Allergy Unknown ITCHY Verified 01/08/24 16:01 pseudoephedrine Allergy Unknown TACHYCARDIA Verified 01/08/24 16:01 Sulfa (Sulfonamide Allergy Unknown Verified 01/08/24 16:01 Antibiotics) azithromycin AdvReac Intermediate GI UPSET Verified 01/08/24 16:01 metronidazole AdvReac Intermediate Vomiting Verified 01/08/24 16:01 nitrofurantoin AdvReac Intermediate Verified 01/08/24 16:01 [From Macrobid] albuterol [ALBUTEROL] AdvReac Unknown INCREASED Verified 01/08/24 16:01 HEARTRATE butalbital AdvReac Unknown NAUSEA/VOMITING Verified 01/08/24 16:01 WITH FIORINAL carisoprodol AdvReac Unknown DIZZINESS Verified 01/08/24 16:01 AND UPSET STOMACH codeine AdvReac Unknown SEVERE Verified 01/08/24 16:01 NAUSEA/VOMITING hydrocodone AdvReac Unknown SEVERE Verified 01/08/24 16:01 NAUSEA/VOMITIND Review of Systems Review of Systems Narrative: as per HPI Hematologic/Lymphatic On Anticoagulants: No Patient History Medical History (Updated 03/15/24 @ 19:13 by Cabrera Hayden MD) Murmur, cardiac Patent foramen ovale Lower urinary tract symptoms (LUTS) History of recurrent UTI (urinary tract infection) Postmenopausal atrophic vaginitis Chronic UTI Arthritis Breast nodule Migraines Osteoarthritis Recurrent UTI History of fracture of right ankle (1981) Raynaud's disease Positive PPD, 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 HEAD: Atraumatic. Normocephalic. EYES: Pupils equal round and reactive. Extraocular motions intact. No scleral icterus. No injection or drainage. ENT: Nose without bleeding, purulent drainage. Throat without erythema, tonsillar hypertrophy or exudate. Airway patent. NECK: Trachea midline. Non tender CARDIOVASCULAR: Regular rate and rhythm without murmurs, gallops, or rubs. RESPIRATORY: Clear to auscultation. Breath sounds equal bilaterally. No wheezes, rales, or rhonchi. GASTROINTESTINAL: Abdomen soft, non-tender, nondistended. EXTREMITIES: No edema or joint tenderness. BACK: Nontender without deformity or crepitance. No flank tenderness. NEURO: AOx3. 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 Intact to light touch all facial divisions and also bilateral upper extremities, bilateral lower extremities. [id number] testing normal. SKIN: No rash or erythema of visible areas Initial Vital Signs Initial Vital Signs: Vital Signs Temperature 98.3 F 03/15/24 16:40 Pulse Rate 98 H 03/15/24 16:40 Respiratory Rate 14 03/15/24 16:40 Blood Pressure 195/84 H 03/15/24 16:40 Pulse Oximetry 100 03/15/24 16:40 Oxygen Delivery Method Room Air 03/15/24 16:40 Course Orders Ordered: ED Orders 03/15/24 16:30 CT Stroke Stat XR chest 1V Stat EKG-12 Lead Stat 03/15/24 16:45 Complete Blood Count AUTO DIFF Stat Comprehensive Metabolic Panel Stat Magnesium Stat PTT Partial Thromboplastin Grant Stat Prothrombin Time INR Stat Troponin & CK Cardiac Panel Stat 03/15/24 18:09 Urinalysis and Microscopic Stat Urine Drug Screen, Rapid Stat Al Hydrox/Mg Hydrox/Simethicone (Mag Hydrox/Alum/Simeth 30 Ml Udc) 30 ml PO Q6HR PRN PRN Reason: Dyspepsia Aspirin (Aspirin Ec 81 Mg Tablet) 81 mg PO DAILY LELE Diazepam (Diazepam 5 Mg Tablet) 5 mg PO TID PRN PRN Reason: Anxiety Docusate Sodium (Docusate 100 Mg Capsule) 100 mg PO BID PRN PRN Reason: constipation Enoxaparin Sodium (Enoxaparin 40 Mg/0.4 Ml Syringe) 40 mg SUBCUT DAILY LELE Naloxone HCl (Naloxone 0.4 Mg/Ml Vial) 0.2 mg IV Q2MIN PRN PRN Reason: Opiate Reversal Ondansetron HCl (Ondansetron 4 Mg/2 Ml Inj) 4 mg IV Q8HR PRN PRN Reason: Nausea And Vomiting Discontinued Medications Ondansetron HCl (Ondansetron 4 Mg/2 Ml Inj) 4 mg IV NOW PRN PRN Reason: Nausea And Vomiting Ondansetron HCl (Ondansetron 4 Mg Odt) 4 mg SL NOW PRN PRN Reason: Nausea And Vomiting Vital Signs Vital signs: Vital Signs - 8 hr 03/15/24 16:40 03/15/24 16:43 03/15/24 16:43 Temperature 98.3 F Pulse Rate 98 H 100 H Respiratory Rate 14 Blood Pressure 195/84 H 195/84 H Pulse Oximetry 100 98 Oxygen Delivery Method Room Air 03/15/24 16:48 03/15/24 16:48 03/15/24 16:50 Temperature Pulse Rate 94 H Respiratory Rate 17 Blood Pressure 180/81 H 198/81 H Pulse Oximetry 100 Oxygen Delivery Method 03/15/24 16:50 03/15/24 17:23 03/15/24 17:23 Temperature Pulse Rate 88 97 H Respiratory Rate 19 Blood Pressure 149/76 H Pulse Oximetry 100 97 Oxygen Delivery Method 03/15/24 17:30 03/15/24 17:30 03/15/24 17:40 Temperature Pulse Rate 92 H Respiratory Rate Blood Pressure 157/77 H 166/79 H Pulse Oximetry 98 Oxygen Delivery Method 03/15/24 17:40 03/15/24 17:50 03/15/24 17:50 Temperature Pulse Rate 93 H 97 H Respiratory Rate Blood Pressure 158/72 H Pulse Oximetry 97 98 Oxygen Delivery Method 03/15/24 18:00 03/15/24 18:05 03/15/24 18:05 Temperature Pulse Rate 99 H 91 H Respiratory Rate Blood Pressure 130/79 Pulse Oximetry 99 Oxygen Delivery Method 03/15/24 18:10 03/15/24 18:10 03/15/24 18:20 Temperature Pulse Rate 94 H Respiratory Rate Blood Pressure 151/81 H 160/81 H Pulse Oximetry 98 Oxygen Delivery Method 03/15/24 18:20 03/15/24 18:30 03/15/24 18:30 Temperature Pulse Rate 91 H 89 Respiratory Rate Blood Pressure 169/95 H Pulse Oximetry 98 98 Oxygen Delivery Method 03/15/24 18:40 03/15/24 18:40 03/15/24 18:50 Temperature Pulse Rate 80 Respiratory Rate 41 H Blood Pressure 172/79 H 155/70 H Pulse Oximetry 97 Oxygen Delivery Method 03/15/24 18:50 03/15/24 19:00 03/15/24 19:00 Temperature Pulse Rate 87 84 Respiratory Rate Blood Pressure 158/70 H Pulse Oximetry 96 99 Oxygen Delivery Method 03/15/24 19:10 03/15/24 19:10 Temperature Pulse Rate 81 Respiratory Rate Blood Pressure 155/69 H Pulse Oximetry 97 Oxygen Delivery Method MDM - Neuro Symptoms/Deficit Lab Data Attestation: I reviewed the patient's lab results. 03/15/24 16:45 03/15/24 16:45 Labs: Lab Results 03/15/24 03/15/24 03/15/24 Range/Units 16:45 18:09 18:09 WBC 6.4 (4.5-11.0) X10^3/uL RBC 4.28 (4.0-5.2) X10^6/uL Hgb 12.5 (12.0-16.0) g/dL Hct 37.6 (36-46) % MCV 87.9 (80-100) fL MCH 29.2 (26-34) PG MCHC 33.2 (30-36) % RDW 13.1 (11.6-14.8) % Plt Count 203 (150-400) X10^3/uL Neut % (Auto) 52.8 (50-75) % Lymph % (Auto) 31.6 (25-40) % [place] % (Auto) 11.2 (3-14) % Eos % (Auto) 3.3 (2-4) % Baso % (Auto) 1.1 (0-2) % Neut # (Auto) 3400 (9493-0422) /uL Lymph # (Auto) 2000 (2036-7329) /uL [place] # (Auto) 700 (0-900) /uL Eos # (Auto) 200 (0-450) /uL Baso # (Auto) 100 (0-100) /uL PT 11.4 (9.4-12.5) SECONDS INR 1.0 (0.9-1.3) APTT 35 (25.1-36.5) SECONDS Sodium 137 (137-145) mmol/L Potassium 3.8 (3.4-5.1) mmol/L Chloride 107 (98-107) mmol/L Carbon Dioxide 24 (22-32) mmol/L BUN 26 H (7-17) mg/dL Creatinine 0.92 (0.52-1.04) mg/dL Estimated GFR > 60 (>60) mL/min BUN/Creatinine Ratio 28.3 H (6-22) Glucose 107 (80-110) mg/dL Calcium 8.4 (8.4-10.2) mg/dL Magnesium 2.2 (1.6-2.3) mg/dL Total Bilirubin 0.4 (0.2-1.3) mg/dL AST 23 (14-36) IU/L ALT 15 (<35) IU/L Alkaline Phosphatase 77 (38-126) U/L Total Creatine Kinase 77 (30-135) U/L Troponin I < 0.012 (0.01-0.034) ng/mL Total Protein 6.3 (6.3-8.2) g/dL Albumin 3.9 (3.5-5.0) g/dL Globulin 2.4 (1.7-4.1) g/dL Albumin/Globulin Ratio 1.6 (1.0-2.8) Urine Color Yellow Urine Appearance Clear Urine pH 6.5 Normal (4.5-8.0) Ur Specific [place] 1.010 (1.000-1.035) Urine Protein Negative (Negative) Urine Glucose (UA) Negative (Negative) g/dL Urine Ketones Negative (NEGATIVE) Urine Occult Blood 1+ H (Negative) Urine Nitrate Negative (Negative) Urine Bilirubin Negative (NEGATIVE) Urine Urobilinogen 0.2 (0.2) E.U./dL Ur Leukocyte Esterase Negative (NEGATIVE) Urine RBC 0-1/hpf (0-5/HPF) Urine WBC None seen (0-5/HPF) Ur Squamous Epith Cells 0-1 /hpf (0-5/HPF) Urine Bacteria Few (2-10) H (None) Ur Culture Indicated? Cult not indicated Vol Urine Centrifuged 10ml (spun) U Opiates 300ng/mL cut Negative (Negative) Ur Oxycodone Screen Negative (Negative) Urine Methadone Screen Negative (Negative) Ur Barbiturates Screen Negative (Negative) U Tricyclic Antidepress Negative (Negative) Ur Phencyclidine Scrn Negative (Negative) Ur Amphetamines Screen Negative (Negative) U Methamphetamines Scrn Negative (Negative) Ur MDMA Scrn (Ecstasy) Negative (Negative) U Benzodiazepines Scrn Negative (Negative) Urine Cocaine Screen Negative (Negative) U Marijuana (THC) Screen Negative (Negative) Urine Specific [place] Normal (Normal) Ur Creatinine Normal (Normal) Point of Care Testing Glucose POC 106 Urine Dip Bedside Urine Glucose Negative Bedside Urine Bilirubin - Negative Bedside Urine Ketone - Negative Urine Specific [place] 1.005 Bedside Urine Occult Blood +/- Bedside Urine pH 6.5 Bedside Urine Protein - Negative Bedside Urine Urobilinogen - Negative Bedside Urine Nitrite - Negative Bedside Urine Leukocytes - Negative Esterase Imaging Data CT scan - head: Radiologist's Impression: [address] [address] [address] Scan Report Signed Patient: Ruchi Lemus MR#: [id number] : 1950 Acct:[id number] Age/Sex: 73 / F Date of Service: 03/15/24 Loc: ED Accession Number: [id number] Procedure: CT Stroke Ordering Provider: Cabrera Hayden MD PROCEDURE: CT STROKE INDICATIONS: Positive BE-FAST, Stroke symptoms TECHNIQUE: Noncontrast 4.5 mm thick angled axial sections acquired from the foramen magnum to the vertex, with coronal reformats. For radiation dose reduction, the following was used: automated exposure control, adjustment of mA and/or kV according to patient size. COMPARISON: None. FINDINGS: Image quality: Diagnostic. CSF spaces: Basal cisterns are patent. No extra-axial fluid collections. Ventricles are normal in size and shape. Brain: No midline shift. No intracranial masses or hemorrhage. No area of hypodensity in a large vascular distribution to suggest acute infarction. Periventricular hypodensity consistent with chronic microvascular ischemic change. Age-related parenchymal loss. Skull and face: Calvarium and visualized facial bones are intact, without suspicious lesions. Sinuses: Visualized sinuses and mastoids are clear. IMPRESSION: No acute intracranial pathology. Comment: Findings were discussed with Cabrera Hayden at 4:47 p.m. This study fulfills neurological imaging criteria for inclusion or exclusion of acute stroke therapies based on available published neurological imaging guidelines. Dictated by: Bolivar Hull M.D. on 03/15/2024 at 16:45 Approved by: Bolivar Hull M.D. on 03/15/2024 at 16:51 ECG Data Attestation: I personally reviewed and interpreted this ECG as follows: Interpretation: Normal sinus rhythm with rate of 91, no obvious ST segment elevation or depression changes. MS interval, QRS, QTC intervals all unremarkable. Supraventricular complex noted. 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 or so, no previous stroke known, has some kind of benign brain tumor that has been known in the past for which she has been followed by a [place] neurologist who retired, more recently by [facility] neurologist, no specific treatment plan for that known. EKG shows normal sinus rhythm, no obvious ischemic changes. Some slight decreased right commercial green building designer strength on exam, clear speech. CT head noncontrast study without acute changes stroke protocol, discussed with radiologist, report imported [id number], case discussed with [facility] stroke neurologist Dr. Hamlin, she will review images and consult [id number], call back from Dr. 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 She reviewed CT head contrast also CTA head and neck vessel studies. She feels that patient could be admitted here with further workup. She requests usual studies fasting lipids, hemoglobin A1c, BNP. Patient can take aspirin only for now, no additional Plavix for now. She recommends imaging MRI of the brain without and with contrast, stroke protocol. She also requests MRI cervical spine without and with contrast, stroke protocol. We will contact hospitalist regarding admission here. Patient agreeable. Case discussed with Dr. Hazel, who accepts patient for admission Critical Care Time Critical Care Time Critical Care Time: Yes Total Critical Care Time: 35 Attestation: The high probability of a clinically significant, sudden or life threatening deterioration of the [neuro, neurovascular] system(s) required my full and direct attention, intervention and personal management. The aggregate critical care time was [35] minutes. This time is in addition to time spent performing reported procedures but includes the following: [x] Data Review and interpretation [x] Patient assessment and monitoring of vital signs [x] Documentation [x] Medication orders and management Discharge Plan Departure Patient Disposition: Admitted as Observation Clinical Impression: Transient ischemic attack, acute, Weakness of right upper extremity Admit Date/Time: 03/15/24 19:18 Admit Provider: London Madsen
[2024-03-15 17:04] LABS: Add Manual Diff / Slide Review NO; Basophils Absolute Auto 100 /uL (0-100); Basophils Percent Auto 1.1 % (0-2); Eosinophils Absolute Auto 200 /uL (0-450); Eosinophils Percent Auto 3.3 % (2-4); Hematocrit 37.6 % (36-46); Hemoglobin 12.5 g/dL (12.0-16.0); Lymphocytes Absolute Auto 2000 /uL (1100-4500); Lymphocytes Percent Auto 31.6 % (25-40); Mean Corpuscular HGB Conc 33.2 % (30-36); Mean Corpuscular Hemoglobin 29.2 PG (26-34); Mean Corpuscular Volume 87.9 fL (80-100); Monocytes Absolute Auto 700 /uL (0-900); Monocytes Percent Auto 11.2 % (3-14); Neutrophils Absolute Auto 3400 /uL (1500-7000); Neutrophils Percent Auto 52.8 % (50-75); Platelet Count 203 X10^3/uL (150-400); Red Blood Cell Count 4.28 X10^6/uL (4.0-5.2); Red Cell Distribution Width 13.1 % (11.6-14.8); White Blood Cell Count 6.4 X10^3/uL (4.5-11.0)
[2024-03-15 17:07] LABS: Prothrombin Time 11.4 SECONDS (9.4-12.5)
[2024-03-15 17:10] LABS: PTT Partial Thromboplastin Tim 35 SECONDS (25.1-36.5)
[2024-03-15 17:11] LABS: Alanine Aminotransferase 15 IU/L (<35); Albumin 3.9 g/dL (3.5-5.0); Albumin Globulin Ratio 1.6 (1.0-2.8); Alkaline Phosphatase 77 U/L (38-126); Aspartate Aminotransferase 23 IU/L (14-36); BUN Creatinine Ratio 28.3 (6-22); Bilirubin Total 0.4 mg/dL (0.2-1.3); Blood Urea Nitrogen 26 mg/dL (7-17); Calcium 8.4 mg/dL (8.4-10.2); Carbon Dioxide 24 mmol/L (22-32); Chloride 107 mmol/L (98-107); Creatine Kinase 77 U/L (30-135); Estimated Glomerular Filt Rate > 60 mL/min (>60); Globulin 2.4 g/dL (1.7-4.1); Glucose 107 mg/dL (80-110); HEMOLYSIS < 15 (0-50); Magnesium 2.2 mg/dL (1.6-2.3); Potassium 3.8 mmol/L (3.4-5.1); Sodium 137 mmol/L (137-145); Total Protein 6.3 g/dL (6.3-8.2)
[2024-03-15 17:23] LABS: Troponin I < 0.012 ng/mL (0.01-0.034)
[2024-03-15 18:24] LABS: Appearance Urine UA Clear; Color Urine UA Yellow; Glucose Urine UA NEGATIVE (Negative); Ketones Urine UA NEGATIVE (NEGATIVE); Occult Blood Urine UA 1+ (Negative); Protein Urine UA Negative (Negative); pH Urine UA 6.5 (4.5-8.0)
[2024-03-15 18:25] LABS: Bilirubin Urine UA Negative (NEGATIVE); Leukocyte Esterase Urine UA NEGATIVE (NEGATIVE); Nitrite Urine UA NEGATIVE (Negative); UR Morphine/Opiate cutoff 300 Negative (Negative); Ur Creatinine Normal (Normal); Ur Specific Gravity Normal (Normal); Urine Amphetamines Negative (Negative); Urine Barbiturates Negative (Negative); Urine Benzodiazepines Negative (Negative); Urine Cocaine Negative (Negative); Urine MDMA Negative (Negative); Urine Methadone Negative (Negative); Urine Methamphetamines Negative (Negative); Urine Oxycodone Negative (Negative); Urine Phencyclidine Negative (Negative); Urine Tetrahydrocannabinol Negative (Negative); Urine Tricyclic Antidepressant Negative (Negative); Urine Volume 10mL (spun); Urine pH Normal (Normal); Urobilinogen Urine UA 0.2 E.U./dL (0.2)
[2024-03-15 18:37] LABS: Bacteria Urine Few (2-10); Culture Indicated Urine Cult Not Indicated; RBC Urine 0-1/HPF (0-5/HPF); Squamous Epithelial Cell Urine 0-1 /HPF (0-5/HPF); WBC Urine None Seen (0-5/HPF)
--- NOTE | 2024-03-15 18:59 | PC.NURSE ---
Patient reports the symptoms in her RIGHT hand of numbness/tingling and weakness have resolved.
--- NOTE | 2024-03-15 22:00 | P.HP_ITS ---
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 In the ED CT/CTA non-diagnostic. At the time of admission symptoms resolved. She is currently followed by [facility] neurologist Dr Demetrius Glass . Dr Hayden consulted neurologist at Dr Kaylin Hamlin who recommended workup for CVA/CS leptomeningeal process [facility] Medical History Murmur, cardiac Patent foramen ovale Lower urinary tract symptoms (LUTS) History of recurrent UTI (urinary tract infection) Postmenopausal atrophic vaginitis Chronic UTI Arthritis Breast nodule Migraines Osteoarthritis Recurrent UTI History of fracture of right ankle (1981) Raynaud's disease Positive PPD, 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 [employer] Home Medications and Allergies Home Medications Medication Instructions Recorded Confirmed Type fluticasone propionate 44 1 inh inhalation DIRECTED ##0 06/19/16 03/15/24 History mcg/actuation HFA aerosol inhaler (Flovent HFA) levalbuterol tartrate 45 1 puff inhalation PRN PRN 06/19/16 03/15/24 History mcg/actuation aerosol inhaler Shortness Of Breath ##0 (Xopenex HFA) cholecalciferol (vitamin D3) 50 2,000 unit PO DAILY #0 caps 08/10/16 03/15/24 History mcg (2,000 unit) capsule (Vitamin D3) Probiotic 1 cap PO DAILY ##0 04/17/17 03/15/24 History aspirin 81 mg tablet,delayed 81 mg PO DAILY 02/09/19 03/15/24 History release (Adult Aspirin Regimen) d-mannose 1 each PO DAILY 07/29/20 03/15/24 History estradiol 0.01% (0.1 mg/gram) 1 gram vaginal 2XW #42.5 grams 08/04/20 03/15/24 Rx vaginal cream (Estrace) lutein 20 mg tablet 20 mg PO DAILY 08/16/21 03/15/24 History amlodipine 2.5 mg tablet 2.5 mg PO DAILY #30 tabs 09/10/21 03/15/24 Rx magnesium glycinate 100 mg tablet 100 mg PO DAILY 03/15/24 03/15/24 History Allergies Allergy/AdvReac Type Severity Reaction Status Date / Time diltiazem Allergy Intermediate chest pain Verified 01/08/24 16:01 adhesive Allergy Mild REDNESS & Verified 01/08/24 16:01 BURNING FROM TAPE budesonide Allergy Unknown ITCHY Verified 01/08/24 16:01 pseudoephedrine Allergy Unknown TACHYCARDIA Verified 01/08/24 16:01 Sulfa (Sulfonamide Allergy Unknown Verified 01/08/24 16:01 Antibiotics) azithromycin AdvReac Intermediate GI UPSET Verified 01/08/24 16:01 metronidazole AdvReac Intermediate Vomiting Verified 01/08/24 16:01 nitrofurantoin AdvReac Intermediate Verified 01/08/24 16:01 [From Macrobid] albuterol [ALBUTEROL] AdvReac Unknown INCREASED Verified 01/08/24 16:01 HEARTRATE butalbital AdvReac Unknown NAUSEA/VOMITING Verified 01/08/24 16:01 WITH FIORINAL carisoprodol AdvReac Unknown DIZZINESS Verified 01/08/24 16:01 AND UPSET STOMACH codeine AdvReac Unknown SEVERE Verified 01/08/24 16:01 NAUSEA/VOMITING hydrocodone AdvReac Unknown SEVERE Verified 01/08/24 16:01 NAUSEA/VOMITIND Review of Systems Constitutional Comments: w/o fever, chills, sweats, weight loss, generalized weakness Eyes Comments: w/o vision changes Cardiovascular Comments: w/o palpitations or chest pain Respiratory Comments: occasionally short of breath, has bronchiectasiae Gastrointestinal Comments: w/o complaints Genitourinary Comments: w/o dysuria Musculoskeletal Comments: w/o myalgia Neurologic Comments: transient Rt arm weakness and numbness Exam Vital Signs (past 8 hours): - 03/15/24 21:05 03/16/24 03:00 Temperature 98.1 F 97.3 F L Pulse Rate 76 70 Respiratory Rate 18 16 Blood Pressure 146/87 H 119/67 Pulse Oximetry 100 96 Oxygen Flow Rate 0 0 Oxygen Delivery Method Room Air Oxygen Flow Rate 0 Const Other: sitting in bed in no distress HENMT Other: normocephalic Eyes Other: reactive pupils, EOMI Neck Other: supple Resp Other: normal respiratory effort Cardio Other: RRR GI Other: not distended Skin Other: no rashes Neuro Other: without focal deficits at the time of admission Extrem Other: w/o swelling Psych Other: appropriate mood, lucid Objective ECG Impression: NSR Labs 03/15/24 16:45 03/15/24 16:45 Labs: Laboratory Results - last 24 hr 03/15/24 03/15/24 03/15/24 16:45 18:09 18:09 WBC 6.4 RBC 4.28 Hgb 12.5 Hct 37.6 MCV 87.9 MCH 29.2 MCHC 33.2 RDW 13.1 Plt Count 203 Neut % (Auto) 52.8 Lymph % (Auto) 31.6 [place] % (Auto) 11.2 Eos % (Auto) 3.3 Baso % (Auto) 1.1 Neut # (Auto) 3400 Lymph # (Auto) 2000 [place] # (Auto) 700 Eos # (Auto) 200 Baso # (Auto) 100 PT 11.4 INR 1.0 APTT 35 Sodium 137 Potassium 3.8 Chloride 107 Carbon Dioxide 24 BUN 26 H Creatinine 0.92 Estimated GFR > 60 BUN/Creatinine Ratio 28.3 H Glucose 107 Calcium 8.4 Magnesium 2.2 Total Bilirubin 0.4 AST 23 ALT 15 Alkaline Phosphatase 77 Total Creatine Kinase 77 Troponin I < 0.012 Total Protein 6.3 Albumin 3.9 Globulin 2.4 Albumin/Globulin Ratio 1.6 Urine Color Yellow Urine Appearance Clear Urine pH 6.5 Normal Ur Specific [place] 1.010 Urine Protein Negative Urine Glucose (UA) Negative Urine Ketones Negative Urine Occult Blood 1+ H Urine Nitrate Negative Urine Bilirubin Negative Urine Urobilinogen 0.2 Ur Leukocyte Esterase Negative Urine RBC 0-1/hpf Urine WBC None seen Ur Squamous Epith Cells 0-1 /hpf Urine Bacteria Few (2-10) H Ur Culture Indicated? Cult not indicated Vol Urine Centrifuged 10ml (spun) U Opiates 300ng/mL cut Negative Ur Oxycodone Screen Negative Urine Methadone Screen Negative Ur Barbiturates Screen Negative U Tricyclic Antidepress Negative Ur Phencyclidine Scrn Negative Ur Amphetamines Screen Negative U Methamphetamines Scrn Negative Ur MDMA Scrn (Ecstasy) Negative U Benzodiazepines Scrn Negative Urine Cocaine Screen Negative U Marijuana (THC) Screen Negative Urine Specific [place] Normal Ur Creatinine Normal Assessment & Plan Assessment and plan (1) Weakness of right upper extremity: Status: Acute (2) Patent foramen ovale: Status: Chronic (3) Anxiety: Status: Chronic (4) History of recurrent UTI (urinary tract infection): Status: Acute (5) Migraines: Qualifiers: Intractability: not intractable Migraine type: with aura Status migrainosus presence: without status migrainosus Qualified Code(s): G43.109 - Migraine with aura, not intractable, without status migrainosus Status: Chronic (6) Non-tuberculous bronchiectasis: Status: Chronic (7) Chronic cough: Status: Chronic Assessment & Plan narrative: 1. Rt arm weakness - resolved - TIA/CVA vs leptomeningeal process of CS - CTH non-revealing - observation on telemetry, had ASA 324, continue ASA 81 mg daily for now - MRI brain and CS w / wo contrast - has PFO, echo pending, no LVO on CTA - A1C, lipids, TSH pending - PT, OT eval. 2. HTN - Norvasc 2.5 mg daily at home - on hold 3. Bronchiectasiae - prn Flonase, Xopenex 4. Anxiety - at home on Valium prn, continue DVT prophylaxis - Lovenox
--- NOTE | 2024-03-15 23:05 | PC.NURSE ---
Pt admitted to room 222 @ 2027 from ED via wheelchair. Pt transferred from wheelchair to bed independently and steady on feet. Pt is A&O x4, calm and cooperative. VS stable and on room air. awake overnight monitor placed. Lungs clear to auscultation bilaterally. abdomen soft and non-tender with active bowel sounds in all 4 quadrants. Full strength in ROM in bilateral lower and upper extremities. small bruise on right knee, otherwise skin intact. Pt denies any weakness or numbness. NIH score 0. Denies pain, headache, nausea, and dizziness. Pt oriented to call light and room. bed in lowest position, call light and belongings placed within reach.
[2024-03-16 03:00] VITALS: BP 119/67; PULSE 70; RESP 16; TEMP 36.3; O2SAT 96
[2024-03-16 05:27] LABS: Add Manual Diff / Slide Review NO; Basophils Absolute Auto 0 /uL (0-100); Basophils Percent Auto 0.8 % (0-2); Eosinophils Absolute Auto 200 /uL (0-450); Eosinophils Percent Auto 3.3 % (2-4); Hematocrit 38.2 % (36-46); Hemoglobin 12.7 g/dL (12.0-16.0); Lymphocytes Absolute Auto 1300 /uL (1100-4500); Lymphocytes Percent Auto 22.7 % (25-40); Mean Corpuscular HGB Conc 33.2 % (30-36); Mean Corpuscular Volume 87.3 fL (80-100); Monocytes Absolute Auto 700 /uL (0-900); Monocytes Percent Auto 11.4 % (3-14); Neutrophils Absolute Auto 3600 /uL (1500-7000); Neutrophils Percent Auto 61.8 % (50-75); Platelet Count 193 X10^3/uL (150-400); Red Blood Cell Count 4.38 X10^6/uL (4.0-5.2); Red Cell Distribution Width 13.4 % (11.6-14.8); White Blood Cell Count 5.9 X10^3/uL (4.5-11.0)
[2024-03-16 05:34] LABS: Blood Urea Nitrogen 20 mg/dL (7-17); Calcium 8.6 mg/dL (8.4-10.2); Carbon Dioxide 26 mmol/L (22-32); Chloride 112 mmol/L (98-107); Cholesterol 167 mg/dL (140-199); Estimated Glomerular Filt Rate > 60 mL/min (>60); Glucose 86 mg/dL (80-110); HDL Cholesterol 49 mg/dL (40-60); HEMOLYSIS < 15 (0-50); LDL Cholesterol Calculated 104 mg/dL (<100); Potassium 3.9 mmol/L (3.4-5.1); Sodium 141 mmol/L (137-145); Triglycerides 71 mg/dL (35-150)
[2024-03-16 05:56] LABS: Hemoglobin A1C% w Est Avg Glu 5.5 % (4.0-6.0)
[2024-03-16 06:01] LABS: Thyroid Stimulating Hormone 1.78 uIU/mL (0.47-4.68)
[2024-03-16 09:10] VITALS: BP 133/64; PULSE 76; RESP 16; O2SAT 100
[2024-03-16] MEDS: ASPIRIN EC 81 MG TABLET PO (09:26)
[2024-03-16] MEDS: ENOXAPARIN 40 MG/0.4 ML SYRINGE SUBCUT (09:26)
--- NOTE | 2024-03-16 10:07 | DI.ECHO.S_ITS ---
[facility] : : [address] : : [place] : : [id number] : : Phone: [phone] Echocardiogram Report + :Name: DEBBIE PATRICK Study Date: 03/16/2024 Height: 66 in : :[facility]: Weight: 130 lb : : Gender: Female BSA: 1.7 m2 : :: 1950 Age: 73 yrs BP: 133/64 mmHg: :Reason For Study: TIA : :Ordering Physician: STARR HERNANDEZ, : :JINNY COLEMAN Performed By: Aron Rosado : :Referring: JINNY BURNHAM MD : + Interpretation Summary Normal sinus rhythm. Normal LV size and wall thickness. Normal wall motion and LV systolic function. Ejection fraction is 60-65%. Stage I diastolic dysfunction. Mild left atrial enlargement; otherwise normal chamber sizes. No significant valvular abnormalities. Compared to prior study December 19, 2022, no significant changes have occurred. No source of embolism identified. Procedure: A two-dimensional transthoracic echocardiogram with color flow and Doppler was performed. The study quality was technically adequate. Comparison is made with the echocardiogram of 12/19/22. The patient was in sinus rhythm with heart rates between 68-79 bpm during the exam. The patient had occasional PVCs during the exam. Left Ventricle: The left ventricle is normal in size and wall thickness. The ejection fraction is estimated to be 55-60%. Right Ventricle: The right ventricle is normal size. The right ventricular systolic function is normal. Atria: The left atrial size is normal. Right atrial size is normal. The interatrial septum grossly appears intact with no obvious evidence for an atrial septal defect. The atrial septum is aneurysmal. Mitral Valve: The mitral valve is normal. There is no mitral valve stenosis. There is trace mitral regurgitation. Aortic Valve: The aortic valve is trileaflet. There is no aortic valve stenosis. There is trace aortic regurgitation. Tricuspid Valve: The tricuspid valve is normal. There is no tricuspid stenosis. There is mild tricuspid regurgitation. The right ventricular systolic pressure is estimated to be at least 26.1 mmHg based on an estimated right atrial pressure of 3 mm Hg. Pulmonic Valve: The pulmonic valve is not well visualized. There is no pulmonic valvular stenosis. There is no pulmonic valvular regurgitation. Great Vessels: The aortic root is normal size. The ascending aorta could not be visualized. The IVC is of normal diameter and collapses greater than 50% with a sniff. This suggests a low right atrial pressure of 3 mm Hg. Pericardium/ Pleura There is no pericardial effusion. There is no pleural effusion. MMode/2D Measurements & Calculations LVIDd: 4.4 cm LVOT diam: 2.1 cm LVIDs: 3.1 cm Ao root diam: 3.1 cm FS: 28.4 % asc Aorta Diam: 2.8 cm IVSd: 0.98 cm Ao Arch Diam (Prox Trans): 2.6 cm LVPWd: 0.81 cm LV chu. diameter/BSA (cm/m^2): 2.6 LV sys. diameter/BSA (cm/m^2): 1.9 LA A2 area: 14.4 cm2 RA long axis: 5.0 cm LA A4 area: 19.9 cm2 RA area: 14.0 cm2 LA length (vol): 4.9 cm RA vol: 33.0 ml LA vol: 49.3 ml RA : 19.8 ml/m2 LA vol index: 29.6 ml/m2 IVC diam: 1.3 cm RVD1 (basal): 3.2 cm RVD2 (mid): 2.5 cm TAPSE: 2.4 cm Doppler Measurements & Calculations Ao V2 max: 117.8 cm/sec LVOT Max Delbert: 79.2 cm/sec Ao V2 mean: 83.5 cm/sec LV V1 max P.5 mmHg Ao max P.6 mmHg LV V1 VTI: 16.9 cm Ao mean P.1 mmHg TAINA(I,D): 2.5 cm2 Ao V2 VTI: 23.8 cm TAINA(V,D): 2.4 cm2 sev ratio: 0.71 TAINA indexed to BSA (cm^2/m^2): 1.5 MV E max delbert: 49.6 cm/sec TR max delbert: 240.3 cm/sec MV A max delbert: 68.9 cm/sec TR max P.1 mmHg MV E/A: 0.72 PA V2 max: 81.0 cm/sec Med Peak E' Delbert: 6.3 cm/sec PA V2 mean: 52.1 cm/sec E/E' med: 7.9 PA mean P.3 mmHg Lat Peak E' Delbert: 7.2 cm/sec PA pr(Accel): 37.9 mmHg E/E' lat: 6.9 E/e' average: 7.4 MV dec time: 0.22 sec SV(LVOT): 59.3 ml Electronically signed by: Deepthi Vigil M.D. on [place] Physician:03/16/2024 01:12 PM
--- NOTE | 2024-03-16 10:25 | OT.IPNOTE ---
To check on pt later as not in the room. To get an ECHO when she returns to the room per staff.
--- NOTE | 2024-03-16 10:59 | PT-IP ANOTE ---
PT order received and pt not available when checked for eval.
--- NOTE | 2024-03-16 11:55 | PC.NURSE ---
Patient had her MRI and her Echo. She denies pain or discomfort and his ambulating well. No vision issues, symmetrical smile, and she is moving all extremities well. NIH score 0 this morning. Resting comfortably.
[2024-03-16 12:00] VITALS: BP 117/80; PULSE 83; RESP 16; TEMP 36.4; O2SAT 98
--- NOTE | 2024-03-16 12:27 | PC.NURSE ---
Assuming care of patient from Flor IBARRA. Patient alert and oriented, sitting comfortably in bed speaking with Dr. Salinas at this time. Continue to monitor.
--- NOTE | 2024-03-16 12:50 | PT-IP ANOTE ---
MD reports pt to d/c and no acute PT needs. Will d/c PT order.
--- NOTE | 2024-03-16 12:51 | OT.IPNOTE ---
Per pt's hospitalist okay to discharge OT eval for pt as she is independent.
--- NOTE | 2024-03-16 12:59 | PM.DS.1 ---
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 In the ED CT/CTA non-diagnostic. At the time of admission symptoms resolved. She is currently followed by [facility] neurologist Dr Demetrius Glass . Dr Hayden consulted neurologist at Dr Kaylin Hamlin who recommended workup for CVA/CS leptomeningeal process Discharge Providers Provider Date of admission: 03/15/24 19:18 Discharge Date: 03/16/24 Primary care physician: Iban Hoover MD Consults: 03/15/24 19:31 Consult to Physical Therapy Evaluate & Treat Comment: acute right arm weakness Physician Instructions: Evaluate and Treat 03/15/24 19:32 Consult to Occupational Therapy Evaluate & Treat Comment: acute right arm weakness Physician Instructions: Evaluate and treat Tele Stroke: at time of ED visit. Discharge provider: Bob Salians MD Summary Hospital Course Discharge Diagnosis: 1. Transient right arm numbness and weakness, present on admission and resolved. 2. Chronic leptomeningeal abnormalities on imaging, stable. 3. HTN, present on admission and active. 4. Anxiety, present on andmission and stable. 5. PFO, stable. Hospital Course: The patient presented with transient right arm and hand weakness which lasted about 2 hours to 2-1/2 hours yesterday. There were no other symptoms. She would complete resolution of symptoms. She takes a baby aspirin most days but did not take 1 yesterday. She was a history of occipital leptomeningeal abnormality and imaging for which she has seen Neurology at [facility] as well as Dr. Demetrius Zhou. On the day of discharge her symptoms were resolved. She recounted her neurologic symptoms over the last several years and that she is currently seeing her neurologist at [facility] 6 months. She was heard that statins can cause problems and these have never been recommended to her by her neurologist. She was felt to be stable for discharge home today. She will continue baby aspirin. She was asked to call Dr. Ramirez to schedule an appointment with him for the next couple of weeks. I will push all images to [facility] through the PACS. No new medications are recommended. She was advised to call 911 for symptoms concerning of stroke. Status at Discharge Cognitive/behavioral status at discharge: oriented Functional status at discharge: independent ambulation Overall status at discharge: patient is back to baseline Time Spent with Patient Time spent: Greater than 30 minutes Exam Vital Signs (past 8 hours): - 03/16/24 09:10 03/16/24 12:00 Temperature 97.6 F Pulse Rate 76 83 Respiratory Rate 16 16 Blood Pressure 133/64 117/80 Pulse Oximetry 100 98 Oxygen Flow Rate 0 Oxygen Delivery Method Room Air Oxygen Flow Rate 0 Narrative Exam Narrative: NAD, fluent speech Normal stregth or arms and legs. No leg edema Normal content of thought. Normal gait. Objective ECG Impression: NSR Imaging Multiple studies:: Radiologist's impression: Cervical MRI: IMPRESSION: No masses or abnormal enhancement is identified. The spinal cord is normal in size and signal intensity throughout. Multilevel degenerative changes of the cervical spine as described above. Mild central canal stenosis at C6-C7. Severe neural foraminal stenosis on the right at C5-C6 and C6-C7 peer Brain MRI: IMPRESSION: 1. No acute or subacute infarct. No acute intracranial abnormalities. 2. No abnormal intracranial enhancement. No intracranial masses are identified. 3. Mild age-related global volume loss and chronic microvascular ischemic changes. CT Brain/CTA head and neck: No acute intracranial pathology. No significant intracranial arterial abnormality is seen. No significant abnormality is seen within the arteries of the neck. Labs 03/16/24 04:40 03/16/24 04:40 Labs: Laboratory Results - last 24 hr 03/15/24 03/15/24 03/15/24 16:45 18:09 18:09 WBC 6.4 RBC 4.28 Hgb 12.5 Hct 37.6 MCV 87.9 MCH 29.2 MCHC 33.2 RDW 13.1 Plt Count 203 Neut % (Auto) 52.8 Lymph % (Auto) 31.6 [place] % (Auto) 11.2 Eos % (Auto) 3.3 Baso % (Auto) 1.1 Neut # (Auto) 3400 Lymph # (Auto) 2000 [place] # (Auto) 700 Eos # (Auto) 200 Baso # (Auto) 100 PT 11.4 INR 1.0 APTT 35 Sodium 137 Potassium 3.8 Chloride 107 Carbon Dioxide 24 BUN 26 H Creatinine 0.92 Estimated GFR > 60 BUN/Creatinine Ratio 28.3 H Glucose 107 Hemoglobin A1c Calcium 8.4 Magnesium 2.2 Total Bilirubin 0.4 AST 23 ALT 15 Alkaline Phosphatase 77 Total Creatine Kinase 77 Troponin I < 0.012 Total Protein 6.3 Albumin 3.9 Globulin 2.4 Albumin/Globulin Ratio 1.6 Triglycerides Cholesterol LDL Cholesterol, Calc HDL Cholesterol TSH Urine Color Yellow Urine Appearance Clear Urine pH 6.5 Normal Ur Specific [place] 1.010 Urine Protein Negative Urine Glucose (UA) Negative Urine Ketones Negative Urine Occult Blood 1+ H Urine Nitrate Negative Urine Bilirubin Negative Urine Urobilinogen 0.2 Ur Leukocyte Esterase Negative Urine RBC 0-1/hpf Urine WBC None seen Ur Squamous Epith Cells 0-1 /hpf Urine Bacteria Few (2-10) H Ur Culture Indicated? Cult not indicated Vol Urine Centrifuged 10ml (spun) U Opiates 300ng/mL cut Negative Ur Oxycodone Screen Negative Urine Methadone Screen Negative Ur Barbiturates Screen Negative U Tricyclic Antidepress Negative Ur Phencyclidine Scrn Negative Ur Amphetamines Screen Negative U Methamphetamines Scrn Negative Ur MDMA Scrn (Ecstasy) Negative U Benzodiazepines Scrn Negative Urine Cocaine Screen Negative U Marijuana (THC) Screen Negative Urine Specific [place] Normal Ur Creatinine Normal 03/16/24 04:40 WBC 5.9 RBC 4.38 Hgb 12.7 Hct 38.2 MCV 87.3 MCH 29.0 MCHC 33.2 RDW 13.4 Plt Count 193 Neut % (Auto) 61.8 Lymph % (Auto) 22.7 L [place] % (Auto) 11.4 Eos % (Auto) 3.3 Baso % (Auto) 0.8 Neut # (Auto) 3600 Lymph # (Auto) 1300 [place] # (Auto) 700 Eos # (Auto) 200 Baso # (Auto) 0 PT INR APTT Sodium 141 Potassium 3.9 Chloride 112 H Carbon Dioxide 26 BUN 20 H Creatinine 0.69 Estimated GFR > 60 BUN/Creatinine Ratio 29.0 H Glucose 86 Hemoglobin A1c 5.5 Calcium 8.6 Magnesium Total Bilirubin AST ALT Alkaline Phosphatase Total Creatine Kinase Troponin I Total Protein Albumin Globulin Albumin/Globulin Ratio Triglycerides 71 Cholesterol 167 LDL Cholesterol, Calc 104 H HDL Cholesterol 49 TSH 1.78 Urine Color Urine Appearance Urine pH Ur Specific [place] Urine Protein Urine Glucose (UA) Urine Ketones Urine Occult Blood Urine Nitrate Urine Bilirubin Urine Urobilinogen Ur Leukocyte Esterase Urine RBC Urine WBC Ur Squamous Epith Cells Urine Bacteria Ur Culture Indicated? Vol Urine Centrifuged U Opiates 300ng/mL cut Ur Oxycodone Screen Urine Methadone Screen Ur Barbiturates Screen U Tricyclic Antidepress Ur Phencyclidine Scrn Ur Amphetamines Screen U Methamphetamines Scrn Ur MDMA Scrn (Ecstasy) U Benzodiazepines Scrn Urine Cocaine Screen U Marijuana (THC) Screen Urine Specific [place] Ur Creatinine PFSH Medical History Murmur, cardiac Patent foramen ovale Lower urinary tract symptoms (LUTS) History of recurrent UTI (urinary tract infection) Postmenopausal atrophic vaginitis Chronic UTI Arthritis Breast nodule Migraines Osteoarthritis Recurrent UTI History of fracture of right ankle (1981) Raynaud's disease Positive PPD, 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 Transient right arm numbness and weakness, present on admission and resolved. 2. Chronic leptomeningeal abnormalities on imaging, stable. 3. HTN, present on admission and active. 4. Anxiety, present on andmission and stable. 5. PFO, stable. Plan of Treatment: Discharge home with no change to medications and continue baby aspirin. Expedited follow up with her primary neurologist, Dr. Demetrius Ramirez at [facility]. We will push all imaging to [facility] today. Discharge Plan Discharge Plan Patient Disposition: Home Provider Discharge Comment: Stable for discharge home, continue baby aspirin. 911 for stroke-like symptoms. Discharge orders & Medications Prescriptions: Continued fluticasone propionate [Flovent HFA] 10.6 GM HFA aerosol inhaler 1 inh inhalation DIRECTED Qty: 0 levalbuterol tartrate [Xopenex HFA] 45 MCG/INH HFA aerosol inhaler 1 puff inhalation PRN PRN (Reason: Shortness Of Breath) Qty: 0 Patient Comments: usually takes qam cholecalciferol (vitamin D3) [Vitamin D3] 2,000 UNIT capsule 2,000 unit PO DAILY Qty: 0 Probiotic 1 cap PO DAILY Qty: 0 d-mannose Powder 1 each PO DAILY amlodipine 2.5 mg tablet 2.5 mg PO DAILY Qty: 30 0RF magnesium glycinate 100 mg Tablet 100 mg PO DAILY aspirin [Adult Aspirin Regimen] 81 mg tablet,delayed release (DR/EC) 81 mg PO DAILY estradiol [Estrace] 0.01 % (0.1 mg/gram) cream 1 gram VAG 2XW Qty: 42.5 6RF Rx Instructions: Please provide patient with compounded estriol 0.0125% compounded cream lutein 20 mg tablet 20 mg PO DAILY Rx Instructions: give with meal/snack Follow up/Referrals: I[facility] MD [Primary Care Provider] - Discharge Health Status Multidrug resistant organism: No MDRO Diet/Activity/Treatments Diet: Diet as Tolerated Visit Report/Discharge Packet Stand Alone Forms: Patient Portal/API, Stroke Signs & Symptoms Discharge Data Primary Care Provider: Iban Hoover Attending Provider: London Madsen Admit Date/Time: 03/15/24 19:18
--- NOTE | 2024-03-16 19:32 | DI.MRI.S_ITS ---
PROCEDURE: MR HEAD/BRAIN WO/W CON INDICATIONS: STROKE PROTOCOL TECHNIQUE: Noncontrast axial T1 spin echo, axial T2 fast spin echo, sagittal and axial FLAIR, coronal T2 fast spin echo, axial gradient echo, axial diffusion and ADC through the brain. After the administration of contrast, axial and coronal and sagittal T1 spin echo with fat saturation through the brain. COMPARISON: [facility], CT, CT STROKE, 03/15/2024, 16:33. FINDINGS: Image quality: Excellent. CSF spaces: Basal cisterns are patent. No extra-axial fluid collections. Ventricles are normal in size and shape. Brain: No midline shift. No intracranial bleeds or masses. No abnormal intracranial enhancement. There is cerebral volume loss for age. There is periventricular white matter chronic small vessel ischemic change. The brainstem appears normal. Diffusion-weighted images demonstrate no acute infarct. No chronic ischemic insults. Normal intravascular flow voids are present. Skull and face: Calvarial marrow is normal in signal. Orbits appear normal. Sinuses: Sinuses and mastoids appear clear. IMPRESSION: 1. No acute or subacute infarct. No acute intracranial abnormalities. 2. No abnormal intracranial enhancement. No intracranial masses are identified. 3. Mild age-related global volume loss and chronic microvascular ischemic changes. Dictated by: Alessandro Casas M.D. on 03/16/2024 at 11:05 Approved by: Alessandro Casas M.D. on 03/16/2024 at 11:09
--- NOTE | 2024-03-16 19:33 | DI.MRI.S_ITS ---
PROCEDURE: MR CERVICAL SPINE WO/W CON INDICATIONS: suspeceted leptomeningeal tumor TECHNIQUE: Noncontrast sagittal T1 spin echo and T2 fast spin echo, sagittal STIR, foraminal oblique sagittal T2 fast spin echo, axial gradient echo or T2 fast spin echo through the cervical spine. After the administration of contrast, axial and sagittal T1 spin echo with fat saturation through the cervical spine. COMPARISON: None. FINDINGS: Image quality: Excellent. Alignment and curvature: There is normal bony alignment. Marrow: Marrow is normal in overall signal, without suspicious enhancement. Spinal cord: Visualized spinal cord has normal size and signal. No cerebellar tonsillar herniation. No abnormal intramedullary enhancement. Paraspinous soft tissues: No paravertebral masses or suspicious enhancement. C2-3: Disc desiccation and small central posterior disc osteophyte complex. No central canal stenosis. Facet and uncovertebral arthropathy. No significant neural foraminal stenosis. C3-4: Disc desiccation and minimal posterior disc osteophyte complex. No central canal stenosis. Facet and uncovertebral arthropathy. Moderate left and mild right neural foraminal stenosis. C4-5: Disc desiccation and posterior disc osteophyte complex. No significant central canal stenosis. Facet and uncovertebral arthropathy. Mild bilateral neural foraminal stenosis. C5-6: Disc desiccation height loss. Minimal posterior disc osteophyte complex. No central canal stenosis. Facet and uncovertebral arthropathy. Severe right and moderate left neural foraminal stenosis. C6-7: Disc desiccation height loss. Posterior disc osteophyte complex. Mild central canal stenosis. Facet and uncovertebral arthropathy. Severe right and moderate left neural foraminal stenosis. C7-T1: Disc desiccation. No significant central canal or neural foraminal stenosis. IMPRESSION: No masses or abnormal enhancement is identified. The spinal cord is normal in size and signal intensity throughout. Multilevel degenerative changes of the cervical spine as described above. Mild central canal stenosis at C6-C7. Severe neural foraminal stenosis on the right at C5-C6 and C6-C7 peer Dictated by: Alessandro Casas M.D. on 03/16/2024 at 11:09 Approved by: Alessandro Casas M.D. on 03/16/2024 at 11:14
== END 2024-03-16 13:53 | disposition home or self-care (01) ==
LOC: ED 19:13 → AC 19:22
PROVIDERS: Admitting Provider Internal Medicine; Emergency Provider Emergency Medicine; Family Provider Family Medicine; PCP Family Medicine; Referring Provider Emergency Medicine; Visit Provider Internal Medicine
DX: R53.1 Weakness (principal); R20.0 Anesthesia of skin; R93.0 Abnormal findings on diagnostic imaging of skull and head, not elsewhere classified; Z87.440 Personal history of urinary (tract) infections; G43.109 Migraine with aura, not intractable, without status migrainosus; I10 Essential (primary) hypertension; J47.9 Bronchiectasis, uncomplicated; F41.9 Anxiety disorder, unspecified
CPT/HCPCS: 36415; 70450; 70496; 70498; 70553; 71045; 72156; 80048; 80053; 80061; 80305; 81001; 81003; 82550; 82962; 83036; 83735; 84443; 84484; 85025; 85610; 85730; 93005; 93306; 96372; 99284; 99291; G0378; Q3014; A9579; J1650; Q9967

== ENCOUNTER → 2024-03-30 16:29 | Outpatient (CLI) | payer MEDICARE, OTHER, SELFPAY ==
[2024-03-15 20:41] VITALS: BMI 20.6
--- NOTE | 2024-03-30 16:30 | DI.US.S_ITS ---
PROCEDURE: US PERIPH VENOUS LOW EXTREM RT INDICATIONS: Right lower leg mass TECHNIQUE: Real-time imaging, as well as color and pulse Doppler interrogation, were performed of the lower extremity deep veins from the inguinal ligament to the popliteal fossa, with documentation of the visualized calf veins. COMPARISON: None. FINDINGS: The common femoral, femoral, popliteal, and the visualized calf veins are normally compressible, and free of intraluminal thrombus. Color and pulse Doppler demonstrate normal phasic intraluminal flow. There is normal augmentation response to distal compression maneuver. At the area of clinical concern within the posterior mid right calf, multiple superficial varicosities are seen, which are all compressible. IMPRESSION: No findings of lower extremity deep venous thrombosis. Patent superficial varicosities can be seen at the area of clinical concern involving the calf. Dictated by: Jan Tellez M.D. on 03/30/2024 at 16:20 Approved by: Jan Tellez M.D. on 03/30/2024 at 16:21
== END ==
PROVIDERS: Family Provider Family Medicine; PCP Family Medicine; Referring Provider Nurse Practitioner Family; Visit Provider Nurse Practitioner Family
DX: R22.41 Localized swelling, mass and lump, right lower limb (principal); I83.91 Asymptomatic varicose veins of right lower extremity
CPT/HCPCS: 93971

== ENCOUNTER → 2024-04-01 08:18 | Outpatient (CLI) | payer MEDICARE, OTHER, SELFPAY ==
[2024-03-15 20:41] VITALS: BMI 20.6
== END ==
PROVIDERS: Family Provider Family Medicine; PCP Family Medicine; Referring Provider Nurse Practitioner Family; Visit Provider Nurse Practitioner Family
DX: R30.0 Dysuria (principal)
CPT/HCPCS: 87086

== ENCOUNTER → 2024-07-29 11:38 | Outpatient (CLI) | payer MEDICARE, OTHER, SELFPAY ==
[2024-03-15 20:41] VITALS: BMI 20.6
== END ==
PROVIDERS: Family Provider Family Medicine; PCP Family Medicine; Visit Provider Urology
DX: N39.0 Urinary tract infection, site not specified (principal); N95.2 Postmenopausal atrophic vaginitis; R35.1 Nocturia; R33.9 Retention of urine, unspecified; R39.9 Unspecified symptoms and signs involving the genitourinary system
CPT/HCPCS: 51798; 81002; 87086; 99214

== ENCOUNTER → 2024-08-22 | Outpatient (CLI) | payer MEDICARE, OTHER, SELFPAY ==
[2024-08-12 08:47] VITALS: BMI 20.6
--- NOTE | 2024-08-22 | DI.MG.S_ITS ---
BILATERAL DIGITAL SCREENING MAMMOGRAM 3D/2D WITH CAD: 08/22/2024 CLINICAL: Routine screening. Comparison is made to exams dated: 08/17/2023 mammogram, 07/27/2022 mammogram, 07/10/2021 mammogram, 07/08/2020 mammogram, 06/29/2019 ultrasound, and 06/29/2019 mammogram - [facility]. The breasts are heterogeneously dense, which may obscure small masses (category c / 51-75% glandular tissue). Current study was also evaluated with a Computer Aided Detection (CAD) system. No significant masses, calcifications, or other findings are seen in either breast. There has been no significant interval change. IMPRESSION: NEGATIVE There is no mammographic evidence of malignancy. A 1 year screening mammogram is recommended. Based on the Tyrer Cuzick model (a risk assessment model) the patient's lifetime risk is 12.6% and her 10 year risk is 9.5%. According to the ACR, ACS, and NCCN guidelines, an annual breast MRI exam along with mammogram is recommended if the patient's lifetime risk is 20% or greater. This exam was interpreted at Station ID: [id number]. NOTE: For mammograms, a report in lay terms will be sent to the patient. Approximately 15% of breast malignancies will not be visualized mammographically. In the management of a palpable breast mass, a negative mammogram must not discourage biopsy of a clinically suspicious lesion. Electronically Signed By: Jackeline Mata M.D., Ph.D. [email or web address]:09/03/2024 11:36:47 letter sent: Normal Exam ACR BI-RADS Category 1: Negative
== END ==
LOC: MAMMO 07:45
PROVIDERS: Family Provider Family Medicine; PCP Family Medicine; Referring Provider Family Medicine; Visit Provider Family Medicine
DX: Z12.31 Encounter for screening mammogram for malignant neoplasm of breast (principal)
CPT/HCPCS: 77063; 77067

== ENCOUNTER → 2024-09-01 09:33 | Outpatient (CLI) | payer MEDICARE, OTHER, SELFPAY ==
[2024-08-12 08:47] VITALS: BMI 20.6
== END ==
PROVIDERS: Family Provider Family Medicine; PCP Family Medicine; Visit Provider Urology
DX: R39.9 Unspecified symptoms and signs involving the genitourinary system (principal); Z87.440 Personal history of urinary (tract) infections; N39.0 Urinary tract infection, site not specified; R35.1 Nocturia; R33.9 Retention of urine, unspecified; N95.2 Postmenopausal atrophic vaginitis
CPT/HCPCS: 87077; 87086; 87147; 87186

== ENCOUNTER 2024-09-12 12:21 | Emergency (ER) | payer MEDICARE, OTHER, SELFPAY ==
[2024-08-12 08:47] VITALS: BMI 20.6
[2024-09-12] VITALS (24 sets, daily range): BP systolic 121–152; BP diastolic 56–109; PULSE 76–92; RESP 14–22; TEMP 37; O2SAT 96–100; BMI 21.7
--- NOTE | 2024-09-12 12:26 | EKG_ITS ---
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
--- NOTE | 2024-09-12 12:29 | DI.RAD.S_ITS ---
PROCEDURE: XR CHEST 1V INDICATIONS: chest pain TECHNIQUE: One view of the chest was acquired. COMPARISON: [facility], CR, XR CHEST 1V, 03/15/2024, 16:47. FINDINGS: Surgical changes and devices: None. Lungs and pleura: Lungs are clear. No pleural effusions or pneumothorax. Mediastinum: Mediastinal contours appear normal. Heart size is normal. Bones and chest wall: No suspicious bony lesions. Overlying soft tissues appear unremarkable. IMPRESSION: No acute cardiopulmonary abnormality is seen. Dictated by: Andre Kelly M.D. on 09/12/2024 at 13:03 Approved by: Andre Kelly M.D. on 09/12/2024 at 13:03
[2024-09-12 12:44] LABS: INR 0.9 (0.9-1.3); Prothrombin Time 10.7 SECONDS (9.4-12.5)
[2024-09-12 12:47] LABS: PTT Partial Thromboplastin Tim 35 SECONDS (25.1-36.5)
[2024-09-12 12:48] LABS: Add Manual Diff / Slide Review NO; Alanine Aminotransferase 20 IU/L (<35); Albumin 4.8 g/dL (3.5-5.0); Albumin Globulin Ratio 1.6 (1.0-2.8); Alkaline Phosphatase 84 U/L (38-126); Aspartate Aminotransferase 30 IU/L (14-36); Basophils Absolute Auto 100 /uL (0-100); Basophils Percent Auto 0.8 % (0-2); Bilirubin Total 0.4 mg/dL (0.2-1.3); Blood Urea Nitrogen 21 mg/dL (7-17); Calcium 9.5 mg/dL (8.4-10.2); Carbon Dioxide 25 mmol/L (22-32); Chloride 107 mmol/L (98-107); Creatine Kinase 60 U/L (30-135); Eosinophils Absolute Auto 100 /uL (0-450); Eosinophils Percent Auto 1.6 % (2-4); Estimated Glomerular Filt Rate > 60 mL/min (>60); Glucose 112 mg/dL (80-110); HEMOLYSIS < 15 (0-50); Hematocrit 43.6 % (36-46); Hemoglobin 14.3 g/dL (12.0-16.0); Lipase 117 U/L (23-300); Lymphocytes Absolute Auto 1900 /uL (1100-4500); Lymphocytes Percent Auto 22.3 % (25-40); Magnesium 1.9 mg/dL (1.6-2.3); Mean Corpuscular HGB Conc 32.8 % (30-36); Mean Corpuscular Hemoglobin 28.7 PG (26-34); Mean Corpuscular Volume 87.5 fL (80-100); Monocytes Absolute Auto 800 /uL (0-900); Monocytes Percent Auto 9.8 % (3-14); Neutrophils Absolute Auto 5600 /uL (1500-7000); Neutrophils Percent Auto 65.5 % (50-75); Platelet Count 258 X10^3/uL (150-400); Potassium 3.5 mmol/L (3.4-5.1); Red Blood Cell Count 4.99 X10^6/uL (4.0-5.2); Red Cell Distribution Width 13.9 % (11.6-14.8); Sodium 141 mmol/L (137-145); Total Protein 7.8 g/dL (6.3-8.2); White Blood Cell Count 8.5 X10^3/uL (4.5-11.0)
[2024-09-12 12:59] LABS: NT-proBNP (BNP-Adult 18+) 215 pg/mL (<125); Troponin I 0.392 ng/mL (0.01-0.034)
--- NOTE | 2024-09-12 13:01 | ED.CHESTPAIN ---
HPI - Chest Pain General Chief Complaint: Chest Pain Stated Complaint: Chest Pain x2 hrs. Time Seen by Provider: 09/12/24 13:01 History of Present Illness HPI narrative: patient is a 74-year-old female history of hypertension comes into the ED from home for evaluation of chest pain, states that this happened approximately 2 hours prior to arrival states that she found out that her horse got out last night and started chasing it when she started having chest pain this morning, has persisted therefore called EMS, did obtain full dose aspirin and 1 sublingual nitro without change to pain. She states that she does follow up with [facility]. Related Data Home Medications Medication Instructions Recorded Confirmed fluticasone propionate 44 1 inh inhalation DIRECTED ##0 06/19/16 09/11/24 mcg/actuation HFA aerosol inhaler (Flovent HFA) levalbuterol tartrate 45 1 puff inhalation PRN PRN 06/19/16 09/11/24 mcg/actuation aerosol inhaler Shortness Of Breath ##0 (Xopenex HFA) cholecalciferol (vitamin D3) 50 2,000 unit PO DAILY #0 caps 08/10/16 09/11/24 mcg (2,000 unit) capsule (Vitamin D3) Probiotic 1 cap PO DAILY ##0 04/17/17 09/11/24 d-mannose 1 each PO DAILY 07/29/20 09/11/24 lutein 20 mg tablet 20 mg PO DAILY 08/16/21 09/11/24 magnesium glycinate 100 mg (as 100 mg PO DAILY 03/15/24 09/11/24 glycinate) tablet Previous Rx's Medication Instructions Recorded estradiol 0.01% (0.1 mg/gram) 1 gram vaginal 2XW #42.5 grams 08/04/20 vaginal cream (Estrace) amlodipine 2.5 mg tablet 2.5 mg PO DAILY #30 tabs 09/10/21 Allergies Allergy/AdvReac Type Severity Reaction Status Date / Time diltiazem Allergy Intermediate chest pain Verified 09/01/24 09:31 adhesive Allergy Mild REDNESS & Verified 09/01/24 09:31 BURNING FROM TAPE budesonide Allergy Unknown ITCHY Verified 09/01/24 09:31 pseudoephedrine Allergy Unknown TACHYCARDIA Verified 09/01/24 09:31 Sulfa (Sulfonamide Allergy Unknown Verified 11/12/24 09:31 Antibiotics) azithromycin AdvReac Intermediate GI UPSET Verified 09/01/24 09:31 metronidazole AdvReac Intermediate Vomiting Verified 09/01/24 09:31 nitrofurantoin AdvReac Intermediate Verified 09/01/24 09:31 [From Macrobid] albuterol [ALBUTEROL] AdvReac Unknown INCREASED Verified 09/01/24 09:31 HEARTRATE butalbital AdvReac Unknown NAUSEA/VOMITING Verified 09/01/24 09:31 WITH FIORINAL carisoprodol AdvReac Unknown DIZZINESS Verified 09/01/24 09:31 AND UPSET STOMACH codeine AdvReac Unknown SEVERE Verified 09/01/24 09:31 NAUSEA/VOMITING hydrocodone AdvReac Unknown SEVERE Verified 09/01/24 09:31 NAUSEA/VOMITIND Review of Systems Review of Systems Narrative: General: Denies fever, chills, weight loss HEENT: Denies headache, eye drainage, eye irritation, head trauma, sore throat, voice change Cardiovascular: Positive chest pain, palpitations, shortness of breath, tachycardia Respiratory: Denies any shortness of breath, cough, wheeze, stridor GI/: Denies any abdominal pain, nausea, vomiting, diarrhea, bright red blood per rectum, melanotic stools, urinary frequency, urinary retention, dysuria, hematuria MSK: Denies any joint pain, muscle pains, swelling Skin: Denies any rashes, lesions, discoloration Neuro: Denies any headache, lightheadedness, dizziness, fainting, weakness Psych: Denies SI/HI Patient History Medical History (Updated 09/12/24 @ 14:03 by Armaan Blanchard DO) Murmur, cardiac Patent foramen ovale Lower urinary tract symptoms (LUTS) History of recurrent UTI (urinary tract infection) Postmenopausal atrophic vaginitis Chronic UTI Arthritis Breast nodule Migraines Osteoarthritis Recurrent UTI History of fracture of right ankle (1981) Raynaud's disease Positive PPD, 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 [employer] Smoking Status: Never smoker alcohol intake frequency: 0-2 drinks per day Substance Use Type: does not use Exam Narrative Exam Narrative: General: Cooperative, comfortable, well-developed, not in acute distress HEENT: Normocephalic, atraumatic, PERRLA, normal sclera, eyelids normal, Neck: Active full range of motion, atraumatic Chest: Normal to inspection, negative crepitus, no overlying erythema ecchymosis Respiratory: Normal respiratory effort, not in acute respiratory distress, clear to auscultation bilaterally negative cough, wheeze, tachypnea, rhonchi, rales Cardiology: Regular rate rhythm negative gallop, murmur, rubs GI/: Normal to inspection, soft, nonrigid, no tenderness to palpation, exam deferred MSK: Full range of active range of motion of all 4 extremities, atraumatic Skin: No rashes lesions noted Neuro: Alert awake oriented x3, moves all 4 extremities spontaneously, cranial nerves intact, able to answer all questions appropriately follows commands appropriately Psych: Cooperative, negative suicidal or homicidal ideations Initial Vital Signs Initial Vital Signs: Vital Signs Pulse Rate 90 09/12/24 12:23 Respiratory Rate 22 09/12/24 12:23 Pulse Oximetry 99 09/12/24 12:23 Course Orders Ordered: ED Orders 09/12/24 12:24 Complete Blood Count AUTO DIFF Stat Comprehensive Metabolic Panel Stat Lipase Stat Magnesium Stat NT-proBNP (BNP-Adult 18+) Stat PTT Partial Thromboplastin Grant Stat Prothrombin Time INR Stat Troponin & CK Cardiac Panel Stat 09/12/24 12:29 XR chest 1V Stat EKG-12 Lead Stat 09/12/24 14:35 Troponin I Stat Heparin Sodium/Dextrose (Heparin Drip) 25,000 unit in 500 mls @ 14.696 mls/hr IV CONT LELE; Protocol Last Titration: 09/12/24 17:44 Dose: 12 units/kg/hr, 14.7 mls/hr Documented By: MACIE Co-signed By: WILIAN Admin: 09/12/24 13:32 Dose: 12 units/kg/hr, 14.7 mls/hr Documented By: SCOT Co-signed By: WILIAN Discontinued Medications Heparin Sodium (Porcine) (Heparin 5,000 Unit/Ml Vial) 3,500 unit 60 unit/kg (3500 unit) IV NOW ONE Stop: 09/12/24 13:12 Last Admin: 09/12/24 13:29 Dose: 3,500 unit Documented By: SCOT Nitroglycerin (Nitroglycerin 0.4 Mg Sl Tab) 0.4 mg SL NOW ONE Stop: 09/12/24 13:11 Last Admin: 09/12/24 13:30 Dose: 0.4 mg Documented By: SCOT Vital Signs Vital signs: Vital Signs - 8 hr 09/12/24 12:23 09/12/24 12:24 09/12/24 12:24 Temperature Pulse Rate 90 82 Respiratory Rate 22 15 Blood Pressure 127/69 Pulse Oximetry 99 98 Oxygen Delivery Method 09/12/24 12:26 09/12/24 12:30 09/12/24 12:30 Temperature 98.6 F Pulse Rate 85 83 Respiratory Rate 16 22 Blood Pressure 127/69 148/79 H Pulse Oximetry 97 98 Oxygen Delivery Method Room Air Room Air 09/12/24 13:00 09/12/24 13:00 09/12/24 13:30 Temperature Pulse Rate 76 82 Respiratory Rate Blood Pressure 152/80 H 152/80 H Pulse Oximetry 99 Oxygen Delivery Method 09/12/24 13:31 09/12/24 13:32 09/12/24 13:32 Temperature Pulse Rate 83 81 Respiratory Rate 16 Blood Pressure 141/89 H Pulse Oximetry 98 99 Oxygen Delivery Method 09/12/24 13:45 09/12/24 13:45 09/12/24 14:00 Temperature Pulse Rate 84 Respiratory Rate 14 Blood Pressure 136/74 129/70 Pulse Oximetry 96 Oxygen Delivery Method 09/12/24 14:00 09/12/24 14:15 09/12/24 14:15 Temperature Pulse Rate 79 80 Respiratory Rate 17 Blood Pressure 134/73 Pulse Oximetry 100 99 Oxygen Delivery Method 09/12/24 14:30 09/12/24 14:30 09/12/24 14:45 Temperature Pulse Rate 88 Respiratory Rate 18 Blood Pressure 132/66 131/70 Pulse Oximetry 99 Oxygen Delivery Method 09/12/24 14:45 09/12/24 15:00 09/12/24 15:00 Temperature Pulse Rate 77 81 Respiratory Rate 20 20 Blood Pressure 142/77 H Pulse Oximetry 99 98 Oxygen Delivery Method 09/12/24 15:15 09/12/24 15:15 09/12/24 15:30 Temperature Pulse Rate 78 76 Respiratory Rate 20 14 Blood Pressure 122/56 L Pulse Oximetry 98 99 Oxygen Delivery Method 09/12/24 15:30 09/12/24 15:59 09/12/24 15:59 Temperature Pulse Rate 92 H Respiratory Rate 14 Blood Pressure 121/59 L 134/76 Pulse Oximetry 99 Oxygen Delivery Method 09/12/24 16:00 09/12/24 16:00 09/12/24 16:16 Temperature Pulse Rate 91 H Respiratory Rate 14 Blood Pressure 132/71 142/72 H Pulse Oximetry 98 Oxygen Delivery Method Room Air 09/12/24 16:16 09/12/24 16:30 09/12/24 16:30 Temperature Pulse Rate 92 H 80 Respiratory Rate 21 21 Blood Pressure 143/71 H Pulse Oximetry 100 98 Oxygen Delivery Method 09/12/24 16:45 09/12/24 16:45 09/12/24 17:00 Temperature Pulse Rate 87 Respiratory Rate 22 Blood Pressure 145/70 H 131/71 Pulse Oximetry 98 Oxygen Delivery Method 09/12/24 17:16 09/12/24 17:16 09/12/24 17:22 Temperature Pulse Rate 91 H Respiratory Rate 17 Blood Pressure 138/109 H 151/79 H Pulse Oximetry 99 Oxygen Delivery Method Room Air 09/12/24 17:22 Temperature Pulse Rate 90 Respiratory Rate 20 Blood Pressure Pulse Oximetry 99 Oxygen Delivery Method Room Air MDM - Chest Pain Differential Diagnosis Differential diagnosis: Likely st elevation myocardial infarction, costochondritis, chest pain and other ( ACS, pneumonia,) Lab Data 09/12/24 12:24 09/12/24 12:24 Labs: Lab Results 09/12/24 09/12/24 Range/Units 12:24 14:35 WBC 8.5 (4.5-11.0) X10^3/uL RBC 4.99 (4.0-5.2) X10^6/uL Hgb 14.3 (12.0-16.0) g/dL Hct 43.6 (36-46) % MCV 87.5 (80-100) fL MCH 28.7 (26-34) PG MCHC 32.8 (30-36) % RDW 13.9 (11.6-14.8) % Plt Count 258 (150-400) X10^3/uL Neut % (Auto) 65.5 (50-75) % Lymph % (Auto) 22.3 L (25-40) % [place] % (Auto) 9.8 (3-14) % Eos % (Auto) 1.6 L (2-4) % Baso % (Auto) 0.8 (0-2) % Neut # (Auto) 5600 (4866-6114) /uL Lymph # (Auto) 1900 (3045-6768) /uL [place] # (Auto) 800 (0-900) /uL Eos # (Auto) 100 (0-450) /uL Baso # (Auto) 100 (0-100) /uL PT 10.7 (9.4-12.5) SECONDS INR 0.9 (0.9-1.3) APTT 35 (25.1-36.5) SECONDS Sodium 141 (137-145) mmol/L Potassium 3.5 (3.4-5.1) mmol/L Chloride 107 (98-107) mmol/L Carbon Dioxide 25 (22-32) mmol/L BUN 21 H (7-17) mg/dL Creatinine 0.70 (0.52-1.04) mg/dL Estimated GFR > 60 (>60) mL/min BUN/Creatinine Ratio 30.0 H (6-22) Glucose 112 H (80-110) mg/dL Calcium 9.5 (8.4-10.2) mg/dL Magnesium 1.9 (1.6-2.3) mg/dL Total Bilirubin 0.4 (0.2-1.3) mg/dL AST 30 (14-36) IU/L ALT 20 (<35) IU/L Alkaline Phosphatase 84 (38-126) U/L Total Creatine Kinase 60 (30-135) U/L Troponin I 0.392 H* 1.870 H* (0.01-0.034) ng/mL NT-Pro-B Natriuret Pep 215 H (<125) pg/mL Total Protein 7.8 (6.3-8.2) g/dL Albumin 4.8 (3.5-5.0) g/dL Globulin 3.0 (1.7-4.1) g/dL Albumin/Globulin Ratio 1.6 (1.0-2.8) Lipase 117 (23-300) U/L Imaging Data Chest x-ray: Radiologist's Impression: [address] [address] XRay Report Signed Patient: Ruchi Lemus MR#: [id number] : 1950 Acct:[id number] Age/Sex: 74 / F Date of Service: 09/12/24 Loc: ED Accession Number: [id number] Procedure: XR chest 1V Ordering Provider: Armaan Blanchard D.O. PROCEDURE: XR CHEST 1V INDICATIONS: chest pain TECHNIQUE: One view of the chest was acquired. COMPARISON: [facility], , XR CHEST 1V, 03/15/2024, 16:47. FINDINGS: Surgical changes and devices: None. Lungs and pleura: Lungs are clear. No pleural effusions or pneumothorax. Mediastinum: Mediastinal contours appear normal. Heart size is normal. Bones and chest wall: No suspicious bony lesions. Overlying soft tissues appear unremarkable. IMPRESSION: No acute cardiopulmonary abnormality is seen. ECG Data Interpretation: EKG interpreted by ED physician, sinus at 84 beats per minute, QTC 460 occasional PAC noted, nonspecific ST changes no STEMI MDM Narrative Medical decision making narrative: patient is a 74-year-old female with a history of hypertension presents to the emergency department for chest pain that started around 10 a.m. today. States it started after she was chasing her horse that got loose, states it is to the center of her chest nothing making it better or worse did receive full-dose aspirin and nitro prior to arrival, EKG nonischemic in nature, patient remaining to still have 6/10 chest pain additional nitro ordered. Patient with elevated troponin at 0.392, repeat pending. we will initiate heparinization at this time, patient will require transfer for Cardiology and possible catheterization given active chest pain with elevated troponin. 1403: discussed case with director council on aging Dr. Dsouza, agrees with current workup does agree that patient will require transfer to [facility] given active chest pain with elevated troponin, no other intervention at this time. 1641: Had discussion with Dr. Galeana ( hospitalist) at [facility] who accepts the admission, patient will be transferred to [facility] Discharge Plan Departure Patient Disposition: Xfer [facility] Clinical Impression: Non-ST elevation AL (NSTEMI) Prescriptions: No Action fluticasone propionate [Flovent HFA] 10.6 GM HFA aerosol inhaler 1 inh inhalation DIRECTED Qty: 0 levalbuterol tartrate [Xopenex HFA] 45 MCG/INH HFA aerosol inhaler 1 puff inhalation PRN PRN (Reason: Shortness Of Breath) Qty: 0 Patient Comments: usually takes qam cholecalciferol (vitamin D3) [Vitamin D3] 2,000 UNIT capsule 2,000 unit PO DAILY Qty: 0 Probiotic 1 cap PO DAILY Qty: 0 d-mannose Powder 1 each PO DAILY amlodipine 2.5 mg tablet 2.5 mg PO DAILY Qty: 30 0RF magnesium glycinate 100 mg Tablet 100 mg PO DAILY estradiol [Estrace] 0.01 % (0.1 mg/gram) cream 1 gram VAG 2XW Qty: 42.5 6RF Rx Instructions: Please provide patient with compounded estriol 0.0125% compounded cream lutein 20 mg tablet 20 mg PO DAILY Rx Instructions: give with meal/snack Referrals: Iban Hoover MD [Primary Care Provider] -
[2024-09-12] MEDS: HEPARIN 5,000 UNIT/ML VIAL 3500 UNIT IV (13:29)
[2024-09-12] MEDS: NITROGLYCERIN 0.4 MG SL TAB SL (13:30)
[2024-09-12] MEDS: HEPARIN DRIP 25,000 UNIT/500 ML IV.SOLN 14.7 UNIT IV (13:32)
--- NOTE | 2024-09-12 13:45 | PC.NURSE ---
Heparin started with cosign double nurse verification. Educated patient to request stand by assist for abmulation.
--- NOTE | 2024-09-12 17:04 | PC.NURSE ---
Pt lung sounds clear, s1,s2. denies current chest pain. resting in room. Report called to Dewayne Pt to go to room [facility] 3002. Marion Means RN
== END 2024-09-12 17:55 | disposition short-term general hospital (02) ==
PROVIDERS: Emergency Provider Student in an Organized Health Care Education/Training Program; Family Provider Family Medicine; PCP Family Medicine
DX: I21.4 Non-ST elevation (NSTEMI) myocardial infarction (principal); I44.4 Left anterior fascicular block
CPT/HCPCS: 36415; 71045; 80053; 82550; 83690; 83735; 83880; 84484; 85025; 85610; 85730; 93005; 96365; 96366; 96375; 99284; 99285; J1644

== ENCOUNTER → 2024-11-02 08:33 | Outpatient (CLI) | payer MEDICARE, OTHER, SELFPAY ==
[2024-08-12 08:47] VITALS: BMI 20.6
--- NOTE | 2024-11-02 08:35 | DI.US.S_ITS ---
PROCEDURE: US RENAL COMPLETE INDICATIONS: INCOMPLETE BLADDER EMPTYING TECHNIQUE: Real-time scanning was performed of the kidneys and bladder, with image documentation. COMPARISON: [facility], , RENAL COMPLETE, 12/22/2014, 9:02. FINDINGS: Kidneys: Kidneys are normal in size. Right kidney measures 9.6 cm long; left kidney measures 10.3 cm long. Right renal cortical thickness is 1.0 cm; left renal cortical thickness is 1.6 cm. Renal cortical echotexture is normal. No hydronephrosis or nephrolithiasis. No suspicious solid mass lesions. Bladder: Pre-void bladder volume is 412 mL. Post-void residual is 203 mL. Pre-void images demonstrate no intraluminal masses or stones. On pre-void images, the left ureteral jets are noted with color Doppler interrogation. (Of note, ureteral jets may not be detectable in up to 25% of cases due to insufficient differences in specific gravity between ureteral and bladder urine). Miscellaneous: No free pelvic fluid. IMPRESSION: Postvoid residual of 203 milliliter, abnormal. Dictated by: Erik Loza M.D. on 11/02/2024 at 11:15 Approved by: Erik Loza M.D. on 11/02/2024 at 11:16
[2024-11-02 10:07] LABS: Estimated Glomerular Filt Rate > 60 mL/min (>60)
== END ==
PROVIDERS: Family Provider Family Medicine; PCP Family Medicine; Referring Provider Urology; Visit Provider Urology
DX: R33.9 Retention of urine, unspecified (principal)
CPT/HCPCS: 36415; 76770; 82565

== ENCOUNTER → 2024-11-05 | Outpatient (CLI) | payer MEDICARE, OTHER, SELFPAY ==
[2024-08-12 08:47] VITALS: BMI 20.6
--- NOTE | 2024-11-05 07:09 | DI.ECHO.S_ITS ---
[place] [facility] : : [address] : : [place] [address] : : [id number] : : Phone: [phone] Echocardiogram Report + + :Name: DEBBIE PATRICK Study Date: 11/05/2024 Height: 66 in : :[facility] ReadingLocation: Weight: 132 lb : : Gender: Female BSA: 1.7 m2 : :: 1950 Age: 74 yrs BP: 134/73 mmHg: :Reason For Study: CARDIOMYOPATHY : :Ordering Physician: MARCIE, : :ATA Performed By: Aron Rosado : :Referring: ATA DSOUZA : + + Interpretation Summary 1) Normal left ventricular thickness and size with mildly reduced systolic function (EF 45-50%). 2) Normal right ventricular size and function. 3) There is mild aortic regurgitation. 4) Compared to the Echo done 09/13/2024, LVEF has improved from 35-40% to 45- 50% on this study. Procedure: A two-dimensional transthoracic echocardiogram with color flow and Doppler was performed. The study quality was technically good. Comparison is made with the echocardiogram of 09/13/2024. The patient was in normal sinus rhythm during the exam. Left Ventricle: The left ventricle is normal in size. There is normal left ventricular wall thickness. There is no ventricular septal defect visualized. The ejection fraction is estimated to be 45-50%. There is mild global hypokinesis of the left ventricle. Diastolic parameters suggest a relaxation abnormality of the left ventricle, consistent with probable normal filling pressures. Right Ventricle: The right ventricle is normal in size and function. Atria: The left atrium is moderately dilated. Right atrial size is normal. There is no Doppler evidence for an atrial septal defect. Mitral Valve: The mitral valve leaflets appear normal. There is no evidence of stenosis, fluttering, or prolapse. There is trace mitral regurgitation. Aortic Valve: The aortic valve is trileaflet. The aortic valve opens well. There is no aortic valve stenosis. There is mild aortic regurgitation. Tricuspid Valve: The tricuspid valve leaflets are thin and pliable. There is trace tricuspid regurgitation. The right ventricular systolic pressure is estimated to be at least 22 mmHg based on an estimated right atrial pressure of 3 mm Hg. Pulmonic Valve: The pulmonic valve is normal in structure and function. There is trace pulmonic regurgitation. Great Vessels: The aortic root is normal size. The dimensions of the ascending aorta are normal. The pulmonary artery is normal size. The IVC is of normal diameter and collapses greater than 50% with a sniff. This suggests a low right atrial pressure of 3 mm Hg. Pericardium/ Pleura There is no pericardial effusion. There is no pleural effusion. MMode/2D Measurements & Calculations LVIDd: 4.4 cm LVOT diam: 2.1 cm LVIDs: 3.0 cm Ao root diam: 3.2 cm FS: 31.6 % asc Aorta Diam: 3.4 cm EPSS: 0.78 cm Ao Arch Diam (Prox Trans): 2.6 cm IVSd: 0.92 cm LVPWd: 0.84 cm LV chu. diameter/BSA (cm/m^2): 2.6 LV sys. diameter/BSA (cm/m^2): 1.8 LA A2 area: 18.7 cm2 RA long axis: 4.1 cm LA A4 area: 15.5 cm2 RA area: 10.4 cm2 LA length (vol): 4.3 cm RA vol: 22.5 ml LA vol: 57.4 ml RA : 13.4 ml/m2 LA vol index: 34.2 ml/m2 IVC diam: 1.1 cm RVD1 (basal): 3.3 cm RVD2 (mid): 2.9 cm TAPSE: 2.4 cm Doppler Measurements & Calculations Ao V2 max: 111.8 cm/sec LVOT Max Delbert: 72.4 cm/sec Ao V2 mean: 81.8 cm/sec LV V1 max P.1 mmHg Ao max P.0 mmHg LV V1 VTI: 15.5 cm Ao mean P.9 mmHg TAINA(I,D): 2.4 cm2 Ao V2 VTI: 23.8 cm TAINA(V,D): 2.3 cm2 sev ratio: 0.65 TAINA indexed to BSA (cm^2/m^2): 1.4 MV E max delbert: 37.9 cm/sec TR max delbert: 216.7 cm/sec MV A max delbert: 64.8 cm/sec TR max P.8 mmHg MV E/A: 0.58 PA V2 max: 57.8 cm/sec Med Peak E' Delbert: 3.8 cm/sec PA V2 mean: 41.2 cm/sec E/E' med: 10.1 PA mean P.73 mmHg Lat Peak E' Delbert: 2.4 cm/sec PA pr(Accel): 46.5 mmHg E/E' lat: 16.0 E/e' average: 13.0 MV dec time: 0.15 sec SV(LVOT): 56.3 ml Reading Physician:09:18 AM
== END ==
PROVIDERS: Family Provider Family Medicine; PCP Family Medicine; Referring Provider Internal Medicine Cardiovascular Disease; Visit Provider Internal Medicine Cardiovascular Disease
DX: I35.1 Nonrheumatic aortic (valve) insufficiency (principal); I42.9 Cardiomyopathy, unspecified
CPT/HCPCS: 93306

== ENCOUNTER → 2024-11-22 12:30 | Outpatient (CLI) | payer MEDICARE, OTHER, SELFPAY ==
[2024-08-12 08:47] VITALS: BMI 20.6
== END ==
PROVIDERS: Family Provider Family Medicine; PCP Family Medicine; Visit Provider Nurse Practitioner Family
DX: R10.2 Pelvic and perineal pain (principal); R82.90 Unspecified abnormal findings in urine
CPT/HCPCS: 87086; 87210

== ENCOUNTER → 2025-05-12 08:11 | Outpatient (CLI) | payer MEDICARE, OTHER, SELFPAY ==
[2024-08-12 08:47] VITALS: BMI 20.6
== END ==
PROVIDERS: Family Provider Family Medicine; PCP Family Medicine; Visit Provider Urology
DX: R33.9 Retention of urine, unspecified (principal); N39.0 Urinary tract infection, site not specified
CPT/HCPCS: 87077; 87086; 87186

== ENCOUNTER 2025-07-13 10:54 | Emergency (ER) | payer MEDICARE, OTHER, SELFPAY ==
[2024-08-12 08:47] VITALS: BMI 20.6
--- NOTE | 2025-07-13 10:55 | ED.WEAKNESS ---
HPI - Weakness General Chief complaint: Weakness Stated complaint: Weak, dizzy Time Seen by Provider: 07/13/25 10:55 History of Present Illness HPI Narrative: Patient is a 75-year-old female past medical history of hypertension, takotsubo cardiomyopathy, comes into the ED from home via EMS for evaluation of ?wooziness she states that this started spontaneously at around 8:00 a.m.. States she feels unsteady on her feet but denies any actual headache visual disturbances chest pain shortness breath fever chills nausea vomiting abdominal pain or any other GI/ symptoms at this time. At time of evaluation NIH of 0 no focal deficits. Patient states that she does follow up with Dr. Dsouza (cardiology). Not on any blood thinners. Denies any other symptoms at this time Related Data Home Medications ?Medication ?Instructions ?Recorded ?Confirmed fluticasone propionate 44 1 inh inhalation DIRECTED ##0 06/19/16 05/12/25 mcg/actuation HFA aerosol inhaler (Flovent HFA) levalbuterol tartrate 45 1 puff inhalation PRN PRN 06/19/16 05/12/25 mcg/actuation aerosol inhaler Shortness Of Breath ##0 (Xopenex HFA) cholecalciferol (vitamin D3) 50 2,000 unit PO DAILY #0 caps 08/10/16 05/12/25 mcg (2,000 unit) capsule (Vitamin D3) Probiotic 1 cap PO DAILY ##0 04/17/17 05/12/25 d-mannose 1 each PO DAILY 07/29/20 05/12/25 lutein 20 mg tablet 20 mg PO DAILY 08/16/21 05/12/25 magnesium glycinate 100 mg (as 100 mg PO DAILY 03/15/24 05/12/25 glycinate) tablet aspirin 81 mg capsule 81 mg PO DAILY 11/11/24 05/12/25 metoprolol tartrate 25 mg tablet 25 mg PO DAILY 11/11/24 05/12/25 Previous Rx's ?Medication ?Instructions ?Recorded estradiol 0.01% (0.1 mg/gram) 1 gram vaginal 2XW #42.5 grams 08/04/20 vaginal cream (Estrace) amlodipine 2.5 mg tablet 2.5 mg PO DAILY #30 tabs 09/10/21 meclizine 25 mg tablet 25 mg PO BID PRN dizziness 1 week 07/13/25 #14 tabs Allergies Allergy/AdvReac Type Severity Reaction Status Date / Time diltiazem Allergy Intermediate chest pain Verified 05/12/25 08:04 adhesive Allergy Mild REDNESS & Verified 05/12/25 08:04 BURNING FROM TAPE atorvastatin (From Lipitor) Allergy Mild Abdominal Verified 05/12/25 08:04 Pain budesonide Allergy Unknown ITCHY Verified 05/12/25 08:04 pseudoephedrine Allergy Unknown TACHYCARDIA Verified 05/12/25 08:04 Sulfa (Sulfonamide Allergy Unknown Verified 05/12/25 08:04 Antibiotics) azithromycin AdvReac Intermediate GI UPSET Verified 05/12/25 08:04 Gadolinium-Containing AdvReac Intermediate Rash Verified 05/12/25 08:04 Contrast Medi metronidazole AdvReac Intermediate Vomiting Verified 05/12/25 08:04 nitrofurantoin (From AdvReac Intermediate Verified 05/12/25 08:04 Macrobid) albuterol (ALBUTEROL) AdvReac Unknown INCREASED Verified 05/12/25 08:04 HEARTRATE butalbital AdvReac Unknown NAUSEA/VOMITING Verified 05/12/25 08:04 WITH FIORINAL carisoprodol AdvReac Unknown DIZZINESS Verified 05/12/25 08:04 AND UPSET STOMACH codeine AdvReac Unknown SEVERE Verified 05/12/25 08:04 NAUSEA/VOMITING hydrocodone AdvReac Unknown SEVERE Verified 05/12/25 08:04 NAUSEA/VOMITIND Review of Systems Review of Systems Narrative: General: Positive generalized weakness Denies fever, chills, weight loss HEENT: Denies headache, eye drainage, eye irritation, head trauma, sore throat, voice change Cardiovascular: Denies any chest pain, palpitations, tachycardia Respiratory: Denies any shortness of breath, cough, wheeze, stridor GI/: Denies any abdominal pain, nausea, vomiting, diarrhea, bright red blood per rectum, melanotic stools, urinary frequency, urinary retention, dysuria, hematuria MSK: Denies any joint pain, muscle pains, swelling Skin: Denies any rashes, lesions, discoloration Neuro: Positive lightheaded, dizziness Denies any headache,fainting, weakness Psych: Denies SI/HI Patient History Medical History (Updated 07/13/25 @ 12:19 by Armaan Blanchard DO) Murmur, cardiac Patent foramen ovale Lower urinary tract symptoms (LUTS) History of recurrent UTI (urinary tract infection) Postmenopausal atrophic vaginitis Chronic UTI Arthritis Breast nodule Migraines Osteoarthritis Recurrent UTI History of fracture of right ankle (1981) Raynaud's disease Positive PPD, 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 [employer] alcohol intake frequency: 0-2 drinks per day Exam Narrative Exam Narrative: General: Cooperative, well-developed, not in acute distress HEENT: Normocephalic, atraumatic, PERRLA, normal sclera, eyelids normal Neck: Active full range of motion, atraumatic Chest: Normal to inspection, negative crepitus, no overlying erythema ecchymosis Respiratory: Normal respiratory effort, not in acute respiratory distress, clear to auscultation bilaterally negative cough, wheeze, tachypnea, rhonchi, rales Cardiology: Regular rate rhythm negative gallop, murmur, rubs GI/: No tenderness to palpation, soft, non rigid, normal to inspection, exam deferred MSK: Full active range of motion in all 4 extremities, atraumatic, no tenderness to palpation of any bony prominences Skin: No rashes or lesions noted Neuro: NIH of 0, no focal deficits Alert awake oriented x3, moves all 4 extremities spontaneously, cranial nerves intact, able to answer all questions appropriately follows commands appropriately Psych: Cooperative, negative suicidal or homicidal ideations Initial Vital Signs Initial Vital Signs: Vital Signs Temperature 97.6 F 07/13/25 11:03 Pulse Rate 77 07/13/25 11:03 Respiratory Rate 12 07/13/25 11:03 Blood Pressure 182/77 H 07/13/25 11:03 Pulse Oximetry 100 07/13/25 11:03 Oxygen Delivery Method Room Air 07/13/25 11:03 Course Orders Ordered: ED Orders 07/13/25 10:55 Complete Blood Count AUTO DIFF Stat Comprehensive Metabolic Panel Stat Lipase Stat MAG [Magnesium] Stat NT-proBNP (BNP-Adult 18+) Stat PTT Partial Thromboplastin Grant Stat Prothrombin Time INR Stat Troponin & CK Cardiac Panel Stat 07/13/25 10:57 XR chest 1V Stat EKG-12 Lead Stat 07/13/25 11:01 CT angio head and neck Stat CT head/brain wo con Stat 07/13/25 11:03 Respiratory Panel (Film Array) Stat Discontinued Medications Diphenhydramine HCl (Diphenhydramine 50 Mg/Ml Vial) 25 mg IV NOW ONE Stop: 07/13/25 11:17 Last Admin: 07/13/25 11:27 Dose: 25 mg Documented By: JOSUE Sodium Chloride (Normal Saline 0.9%) 1,000 mls @ 1,000 mls/hr IV BOLUS ONE Stop: 07/13/25 11:56 Last Admin: 07/13/25 11:12 Dose: 1,000 mls/hr Documented By: JOSUE Meclizine HCl (Meclizine Hcl 12.5 Mg Tablet) 25 mg PO NOW ONE Stop: 07/13/25 10:58 Last Admin: 07/13/25 11:12 Dose: 25 mg Documented By: JOSUE Metoclopramide HCl (Metoclopramide 10 Mg/2 Ml Inj) 10 mg IV NOW ONE Stop: 07/13/25 11:17 Last Admin: 07/13/25 11:27 Dose: 10 mg Documented By: JOSUE Vital Signs Vital signs: Vital Signs - 8 hr 07/13/25 11:03 07/13/25 11:04 07/13/25 11:30 Temperature 97.6 F Pulse Rate 77 75 82 Respiratory Rate 12 19 21 Blood Pressure 182/77 H Pulse Oximetry 100 100 99 Oxygen Delivery Method Room Air 07/13/25 11:31 07/13/25 11:31 07/13/25 12:00 Temperature Pulse Rate 83 79 Respiratory Rate 23 19 Blood Pressure 171/70 H Pulse Oximetry 100 99 Oxygen Delivery Method MDM - Weakness Lab Data 07/13/25 10:55 07/13/25 10:55 Labs: Lab Results 07/13/25 07/13/25 Range/Units 10:55 11:03 WBC 7.3 (4.5-11.0) X10^3/uL RBC 4.81 (4.0-5.2) X10^6/uL Hgb 14.1 (12.0-16.0) g/dL Hct 41.4 (36-46) % MCV 86.2 (80-100) fL MCH 29.4 (26-34) PG MCHC 34.0 (30-36) % RDW 13.5 (11.6-14.8) % Plt Count 236 (150-400) X10^3/uL Neut % (Auto) 65.0 (50-75) % Lymph % (Auto) 22.2 L (25-40) % [place]undy % (Auto) 9.5 (3-14) % Eos % (Auto) 2.4 (2-4) % Baso % (Auto) 0.9 (0-2) % Neut # (Auto) 4700 (5981-4781) /uL Lymph # (Auto) 1600 (0500-3237) /uL [place]undy # (Auto) 700 (0-900) /uL Eos # (Auto) 200 (0-450) /uL Baso # (Auto) 100 (0-100) /uL PT 10.8 (9.4-12.5) SECONDS INR 1.0 (0.9-1.3) APTT 31 (25.1-36.5) SECONDS Sodium 137 (137-145) mmol/L Potassium 3.9 (3.4-5.1) mmol/L Chloride 103 (98-107) mmol/L Carbon Dioxide 22 (22-32) mmol/L BUN 22 H (7-17) mg/dL Creatinine 0.77 (0.52-1.04) mg/dL Estimated GFR > 60 (>60) mL/min BUN/Creatinine Ratio 28.6 H (6-22) Glucose 107 H (70-99) mg/dL Calcium 9.4 (8.4-10.2) mg/dL Magnesium 2.1 (1.6-2.3) mg/dL Total Bilirubin 0.3 (0.2-1.3) mg/dL AST 33 (14-36) IU/L ALT 17 (<35) IU/L Alkaline Phosphatase 79 (38-126) U/L Total Creatine Kinase 41 (30-135) U/L Troponin I < 0.012 (0.01-0.034) ng/mL NT-Pro-B Natriuret Pep 122 (<125) pg/mL Total Protein 8.0 (6.3-8.2) g/dL Albumin 4.8 (3.5-5.0) g/dL Globulin 3.2 (1.7-4.1) g/dL Albumin/Globulin Ratio 1.5 (1.0-2.8) Lipase 132 (23-300) U/L Chlamy pneumoniae PCR Not detected (Not Detect) Adenovirus (PCR) Not detected (Not Detect) B. pertussis DNA (PCR) Not detected (Not Detect) B.parapertussis DNA PCR Not detected (Not Detecte) Coronavirus OC43 (PCR) Not detected (Not Detect) Coronavirus HKU1 (PCR) Not detected (Not Detect) Coronavirus 229E (PCR) Not detected (Not Detect) SARS-CoV-2 (PCR) Not detected (Not Detecte) Coronavirus NL63 (PCR) Not detected (Not Detect) Human Metapneumovir PCR Not detected (Not Detect) Influenza Type A (PCR) Not detected (Not Detect) Influenza Type B (PCR) Not detected (Not Detect) M. pneumoniae (PCR) Not detected (Not Detect) Parainfluenza 1 (PCR) Not detected (Not Detect) Parainfluenza 2 (PCR) Not detected (Not Detect) Parainfluenza 3 (PCR) Not detected (Not Detect) Parainfluenza 4 (PCR) Not detected (Not Detect) RSV (PCR) Not detected (Not Detect) Entero/Rhino (PCR) Not detected (Not Detect) ECG Data Interpretation: EKG interpreted ED physician sinus 69 beats per minute QTC 450 sinus arrhythmia, QRS MT interval within normal limits no STEMI MDM Narrative Medical decision making narrative: 75-year-old female with a history of takotsubo cardiomyopathy, hypertension, presents to the ED from home via EMS for evaluation of lightheaded dizziness generalized weakness. States it was sudden onset at around 8:00 a.m. today. She denies any other symptoms. NIH of 0 no focal deficits. Patient had lab work imaging urinalysis EKG performed here in the emergency department. Patient had lab work, WBC 7.3, Chem panel unremarkable, troponin negative BNP negative, EKG nonischemic in nature, patient did have CT head CT angio head and neck that did not show any acute findings for her symptoms did noted upper bilateral chest nodules which was instructed to patient to follow up with. She is not having any chest pain shortness breath, respiratory panel negative. She had improvement of her symptoms after administration of medication here, she will be sent home with symptomatic relief instructed to follow up with primary care and her neurologist in outpatient setting, she verbalized understanding and agrees to being discharged home with outpatient follow up Discharge Plan Departure Patient Disposition: Home Clinical Impression: Dizziness Activity Restrictions/Additional Instructions: Please follow up with your primary care doctor and her neurologist Please read the discharge instructions sheet carefully and bring all papers to all doctor follow-up visits, as it may contain information that your doctor may want to see. Disease processes change and evolve, if your symptoms worsen or if you develop any new symptoms that are concerning to you please return for evaluation. Your evaluation today does not show any evidence of any life-threatening/serious illnesses requiring admission to the hospital or surgery. Please follow-up with your doctor for re-evaluation in approximately 1 day. Seek immediate medical attention for any worrisome symptoms. *If you do not have a primary care provider please contact the [facility] Resource line at [phone]. They will ask some questions about your medical history and help get you set up with a doctor in the community. Prescriptions: New meclizine 25 mg tablet 25 mg PO BID PRN (Reason: dizziness) 7 Days Qty: 14 0RF No Action fluticasone propionate [Flovent HFA] 10.6 GM HFA aerosol inhaler 1 inh inhalation DIRECTED Qty: 0 levalbuterol tartrate [Xopenex HFA] 45 MCG/INH HFA aerosol inhaler 1 puff inhalation PRN PRN (Reason: Shortness Of Breath) Qty: 0 Patient Comments: usually takes qam cholecalciferol (vitamin D3) [Vitamin D3] 2,000 UNIT capsule 2,000 unit PO DAILY Qty: 0 Probiotic 1 cap PO DAILY Qty: 0 d-mannose Powder 1 each PO DAILY amlodipine 2.5 mg tablet 2.5 mg PO DAILY Qty: 30 0RF magnesium glycinate 100 mg Tablet 100 mg PO DAILY estradiol [Estrace] 0.01 % (0.1 mg/gram) cream 1 gram VAG 2XW Qty: 42.5 6RF Rx Instructions: Please provide patient with compounded estriol 0.0125% compounded cream lutein 20 mg tablet 20 mg PO DAILY Rx Instructions: give with meal/snack metoprolol tartrate 25 mg tablet 25 mg PO DAILY aspirin 81 mg capsule 81 mg PO DAILY Referrals: Iban Hoover MD [Primary Care Provider, Family Practice] Stand Alone Forms: Patient Portal/API
--- NOTE | 2025-07-13 10:57 | DI.RAD.S_ITS ---
PROCEDURE: XR CHEST 1V INDICATIONS: weakness TECHNIQUE: One view of the chest was acquired. COMPARISON: [facility], CR, XR CHEST 1 VIEW, 09/13/2024, 8:01. [facility], CR, XR CHEST 1V, 03/15/2024, 16:47. [facility], CR, XR CHEST 1V, 09/12/2024, 12:44. FINDINGS: Surgical changes and devices: None. Lungs and pleura: Lungs are clear. No pleural effusions or pneumothorax. Mediastinum: Mediastinal contours appear normal. Heart size is normal. Bones and chest wall: No suspicious bony lesions. Overlying soft tissues appear unremarkable. IMPRESSION: Portable chest within normal limits for age. No focal infiltrates are seen. Dictated by: Jan Tellez M.D. on 07/13/2025 at 10:50 Approved by: Jan Tellez M.D. on 07/13/2025 at 10:51
--- NOTE | 2025-07-13 11:01 | DI.CT.S_ITS ---
PROCEDURE: CT HEAD/BRAIN WO CON INDICATIONS: Lightheaded dizzy. TECHNIQUE: Noncontrast 4.5 mm thick angled axial sections acquired from the foramen magnum to the vertex, with coronal and sagittal reformats. For radiation dose reduction, the following was used: automated exposure control, adjustment of mA and/or kV according to patient size. COMPARISON: [facility], CT, CT STROKE, 03/15/2024, 16:33. [facility], MR, MR HEAD/BRAIN WO/W CON, 03/16/2024, 9:18. FINDINGS: Image quality: Diagnostic. CSF spaces: Basal cisterns are patent. No extra-axial fluid collections. The ventricles are symmetric in size and shape. Brain: No intracranial bleeds or mass effect. There is cerebral volume loss, with resultant ventricular and sulcal prominence. There are periventricular and deep white matter chronic small vessel ischemic changes. There is intracranial internal carotid artery atherosclerosis. Skull and face: Calvarium and visualized facial bones appear intact, without suspicious lesions. Sinuses: Visualized sinuses and mastoids are clear. IMPRESSION: No acute intracranial pathology. Dictated by: Desiree Lemos MD, PhD on 07/13/2025 at 11:57 Approved by: Desiree Lemos MD, PhD on 07/13/2025 at 12:00
--- NOTE | 2025-07-13 11:01 | DI.CT.S_ITS ---
PROCEDURE: CT ANGIO HEAD AND NECK INDICATIONS: Lightheaded dizzy TECHNIQUE: After the administration of intravenous contrast, 1 mm thick sections acquired from the aortic arch through the [place]. 3-dimensional isejxlg-rccowienk-jrbhhtbefj (MIP) and/or volume rendering reformats were acquired of the central intracranial vasculature and neck separately. For radiation dose reduction, the following was used: automated exposure control, adjustment of mA and/or kV according to patient size. COMPARISON: [facility], CT, CT HEAD/BRAIN WO CON, 07/13/2025, 11:46. [facility], CT, CT ANGIO HEAD AND NECK, 03/15/2024, 16:33. FINDINGS: Image quality: Diagnostic. Cerebral CT Angiogram: Internal carotid arteries: No acute findings. Intracranial ICA are patent with no significant stenosis. No occlusion. No aneurysm. Anterior cerebral arteries: Unremarkable. No significant stenosis. No occlusion. No aneurysm. Middle cerebral arteries: Unremarkable. No significant stenosis. No occlusion. No aneurysm. Posterior cerebral arteries: Unremarkable. 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 No significant stenosis. No occlusion. No aneurysm. Basilar artery: Unremarkable. No significant stenosis. No occlusion. No aneurysm. Vertebral arteries: Unremarkable as visualized. Dural venous sinuses: Unremarkable given phase of enhancement. Other: Arterial phase appearance of the brain parenchyma is unremarkable. Neck CT Angiogram: Internal carotid arteries: Unremarkable. No significant stenosis. No dissection or occlusion. Common carotid arteries: Unremarkable. No significant stenosis. No dissection or occlusion. External carotid arteries: Unremarkable. No occlusion. Vertebral arteries: Unremarkable. No significant stenosis. No dissection or occlusion. Aortic Arch and Mediastinum: Partially visualized aortic arch unremarkable without evidence of aneurysm. Great vessels demonstrate bovine variant anatomy. Left vertebral artery arises from the aortic arch. Other: Arterial phase soft tissues of the neck and chest are unremarkable. Spine degenerative disc disease and facet arthropathy. Bilateral upper lobe lung nodules ranging in size from 3-9 millimeters. IMPRESSION: No large vessel occlusion, significant vascular stenosis, vascular dissection or aneurysm. Bilateral upper lobe nodules ranging in size from 2-[address] emergent [address] scan of the chest with contrast to exclude neoplastic process including metastatic disease. Any quantitative measurements of stenosis were performed using NASCET criteria. Dictated by: Desiree Lemos MD, PhD on 07/13/2025 at 12:00 Approved by: Desiree Lemos MD, PhD on 07/13/2025 at 12:09
[2025-07-13 11:03] VITALS: BP 182/77; PULSE 77; RESP 12; TEMP 36.4; O2SAT 100; BMI 22.1
[2025-07-13 11:04] VITALS: PULSE 75; RESP 19; O2SAT 100
[2025-07-13] MEDS: MECLIZINE HCL 12.5 MG TABLET 25 MG PO (11:12)
[2025-07-13] MEDS: SODIUM CHLORIDE 0.9% 1,000 ML 1000 ML IV (11:12)
[2025-07-13 11:15] LABS: Add Manual Diff / Slide Review NO; Hematocrit 41.4 % (36-46); Hemoglobin 14.1 g/dL (12.0-16.0); INR 1.0 (0.9-1.3); Lymphocytes Absolute Auto 1600 /uL (1100-4500); Mean Corpuscular HGB Conc 34.0 % (30-36); Mean Corpuscular Hemoglobin 29.4 PG (26-34); Mean Corpuscular Volume 86.2 fL (80-100); Platelet Count 236 X10^3/uL (150-400); Prothrombin Time 10.8 SECONDS (9.4-12.5)
[2025-07-13 11:18] LABS: PTT Partial Thromboplastin Tim 31 SECONDS (25.1-36.5)
--- NOTE | 2025-07-13 11:18 | EKG_ITS ---
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
[2025-07-13] MEDS: METOCLOPRAMIDE 10 MG/2 ML INJ IV (11:27)
[2025-07-13] MEDS: diphenhydrAMINE 50 MG/ML VIAL 25 MG IV (11:27)
[2025-07-13 11:28] LABS: Alanine Aminotransferase 17 IU/L (<35); Albumin 4.8 g/dL (3.5-5.0); Albumin Globulin Ratio 1.5 (1.0-2.8); Alkaline Phosphatase 79 U/L (38-126); Blood Urea Nitrogen 22 mg/dL (7-17); Calcium 9.4 mg/dL (8.4-10.2); Carbon Dioxide 22 mmol/L (22-32); Chloride 103 mmol/L (98-107); Creatine Kinase 41 U/L (30-135); Estimated Glomerular Filt Rate > 60 mL/min (>60); Globulin 3.2 g/dL (1.7-4.1); Glucose 107 mg/dL (70-99); HEMOLYSIS 19 (0-50); Lipase 132 U/L (23-300); Magnesium 2.1 mg/dL (1.6-2.3); Potassium 3.9 mmol/L (3.4-5.1); Sodium 137 mmol/L (137-145); Total Protein 8.0 g/dL (6.3-8.2)
[2025-07-13 11:30] VITALS: PULSE 82; RESP 21; O2SAT 99
[2025-07-13 11:31] VITALS: BP 171/70; PULSE 83; RESP 23; O2SAT 100
[2025-07-13 11:40] LABS: NT-proBNP (BNP-Adult 18+) 122 pg/mL (<125); Troponin I < 0.012 ng/mL (0.01-0.034)
[2025-07-13 12:00] VITALS: PULSE 79; RESP 19; O2SAT 99
[2025-07-13 12:15] LABS: Coronavirus NL 63 Not Detected (Not Detect); SARS- CoV-2 Not Detected (Not Detecte)
== END 2025-07-13 12:56 | disposition home or self-care (01) ==
PROVIDERS: Emergency Provider Student in an Organized Health Care Education/Training Program; Family Provider Family Medicine; PCP Family Medicine
DX: R42 Dizziness and giddiness (principal); R29.700 NIHSS score 0
CPT/HCPCS: 36415; 70450; 70496; 70498; 71045; 80053; 82550; 83690; 83735; 83880; 84484; 85025; 85610; 85730; 87633; 93005; 96361; 96374; 96375; 99284; J1200; J2765; Q9967

== ENCOUNTER → 2025-09-07 07:09 | Outpatient (CLI) | payer MEDICARE, OTHER, SELFPAY ==
[2024-08-12 08:47] VITALS: BMI 20.6
== END ==
PROVIDERS: Family Provider Family Medicine; PCP Family Medicine; Visit Provider Chiropractor
DX: R30.0 Dysuria (principal)
CPT/HCPCS: 87077; 87086